=== PATIENT | female | born 1940 | race Caucasian/White ===

== ENCOUNTER 2020-06-16 13:10 | Outpatient (REF) | payer MEDICARE, OTHER, SELFPAY | END 2020-06-16 13:11 | disposition home or self-care (01) | LOC: HO.LNP 13:10 | PROVIDERS: Visit Provider Internal Medicine | DX: I48.91 Unspecified atrial fibrillation (principal); Z79.01 Long term (current) use of anticoagulants ==

== ENCOUNTER → 2020-06-16 13:20 | Outpatient (BNVA) | payer MEDICARE, OTHER, SELFPAY | PROVIDERS: PCP Internal Medicine; Referring Provider Internal Medicine; Visit Provider Internal Medicine | DX: I48.0 Paroxysmal atrial fibrillation (principal); Z51.81 Encounter for therapeutic drug level monitoring; Z79.01 Long term (current) use of anticoagulants | CPT/HCPCS: 85610; 99211 ==

== ENCOUNTER 2020-07-11 12:47 | Outpatient (REF) | payer MEDICARE, OTHER, SELFPAY | END 2020-07-11 12:48 | disposition home or self-care (01) | LOC: HO.HMGCLDS 12:47 | PROVIDERS: PCP Internal Medicine; Visit Provider Internal Medicine | DX: Z20.828 Contact with and (suspected) exposure to other viral communicable diseases (principal) | CPT/HCPCS: 87635 ==

== ENCOUNTER → 2020-07-14 13:18 | Outpatient (BNVA) | payer MEDICARE, OTHER, SELFPAY | PROVIDERS: PCP Internal Medicine; Visit Provider Internal Medicine | DX: I48.0 Paroxysmal atrial fibrillation (principal); Z51.81 Encounter for therapeutic drug level monitoring; Z79.01 Long term (current) use of anticoagulants | CPT/HCPCS: 85610; 99211 ==

== ENCOUNTER → 2020-07-22 11:15 | Outpatient (BNVA) | payer MEDICARE, OTHER, SELFPAY | PROVIDERS: PCP Internal Medicine; Referring Provider Internal Medicine; Visit Provider Nurse Practitioner Family | DX: I25.10 Atherosclerotic heart disease of native coronary artery without angina pectoris (principal); I48.19 Other persistent atrial fibrillation; I10 Essential (primary) hypertension; E78.00 Pure hypercholesterolemia, unspecified; R07.89 Other chest pain; Z95.2 Presence of prosthetic heart valve; Z95.1 Presence of aortocoronary bypass graft | CPT/HCPCS: 93005; 99212 ==

== ENCOUNTER → 2020-08-04 13:03 | Outpatient (BNVA) | payer MEDICARE, OTHER, SELFPAY | PROVIDERS: PCP Internal Medicine; Visit Provider Internal Medicine | DX: I48.0 Paroxysmal atrial fibrillation (principal); Z51.81 Encounter for therapeutic drug level monitoring; Z79.01 Long term (current) use of anticoagulants | CPT/HCPCS: 85610; 99211 ==

== ENCOUNTER → 2020-08-25 13:07 | Outpatient (BNVA) | payer MEDICARE, OTHER, SELFPAY | PROVIDERS: PCP Internal Medicine; Visit Provider Internal Medicine | DX: I48.0 Paroxysmal atrial fibrillation (principal); Z51.81 Encounter for therapeutic drug level monitoring; Z79.01 Long term (current) use of anticoagulants | CPT/HCPCS: 85610; 99211 ==

== ENCOUNTER → 2020-09-22 13:06 | Outpatient (BNVA) | payer MEDICARE, OTHER, SELFPAY | PROVIDERS: PCP Internal Medicine; Visit Provider Internal Medicine | DX: I48.0 Paroxysmal atrial fibrillation (principal); Z79.01 Long term (current) use of anticoagulants; Z51.81 Encounter for therapeutic drug level monitoring | CPT/HCPCS: 85610; 99211 ==

== ENCOUNTER → 2020-10-20 13:02 | Outpatient (BNVA) | payer MEDICARE, OTHER, SELFPAY | PROVIDERS: PCP Internal Medicine; Visit Provider Internal Medicine | DX: I48.0 Paroxysmal atrial fibrillation (principal); Z51.81 Encounter for therapeutic drug level monitoring; Z79.01 Long term (current) use of anticoagulants | CPT/HCPCS: 85610; 99211 ==

== ENCOUNTER 2020-10-27 09:10 | Outpatient (REF) | payer MEDICARE, OTHER, SELFPAY ==
[2020-10-27 11:19] LABS: MANUAL DIFF FLAG NO
[2020-10-27 11:33] LABS: Basophils Percent Auto 0.5 % (0-2); Eosinophils Absolute Auto 0.1 X10*3/uL (0.0-0.4); Eosinophils Percent Auto 1.9 % (0-4); Hematocrit 34.8 % (37-47); Hemoglobin 11.4 g/dl (12.0-16.0); Imm Gran Abs Auto 0.06 X10*3/uL (0.00-0.03); Imm Gran Pct Auto 0.8 % (0.0-0.4); Immature Retic Fraction 25.7 % (3.0-15.9); Lymphocytes Absolute Auto 4.2 X10*3/uL (1.2-4.9); Lymphocytes Percent Auto 56.6 % (20-40); Mean Corpuscular HGB Conc 32.8 g/dl (31.0-35.0); Mean Corpuscular Hemoglobin 33.2 pg (27.0-33.0); Mean Corpuscular Volume 101.5 fL (80-98); Mean Platelet Volume 12.7 fL (9.4-12.3); Monocytes Absolute Auto 0.5 X10*3/uL (0.1-1.2); Monocytes Percent Auto 6.8 % (2-11); Neutrophils Absolute Auto 2.5 X10*3/uL (2.0-8.3); Neutrophils Percent Auto 33.4 % (45-73); Platelet Count 146 X10*3/uL (160-400); Red Blood Count 3.43 X10*6/uL (4.20-5.50); Red Cell Distribution Width 17.2 % (11.0-16.0); Retic HGB Equivalent 34.2 pg (30.0-35.0); Reticulocyte Percent 2.6 % (0.5-1.8); Reticulocytes Absolute 0.088 X10*6/uL (0.026-0.095); White Blood Count 7.4 X10*3/uL (4.8-10.8)
[2020-10-27 11:35] LABS: Estimated Average Glucose 120 mg/dL; Hemoglobin A1c % 5.8 %
[2020-10-27 11:54] LABS: Alanine Aminotransferase 10 U/L (0-31); Albumin Level 3.8 g/dL (3.5-5.0); Alkaline Phosphatase 65 U/L (39-117); Anion Gap 14 (12-20); Aspartate Amino Transferase 21 U/L (5-31); Blood Urea Nitrogen 22 mg/dL (9-16); Calcium 8.6 mg/dL (8.4-10.2); Carbon Dioxide 23 mmol/L (22-29); Chloride 105 mmol/L (96-108); Cholesterol 158 mg/dL; Estimated Glomerular Filt Rate 52; Glucose Random 133 mg/dL (60-115); HDL Cholesterol 46 mg/dL; Iron 102 mcg/dL (30-160); LDL Cholesterol Calculated 96 mg/dl; Percent Iron Saturation 28 % (15-50); Potassium 4.5 mmol/L (3.3-5.1); Sodium 137 mmol/L (135-145); Total Iron Binding Capacity 362 mcg/dL (228-428); Total Protein 7.1 g/dL (6.5-8.0); Triglycerides 81 mg/dL; Unsaturated Iron Binding 260 ug/dL
[2020-10-27 12:17] LABS: Microalbum/Creatinine Ratio Ur 14.9 ug/mg cr
[2020-10-27 12:20] LABS: Ferritin 131 ng/mL (10-250); Free T4 (Free Thyroxine) 0.91 ng/dL (0.71-1.85); Thyroid Stimulating Hormone 5.42 uIU/mL (0.32-4.0); Vitamin D 25-OH Total 11.8 ng/mL (>30)
[2020-10-27 12:28] LABS: Folate 8.2 ng/mL (> or = 4.0); Vitamin B12 376 pg/mL (200-900)
[2020-10-27 12:29] LABS: Glucose Urine UA NEG (NEG); Leukocyte Esterase Urine 1+ (NEG); Nitrite Urine NEG (NEG); Urine Blood 1+ (NEG); Urine Ketones NEG (NEG); Urine Protein NEG (NEG-TRACE)
[2020-10-27 12:42] LABS: Appearance Urine HAZY; Color Urine YELLOW
[2020-10-27 13:19] LABS: RBC Urine 0 /HPF (0)
[2020-10-27 13:20] LABS: Bacteria Urine 3+ /LPF; Squamous Epithelial Cell Urine 3+ /LPF
== END 2020-10-27 09:11 | disposition home or self-care (01) ==
LOC: HO.HMGCLDS 09:10
PROVIDERS: PCP Internal Medicine; Visit Provider Internal Medicine
DX: I10 Essential (primary) hypertension (principal); D64.9 Anemia, unspecified; I48.19 Other persistent atrial fibrillation; E11.65 Type 2 diabetes mellitus with hyperglycemia; E78.00 Pure hypercholesterolemia, unspecified; E55.9 Vitamin D deficiency, unspecified
CPT/HCPCS: 36415; 80053; 80061; 81001; 82043; 82306; 82607; 82728; 82746; 83036; 83540; 84439; 84443; 85025; 85045

== ENCOUNTER → 2020-11-15 13:01 | Outpatient (REF) | payer MEDICARE, OTHER, SELFPAY ==
--- NOTE | 2020-11-15 13:00 | CA_ITS ---
Transthoracic Echocardiogram Patient (Last, First, Middle): Tamra Rivera A Gender: Female Date of : 1940 Age: 80 Procedure Date: 11/15/2020 Procedure Type: Transthoracic Echocardiogram Location: OP Height: 157.48 cm Weight: 90.72 kg BSA: 1.91 m2 Heart Rate: bpm BP: 116 / 56 mmHg Administrative Resources Associate: Referring MD: Yossi Terrell MD Symptoms: I48.2 PERMANENT AFIB . Z95.0 PACEMAKER IN SITU, I44.2 H BLOC Study Quality: Fair ECG Rhythm: Ventriculary paced rhythm Conclusions: - The left ventricular systolic function is normal. The visually estimated ejection fraction is between 55-60%. 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 - There is moderate mitral annular calcification. - There is moderate tricuspid valve regurgitation. - Moderate to severe pulmonary hypertension is present. Findings Left Ventricle Normal left ventricular cavity size. There is normal left ventricular wall thickness. The left ventricular systolic function is normal. The visually estimated ejection fraction is between 55-60%. There is no evidence of regional wall motion abnormalities. Diastolic function is indeterminate on the basis of available data. Right Ventricle Normal right ventricular cavity size and systolic function. Atria The left atrium is normal in size. The right atrium is normal in size. Aortic Valve The aortic valve was not well visualized. The peak aortic velocity is 3.48 m/s with a calculated peak gradient of 48 mmHg. The mean gradient is 30 mmHg. The aortic valve area is 1.13 cm2. There is no aortic valve regurgitation. By history, bioprosthetic aortic valve. Acceleration time- 100 milliseconds. 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 Mitral Valve There is moderate mitral annular calcification. There is mild mitral valve regurgitation. There is no mitral valve stenosis. Pulmonic Valve The pulmonic valve was not well visualized. There is trace pulmonic valve regurgitation. Tricuspid Valve Normal tricuspid valve structure. There is moderate tricuspid valve regurgitation. The right ventricular systolic pressure is 62 mmHg. Moderate to severe pulmonary hypertension is present. Great Vessels The aortic annulus, sinuses of valsalva, and asc aorta are normal in size. Venous The inferior vena cava is normal in size and collapses greater than 50% with inspiration. Pericardium/Pleural There is no evidence of pericardial effusion. Prior Study Comparison Changes noted compared to prior study dated: 04/20/2019. See comments on bioprosthetic aortic valve/pulmonary artery pressure. Measurements 2D Linear Measurements IVSd: 1.02 0.6-0.9/0.6-1.0 cm LVIDd: 4.85 3.9-5.3/4.2-5.9 cm LVIDd Index: 2.54 2.4-3.2/2.2-3.1 cm/m2 LVIDs: 3.40 2.0-3.6 cm LVPWd: 1.14 0.7-1.1 cm Ao Root: 3.10 2.1-3.5 cm LA Diam: 3.70 2.7-3.8/3.0-4.0 cm LAIDs Index: 1.94 1.5-2.3 cm/m2 LV Mass: 239.60 67-162/88-224 g LV Mass Index: 125.45 43-95/49-115 g/m2 LVOT Diam: 2.00 3.0+(-)1.3 cm 2D Systolic Function EF 4C: 45.50 >55% EF 2C: 53.80 >55% Mitral Valve MV VTI: 0.37 MV Pk Stephen: 1.68 MV Mn Stephen: 0.71 MV Pk Grad: 11.00 MV Mn Grad: 3.00 MV Pk E: 1.59 MV Decel Time: 224.00 E'Lateral: 10.10 E'Medial: 6.20 E/E' Med: 25.60 E/E' Lat: 15.70 PHT: 65.00 MVA PHT: 3.38 MVA Continuity: 2.53 Decel [place]: 7.12 Aortic Valve AoV Pk Stephen: 3.48 AoV Mn Stephen: 2.61 AoV VTI: 0.82 AoV Pk Grad: 48.00 Aov Mn Grad: 30.00 AMEE Cont.VTI: 1.13 LVOT LVOT Pk Stephen: 1.20 LVOT Mn Stephen: 0.93 LVOT VTI: 0.30 LVOT Pk Grad: 6.00 LVOT Mn Grad: 4.00 LVOT Diam: 2.00 LVOT Area: 3.14 Diastolic Function MV Pk E: 1.59 E'Medial: 6.20 E/E' Med: 25.60 E' Laterial: 10.10 E/E' Lat: 15.70 Tricuspid Valve TR Pk Stephen: 3.68 TR Pk Grad: 54.00 RA Press: 8.00 RVSP: 62.00 Great Vessels Aorta Ao Root-2D: 3.10 2.0-3.7 cm Ao Asc: 3.80 2.1-3.4 cm Pulmonary Valve PV Pk Stephen: 1.10 Peak PV Grad: 5.00 Updated in Other Vendor System with Status of Final Stanton Pyle MD electronically signed on 11/16/2020 4:28:48 PM with status of Final
== END ==
LOC: HO.CARD 13:01
PROVIDERS: Visit Provider Internal Medicine Cardiovascular Disease
DX: I44.2 Atrioventricular block, complete (principal); Z95.0 Presence of cardiac pacemaker; Z95.2 Presence of prosthetic heart valve
CPT/HCPCS: 85610; 93306; 99211

== ENCOUNTER → 2020-11-28 12:46 | Outpatient (BNVA) | payer MEDICARE, OTHER, SELFPAY | PROVIDERS: PCP Internal Medicine; Visit Provider Internal Medicine Cardiovascular Disease | DX: Z45.018 Encounter for adjustment and management of other part of cardiac pacemaker (principal); R07.89 Other chest pain; I48.19 Other persistent atrial fibrillation; I25.10 Atherosclerotic heart disease of native coronary artery without angina pectoris; T82.09XA Other mechanical complication of heart valve prosthesis, initial encounter; Z95.2 Presence of prosthetic heart valve | CPT/HCPCS: 99212 ==

== ENCOUNTER → 2020-12-08 09:38 | Outpatient (REF) | payer MEDICARE, OTHER, SELFPAY ==
--- NOTE | ~2020-12-08 | NM_ITS ---
Lexiscan Myocardial perfusion study Indication: Chest pain, assess for coronary disease and ischemia Technique: The patient was brought in for a Lexiscan perfusion study on 12/08/2020 and was injected 0.4 mg of Lexiscan intravenously. Within a minute of this injection 30 mCi of sestamibi was given intravenously. Images were obtained using the SPECT gamma camera interlaced with the gating device. Images were obtained in supine position. Resting perfusion study was performed on 12/14/2020. Patient was administered 30 mCi of sestamibi intravenously at rest. Images were then obtained in supine position. Total DLP 81mGy-cm. Images were processed with the software and compared side to side in short axis, horizontal long axis and vertical long axis views. Findings: Raw acquisition was reviewed. The stress perfusion study showed a small perfusion defect in the apical part of septum/inferior septum but otherwise unremarkable. No significant changes with CT attenuation correction. The gated study shows normal LV systolic function with calculated LVEF of 69%. LV cavity is normal in size. The gated study shows normal wall thickening and contraction of segments. Resting study shows small perfusion defect in the apical part of septum but otherwise unremarkable. Gating at rest reveals normal wall motion with ejection fraction at 71%. The findings are consistent with no reversible defects. Fixed defect in the apical part of septum/inferior septum. NM/NM josue perf SPECT rest & str Impression: 1. Myocardial perfusion imaging study shows no evidence of ischemia. Fixed defect in the apical septum/inferior septum that could be from a prior nontransmural infarct. 2. Gated LVEF is 69% during stress and 71% during rest. 3. Transient ischemic dilatation not present. EKG component of the test reported separately.
--- NOTE | 2020-12-08 09:43 | CA_ITS ---
Acquisition Time: 2020-12-08 09:53:47 Total Exercise Time: 00:02:00 Test Indications: cp sob Medications: see chart Protocol: LEXISCAN Max HR: 080 BPM 57% of Pred: 138 BPM Max BP: 146/068 mmHG Max Work Load: 1.0 METS Pharmacological stress test using Lexiscan while sitting. Pt tolerated well, except for some lightheadedness after the injection,reversed with Aminophyline 75 mg IV. EKG with isolated PVC's, non-diagnostic for ischemia. Nuclear images to follow. Normotensive response to test. Test reviewed with Dr. Pyle Referred By: Yossi Terrell Overread By: Joceline Riley NP
== END ==
LOC: HO.CARD 09:38
PROVIDERS: Visit Provider Internal Medicine Cardiovascular Disease
DX: R07.89 Other chest pain (principal)
CPT/HCPCS: 78452; 93017; A9500; J0280; J2785

== ENCOUNTER → 2020-12-14 13:35 | Outpatient (REF) | payer MEDICARE, OTHER, SELFPAY | LOC: HO.NUCMED 13:35 | PROVIDERS: Visit Provider Internal Medicine Cardiovascular Disease | DX: I48.0 Paroxysmal atrial fibrillation (principal); Z51.81 Encounter for therapeutic drug level monitoring; Z79.01 Long term (current) use of anticoagulants | CPT/HCPCS: 85610; 99211 ==

== ENCOUNTER → 2021-01-11 13:16 | Outpatient (BNVA) | payer MEDICARE, OTHER, SELFPAY | PROVIDERS: Visit Provider Internal Medicine | DX: I48.0 Paroxysmal atrial fibrillation (principal); Z51.81 Encounter for therapeutic drug level monitoring; Z79.01 Long term (current) use of anticoagulants | CPT/HCPCS: 85610; 99211 ==

== ENCOUNTER 2021-01-29 16:59 | Inpatient (IN) | payer MEDICARE, OTHER, SELFPAY ==
--- NOTE | ~2021-01-29 | US_ITS ---
EXAMINATION: US ABDOMEN LIMITED CLINICAL INFORMATION: Right upper quadrant pain. COMPARISON: CT scan this evening TECHNIQUE: Real-time imaging of the right upper quadrant abdominal viscera. FINDINGS: PANCREAS: Obscured by overlying bowel gas LIVER: Normal. The liver is normal in size. The liver contour is normal. Parenchymal echogenicity is normal. No focal hepatic lesion. There is no intrahepatic biliary duct dilatation seen. GALLBLADDER: Gallstones is seen in the dependent portion of the gallbladder. There is diffuse gallbladder wall thickening with increased vascularity. The gallbladder wall measures up to 0.6 cm with surrounding amount of pericholecystic fluid. Patient was medicated but no obvious sonographic Knowles sign identified. COMMON BILE DUCT: Normal in caliber measuring 0.3 cm in diameter. RIGHT KIDNEY: 2.3 cm mid pole cyst. No hydronephrosis. No renal calculi or focal parenchymal lesions. The kidney measures 10.4 cm in maximum dimension. FREE FLUID: None. US/US abdomen limited IMPRESSION: Abnormal gallbladder wall thickening with pericholecystic fluid and gallstones. Patient was medicated and a sonographic Knowles's sign was not readily elicited. Clinical correlation for cholecystitis would be needed with this appearance
--- NOTE | ~2021-01-29 | CT_ITS ---
EXAMINATION: CT ABDOMEN AND PELVIS WITHOUT CONTRAST CLINICAL INFORMATION: Right flank pain. Question stone. COMPARISON: CT abdomen 09/26/2017. TECHNIQUE: Multidetector volumetric imaging was performed from the superior aspect of the liver through the pubic symphysis. Sagittal and coronal reformatted images were obtained on the technologist's workstation. This CT examination was performed using dose optimization techniques as appropriate, variously including the following: *Automated exposure control. *Adjustment of mA and/or kV according to patient size (this includes techniques or standardized protocols for targeted exams where dose is matched to indication/reason for exam; i.e. extremities or head). *Use of iterative reconstruction technique. DLP: 897 mGy-cm FINDINGS: LUNG BASES: Bibasilar atelectasis. Mild cardiomegaly. Partially imaged presumed pacer wires. LIVER, GALLBLADDER, AND BILIARY TREE: No focal liver lesion. No biliary duct dilatation. A 1.5 cm gallstone. Hazy density otherwise within the lumen, could present gravel or echogenic bile/sludge. There is apparent prominent gallbladder wall thickening/edema, with mild haziness in the surrounding fat. These findings could represent acute cholecystitis. PANCREAS: There is mild haziness adjacent to the neck of the gallbladder, as well as the medial head of the pancreas. This could be related to the gallbladder process. Pancreatitis cannot be excluded. The pancreas is otherwise atrophic. SPLEEN: Unremarkable. ADRENAL GLANDS: Unremarkable. KIDNEYS AND URETERS: Right renal lower pole approximately 1.5 cm cyst, stable. Left renal lower pole exophytic 2.6 cm cyst. No renal calculi. No ureteral calculi. No hydronephrosis. BLADDER: Underdistended, grossly unremarkable. GASTROINTESTINAL TRACT: No bowel obstruction. Scattered colonic diverticuli without evidence of diverticulitis. Cecum is in the right mid abdomen. Appendix appears unremarkable. ABDOMINAL WALL: Small fat-containing umbilical hernia. LYMPH NODES: No lymphadenopathy seen. VASCULAR: Normal caliber aorta. Prominent atherosclerotic vascular calcification. PELVIC VISCERA: Unremarkable. OSSEOUS STRUCTURES: Grade 1 anterolisthesis of L4, stable. Multilevel spondylosis in the lumbar spine. CT/CT abdomen pelvis wo con IMPRESSION: 1. Cholelithiasis. There is apparent prominent gallbladder wall thickening/edema, and haziness adjacent to the gallbladder. Findings raise concern for acute cholecystitis. Recommend further evaluation with ultrasound. 2. Haziness/stranding adjacent to the gallbladder neck, as well as in the region of the head of pancreas. This could be related to the cholecystitis, component of pancreatitis cannot be excluded. Correlate with bloodwork. 3. Bilateral renal cysts. 4. Severe lumbar spondylosis.
--- NOTE | 2021-01-29 17:05 | ED_ITS ---
HPI - General Adult General Chief complaint: Abdominal Pain Stated complaint: not feeling well, fever Time Seen by Provider: 01/29/21 17:05 Source: patient Mode of arrival: EMS Limitations: no limitations History of Present Illness HPI narrative: Patient with history of kidney stone atrial fibrillation on Coumadin complaining of pain and right flank and r uq started all of a sudden yesterday evening after supper, off and on pain all day, now is getting better also complaining of constipation which is going on for a long time she is still moving her bowels but very small amount no significant abdominal dist ension no vomiting no dysuria no frequency no blood in the urine no fever or chills Related Data Home Medications Medication Instructions Recorded Confirmed acetaminophen 325 mg tablet 325 mg PO QID PRN 07/01/20 01/29/21 fluticasone propionate 50 2 spray INTRANASAL DAILY 07/01/20 01/29/21 mcg/actuation nasal spray,suspension coenzyme Q10 100 mg capsule 100 mg PO DAILY 12/14/20 01/29/21 blood sugar diagnostic [FreeStyle 01/29/21 01/29/21 Lite Strips] clonazepam 1 tab PO BEDTIME 01/29/21 01/29/21 losartan 1 tab PO DAILY 01/29/21 01/29/21 metoprolol succinate 1 tab PO DAILY 01/29/21 01/29/21 warfarin 1 tab PO DAILY 01/29/21 01/29/21 Previous Rx's Medication Instructions Recorded blood sugar diagnostic 1 strip MISCELLANEOUS DAILY 90 11/17/20 Days #100 ea Allergies Allergy/AdvReac Type Severity Reaction Status Date / Time meperidine [From Demerol] Allergy Mild UNKNOWN Verified 01/29/21 22:24 nitrofurantoin Allergy Mild UNKNOWN Verified 01/29/21 22:24 [From Macrodantin] Penicillins Allergy Mild UNKNOWN Verified 01/29/21 22:24 Sulfa (Sulfonamide Allergy Mild UNKNOWN Verified 01/29/21 22:24 Antibiotics) Tightwad Syrup Allergy Unknown Unknown Verified 01/29/21 22:24 ezetimibe [Zetia] Allergy Unknown Unknown Verified 01/29/21 22:24 Iodinated Contrast Media Allergy Unknown ?RASH Verified 01/29/21 22:24 [IV CONTRAST] lisinopril Allergy Unknown Unknown Verified 01/29/21 22:24 statin Allergy Unknown unknown Verified 01/29/21 22:24 acetaminophen [From PERCOCET] AdvReac Intermediate SEEING Verified 01/29/21 22:24 THINGS AFTER PERCOCET THAT WERE NOT THERE Review of Systems Review of Systems: Constitutional : No Weight loss, + Fever, No Chills ENT/Mouth : No sore throat, No Rhinorrhea Eyes: No Eye Pain, No Swelling Cardiovascular : No Chest Pain, no palpitations Respiratory : No Cough, No Sputum, no shortness of breath Gastrointestinal : no Nausea, No Vomiting, No Diarrhea, No abdominal Pain, no black stools , constipation++ Genitourinary : No Dysuria, No Urinary Frequency Musculoskeletal : No joint pain, No Myalgias, No Joint Swelling Skin : No Skin Lesions, No rash Neuro : No Weakness, No Numbness, No Dizziness, No Headache Psych : No Anxiety/Panic, No Depression Heme/Lymph: No Bruising, No Lymphadenopathy Endocrine : No Polyuria, No Polydipsia All other systems reviewed and are negative [facility] Past Medical History Medical History Anemia Anxiety Ascending aorta dilatation Atrial fibrillation CAD (coronary artery disease) Cardiac pacemaker in situ Chest discomfort Cholelithiases Complete heart block Gastric ulcer History of breast cancer Hypercholesterolemia Hypertension Osteoarthritis of knee Prosthetic valve dysfunction Type 2 diabetes mellitus with hyperglycemia Vitamin D deficiency Surgical History Aortic valve replaced History of bilateral mastectomy History of pacemaker History of surgery on left wrist History of tonsillectomy S/P CABG x 2 (~03/2010) Family History Family History Father CVD (cardiovascular disease) Mother Stroke Social History Social History Alcohol intake: current Alcohol intake frequency: holidays/special occasions only Smoking Status: Never smoker Advance Directives: No Advance Directives Information Provided: No Physical Exam Vital Signs: Vital Signs: Last Vital Signs Temp 98.4 F 01/29/21 22:49 Pulse 65 01/29/21 22:49 Resp 19 01/29/21 22:49 BP 125/53 L 01/29/21 22:49 Pulse Ox 98 01/29/21 22:49 Body Mass Index 35.4 Appearance: Alert. Oriented X3. No acute distress. Eyes: PERRLA, No Nystagmus ENT: Pharynx normal. Oral Mucosa moist Neck: Normal inspection. Neck supple. CVS: Normal heart rate and rhythm. Pulses normal. Respiratory: No respiratory distress. Equal air entry bilateral, no wheezing/rales/rhonchi Abdomen: Soft ,+ tenderness right upper quadrant no guarding or rebound tenderness, Bowel sounds are present, no mass palpable, right CVA tenderness + Skin: Skin warm and dry. Normal skin color. Normal skin turgor. Extremities: No lower extremity edema. No calf tenderness Neuro: Oriented X 3. No motor deficit. No sensory deficit.No cerebellar signs , cranial nerves II-XII intact Medical Decision Making MDM Narrative Medical decision making narrative: Patient's right upper quadrant right flank pain workup showed cholelithiasis with inflammation suggestive of cholecystitis. LFTs are slightly elevated 2.9 AST [address] scan showed cholelithiasis with gallbladder wall thickening his anus/stranding around the gallbladder neck and the region of the head of pancreas no CBD stone seen cholecystitis with gallbladder wall thickening to 0.6 cm and pericholecystic fluid with CBD 0.3 cm. Patient Coumadin INR of 2.[address] Lovell surgery will admit patient to their service Lab Data Lab results reviewed: Yes I reviewed the patient's lab results. Result diagrams: 01/29/21 17:59 01/29/21 17:59 Labs: Lab Results 01/29/21 01/29/21 01/29/21 Range/Units 17:59 17:59 17:59 WBC 8.7 (4.8-10.8) X10*3/uL RBC 3.15 L (4.20-5.50) X10*6/uL Hgb 11.2 L (12.0-16.0) g/dl Hct 33.0 L (37-47) % MCV 104.8 H (80-98) fL MCH 35.6 H (27.0-33.0) pg MCHC 33.9 (31.0-35.0) g/dl RDW 17.9 H (11.0-16.0) % Plt Count 144 L (160-400) X10*3/uL MPV 11.9 (9.4-12.3) fL Immature Gran % (Auto) 3.8 H (0.0-0.4) % Neut % (Auto) 70.0 (45-73) % Lymph % (Auto) 17.5 L (20-40) % Garza % (Auto) 8.5 (2-11) % Eos % (Auto) 0.1 (0-4) % Baso % (Auto) 0.1 (0-2) % Lymph # (Auto) 1.5 (1.2-4.9) X10*3/uL Garza # (Auto) 0.7 (0.1-1.2) X10*3/uL Eos # (Auto) 0.0 (0.0-0.4) X10*3/uL Baso # (Auto) 0.0 (0.0-0.2) X10*3/uL Abs Immat Gran (auto) 0.33 H (0.00-0.03) X10*3/uL Absolute Neuts (auto) 6.1 (2.0-8.3) X10*3/uL Absolute Nucleated RBC 0.040 H (0.0-0.012) X10*3/uL Nucleated RBC % (auto) 0.5 H (0.0-0.2) /100WBC PT 31.5 H (10.8-13.0) SEC INR 2.6 H (0.9-1.1) Sodium 133 L (135-145) mmol/L Potassium 4.5 (3.3-5.1) mmol/L Chloride 102 (96-108) mmol/L Carbon Dioxide 19 L (22-29) mmol/L Anion Gap 17 (12-20) BUN 24 H (9-16) mg/dL Creatinine 0.87 (0.5-1.4) mg/dL Estim Creat Clear Calc 53.3 Estimated GFR > 60 Random Glucose 167 H (60-115) mg/dL Lactic Acid (0.5-2.0) mmol/L Calcium 8.5 (8.4-10.2) mg/dL Total Bilirubin (0.0-1.0) mg/dL Direct Bilirubin (0.0-0.5) mg/dL AST (5-31) U/L ALT (0-31) U/L Alkaline Phosphatase (39-117) U/L Total Protein (6.5-8.0) g/dL Albumin (3.5-5.0) g/dL Lipase 23 (8-78) U/L Urine Color Urine Appearance Urine pH (5.0-8.0) Ur Specific [place] (1.005-1.025) Urine Protein (NEG-TRACE) MG/DL Urine Glucose (UA) (NEG) MG/DL Urine Ketones (NEG) MG/DL Urine Blood (NEG) Urine Nitrite (NEG) Ur Leukocyte Esterase (NEG) Urine RBC (0) /HPF Urine WBC (0-4) /HPF Ur Squamous Epith Cells /LPF Ur Renal Epithelial Cell /LPF Urine Bacteria /LPF COVID-19 (VIN) (Negative) COVID-19 Clin Com 01/29/21 01/29/21 01/29/21 Range/Units 17:59 20:03 22:15 WBC (4.8-10.8) X10*3/uL RBC (4.20-5.50) X10*6/uL Hgb (12.0-16.0) g/dl Hct (37-47) % MCV (80-98) fL MCH (27.0-33.0) pg MCHC (31.0-35.0) g/dl RDW (11.0-16.0) % Plt Count (160-400) X10*3/uL MPV (9.4-12.3) fL Immature Gran % (Auto) (0.0-0.4) % Neut % (Auto) (45-73) % Lymph % (Auto) (20-40) % Garza % (Auto) (2-11) % Eos % (Auto) (0-4) % Baso % (Auto) (0-2) % Lymph # (Auto) (1.2-4.9) X10*3/uL Garza # (Auto) (0.1-1.2) X10*3/uL Eos # (Auto) (0.0-0.4) X10*3/uL Baso # (Auto) (0.0-0.2) X10*3/uL Abs Immat Gran (auto) (0.00-0.03) X10*3/uL Absolute Neuts (auto) (2.0-8.3) X10*3/uL Absolute Nucleated RBC (0.0-0.012) X10*3/uL Nucleated RBC % (auto) (0.0-0.2) /100WBC PT (10.8-13.0) SEC INR (0.9-1.1) Sodium (135-145) mmol/L Potassium (3.3-5.1) mmol/L Chloride (96-108) mmol/L Carbon Dioxide (22-29) mmol/L Anion Gap (12-20) BUN (9-16) mg/dL Creatinine (0.5-1.4) mg/dL Estim Creat Clear Calc Estimated GFR Random Glucose (60-115) mg/dL Lactic Acid (0.5-2.0) mmol/L Calcium (8.4-10.2) mg/dL Total Bilirubin 2.9 H (0.0-1.0) mg/dL Direct Bilirubin 1.3 H (0.0-0.5) mg/dL AST 37 H D (5-31) U/L ALT 29 (0-31) U/L Alkaline Phosphatase 73 (39-117) U/L Total Protein 7.1 (6.5-8.0) g/dL Albumin 3.8 (3.5-5.0) g/dL Lipase (8-78) U/L Urine Color YELLOW Urine Appearance CLEAR Urine pH 5.5 (5.0-8.0) Ur Specific [place] 1.020 (1.005-1.025) Urine Protein NEG (NEG-TRACE) MG/DL Urine Glucose (UA) NEG (NEG) MG/DL Urine Ketones NEG (NEG) MG/DL Urine Blood 2+ H (NEG) Urine Nitrite NEG (NEG) Ur Leukocyte Esterase NEG (NEG) Urine RBC 5-9 H (0) /HPF Urine WBC 1-4 (0-4) /HPF Ur Squamous Epith Cells 2+ /LPF Ur Renal Epithelial Cell TRACE /LPF Urine Bacteria TRACE /LPF COVID-19 (VIN) Negative (Negative) COVID-19 Clin Com See Note 01/29/21 Range/Units 22:15 WBC (4.8-10.8) X10*3/uL RBC (4.20-5.50) X10*6/uL Hgb (12.0-16.0) g/dl Hct (37-47) % MCV (80-98) fL MCH (27.0-33.0) pg MCHC (31.0-35.0) g/dl RDW (11.0-16.0) % Plt Count (160-400) X10*3/uL MPV (9.4-12.3) fL Immature Gran % (Auto) (0.0-0.4) % Neut % (Auto) (45-73) % Lymph % (Auto) (20-40) % Garza % (Auto) (2-11) % Eos % (Auto) (0-4) % Baso % (Auto) (0-2) % Lymph # (Auto) (1.2-4.9) X10*3/uL Garza # (Auto) (0.1-1.2) X10*3/uL Eos # (Auto) (0.0-0.4) X10*3/uL Baso # (Auto) (0.0-0.2) X10*3/uL Abs Immat Gran (auto) (0.00-0.03) X10*3/uL Absolute Neuts (auto) (2.0-8.3) X10*3/uL Absolute Nucleated RBC (0.0-0.012) X10*3/uL Nucleated RBC % (auto) (0.0-0.2) /100WBC PT (10.8-13.0) SEC INR (0.9-1.1) Sodium (135-145) mmol/L Potassium (3.3-5.1) mmol/L Chloride (96-108) mmol/L Carbon Dioxide (22-29) mmol/L Anion Gap (12-20) BUN (9-16) mg/dL Creatinine (0.5-1.4) mg/dL Estim Creat Clear Calc Estimated GFR Random Glucose (60-115) mg/dL Lactic Acid 2.1 H* (0.5-2.0) mmol/L Calcium (8.4-10.2) mg/dL Total Bilirubin (0.0-1.0) mg/dL Direct Bilirubin (0.0-0.5) mg/dL AST (5-31) U/L ALT (0-31) U/L Alkaline Phosphatase (39-117) U/L Total Protein (6.5-8.0) g/dL Albumin (3.5-5.0) g/dL Lipase (8-78) U/L Urine Color Urine Appearance Urine pH (5.0-8.0) Ur Specific [place] (1.005-1.025) Urine Protein (NEG-TRACE) MG/DL Urine Glucose (UA) (NEG) MG/DL Urine Ketones (NEG) MG/DL Urine Blood (NEG) Urine Nitrite (NEG) Ur Leukocyte Esterase (NEG) Urine RBC (0) /HPF Urine WBC (0-4) /HPF Ur Squamous Epith Cells /LPF Ur Renal Epithelial Cell /LPF Urine Bacteria /LPF COVID-19 (VIN) (Negative) COVID-19 Clin Com Imaging Data US - abdomen: Radiologist's impression: Ordering Physician: Miguel Flores MD Date of Service: 01/29/21 Procedure(s): US abdomen limited Accession Number(s): [id number] cc: Miguel Flores MD~ EXAMINATION: US ABDOMEN LIMITED CLINICAL INFORMATION: Right upper quadrant pain. COMPARISON: CT scan this evening TECHNIQUE: Real-time imaging of the right upper quadrant abdominal viscera. FINDINGS: PANCREAS: Obscured by overlying bowel gas LIVER: Normal. The liver is normal in size. The liver contour is normal. Parenchymal echogenicity is normal. No focal hepatic lesion. There is no intrahepatic biliary duct dilatation seen. GALLBLADDER: Gallstones is seen in the dependent portion of the gallbladder. There is diffuse gallbladder wall thickening with increased vascularity. The gallbladder wall measures up to 0.6 cm with surrounding amount of pericholecystic fluid. Patient was medicated but no obvious sonographic Knowles sign identified. COMMON BILE DUCT: Normal in caliber measuring 0.3 cm in diameter. RIGHT KIDNEY: 2.3 cm mid pole cyst. No hydronephrosis. No renal calculi or focal parenchymal lesions. The kidney measures 10.4 cm in maximum dimension. FREE FLUID: None. US/US abdomen limited IMPRESSION: Abnormal gallbladder wall thickening with pericholecystic fluid and gallstones. Patient was medicated and a sonographic Knowles's sign was not readily elicited. Clinical correlation for cholecystitis would be needed with this appearance CT scan - abdomen: My impression: [address], [place] [id number] Scan ReportSigned Patient: Tamra Rivera [facility]#: [id number]: 8Acct:[id number]/Sex: 80 / FADM Date: 01/29/21Loc: HO.EDAttending Dr: Ordering Physician: Miguel Flores MD Date of Service: 01/29/21 Procedure(s): CT abdomen pelvis wo con Accession Number(s): [id number] cc: Miguel Flores MD~ EXAMINATION: CT ABDOMEN AND PELVIS WITHOUT CONTRAST CLINICAL INFORMATION: Right flank pain. Question stone. COMPARISON: CT abdomen 09/26/2017. TECHNIQUE: Multidetector volumetric imaging was performed from the superior aspect of the liver through the pubic symphysis. Sagittal and coronal reformatted images were obtained on the technologist's workstation. This CT examination was performed using dose optimization techniques as appropriate, variously including the following: *Automated exposure control. *Adjustment of mA and/or kV according to patient size (this includes techniques or standardized protocols for targeted exams where dose is matched to indication/reason for exam; i.e. extremities or head). *Use of iterative reconstruction technique. DLP: 897 mGy-cm FINDINGS: LUNG BASES: Bibasilar atelectasis. Mild cardiomegaly. Partially imaged presumed pacer wires. LIVER, GALLBLADDER, AND BILIARY TREE: No focal liver lesion. No biliary duct dilatation. A 1.5 cm gallstone. Hazy density otherwise within the lumen, could present gravel or echogenic bile/sludge. There is apparent prominent gallbladder wall thickening/edema, with mild haziness in the surrounding fat. These findings could represent acute cholecystitis. PANCREAS: There is mild haziness adjacent to the neck of the gallbladder, as well as the medial head of the pancreas. This could be related to the gallbladder process. Pancreatitis cannot be excluded. The pancreas is otherwise atrophic. SPLEEN: Unremarkable. ADRENAL GLANDS: Unremarkable. KIDNEYS AND URETERS: Right renal lower pole approximately 1.5 cm cyst, stable. Left renal lower pole exophytic 2.6 cm cyst. No renal calculi. No ureteral calculi. No hydronephrosis. BLADDER: Underdistended, grossly unremarkable. GASTROINTESTINAL TRACT: No bowel obstruction. Scattered colonic diverticuli without evidence of diverticulitis. Cecum is in the right mid abdomen. Appendix appears unremarkable. ABDOMINAL WALL: Small fat-containing umbilical hernia. LYMPH NODES: No lymphadenopathy seen. VASCULAR: Normal caliber aorta. Prominent atherosclerotic vascular calcification. PELVIC VISCERA: Unremarkable. OSSEOUS STRUCTURES: Grade 1 anterolisthesis of L4, stable. Multilevel spondylosis in the lumbar spine. CT/CT abdomen pelvis wo con IMPRESSION: 1. Cholelithiasis. There is apparent prominent gallbladder wall thickening/edema, and haziness adjacent to the gallbladder. Findings raise concern for acute cholecystitis. Recommend further evaluation with ultrasound. 2. Haziness/stranding adjacent to the gallbladder neck, as well as in the region of the head of pancreas. This could be related to the cholecystitis, component of pancreatitis cannot be excluded. Correlate with bloodwork. 3. Bilateral renal cysts. 4. Severe lumbar spondylosis. ECG Data Attestation: I personally reviewed and interpreted this ECG as follows: Interpretation: Pacemaker rhythm left axis deviation heart rate 50 65 beats per minute left bundle-branch block no acute ST T wave changes no acute ischemia Discharge Plan Discharge Clinical Impression: Acute cholecystitis Patient Disposition: Admitted As Inpatient
[2021-01-29 17:07] VITALS: BP 129/48; BP 146/87; PULSE 65; PULSE 78; RESP 18; TEMP 37; O2SAT 97; O2SAT 98; BMI 35.4
--- NOTE | 2021-01-29 17:47 | PC.NURSE ---
ambulated to bathroom w 1 assist, ordinarily ambulates at home using cane but does not have cane here. unable to obtain ua spec d/t pt missed urinal hat
[2021-01-29 18:04] LABS: MANUAL DIFF FLAG NO
[2021-01-29 18:11] LABS: INTERNATIONAL NORM RATIO 2.6 (0.9-1.1); Prothrombin Time 31.5 SEC (10.8-13.0)
[2021-01-29 18:20] LABS: Basophils Percent Auto 0.1 % (0-2); Eosinophils Percent Auto 0.1 % (0-4); Hemoglobin 11.2 g/dl (12.0-16.0); Imm Gran Abs Auto 0.33 X10*3/uL (0.00-0.03); Imm Gran Pct Auto 3.8 % (0.0-0.4); Lymphocytes Absolute Auto 1.5 X10*3/uL (1.2-4.9); Lymphocytes Percent Auto 17.5 % (20-40); Mean Corpuscular HGB Conc 33.9 g/dl (31.0-35.0); Mean Corpuscular Hemoglobin 35.6 pg (27.0-33.0); Mean Corpuscular Volume 104.8 fL (80-98); Mean Platelet Volume 11.9 fL (9.4-12.3); Monocytes Absolute Auto 0.7 X10*3/uL (0.1-1.2); Monocytes Percent Auto 8.5 % (2-11); NRBC Pct Auto 0.5 /100WBC (0.0-0.2); Neutrophils Absolute Auto 6.1 X10*3/uL (2.0-8.3); Platelet Count 144 X10*3/uL (160-400); Red Blood Count 3.15 X10*6/uL (4.20-5.50); Red Cell Distribution Width 17.9 % (11.0-16.0); White Blood Count 8.7 X10*3/uL (4.8-10.8)
[2021-01-29 18:27] LABS: Anion Gap 17 (12-20); Blood Urea Nitrogen 24 mg/dL (9-16); Calcium 8.5 mg/dL (8.4-10.2); Carbon Dioxide 19 mmol/L (22-29); Chloride 102 mmol/L (96-108); Creatinine Clr Calc Pharmacy 53.3; Estimated Glomerular Filt Rate > 60; Glucose Random 167 mg/dL (60-115); Lipase 23 U/L (8-78); Potassium 4.5 mmol/L (3.3-5.1); Sodium 133 mmol/L (135-145)
[2021-01-29 18:28] LABS: Alanine Aminotransferase 29 U/L (0-31); Albumin Level 3.8 g/dL (3.5-5.0); Alkaline Phosphatase 73 U/L (39-117); Aspartate Amino Transferase 37 U/L (5-31); Bilirubin Direct 1.3 mg/dL (0.0-0.5); Bilirubin Total 2.9 mg/dL (0.0-1.0); Total Protein 7.1 g/dL (6.5-8.0)
[2021-01-29 19:05] VITALS: BP 152/33; PULSE 71; RESP 22; O2SAT 97
[2021-01-29] MEDS: 0.9 % Sodium Chloride 1,000 ML 999 ML IVCONT (19:08)
--- NOTE | 2021-01-29 19:10 | PC.NURSE ---
Pt ambulatory to bathroom with this RN as standby assist. Pt attempted to urinate in hat, missed as she was positioned too far back on toilet. Pt returned to bed without incidence. This RN attached IVF as ordered per NOV. Pt's IV access infiltrated. This RN to make provider aware.
[2021-01-29 20:11] LABS: Glucose Urine UA NEG (NEG); Leukocyte Esterase Urine NEG (NEG); Nitrite Urine NEG (NEG); PH 5.5 (5.0-8.0); Urine Blood 2+ (NEG); Urine Ketones NEG (NEG); Urine Protein NEG (NEG-TRACE)
[2021-01-29 20:14] VITALS: BP 129/42; PULSE 65; RESP 18; O2SAT 96
--- NOTE | 2021-01-29 20:17 | PC.NURSE ---
Pt denies having pain or nausea at this time, medications not given as charted
[2021-01-29 20:18] LABS: Appearance Urine CLEAR; Color Urine YELLOW
[2021-01-29 20:23] LABS: Bacteria Urine TRACE /LPF; Renal Epithelial Cells Urine TRACE /LPF; Squamous Epithelial Cell Urine 2+ /LPF
--- NOTE | 2021-01-29 22:04 | ECG_ITS ---
Test Reason : ABDOMINAL PAIN Blood Pressure : / mmHG Vent. Rate : 065 BPM Atrial Rate : 065 BPM P-R Int : 456 ms QRS Dur : 150 ms QT Int : 454 ms P-R-T Axes : 000 -61 102 degrees QTc Int : 472 ms Ventricular-paced rhythm Underlying atrial rhythm appears to be AF Abnormal ECG When compared with ECG of 20-APR-2019 07:54, No significant changes seen Referred By: Miguel Flores Electronically Signed By:ANDRES SILVA MD
[2021-01-29 22:21] VITALS: BP 125/53; PULSE 65; RESP 13; TEMP 36.9; O2SAT 97
--- NOTE | 2021-01-29 22:28 | PC.NURSE ---
IV access lost, then obtained by Dr Flores. 22 in L wrist
[2021-01-29 22:36] LABS: COVID-19 Test Negative (Negative); IDNOW Serial# 9DD0AD1C
[2021-01-29] MEDS: cefTRIAXone sodium 1 GM in 0.9 % Sodium Chloride 50 ML IV (22:48)
[2021-01-29 22:49] VITALS: BP 125/53; PULSE 65; RESP 19; TEMP 36.9; O2SAT 98
[2021-01-29 22:59] LABS: Lactic Acid 2.1 mmol/L (0.5-2.0)
[2021-01-29] MEDS: Dextrose 5 % and Lactated Ring 1,000 ML 125 ML IVCONT (23:23)
[2021-01-30 00:08] VITALS: BP 119/53; PULSE 65; RESP 25; O2SAT 97
[2021-01-30 00:20] LABS: Reflex Lactate? Lactic Acid Added
[2021-01-30 00:53] LABS: ~Lactic Acid-LAB USE ONLY 6.2 mmol/L (0.5-2.0)
--- NOTE | 2021-01-30 01:00 | PC.NURSE ---
Dr Doe made aware of elevated lactic acid. This RN initially made Dr Ghosh aware but was advised by Davina that pt is admitted to [facility].
[2021-01-30 01:11] VITALS: BP 120/39; PULSE 65; RESP 18; TEMP 38.8; O2SAT 96
[2021-01-30] MEDS: Acetaminophen 325 MG TABLET 650 MG PO (01:25)
[2021-01-30] MEDS: metroNIDAZOLE/NS 500 MG/100 ML PIGGYBACK 100 MG IV (01:28)
[2021-01-30] MEDS: 0.9 % Sodium Chloride 1,000 ML 999 ML IVCONT (01:31)
--- NOTE | 2021-01-30 01:41 | PC.NURSE ---
When this RN contacted Dr Doe regarding patient's elevated lactic, Dr Doe requested that this RN inform ED provider for ED provider to manage pt prior to leaving ED for admission. This RN made Dr Flores aware. Dr Flores asked this RN why this RN contacted Dr Doe directly and this RN explained that when a patient is admitted, it is this RN's understanding that the admitting provider has assumed care and should manage patient. Dr Flores ordered 1 liter NS, 500mg flagyl and 650mg tylenol in response. Dr Flores made aware that plan is for pt to be transferred to floor, report previously called to Kateryna RIVERA who will be caring for patient. Dr Flores states this is ok, but to ensure that pt is medicated per orders prior to transfer. This RN medicated per NOV. This RN TT Dr Doe with update as follows: Patient Nicole has been medicated with 650mg of PO tylenol, currently receiving 500mg of IV flagyl, and 1 liter of NS. Her maintenance fluids have been paused at this time to allow for the other IV fluids. Report has been given to the RN named Kateryna who will be caring for her on the floor, and I will update her regarding the elevated lactic. The lactic will continue reflexing every 2 hours until it is WNL. Additionally, Dr Flores has left for the night and no other ED provider has received sign out on this patient. The patient will be going to the 3rd floor shortly. Patient is mentating at her baseline and VSS. Dr Doe replied with I thought she is allergic to tylenol and this RN explains She takes Tylenol daily for arthritis. Although it is listed under her allergies (from Percocet) it is verified as an adverse reaction as she was having visual hallucinations after taking percocet. This RN to call update to Kateryna RIVERA.
--- NOTE | 2021-01-30 01:59 | PC.NURSE ---
Update provided to MIGUEL Avendaño
[2021-01-30 02:32] LABS: Reflex Lactate? 2 Y
[2021-01-30 03:01] VITALS: BP 105/58; PULSE 65; RESP 20; TEMP 36.1; O2SAT 96
[2021-01-30 03:04] VITALS: BP 105/58; PULSE 65; RESP 20; TEMP 36.1
[2021-01-30 03:21] LABS: MANUAL DIFF FLAG SCAN; PLT CLUMP 1; SCAN SMEAR FLAG 1
[2021-01-30 03:29] LABS: Basophils Percent Auto 0.2 % (0-2); Eosinophils Percent Auto 0.2 % (0-4); Hematocrit 27.9 % (37-47); Hemoglobin 9.3 g/dl (12.0-16.0); Imm Gran Abs Auto 0.31 X10*3/uL (0.00-0.03); Imm Gran Pct Auto 3.7 % (0.0-0.4); Lymphocytes Absolute Auto 2.5 X10*3/uL (1.2-4.9); Mean Corpuscular HGB Conc 33.3 g/dl (31.0-35.0); Mean Corpuscular Hemoglobin 34.6 pg (27.0-33.0); Mean Corpuscular Volume 103.7 fL (80-98); Mean Platelet Volume 12.3 fL (9.4-12.3); Monocytes Absolute Auto 0.8 X10*3/uL (0.1-1.2); Monocytes Percent Auto 9.8 % (2-11); NRBC Pct Auto 0.5 /100WBC (0.0-0.2); Neutrophils Absolute Auto 4.6 X10*3/uL (2.0-8.3); Neutrophils Percent Auto 56.1 % (45-73); Platelet Count 105 X10*3/uL (160-400); Red Blood Count 2.69 X10*6/uL (4.20-5.50); Red Cell Distribution Width 17.8 % (11.0-16.0); White Blood Count 8.3 X10*3/uL (4.8-10.8)
[2021-01-30 03:40] LABS: ~Lactic Acid-LAB USE ONLY 1.1 mmol/L (0.5-2.0)
[2021-01-30 03:46] LABS: Alanine Aminotransferase 20 U/L (0-31); Albumin Level 3.1 g/dL (3.5-5.0); Alkaline Phosphatase 55 U/L (39-117); Anion Gap 11 (12-20); Aspartate Amino Transferase 24 U/L (5-31); Bilirubin Direct 1.2 mg/dL (0.0-0.5); Bilirubin Total 2.3 mg/dL (0.0-1.0); Blood Urea Nitrogen 21 mg/dL (9-16); Calcium 7.5 mg/dL (8.4-10.2); Carbon Dioxide 21 mmol/L (22-29); Chloride 107 mmol/L (96-108); Creatinine Clr Calc Pharmacy 58.7; Estimated Glomerular Filt Rate > 60; Glucose Random 140 mg/dL (60-115); Potassium 3.8 mmol/L (3.3-5.1); Sodium 135 mmol/L (135-145); Total Protein 5.6 g/dL (6.5-8.0)
[2021-01-30 03:59] LABS: SLIDE REVIEW VERIFIED
[2021-01-30 07:15] VITALS: BP 119/66; PULSE 65; RESP 20; TEMP 36; O2SAT 99
[2021-01-30] MEDS: 0.9 % Sodium Chloride Flush 3 ML SYRINGE IVFLUSH (09:10)
--- NOTE | 2021-01-30 09:10 | PM.HPGS ---
History of Present Illness History of Present Illness Date of Service: 01/30/21 Chief complaint: Acute Cholecystitis Narrative: Tamra Rivera is a 80 year old female presenting with complaints of abdominal pain in the epigastrium and right upper quadrant of several days duration. The pain began after eating cheese pizza. She has a previous history of abdominal pain and has been watching her diet mostly to avoid abdominal pain. She subsequently presented to the emergency department was noted to have an elevated bilirubin and lactate level. CT and ultrasound of the abdomen revealed a thickened gallbladder with gallstones suggestive of cholecystitis. She is admitted to the surgical service for further management. She has a history of valvular disease and AFib is currently on Coumadin. Review of Systems Review of Systems: Yes all other systems are reviewed and are negative Constitutional: Constitutional: Denies anorexia, Denies chills, Denies fever(s) and Denies night sweats Cardiovascular: Cardiovascular: Denies chest pain at rest, Reports epigastric discomfort, Reports irregular heart rhythm and Reports dyspnea Respiratory: Respiratory: Denies chest congestion, Denies cough, Denies hemoptysis and Reports dyspnea Gastrointestinal: Gastrointestinal: Reports abdominal pain, Denies coffee ground emesis, Reports nausea and Reports vomiting Genitourinary: Genitourinary: Reports no additional female genitourinary complaints Neurologic: Reports system reviewed and no additional complaints, except as documented PMFSH Past Medical History Medical History Anemia Anxiety Ascending aorta dilatation Atrial fibrillation CAD (coronary artery disease) Cardiac pacemaker in situ Chest discomfort Cholelithiases Complete heart block Gastric ulcer History of breast cancer Hypercholesterolemia Hypertension Osteoarthritis of knee Prosthetic valve dysfunction Type 2 diabetes mellitus with hyperglycemia Vitamin D deficiency Family History Family History Father CVD (cardiovascular disease) Mother Stroke Surgical History Surgical History Aortic valve replaced History of bilateral mastectomy History of pacemaker History of surgery on left wrist History of tonsillectomy S/P CABG x 2 (~03/2010) Social History Social History Household Members: Children Housing: House Do you presently have visiting nurse or other home services: No Alcohol intake: current Alcohol intake frequency: holidays/special occasions only Smoking Status: Never smoker Second Hand Smoke Exposure: No Use of substances other than those prescribed or required for medical reasons: No Currently Displaying Signs/Symptoms of Drug Intoxication Withdrawal: No Any prior treatment program specific to substance use: No Have you been hit, kicked, punched, or otherwise hurt by someone within the past year? If so, by whom?: No Do you feel safe in your current relationship?: No Current Relationship Is there a partner from a previous relationship who is making you feel unsafe now?: No Are you made to feel afraid or neglected: No Advance Directives: No Advance Directives Information Provided: No Do you have thoughts of harming others: None Do you have a plan to hurt others: No Plan Recently lost weight without trying: No Eating poorly because of decreased appetite: No Nutrition Risks: No Nutritional Risk Patient : No : No Poor oral hygiene: No Meds Allergies Allergy/AdvReac Type Severity Reaction Status Date / Time meperidine [From Demerol] Allergy Mild UNKNOWN Verified 01/29/21 22:24 nitrofurantoin Allergy Mild UNKNOWN Verified 01/29/21 22:24 [From Macrodantin] Penicillins Allergy Mild UNKNOWN Verified 01/29/21 22:24 Sulfa (Sulfonamide Allergy Mild UNKNOWN Verified 01/29/21 22:24 Antibiotics) [place] Syrup Allergy Unknown Unknown Verified 01/29/21 22:24 ezetimibe [Zetia] Allergy Unknown Unknown Verified 01/29/21 22:24 Iodinated Contrast Media Allergy Unknown ?RASH Verified 01/29/21 22:24 [IV CONTRAST] lisinopril Allergy Unknown Unknown Verified 01/29/21 22:24 statin Allergy Unknown unknown Verified 01/29/21 22:24 acetaminophen [From PERCOCET] AdvReac Intermediate SEEING Verified 01/29/21 22:24 THINGS AFTER PERCOCET THAT WERE NOT THERE Active Medications: Current Medications Generic Name Dose Route Start Last Admin Trade Name Freq PRN Reason Stop Dose Admin Hydromorphone HCl 0.5 mg 01/29/21 22:42 Hydromorphone Hcl 0.5 Mg/0.5 Ml Syringe IVPUSH Q4H PRN Pain, Severe (Pain Scale 7-10) Ceftriaxone Sodium 1 gm/ 50 mls @ 100 mls/hr 01/29/21 22:45 01/29/21 23:22 Sodium Chloride IV Infused Q12H HOLDEN Infusion Dextrose/Lactated Ringer's 1,000 mls @ 125 mls/hr 01/29/21 22:42 01/30/21 06:43 D5lr IVCONT Not Given .Q8H HOLDEN Ondansetron HCl 4 mg 01/29/21 22:42 Ondansetron Hcl 4 Mg/2 Ml Vial IVPUSH Q8H PRN Nausea and Vomiting Oxycodone HCl 5 mg 01/29/21 22:42 Oxycodone Hcl Immed Release 5 Mg Tablet PO Q6H PRN Pain, Moderate (Pain Scale 4-6 Sodium Chloride 3 ml 01/30/21 00:00 01/30/21 00:16 0.9 % Sodium Chloride Flush 3 Ml Syringe IVFLUSH Not Given QSHIFT HOLDEN Temazepam 15 mg 01/29/21 22:42 Temazepam 15 Mg Capsule PO BEDTIME PRN Insomnia Home Medications Medication Instructions Recorded Confirmed Last Taken Type acetaminophen 325 mg tablet 325 mg PO QID PRN 07/01/20 01/29/21 Unknown History fluticasone propionate 50 2 spray INTRANASAL DAILY 07/01/20 01/29/21 Unknown History mcg/actuation nasal spray,suspension coenzyme Q10 100 mg capsule 100 mg PO DAILY 12/14/20 01/29/21 Unknown History blood sugar diagnostic [FreeStyle 01/29/21 01/29/21 Unknown History Lite Strips] clonazepam 1 tab PO BEDTIME 01/29/21 01/29/21 Unknown History losartan 1 tab PO DAILY 01/29/21 01/29/21 Unknown History metoprolol succinate 1 tab PO DAILY 01/29/21 01/29/21 Unknown History warfarin 1 tab PO DAILY 01/29/21 01/29/21 Unknown History Physical Exam Vital Signs: Vital Signs: Last Vital Signs Temp 96.8 F 01/30/21 07:15 Pulse 65 01/30/21 07:15 Resp 20 01/30/21 07:15 BP 119/66 01/30/21 07:15 Pulse Ox 99 01/30/21 07:15 Body Mass Index 35.4 Const: General: cooperative, comfortable, no acute distress, well developed and alert Resp: Effort & Inspection: normal respiratory effort, no stridor and tachypneic Auscultation: no wheezes Cardio: Jugular venous distension: no JVD Rhythm: abnormal rhythm GI: Palpation (GI): Soft to palpation, Tenderness to palpation present (GI) in the RUQ; Knowles's sign negative and No Rebound tenderness present Percussion: Yes normal to percussion Auscultation: normal bowel sounds Skin: General skin exam: no rashes or lesions noted Results Results Labs: Short CBC 01/29/21 01/30/21 Range/Units 17:59 03:08 WBC 8.7 8.3 (4.8-10.8) X10*3/uL Hgb 11.2 L 9.3 L (12.0-16.0) g/dl Hct 33.0 L 27.9 L (37-47) % Plt Count 144 L 105 L D (160-400) X10*3/uL BMP 01/29/21 01/30/21 17:59 03:08 Sodium 133 L 135 Potassium 4.5 3.8 Chloride 102 107 Carbon Dioxide 19 L 21 L BUN 24 H 21 H Creatinine 0.87 0.79 Calcium 8.5 7.5 L D Liver Function 01/29/21 01/30/21 01/30/21 Range/Units 17:59 03:08 03:08 Total Bilirubin 2.9 H 2.3 H Cancelled (0.0-1.0) mg/dL Direct Bilirubin 1.3 H 1.2 H Cancelled (0.0-0.5) mg/dL AST 37 H D 24 Cancelled (5-31) U/L ALT 29 20 Cancelled (0-31) U/L Alkaline Phosphatase 73 55 D Cancelled (39-117) U/L Albumin 3.8 3.1 L Cancelled (3.5-5.0) g/dL Urine 01/29/21 Range/Units 20:03 Urine Color YELLOW Urine Appearance CLEAR Urine pH 5.5 (5.0-8.0) Ur Specific [place] 1.020 (1.005-1.025) Urine Protein NEG (NEG-TRACE) MG/DL Urine Glucose (UA) NEG (NEG) MG/DL Assessment and Plan (1) Acute cholecystitis: Status: Acute 80-year-old female patient presenting with multiple medical problems including valvular heart disease, coronary artery disease, atrial fibrillation, presenting with abdominal pain in the right upper quadrant found to have acute cholecystitis due to cholelithiasis. Patient also has elevated liver function tests suggestive of choledocholithiasis. The patient's initial lactate were elevated with improved after hydration. She is currently on Rocephin and Flagyl. Repeat liver functions remain elevated. This may be a result of the acute cholecystitis verses choledocholithiasis. Hospitalist consultation and gastroenterology consultation requested. Will hold Coumadin pending the decision on any further procedures. Patient is currently not interested in undergoing surgery due to family concerns including the care of her daughter. Will continue to monitor to the laboratories. Continue NPO.
--- NOTE | 2021-01-30 09:27 | PM.GICN ---
History of Present Illness Data of Consult Service Date: 01/30/21 Requesting physician: Tyler Lovell Primary Care Provider: Unknown Physician HPI Reason for consult: cholecystitis 80 yr old f with AVR (pig valve) on coumadin, CABG, OA, DM, obesity, HTN, a-fib, HLP who I am seeing for assessment for gallstones she had x 2 d hx of severe constant epigastric and ruq pain with nausea and poor appetite. She attributes this to diet indiscretion and eating pizza, she has had bouts of pain like this beofre but this was worse. she denies diarrhea, no vomiting, no fevers or chills. she was noted to have an elevated bilirubin and lactate level. CT and ultrasound of the abdomen revealed a thickened gallbladder with gallstones suggestive of cholecystitis. imaging with nml CBD, no CBD debris or stones. she was given zosyn and analgesia, and today feels back to her normal self. She expresses she does not want surgery. Review of Systems Review of Systems: Constitutional : No Weight loss, + Fever, No Chills ENT/Mouth : No sore throat, No Rhinorrhea Eyes: No Eye Pain, No Swelling Cardiovascular : No Chest Pain, no palpitations Respiratory : No Cough, No Sputum, no shortness of breath Gastrointestinal : constipation++ usu reponds to miralax Genitourinary : No Dysuria, No Urinary Frequency Musculoskeletal : No joint pain, No Myalgias, No Joint Swelling Skin : No Skin Lesions, No rash Neuro : No Weakness, No Numbness, No Dizziness, No Headache Psych : No Anxiety/Panic, No Depression Heme/Lymph: No Bruising, No Lymphadenopathy Endocrine : No Polyuria, No Polydipsia All other systems reviewed and are negative Yes all other systems are reviewed and are negative Constitutional: Constitutional: Denies anorexia, Denies chills, Denies fever(s) and Denies night sweats Cardiovascular: Cardiovascular: Denies chest pain at rest, Reports epigastric discomfort, Reports irregular heart rhythm and Reports dyspnea Respiratory: Respiratory: Denies chest congestion, Denies cough, Denies hemoptysis and Reports dyspnea Gastrointestinal: Gastrointestinal: Reports abdominal pain, Denies coffee ground emesis, Reports nausea and Reports vomiting Neurologic: Reports system reviewed and no additional complaints, except as documented PMFSH Past Medical History Medical History Anemia Anxiety Ascending aorta dilatation Atrial fibrillation CAD (coronary artery disease) Cardiac pacemaker in situ Chest discomfort Cholelithiases Complete heart block Gastric ulcer History of breast cancer Hypercholesterolemia Hypertension Osteoarthritis of knee Prosthetic valve dysfunction Type 2 diabetes mellitus with hyperglycemia Vitamin D deficiency Family History Family History Father CVD (cardiovascular disease) Mother Stroke Surgical History Surgical History Aortic valve replaced History of bilateral mastectomy History of pacemaker History of surgery on left wrist History of tonsillectomy S/P CABG x 2 (~03/2010) Social History Social History Household Members: Children Housing: House Do you presently have visiting nurse or other home services: No Alcohol intake: current Alcohol intake frequency: holidays/special occasions only Smoking Status: Never smoker Second Hand Smoke Exposure: No service: No Current occupational status: retired Meds Allergies Allergy/AdvReac Type Severity Reaction Status Date / Time meperidine [From Demerol] Allergy Mild UNKNOWN Verified 01/29/21 22:24 nitrofurantoin Allergy Mild UNKNOWN Verified 01/29/21 22:24 [From Macrodantin] Penicillins Allergy Mild UNKNOWN Verified 01/29/21 22:24 Sulfa (Sulfonamide Allergy Mild UNKNOWN Verified 01/29/21 22:24 Antibiotics) [place] Syrup Allergy Unknown Unknown Verified 01/29/21 22:24 ezetimibe [Zetia] Allergy Unknown Unknown Verified 01/29/21 22:24 Iodinated Contrast Media Allergy Unknown ?RASH Verified 01/29/21 22:24 [IV CONTRAST] lisinopril Allergy Unknown Unknown Verified 01/29/21 22:24 statin Allergy Unknown unknown Verified 01/29/21 22:24 acetaminophen [From PERCOCET] AdvReac Intermediate SEEING Verified 01/29/21 22:24 THINGS AFTER PERCOCET THAT WERE NOT THERE Active Medications: Current Medications Generic Name Dose Route Start Last Admin Trade Name Freq PRN Reason Stop Dose Admin Hydromorphone HCl 0.5 mg 01/29/21 22:42 Hydromorphone Hcl 0.5 Mg/0.5 Ml Syringe IVPUSH Q4H PRN Pain, Severe (Pain Scale 7-10) Ceftriaxone Sodium 1 gm/ 50 mls @ 100 mls/hr 01/29/21 22:45 01/29/21 23:22 Sodium Chloride IV Infused Q12H HOLDEN Infusion Dextrose/Lactated Ringer's 1,000 mls @ 125 mls/hr 01/29/21 22:42 01/30/21 09:13 D5lr IVCONT Infused .Q8H HOLDEN Infusion Ondansetron HCl 4 mg 01/29/21 22:42 Ondansetron Hcl 4 Mg/2 Ml Vial IVPUSH Q8H PRN Nausea and Vomiting Oxycodone HCl 5 mg 01/29/21 22:42 Oxycodone Hcl Immed Release 5 Mg Tablet PO Q6H PRN Pain, Moderate (Pain Scale 4-6 Sodium Chloride 3 ml 01/30/21 00:00 01/30/21 09:10 0.9 % Sodium Chloride Flush 3 Ml Syringe IVFLUSH 3 ml QSHIFT HOLDEN Administration Temazepam 15 mg 01/29/21 22:42 Temazepam 15 Mg Capsule PO BEDTIME PRN Insomnia Home Medications Medication Instructions Recorded Confirmed Last Taken Type fluticasone propionate 50 2 spray INTRANASAL DAILY 07/01/20 01/29/21 Unknown History mcg/actuation nasal spray,suspension coenzyme Q10 100 mg capsule 100 mg PO DAILY 12/14/20 01/29/21 Unknown History FreeStyle Lite Strips 01/29/21 01/29/21 Unknown History clonazepam 1 tab PO BEDTIME 01/29/21 01/29/21 Unknown History losartan 1 tab PO DAILY 01/29/21 01/29/21 Unknown History metoprolol succinate 1 tab PO DAILY 01/29/21 01/29/21 Unknown History warfarin 1 tab PO DAILY 01/29/21 01/29/21 Unknown History Physical Exam Vital Signs: Vital Signs: Last Vital Signs Temp 96.8 F 01/30/21 07:15 Pulse 65 01/30/21 07:15 Resp 20 01/30/21 07:15 BP 119/66 01/30/21 07:15 Pulse Ox 99 01/30/21 07:15 Body Mass Index 35.4 Const: General: cooperative, comfortable, no acute distress, well developed and alert Orientation/consciousness: patient oriented x3 HENMT: Head: Yes normal to inspection Eyes: General: appearance normal, both eyes and all related structures Resp: Effort & Inspection: normal respiratory effort, no stridor and tachypneic Auscultation: no wheezes Cardio: Jugular venous distension: no JVD Rhythm: abnormal rhythm Heart sounds: S1 normal heart sound present, S2 normal heart sound present and Murmur heart sound present systolic early and at the left sternal border GI: Palpation (GI): Soft to palpation, Tenderness to palpation present (GI) in the RUQ; Knowles's sign negative and No Rebound tenderness present Percussion: Yes normal to percussion Auscultation: normal bowel sounds Skin: General skin exam: no rashes or lesions noted Neuro: General: patient oriented x3 Extrem: General: Yes normal to inspection Psych: Appearance: grossly normal Results Labs CBC & Chem 7: 01/30/21 03:08 01/30/21 03:08 Labs: Short CBC 01/29/21 01/29/21 01/30/21 Range/Units 17:59 17:59 03:08 WBC 8.7 8.3 (4.8-10.8) X10*3/uL Hgb 11.2 L 9.3 L (12.0-16.0) g/dl Hct 33.0 L 27.9 L (37-47) % Plt Count 144 L 105 L D (160-400) X10*3/uL Total Bilirubin 2.9 H (0.0-1.0) mg/dL 01/30/21 01/30/21 Range/Units 03:08 03:08 WBC (4.8-10.8) X10*3/uL Hgb (12.0-16.0) g/dl Hct (37-47) % Plt Count (160-400) X10*3/uL Total Bilirubin 2.3 H Cancelled (0.0-1.0) mg/dL BMP 01/29/21 01/30/21 17:59 03:08 Sodium 133 L 135 Potassium 4.5 3.8 Chloride 102 107 Carbon Dioxide 19 L 21 L BUN 24 H 21 H Creatinine 0.87 0.79 Calcium 8.5 7.5 L D Liver Function 01/29/21 01/30/21 01/30/21 Range/Units 17:59 03:08 03:08 Total Bilirubin 2.9 H 2.3 H Cancelled (0.0-1.0) mg/dL Direct Bilirubin 1.3 H 1.2 H Cancelled (0.0-0.5) mg/dL AST 37 H D 24 Cancelled (5-31) U/L ALT 29 20 Cancelled (0-31) U/L Alkaline Phosphatase 73 55 D Cancelled (39-117) U/L Albumin 3.8 3.1 L Cancelled (3.5-5.0) g/dL Urine 01/29/21 Range/Units 20:03 Urine Color YELLOW Urine Appearance CLEAR Urine pH 5.5 (5.0-8.0) Ur Specific [place] 1.020 (1.005-1.025) Urine Protein NEG (NEG-TRACE) MG/DL Urine Glucose (UA) NEG (NEG) MG/DL Imaging US - abdomen: Radiologist's impression: US/US abdomen limited IMPRESSION: Abnormal gallbladder wall thickening with pericholecystic fluid and gallstones. Patient was medicated and a sonographic Knowles's sign was not readily elicited. Clinical correlation for cholecystitis would be needed with this appearance CT scan - abdomen: Radiologist's impression: CT/CT abdomen pelvis wo con IMPRESSION: 1. Cholelithiasis. There is apparent prominent gallbladder wall thickening/edema, and haziness adjacent to the gallbladder. Findings raise concern for acute cholecystitis. Recommend further evaluation with ultrasound. 2. Haziness/stranding adjacent to the gallbladder neck, as well as in the region of the head of pancreas. This could be related to the cholecystitis, component of pancreatitis cannot be excluded. Correlate with bloodwork. 3. Bilateral renal cysts. 4. Severe lumbar spondylosis. CT was personally reviewed, CBD nml Assessment and Plan (1) Acute cholecystitis: Status: Acute 1/ Acute cholecystitis, no evidence to support CBD obstruction at this time. SHe has nml CBD with no dilation, minimal elevated bili-mostly indirect probably [place]--feels better today PLAN: 1/ No action as regards ercp at ths time 2/ IF she refuses surgery then cholecystostomy may be an option vs Abx as needed for infectious flares Procedures Date of Service Date of Service: 01/30/21
--- NOTE | 2021-01-30 09:36 | MHC.CM.PN ---
PATIENT LIVES WITH HER DAUGHTER/HCP (ON FILE AND VERIFIED) SHE OCCASIONALLY USES A SINGLE [employer] FOR AMBULATION ASSIST. NO OTHER DME. THERE ARE NO [facility] OR [facility] IN THE HOME. 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 SHE IS HOPING TO RE EMPLOY THIS PERSON, SHE FEELS SHE NEEDS SOME ASSIST IN THE HOME. PATIENT DOES NOT WANT A REFERRAL TO [facility]. CASE MANAGEMENT FOLLOWING FOR DISCHARGE NEEDS. IMM 01/30 IN CHART
[2021-01-30 11:21] VITALS: BP 120/50; PULSE 65; RESP 18; TEMP 36.4; O2SAT 99
--- NOTE | 2021-01-30 14:01 | MHC.CM.PN ---
PATIENT IS DISCHARGED HOME - SELF CARE. HER SON IS ON HIS WAY IN TO TRANSPORT. PATIENT DOES NOT FEL THE NEED FOR A VISITING NURSE. SHE IS EXPRESSING A DESIRE TO GET HOME QUICKLY POSSIBLE FOR HER DAUGHTER'S PULMONOLOGY VISIT AT THE HOME
--- NOTE | 2021-02-03 14:44 | PM.DS ---
DS: Providers Provider Date of Service: 01/30/21 Date of admission: 01/29/21 22:31 Date of discharge: 01/30/21 Primary care physician: Unknown Physician Admitting clinician: Tyler Lovell Consults: 01/29/21 22:42 Consult to Hospitalist Routine Consulting Provider: Hospitalist Reason For Exam: acute cholecystitis, a fib, med management 01/30/21 09:08 Consult to Gastroenterology Routine Consulting Provider: [facility] Reason for consultation: cholecystitis, ? choleducholithiasis Discharging clinician: Tyler Lovell DS: Diagnosis Discharge Diagnosis (1) Acute cholecystitis: Status: Acute (2) Aortic valve replaced: Status: Acute Problem details: Dr. saleem 03/2010 Bovin, 21 mm pericardial bovine bioprosthesis along with ascending aorta repair with 2 vessel coronary artery bypass grafting including SVG to LAD and posterior left ventricular branch of the right coronary artery. (3) Preston syndrome: Status: Acute DS: Medications Discharge Medications Home Medications: Home Medications Medication Instructions Recorded Confirmed fluticasone propionate 50 2 spray INTRANASAL DAILY 07/01/20 01/29/21 mcg/actuation nasal spray,suspension coenzyme Q10 100 mg capsule 100 mg PO DAILY 12/14/20 01/29/21 FreeStyle Lite Strips 01/29/21 01/29/21 clonazepam 1 tab PO BEDTIME 01/29/21 01/29/21 losartan 1 tab PO DAILY 01/29/21 01/29/21 metoprolol succinate 1 tab PO DAILY 01/29/21 01/29/21 warfarin 1 tab PO DAILY 01/29/21 01/29/21 Previous Rx's Medication Instructions Recorded blood sugar diagnostic 1 strip MISCELLANEOUS DAILY 90 11/17/20 Days #100 ea DS: Summary Hospital Course Hospital Course: Tamra Rivera is a 80 year old female presenting with complaints of abdominal pain in the epigastrium and right upper quadrant of several days duration. The pain began after eating cheese pizza. She has a previous history of abdominal pain and has been watching her diet mostly to avoid abdominal pain. She subsequently presented to the emergency department was noted to have an elevated bilirubin and lactate level. CT and ultrasound of the abdomen revealed a thickened gallbladder with gallstones suggestive of cholecystitis. Examination revealed tenderness in the epigastrium and right upper quadrant. As a weakly positive Knowles sign. She is admitted to the surgical service for further management. She has a history of valvular disease and AFib is currently on Coumadin. It was anticipated that the patient would be taken off her Coumadin and her bilirubin levels trended, with possible laparoscopic or open cholecystectomy and 2-3 more days once her INR normalized. On the 2nd hospital day, her LFTs remained elevated. Gastroenterology consultation was obtained from Dr. Li. GI evaluation included review of the ultrasound and CT scan which revealed a normal appearing common bile duct. There is no evidence of common bile duct stones. No ERCP was felt to be recommended. Patient was re-evaluated and reported that her abdominal pain was much improved and she denied any nausea or vomiting. Patient was concerned about the care of her daughter who she was caring for at home. She was eager to return home to assist her daughter. She was subsequently started on a regular low-fat diet and tolerated this well. Patient was subsequently discharged home earlier than expected due to her family concerns. The patient should remain on a low-fat diet and follow up in the office in approximately 1-2 weeks for re-evaluation and possible arrangement for elective laparoscopic cholecystectomy. She should call for fever, chills, nausea, or vomiting. Patient expressed understanding and agrees with the plan. Time Spent with Patient Time attestation: Total time spent providing and/or coordinating discharge services: Discharge coordination time: Less than 30 minutes Quality: Stroke Does the patient have a stroke diagnosis?: No Physical Exam Vital Signs: Vital Signs: Last Vital Signs Temp 97.6 F 01/30/21 11:21 Pulse 65 01/30/21 11:21 Resp 18 01/30/21 11:21 BP 120/50 L 01/30/21 11:21 Pulse Ox 99 01/30/21 11:21 Body Mass Index 35.4 Const: General: cooperative, comfortable, no acute distress, alert and awake Nutritional Appearance: average body habitus Orientation/consciousness: patient oriented x3 Resp: Effort & Inspection: normal respiratory effort Cardio: Jugular venous distension: no JVD GI: Inspection: Yes normal to inspection Palpation (GI): Soft to palpation, nontender, no guarding, not rigid and hepatosplenomegaly present Percussion: Yes normal to percussion Auscultation: normal bowel sounds Skin: General skin exam: no rashes or lesions noted Neuro: General: patient oriented x3 DS: Data Data Completed and Pending Labs on day of discharge: Preliminary micro results at discharge 01/29/21 22:20 Blood Culture - Preliminary Blood - Venous No growth after 48 hours. 01/29/21 22:15 Blood Culture - Preliminary Blood - Venous No growth after 48 hours. Discharge Plan Discharge Patient Disposition: Home, Self-Care Discharge Diagnosis: Gilbert's Syndrome, Symptomatic cholelithiasis Referrals: Tylre Lovell MD [Physician] - 1 Week Physician,Unknown [Primary Care Provider] - 1 Week Discharge Medications: Continued blood sugar diagnostic [FreeStyle Lite Strips] Strip 1 strip miscellaneous DAILY 90 Days Qty: 100 RF: 3 losartan 50 mg tablet 1 tab PO DAILY RF: 0 clonazepam 0.5 mg tablet 1 tab PO BEDTIME RF: 0 (DME) FreeStyle Lite Strips Strip MISCELLANEOUS RF: 0 warfarin 5 mg tablet 1 tab PO DAILY RF: 0 metoprolol succinate 25 mg tablet extended release 24 hr 1 tab PO DAILY RF: 0 fluticasone propionate 50 mcg/actuation spray,suspension 2 spray intranasal DAILY RF: 0 coenzyme Q10 [CoQ-10] 100 mg capsule 100 mg PO DAILY RF: 0 Discontinued acetaminophen 325 mg tablet 325 mg PO QID PRN (Reason: Pain) RF: 0 Discharge Orders: Discharge Order (Routine); Ordered 01/30/21 Ordered By: Tyler Lovell Diet: low fat, low cholesterol Activity on Discharge: As tolerated Stand Alone Forms: Patient Portal Discharge page Care Plan Goals: return to normal activity Health Concerns: Elevated bilirubin, symptomatic cholelithiasis Plan of Treatment: Low fat diet, avoid Tylenol Assessment: Gilbert's syndrome, symptomatic cholelithiasis Patient Instructions: Low Fat Diet (GEN) Discharge Date/Time: 01/30/21 15:37
== END 2021-01-30 15:37 | disposition home or self-care (01) | DRG 446 ==
LOC: HO.ED 22:29 → HO.EDOVER 22:39 → HO.S3 01-30 00:07
PROVIDERS: Admitting Provider Surgery; Emergency Provider Internal Medicine; PCP Internal Medicine; Visit Provider Surgery
DX: K80.00 Calculus of gallbladder with acute cholecystitis without obstruction (principal); I25.10 Atherosclerotic heart disease of native coronary artery without angina pectoris; E80.4 Gilbert syndrome; Z20.822 Contact with and (suspected) exposure to COVID-19; Z95.1 Presence of aortocoronary bypass graft; Z95.0 Presence of cardiac pacemaker; Z88.0 Allergy status to penicillin; Z88.2 Allergy status to sulfonamides; Z79.01 Long term (current) use of anticoagulants; Z79.51 Long term (current) use of inhaled steroids; Z79.899 Other long term (current) drug therapy
CPT/HCPCS: 36415; 74176; 76705; 80048; 80076; 81001; 83605; 83690; 85025; 85610; 87040; 87635; 93005; 96365; 96375; 99285; J0696

== ENCOUNTER → 2021-02-09 13:20 | Outpatient (BNVA) | payer MEDICARE, OTHER, SELFPAY | PROVIDERS: PCP Internal Medicine; Visit Provider Internal Medicine | DX: I48.0 Paroxysmal atrial fibrillation (principal); Z51.81 Encounter for therapeutic drug level monitoring; Z79.01 Long term (current) use of anticoagulants | CPT/HCPCS: 85610; 99211 ==

== ENCOUNTER 2021-02-23 09:30 | Outpatient (REF) | payer MEDICARE, OTHER, SELFPAY ==
[2021-02-23 11:15] LABS: MANUAL DIFF FLAG NO
[2021-02-23 11:27] LABS: Basophils Percent Auto 0.6 % (0-2); Eosinophils Absolute Auto 0.1 X10*3/uL (0.0-0.4); Eosinophils Percent Auto 1.9 % (0-4); Hematocrit 32.5 % (37-47); Hemoglobin 10.5 g/dl (12.0-16.0); Imm Gran Abs Auto 0.04 X10*3/uL (0.00-0.03); Imm Gran Pct Auto 0.8 % (0.0-0.4); Lymphocytes Absolute Auto 3.1 X10*3/uL (1.2-4.9); Lymphocytes Percent Auto 57.7 % (20-40); Mean Corpuscular HGB Conc 32.3 g/dl (31.0-35.0); Mean Corpuscular Hemoglobin 34.4 pg (27.0-33.0); Mean Corpuscular Volume 106.6 fL (80-98); Mean Platelet Volume 12.7 fL (9.4-12.3); Monocytes Absolute Auto 0.3 X10*3/uL (0.1-1.2); Monocytes Percent Auto 5.6 % (2-11); Neutrophils Absolute Auto 1.8 X10*3/uL (2.0-8.3); Neutrophils Percent Auto 33.4 % (45-73); Red Blood Count 3.05 X10*6/uL (4.20-5.50); Red Cell Distribution Width 17.8 % (11.0-16.0); White Blood Count 5.3 X10*3/uL (4.8-10.8)
[2021-02-23 11:28] LABS: Platelet Count 83 X10*3/uL (160-400)
[2021-02-23 11:54] LABS: B Type Natriuretic Peptide 152 pg/mL (<100)
[2021-02-23 12:09] LABS: Glucose Urine UA NEG (NEG); Leukocyte Esterase Urine 1+ (NEG); Nitrite Urine NEG (NEG); Specific Gravity - Urine 1.015 (1.005-1.025); Urine Blood 1+ (NEG); Urine Ketones NEG (NEG); Urine Protein NEG (NEG-TRACE)
[2021-02-23 12:12] LABS: Appearance Urine HAZY; Color Urine YELLOW
[2021-02-23 12:13] LABS: Free T4 (Free Thyroxine) 0.87 ng/dL (0.71-1.85); Thyroid Stimulating Hormone 3.49 uIU/mL (0.32-4.0); Vitamin D 25-OH Total 9.3 ng/mL (>30)
[2021-02-23 12:24] LABS: Alanine Aminotransferase 17 U/L (0-31); Albumin Level 3.6 g/dL (3.5-5.0); Alkaline Phosphatase 80 U/L (39-117); Anion Gap 14 (12-20); Aspartate Amino Transferase 31 U/L (5-31); Bilirubin Total 1.1 mg/dL (0.0-1.0); Blood Urea Nitrogen 23 mg/dL (9-16); Calcium 8.9 mg/dL (8.4-10.2); Carbon Dioxide 22 mmol/L (22-29); Chloride 107 mmol/L (96-108); Cholesterol 151 mg/dL; Estimated Glomerular Filt Rate 60; Glucose Random 135 mg/dL (60-115); HDL Cholesterol 45 mg/dL; LDL Cholesterol Calculated 94 mg/dl; Potassium 4.5 mmol/L (3.3-5.1); Sodium 138 mmol/L (135-145); Total Protein 6.7 g/dL (6.5-8.0); Triglycerides 63 mg/dL
[2021-02-23 12:25] LABS: Estimated Average Glucose 123 mg/dL; Hemoglobin A1c % 5.9 %
[2021-02-23 12:34] LABS: Bacteria Urine 1+ /LPF; Squamous Epithelial Cell Urine 2+ /LPF
[2021-02-23 12:48] LABS: Creatinine Urine 64.46 mg/dL
[2021-02-23 13:05] LABS: Folate 8.2 ng/mL (> or = 4.0); Vitamin B12 329 pg/mL (200-900)
== END 2021-02-23 09:31 | disposition home or self-care (01) ==
LOC: HO.HMGCLDS 09:30
PROVIDERS: PCP Internal Medicine; Visit Provider Internal Medicine
DX: E78.00 Pure hypercholesterolemia, unspecified (principal); R94.6 Abnormal results of thyroid function studies; E11.65 Type 2 diabetes mellitus with hyperglycemia; Z95.2 Presence of prosthetic heart valve
CPT/HCPCS: 36415; 80053; 80061; 81001; 82043; 82306; 82607; 82746; 83036; 83880; 84439; 84443; 85025

== ENCOUNTER → 2021-03-02 13:02 | Outpatient (BNVA) | payer MEDICARE, OTHER, SELFPAY | PROVIDERS: PCP Internal Medicine; Visit Provider Internal Medicine | DX: I48.0 Paroxysmal atrial fibrillation (principal); Z51.81 Encounter for therapeutic drug level monitoring; Z79.01 Long term (current) use of anticoagulants | CPT/HCPCS: 85610; 99211 ==

== ENCOUNTER → 2021-03-09 11:31 | Outpatient (BNVA) | payer MEDICARE, OTHER, SELFPAY | PROVIDERS: PCP Internal Medicine; Visit Provider Internal Medicine | DX: I48.0 Paroxysmal atrial fibrillation (principal); Z51.81 Encounter for therapeutic drug level monitoring; Z79.01 Long term (current) use of anticoagulants | CPT/HCPCS: 85610; 99211 ==

== ENCOUNTER → 2021-03-30 13:11 | Outpatient (BNVA) | payer MEDICARE, OTHER, SELFPAY | PROVIDERS: PCP Internal Medicine; Visit Provider Internal Medicine | DX: I48.0 Paroxysmal atrial fibrillation (principal); Z51.81 Encounter for therapeutic drug level monitoring; Z79.01 Long term (current) use of anticoagulants | CPT/HCPCS: 85610; 99211 ==

== ENCOUNTER → 2021-04-13 13:00 | Outpatient (BNVA) | payer MEDICARE, OTHER, SELFPAY | PROVIDERS: PCP Internal Medicine; Visit Provider Internal Medicine | DX: I48.0 Paroxysmal atrial fibrillation (principal); Z79.01 Long term (current) use of anticoagulants; Z51.81 Encounter for therapeutic drug level monitoring | CPT/HCPCS: 85610; 99211 ==

== ENCOUNTER → 2021-05-04 12:57 | Outpatient (BNVA) | payer MEDICARE, OTHER, SELFPAY | PROVIDERS: PCP Internal Medicine; Visit Provider Internal Medicine | DX: I48.0 Paroxysmal atrial fibrillation (principal); Z51.81 Encounter for therapeutic drug level monitoring; Z79.01 Long term (current) use of anticoagulants | CPT/HCPCS: 85610; 99211 ==

== ENCOUNTER → 2021-05-23 12:55 | Outpatient (REF) | payer MEDICARE, OTHER, SELFPAY ==
--- NOTE | 2021-05-23 13:00 | CA_ITS ---
Transthoracic Echocardiogram Patient (Last, First, Middle): Tamra Rivera A Gender: Female Date of : 1940 Age: 80 Procedure Date: 05/23/2021 Procedure Type: Transthoracic Echocardiogram Location: OP Height: 152.4 cm Weight: 86.18 kg BSA: 1.83 m2 Heart Rate: bpm BP: 122 / 80 mmHg Animal Physiology Teacher: Referring MD: Yossi Terrell MD Resource Conservation Specialist: Yossi Terrell MD Symptoms: T82.09XA - Other mechanical complication of heart valve prosthesis, initial encounter Study Quality: Fair ECG Rhythm: Ventriculary paced rhythm Conclusions: - 1. Normal LV systolic function with mild LVH 2. Mildly dilated right ventricle with normal systolic function 3. Severely dilated left atrium 4. 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 [id number] mitral regurgitation with possible mild mitral stenosis next 6. Moderately elevated right ventricular systolic pressure 7. No gross pericardial effusion 8. Mildly dilated ascending aorta Findings Left Ventricle Normal left ventricular cavity size. There is mildly increased left ventricular wall thickness. The left ventricular systolic function is normal. The visually estimated ejection fraction is between 55-60%. Elevated filling pressures. Right Ventricle Mildly increased right ventricular cavity size. There is normal right ventricular systolic function. There is a pacemaker wire seen in the right ventricle. Atria The left atrium is severely dilated. There is no evidence of interatrial shunt. The right atrium is moderately dilated. Aortic Valve A bioprosthetic aortic valve is present. The prosthetic aortic valve appears to be functioning abnormally. Echo findings are consistent with stenosis of the aortic valve prosthesis. The aortic valve was not well visualized. The mean gradient is 26 mmHg. There is trace (trivial) aortic valve regurgitation. The aortic ejection velocity is slightly delayed consistent with stenosis. Mitral Valve There is mild anterior and moderate posterior mitral leaflet thickening. There is moderate mitral annular calcification. There is mild to moderate mitral valve regurgitation. There is mild mitral valve stenosis. Pulmonic Valve The pulmonic valve is likely normal. There is trace to mild pulmonic valve regurgitation. Tricuspid Valve Normal tricuspid valve structure. There is mild to moderate tricuspid valve regurgitation. Moderate pulmonary hypertension is present. Great Vessels The pulmonary artery was not well visualized. There is mild dilatation of the ascending aorta measuring 3.80 cm. Venous The inferior vena cava is normal in size and collapses greater than 50% with inspiration. Pericardium/Pleural There is no evidence of pericardial effusion. Measurements 2D Linear Measurements IVSd: 1.20 0.6-0.9/0.6-1.0 cm LVIDd: 5.32 3.9-5.3/4.2-5.9 cm LVIDd Index: 2.91 2.4-3.2/2.2-3.1 cm/m2 LVIDs: 3.59 2.0-3.6 cm LVPWd: 1.21 0.7-1.1 cm Ao Root: 2.90 2.1-3.5 cm LA Diam: 3.80 2.7-3.8/3.0-4.0 cm LAIDs Index: 2.08 1.5-2.3 cm/m2 LV Mass: 323.77 67-162/88-224 g LV Mass Index: 176.93 43-95/49-115 g/m2 LVOT Diam: 2.00 3.0+(-)1.3 cm RVOT Diam: 3.00 1.7-2.3 cm 2D Systolic Function EF 4C: 50.90 >55% EF 2C: 54.70 >55% Mitral Valve MV VTI: 0.45 MV Pk Stephen: 1.81 MV Mn Stephen: 0.89 MV Pk Grad: 13.00 MV Mn Grad: 4.00 MV Pk E: 1.45 MV Decel Time: 297.00 E'Lateral: 9.25 E'Medial: 5.55 E/E' Med: 26.10 E/E' Lat: 15.70 PHT: 87.00 MVA PHT: 2.53 MVA Continuity: 1.49 Decel [place]: 4.89 MR Vol - PW Dopp: 46.25 MR VTI: 1.85 MR ERO: 25.00 MR Alias Stephen: 0.62 MR RAD: 0.60 Aortic Valve AoV Pk Stephen: 3.28 AoV Mn Stephen: 2.39 AoV VTI: 0.80 AoV Pk Grad: 43.00 Aov Mn Grad: 26.00 AMEE Cont.VTI: 0.84 LVOT LVOT Pk Stephen: 0.93 LVOT Mn Stephen: 0.65 LVOT VTI: 0.21 LVOT Pk Grad: 3.00 LVOT Mn Grad: 2.00 LVOT Diam: 2.00 LVOT Area: 3.14 Diastolic Function MV Pk E: 1.45 E'Medial: 5.55 E/E' Med: 26.10 E' Laterial: 9.25 E/E' Lat: 15.70 Right Ventricle TAPSE (mm): 23.00 TVS' Stephen: 9.00 Tricuspid Valve TR Pk Stephen: 3.54 TR Pk Grad: 50.00 RVOT: 3.00 RVSP: 53.00 Great Vessels Aorta Ao Root-2D: 2.90 2.0-3.7 cm Ao Asc: 3.80 2.1-3.4 cm Updated in Other Vendor System with Status of Final Yossi Terrell MD electronically signed on 05/24/2021 10:30:43 AM with status of Final
== END ==
LOC: HO.CARD 12:55
PROVIDERS: PCP Internal Medicine; Visit Provider Internal Medicine Cardiovascular Disease
DX: T82.09XA Other mechanical complication of heart valve prosthesis, initial encounter (principal)
CPT/HCPCS: 93306

== ENCOUNTER → 2021-05-30 13:02 | Outpatient (BNVA) | payer MEDICARE, OTHER, SELFPAY | PROVIDERS: PCP Internal Medicine; Visit Provider Internal Medicine | DX: I48.0 Paroxysmal atrial fibrillation (principal); Z51.81 Encounter for therapeutic drug level monitoring; Z79.01 Long term (current) use of anticoagulants | CPT/HCPCS: 85610; 99211 ==

== ENCOUNTER → 2021-06-05 13:01 | Outpatient (BNVA) | payer MEDICARE, OTHER, SELFPAY | PROVIDERS: PCP Internal Medicine; Referring Provider Internal Medicine; Visit Provider Internal Medicine Cardiovascular Disease | DX: T82.09XA Other mechanical complication of heart valve prosthesis, initial encounter (principal); I25.10 Atherosclerotic heart disease of native coronary artery without angina pectoris; I48.91 Unspecified atrial fibrillation; I10 Essential (primary) hypertension; I44.2 Atrioventricular block, complete; E78.00 Pure hypercholesterolemia, unspecified; E11.65 Type 2 diabetes mellitus with hyperglycemia; Z88.6 Allergy status to analgesic agent; Z88.0 Allergy status to penicillin; Z88.2 Allergy status to sulfonamides; Z88.8 Allergy status to other drugs, medicaments and biological substances; Z45.02 Encounter for adjustment and management of automatic implantable cardiac defibrillator; Z79.01 Long term (current) use of anticoagulants; Z79.899 Other long term (current) drug therapy | CPT/HCPCS: 99212 ==

== ENCOUNTER → 2021-06-29 13:04 | Outpatient (BNVA) | payer MEDICARE, OTHER, SELFPAY | PROVIDERS: PCP Internal Medicine; Visit Provider Internal Medicine | DX: I48.0 Paroxysmal atrial fibrillation (principal); Z51.81 Encounter for therapeutic drug level monitoring; Z79.01 Long term (current) use of anticoagulants | CPT/HCPCS: 85610; 99211 ==

== ENCOUNTER → 2021-07-20 13:06 | Outpatient (BNVA) | payer MEDICARE, OTHER, SELFPAY | PROVIDERS: PCP Internal Medicine; Visit Provider Internal Medicine | DX: I48.0 Paroxysmal atrial fibrillation (principal); Z51.81 Encounter for therapeutic drug level monitoring; Z79.01 Long term (current) use of anticoagulants | CPT/HCPCS: 85610; 99211 ==

== ENCOUNTER → 2021-08-09 13:07 | Outpatient (BNVA) | payer MEDICARE, OTHER, SELFPAY | PROVIDERS: PCP Internal Medicine; Visit Provider Internal Medicine | DX: I48.0 Paroxysmal atrial fibrillation (principal); Z51.81 Encounter for therapeutic drug level monitoring; Z79.01 Long term (current) use of anticoagulants | CPT/HCPCS: 85610; 99211 ==

== ENCOUNTER → 2021-08-30 13:03 | Outpatient (BNVA) | payer MEDICARE, OTHER, SELFPAY | PROVIDERS: PCP Internal Medicine; Visit Provider Internal Medicine | DX: I48.0 Paroxysmal atrial fibrillation (principal); Z51.81 Encounter for therapeutic drug level monitoring; Z79.01 Long term (current) use of anticoagulants | CPT/HCPCS: 85610; 99211 ==

== ENCOUNTER → 2021-09-20 13:27 | Outpatient (BNVA) | payer MEDICARE, OTHER, SELFPAY | PROVIDERS: PCP Internal Medicine; Visit Provider Internal Medicine | DX: I48.0 Paroxysmal atrial fibrillation (principal); Z51.81 Encounter for therapeutic drug level monitoring; Z79.01 Long term (current) use of anticoagulants | CPT/HCPCS: 85610; 99211 ==

== ENCOUNTER → 2021-10-12 13:02 | Outpatient (BNVA) | payer MEDICARE, OTHER, SELFPAY | PROVIDERS: PCP Internal Medicine; Visit Provider Internal Medicine | DX: I48.0 Paroxysmal atrial fibrillation (principal); Z51.81 Encounter for therapeutic drug level monitoring; Z79.01 Long term (current) use of anticoagulants | CPT/HCPCS: 85610; 99211 ==

== ENCOUNTER → 2021-11-09 13:03 | Outpatient (BNVA) | payer MEDICARE, OTHER, SELFPAY | PROVIDERS: PCP Internal Medicine; Visit Provider Internal Medicine | DX: I48.0 Paroxysmal atrial fibrillation (principal); Z51.81 Encounter for therapeutic drug level monitoring; Z79.01 Long term (current) use of anticoagulants | CPT/HCPCS: 85610 ==

== ENCOUNTER → 2021-11-23 13:08 | Outpatient (BNVA) | payer MEDICARE, OTHER, SELFPAY | PROVIDERS: PCP Internal Medicine; Visit Provider Internal Medicine | DX: I48.0 Paroxysmal atrial fibrillation (principal); Z51.81 Encounter for therapeutic drug level monitoring; Z79.01 Long term (current) use of anticoagulants | CPT/HCPCS: 85610; 99211 ==

== ENCOUNTER → 2021-12-04 12:49 | Outpatient (BNVA) | payer MEDICARE, OTHER, SELFPAY | PROVIDERS: PCP Internal Medicine; Referring Provider Internal Medicine; Visit Provider Internal Medicine Cardiovascular Disease | DX: Z45.018 Encounter for adjustment and management of other part of cardiac pacemaker (principal); I25.10 Atherosclerotic heart disease of native coronary artery without angina pectoris; I48.19 Other persistent atrial fibrillation; T82.09XD Other mechanical complication of heart valve prosthesis, subsequent encounter | CPT/HCPCS: 99212 ==

== ENCOUNTER 2021-12-06 10:01 | Outpatient (REF) | payer MEDICARE, OTHER, SELFPAY ==
[2021-12-06 11:28] LABS: MANUAL DIFF FLAG NO
[2021-12-06 11:44] LABS: Basophils Percent Auto 0.4 % (0-2); Eosinophils Absolute Auto 0.1 X10*3/uL (0.0-0.4); Eosinophils Percent Auto 1.6 % (0-4); Hematocrit 28.7 % (37.0-47.0); Hemoglobin 9.4 g/dl (12.0-16.0); Imm Gran Abs Auto 0.03 X10*3/uL (0.00-0.03); Imm Gran Pct Auto 0.7 % (0.0-0.4); Immature Retic Fraction 28.7 % (3.0-15.9); Lymphocytes Absolute Auto 2.7 X10*3/uL (1.2-4.9); Lymphocytes Percent Auto 59.5 % (20-40); Mean Corpuscular HGB Conc 32.8 g/dl (31.0-35.0); Mean Corpuscular Hemoglobin 37.3 pg (27.0-33.0); Mean Corpuscular Volume 113.9 fL (80.0-98.0); Mean Platelet Volume 12.7 fL (9.4-12.3); Monocytes Absolute Auto 0.3 X10*3/uL (0.1-1.2); Monocytes Percent Auto 7.2 % (2-11); NRBC Pct Auto 1.6 /100WBC (0.0-0.2); Neutrophils Absolute Auto 1.4 x10*3/uL (2.0-8.3); Neutrophils Percent Auto 30.6 % (45-73); Platelet Count 110 X10*3/uL (160-400); Red Blood Count 2.52 X10*6/uL (4.20-5.50); Red Cell Distribution Width 19.3 % (11.0-16.0); Retic HGB Equivalent 33.3 pg (30.0-35.0); Reticulocyte Percent 2.8 % (0.5-1.8); Reticulocytes Absolute 0.071 X10*6/uL (0.026-0.095); White Blood Count 4.5 X10*3/uL (4.8-10.8)
[2021-12-06 11:59] LABS: Estimated Average Glucose 111 mg/dL; Hemoglobin A1c % 5.5 %
[2021-12-06 12:10] LABS: Creatinine Urine 100.55 mg/dL; Microalbum/Creatinine Ratio Ur 28.8 ug/mg cr
[2021-12-06 12:30] LABS: Alanine Aminotransferase 13 U/L (0-31); Albumin Level 3.9 g/dL (3.5-5.0); Alkaline Phosphatase 60 U/L (39-117); Anion Gap 13 (12-20); Aspartate Amino Transferase 22 U/L (5-31); Bilirubin Total 1.6 mg/dL (0.0-1.0); Blood Urea Nitrogen 30 mg/dL (9-16); Calcium 8.8 mg/dL (8.4-10.2); Carbon Dioxide 21 mmol/L (22-29); Chloride 107 mmol/L (96-108); Cholesterol 152 mg/dL; Estimated Glomerular Filt Rate 52; Glucose Random 142 mg/dL (60-115); HDL Cholesterol 46 mg/dL; Iron 147 mcg/dL (30-160); LDL Cholesterol Calculated 90 mg/dl; Percent Iron Saturation 42 % (15-50); Potassium 4.4 mmol/L (3.3-5.1); Sodium 137 mmol/L (135-145); Total Iron Binding Capacity 350 mcg/dL (228-428); Total Protein 7.3 g/dL (6.5-8.0); Triglycerides 82 mg/dL; Unsaturated Iron Binding 203 ug/dL
[2021-12-06 12:48] LABS: Folate 7.2 ng/mL (> or = 4.0); Vitamin B12 227 pg/mL (200-900)
[2021-12-06 12:52] LABS: Free T4 (Free Thyroxine) 0.92 ng/dL (0.71-1.85); Thyroid Stimulating Hormone 4.45 uIU/mL (0.32-4.0)
[2021-12-06 13:25] LABS: Ferritin 218 ng/mL (10-250)
[2021-12-07 14:25] LABS: Vitamin D 25-OH Total 10.4 ng/mL (>30)
== END 2021-12-06 10:02 | disposition home or self-care (01) ==
LOC: HO.HMGCLDS 10:01
PROVIDERS: Visit Provider Internal Medicine
DX: E11.65 Type 2 diabetes mellitus with hyperglycemia (principal); E78.00 Pure hypercholesterolemia, unspecified; I10 Essential (primary) hypertension; I73.9 Peripheral vascular disease, unspecified
CPT/HCPCS: 36415; 80053; 80061; 82043; 82306; 82607; 82728; 82746; 83036; 83540; 84439; 84443; 85025; 85045

== ENCOUNTER → 2021-12-08 13:10 | Outpatient (BNVA) | payer MEDICARE, OTHER, SELFPAY | PROVIDERS: PCP Internal Medicine; Visit Provider Internal Medicine | DX: I48.0 Paroxysmal atrial fibrillation (principal); Z51.81 Encounter for therapeutic drug level monitoring; Z79.01 Long term (current) use of anticoagulants | CPT/HCPCS: 85610; 99211 ==

== ENCOUNTER 2022-01-03 16:09 | Outpatient (REF) | payer MEDICARE, OTHER, SELFPAY ==
--- NOTE | ~2022-01-03 | XR_ITS ---
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 FINDINGS: The cardiac silhouette is enlarged but stable. There is a left subclavian single chamber pacemaker. The lead appears unchanged. The battery component in the chest wall appears in different orientation and may be a different battery. There is an aortic valve replacement and median sternotomy wires. Hilar and mediastinal contours are unremarkable. There is scarring or subsegmental atelectasis at the left lung base. The lungs are otherwise clear. There is no pleural effusion or pneumothorax. There are degenerative changes of the spine. XR/XR chest 2V IMPRESSION: The battery of the left subclavian pacemaker appears in different orientation in the left chest wall and may be a different battery. Stable enlargement of the cardiac silhouette. Postoperative changes from aortic valve replacement. Chronic scarring or subsegmental atelectasis at the left lung base. Findings will be communicated by the [facility] work flow advertising director.
== END 2022-01-03 16:10 | disposition home or self-care (01) ==
LOC: HO.HMGCX 16:09
PROVIDERS: PCP Internal Medicine; Visit Provider Internal Medicine
DX: I25.10 Atherosclerotic heart disease of native coronary artery without angina pectoris (principal); R06.02 Shortness of breath
CPT/HCPCS: 71046

== ENCOUNTER → 2022-01-05 13:20 | Outpatient (BNVA) | payer MEDICARE, OTHER, SELFPAY | PROVIDERS: PCP Internal Medicine; Visit Provider Internal Medicine | DX: Z13.89 Encounter for screening for other disorder (principal) | CPT/HCPCS: 85610; 99211 ==

== ENCOUNTER 2022-01-05 13:47 | Outpatient (REF) | payer MEDICARE, OTHER, SELFPAY ==
[2022-01-05 14:16] LABS: MANUAL DIFF FLAG NO
[2022-01-05 14:27] LABS: Basophils Percent Auto 0.3 % (0-2); Eosinophils Percent Auto 0.8 % (0-4); Hematocrit 26.4 % (37.0-47.0); Hemoglobin 8.7 g/dl (12.0-16.0); Imm Gran Abs Auto 0.07 X10*3/uL (0.00-0.03); Imm Gran Pct Auto 1.9 % (0.0-0.4); Immature Retic Fraction 28.7 % (3.0-15.9); Lymphocytes Absolute Auto 1.7 X10*3/uL (1.2-4.9); Mean Corpuscular Volume 112.3 fL (80.0-98.0); Mean Platelet Volume 11.6 fL (9.4-12.3); Monocytes Absolute Auto 0.4 X10*3/uL (0.1-1.2); Monocytes Percent Auto 9.9 % (2-11); NRBC Pct Auto 2.9 /100WBC (0.0-0.2); Neutrophils Absolute Auto 1.5 x10*3/uL (2.0-8.3); Neutrophils Percent Auto 41.1 % (45-73); Platelet Count 90 X10*3/uL (160-400); Red Blood Count 2.35 X10*6/uL (4.20-5.50); Retic HGB Equivalent 32.1 pg (30.0-35.0); Reticulocyte Percent 3.6 % (0.5-1.8); Reticulocytes Absolute 0.085 X10*6/uL (0.026-0.095); White Blood Count 3.7 X10*3/uL (4.8-10.8)
[2022-01-05 14:51] LABS: Alanine Aminotransferase 11 U/L (0-31); Albumin Level 3.6 g/dL (3.5-5.0); Alkaline Phosphatase 60 U/L (39-117); Anion Gap 10 (12-20); Aspartate Amino Transferase 25 U/L (5-31); Blood Urea Nitrogen 23 mg/dL (9-16); Calcium 8.7 mg/dL (8.4-10.2); Carbon Dioxide 23 mmol/L (22-29); Chloride 108 mmol/L (96-108); Estimated Glomerular Filt Rate > 60; Glucose Random 127 mg/dL (60-115); Iron 122 mcg/dL (30-160); Potassium 4.2 mmol/L (3.3-5.1); Sodium 137 mmol/L (135-145); Total Protein 6.7 g/dL (6.5-8.0)
[2022-01-05 15:02] LABS: Percent Iron Saturation 36 % (15-50); Total Iron Binding Capacity 343 mcg/dL (228-428); Unsaturated Iron Binding 221 ug/dL
[2022-01-05 15:05] LABS: Ferritin 184 ng/mL (10-250); Thyroid Stimulating Hormone 2.96 uIU/mL (0.32-4.0)
[2022-01-05 15:36] LABS: Vitamin B12 373 pg/mL (200-900)
== END 2022-01-05 13:48 | disposition home or self-care (01) ==
LOC: HO.LAB 13:47
PROVIDERS: PCP Internal Medicine; Visit Provider Internal Medicine
DX: Z13.89 Encounter for screening for other disorder (principal)
CPT/HCPCS: 36415; 80053; 82607; 82728; 82746; 83540; 84443; 85025; 85045

== ENCOUNTER 2022-01-05 19:56 | Emergency (ER) | payer MEDICARE, OTHER, SELFPAY ==
[2022-01-05 20:03] VITALS: BP 139/76; PULSE 65; RESP 18; TEMP 36.6; O2SAT 98; BMI 35.2
[2022-01-05 21:00] VITALS: BP 152/66; PULSE 65; RESP 14; TEMP 36.6; O2SAT 98
[2022-01-05 21:03] LABS: MANUAL DIFF FLAG NO
[2022-01-05 21:04] LABS: Basophils Percent Auto 0.2 % (0-2); Eosinophils Percent Auto 0.6 % (0-4); Hematocrit 28.6 % (37.0-47.0); Hemoglobin 9.4 g/dl (12.0-16.0); Imm Gran Abs Auto 0.18 X10*3/uL (0.00-0.03); Imm Gran Pct Auto 3.7 % (0.0-0.4); Lymphocytes Absolute Auto 1.8 X10*3/uL (1.2-4.9); Lymphocytes Percent Auto 35.9 % (20-40); Mean Corpuscular HGB Conc 32.9 g/dl (31.0-35.0); Mean Corpuscular Hemoglobin 37.6 pg (27.0-33.0); Mean Platelet Volume 12.1 fL (9.4-12.3); Monocytes Absolute Auto 0.6 X10*3/uL (0.1-1.2); Monocytes Percent Auto 11.5 % (2-11); Neutrophils Absolute Auto 2.3 x10*3/uL (2.0-8.3); Neutrophils Percent Auto 48.1 % (45-73); Platelet Count 102 X10*3/uL (160-400); Red Cell Distribution Width 20.3 % (11.0-16.0); White Blood Count 4.9 X10*3/uL (4.8-10.8)
[2022-01-05 21:06] LABS: Mean Corpuscular Volume 114.4 fL (80.0-98.0); NRBC Pct Auto 2.7 /100WBC (0.0-0.2)
[2022-01-05 21:20] LABS: Alanine Aminotransferase 16 U/L (0-31); Albumin Level 3.8 g/dL (3.5-5.0); Alkaline Phosphatase 62 U/L (39-117); Anion Gap 12 (12-20); Aspartate Amino Transferase 42 U/L (5-31); Blood Urea Nitrogen 25 mg/dL (9-16); Calcium 8.7 mg/dL (8.4-10.2); Carbon Dioxide 22 mmol/L (22-29); Chloride 107 mmol/L (96-108); Creatinine Clr Calc Pharmacy 36.6; Estimated Glomerular Filt Rate 47; Glucose Random 125 mg/dL (60-115); Potassium 4.9 mmol/L (3.3-5.1); Sodium 136 mmol/L (135-145); Total Protein 7.4 g/dL (6.5-8.0)
[2022-01-05 21:23] LABS: IDNOW Serial# 16C4AD1C
[2022-01-05 21:24] LABS: COVID-19 Test Negative (Negative)
--- NOTE | 2022-01-05 21:55 | ED_ITS ---
HPI - Recheck/Abnormal Lab/Rx General Chief Complaint: Recheck/Abnormal Lab/Rx Stated Complaint: sent by pcp, blood problems? Time Seen by Provider: 01/05/22 20:59 Source: patient Mode of arrival: ambulatory Limitations: no limitations History of Present Illness HPI narrative: Patient comes to the emergency room , stating that she was instructed to come to the emergency room for further evaluation. Patient states that she has been complaining of stinging sensation in her back, patient went to see her primary c are physician, x-rays were taken and blood work. Patient is known to be anemic, baseline approximately 9.4. On her blood work from this morning, patient's hemoglobin was 8.7. Patient is asymptomatic, she is on Coumadin for atrial fibrillation, denies any chest pain, shortness of breath, or black/blood in the stool . Patient was instructed to come to emergency room. Related Data Home Medications Medication Instructions Recorded Confirmed coenzyme Q10 100 mg capsule 100 mg PO DAILY 12/14/20 01/05/22 (CoQ-10) blood sugar diagnostic (FreeStyle 01/29/21 01/05/22 Lite Strips) nystatin 100,000 unit/mL oral 5 ml PO TID ml 12/04/21 01/05/22 suspension Previous Rx's Medication Instructions Recorded blood sugar diagnostic (FreeStyle 1 strip MISCELLANEOUS DAILY 90 11/17/20 Lite Strips) Days #100 ea clonazepam 0.5 mg tablet 0.5 mg PO BEDTIME 90 Days #90 tab 05/30/21 compress.stocking,knee,reg,lrg #2 ea 05/30/21 mastectomy bra (bra, mastectomy) #2 ea 06/21/21 warfarin 5 mg tablet 5 mg PO DAILY 90 Days #90 tab 10/16/21 fluticasone propionate 50 2 spray INTRANASAL DAILY 14 Days 10/17/21 mcg/actuation nasal #16 g spray,suspension blood-glucose meter (FreeStyle #1 ea 12/08/21 Lite Meter) cyanocobalamin (vitamin B-12) 1,000 mcg PO DAILY #30 cap 12/08/21 1,000 mcg capsule losartan 50 mg tablet 50 mg PO DAILY #90 tab 12/08/21 metoprolol succinate 25 mg 25 mg PO DAILY #90 tab 12/28/21 tablet,extended release 24 hr Allergies Allergy/AdvReac Type Severity Reaction Status Date / Time ezetimibe [Zetia] Allergy Intermediate Unknown Verified 01/05/22 13:20 lisinopril Allergy Mild Unknown Verified 01/05/22 13:20 meperidine [From Demerol] Allergy Mild UNKNOWN Verified 01/05/22 13:20 nitrofurantoin Allergy Mild UNKNOWN Verified 01/05/22 13:20 [From Macrodantin] Penicillins Allergy Mild UNKNOWN Verified 01/05/22 13:20 Sulfa (Sulfonamide Allergy Mild UNKNOWN Verified 01/05/22 13:20 Antibiotics) [place] Syrup Allergy Unknown Unknown Verified 01/05/22 13:20 Iodinated Contrast Media Allergy Unknown ?RASH Verified 01/05/22 13:20 [IV CONTRAST] statin Allergy Unknown unknown Verified 01/05/22 13:20 acetaminophen [From PERCOCET] AdvReac Intermediate SEEING Verified 01/05/22 13:20 THINGS AFTER PERCOCET THAT WERE NOT THERE Review of Systems Review of Systems: Constitutional : No Weight loss, No Fever, No Chills, No Night Sweats, No Fatigue, No Malaise ENT/Mouth : No Hearing loss, No Ear Pain, No Nasal Congestion, No Sinus Pain, No Hoarseness, No sore throat, No Rhinorrhea, No Swallowing Difficulty Eyes: No Eye Pain, No Swelling, No Redness, No Foreign Body, No Discharge, No Vision Changes Cardiovascular : No Chest Pain, No SOB, No Dyspnea on Exertion, No Orthopnea, No Edema, No Palpitations Respiratory : No Cough, No Sputum, No Wheezing, No Smoke Exposure, No Dyspnea Gastrointestinal : No Nausea, No Vomiting, No Diarrhea, No Constipation, No ab dominal Pain, No Hematochezia, No Melena Genitourinary : no irregular bleeding, No Dysuria, No Urinary Frequency, No Hematuria, No Urinary Incontinence, No Urgency, No Flank Pain, No Urinary Flow Changes, No Hesitancy Musculoskeletal : No joint pain, No Myalgias, No Joint Swelling, occasional twitching on the left side of the back Skin : No Skin Lesions, No rash Neuro : No Weakness, No Numbness, No Paresthesias, No Loss of Consciousness, No Dizziness, No Headache Psych : No Anxiety/Panic, No Depression, No SI/HI/AH/VH, No Social Issues, Heme/Lymph: No Bruising, No Bleeding,No Lymphadenopathy Endocrine : No Polyuria, No Polydipsia, No Temperature Intolerance [facility] Past Medical History Medical History Acute cholecystitis Anemia Anxiety Ascending aorta dilatation Atrial fibrillation CAD (coronary artery disease) Cardiac pacemaker in situ Chest discomfort Cholelithiases Complete heart block Gastric ulcer History of breast cancer Hypercholesterolemia Hypertension Osteoarthritis of knee Prosthetic valve dysfunction Type 2 diabetes mellitus with hyperglycemia Vitamin D deficiency Surgical History Aortic valve replaced History of bilateral mastectomy History of pacemaker History of surgery on left wrist History of tonsillectomy S/P CABG x 2 (~03/2010) Family History Family History Father CVD (cardiovascular disease) Mother Stroke Social History Social History Household Members: Children Housing: House Do you presently have visiting nurse or other home services: No Alcohol intake: current Alcohol intake frequency: holidays/special occasions only Patient Tobacco Use Status: Never used Tobacco e-Cigarette/Vaping Use: Never Used Second Hand Smoke Exposure: Yes Advance Directives: No Advance Directives Information Provided: Yes service: No Current occupational status: retired Cognitive needs: Yes Hearing needs: Yes Vision needs: Yes Physical Exam Vital Signs: Vital Signs: Last Vital Signs Temp 97.9 F 01/05/22 21:00 Pulse 65 01/05/22 21:00 Resp 14 01/05/22 21:00 BP 152/66 H 01/05/22 21:00 Pulse Ox 98 01/05/22 21:00 BMI result Body Mass Index 35.2 Const: Other: Appearance: Alert. Oriented X3. No acute distress. Eyes: Pupils equal, round and reactive to light. ENT: Pharynx normal. Neck: Normal inspection. Neck supple. No lymph nodes noted. No crepitus CVS: Normal heart rate and rhythm. Pulses normal. Normal S1 and S2 Respiratory: No respiratory distress. Breath sounds normal. No Wheezing. No rales Abdomen: Soft and nontender. No rigidity. No distention. Digital rectal exam brown stool Skin: Skin warm and dry. Normal skin color. Normal skin turgor. Wearing menthol patches in her back, skin or the patches within normal limits Extremities: No lower extremity edema. No Lacerations. No Rash Neuro: Oriented X 3. No motor deficit. No sensory deficit. Moving all extremities. No slurred speech. CN 2 through 12 grossly intact Psych: calm, cooperative, normal affect Course Course Course Narrative: I discussed with the patient that her hemoglobin level is 9.4, which is her baseline. At this time, patient does not need a blood transfusion. Occult blood pending. Patient states that she does not recall if she has ever had a colonoscopy. Patient's INR today is 2.4, therapeutic. Guaiac test negative. States that she feels at baseline. Patient will be discharged, patient will have her H&H repeated as well as her INR in 3 days at the clinic. Patient states that she drank a lot of water prior to her afternoon labs. Patient states that she has been told that drinking a lot of water before hopes to visualize the veins and also she was told to drink a lot of water to prevent dehydration. Patient might have been hemodiluted at the time that the labs were drawn at 14:00 MDM - Recheck/Abnormal Lab/Rx Lab Data Result diagrams: 01/05/22 20:48 01/05/22 20:48 Labs: Lab Results 01/05/22 01/05/22 01/05/22 Range/Units 20:48 20:48 20:48 WBC 4.9 (4.8-10.8) X10*3/uL RBC 2.50 L (4.20-5.50) X10*6/uL Hgb 9.4 L (12.0-16.0) g/dl Hct 28.6 L (37.0-47.0) % MCV 114.4 H (80.0-98.0) fL MCH 37.6 H (27.0-33.0) pg MCHC 32.9 (31.0-35.0) g/dl RDW 20.3 H (11.0-16.0) % Plt Count 102 L (160-400) X10*3/uL MPV 12.1 (9.4-12.3) fL Immature Gran % (Auto) 3.7 H (0.0-0.4) % Neut % (Auto) 48.1 (45-73) % Lymph % (Auto) 35.9 (20-40) % [place] % (Auto) 11.5 H (2-11) % Eos % (Auto) 0.6 (0-4) % Baso % (Auto) 0.2 (0-2) % Lymph # (Auto) 1.8 (1.2-4.9) X10*3/uL [place] # (Auto) 0.6 (0.1-1.2) X10*3/uL Eos # (Auto) 0.0 (0.0-0.4) X10*3/uL Baso # (Auto) 0.0 (0.0-0.2) X10*3/uL Abs Immat Gran (auto) 0.18 H (0.00-0.03) X10*3/uL Absolute Neuts (auto) 2.3 (2.0-8.3) x10*3/uL Absolute Nucleated RBC 0.130 H (0.0-0.012) X10*3/uL Nucleated RBC % (auto) 2.7 H (0.0-0.2) /100WBC Sodium 136 (135-145) mmol/L Potassium 4.9 (3.3-5.1) mmol/L Chloride 107 (96-108) mmol/L Carbon Dioxide 22 (22-29) mmol/L Anion Gap 12 (12-20) BUN 25 H (9-16) mg/dL Creatinine 1.10 (0.5-1.4) mg/dL Estim Creat Clear Calc 36.6 Estimated GFR 47 Random Glucose 125 H (60-115) mg/dL Calcium 8.7 (8.4-10.2) mg/dL Total Bilirubin 2.0 H (0.0-1.0) mg/dL AST 42 H D (5-31) U/L ALT 16 (0-31) U/L Alkaline Phosphatase 62 (39-117) U/L Total Protein 7.4 (6.5-8.0) g/dL Albumin 3.8 (3.5-5.0) g/dL Stool Occult Blood (NEGATIVE) COVID-19 (VIN) Negative (Negative) COVID-19 Clin Com See Note 01/05/22 Range/Units 21:53 WBC (4.8-10.8) X10*3/uL RBC (4.20-5.50) X10*6/uL Hgb (12.0-16.0) g/dl Hct (37.0-47.0) % MCV (80.0-98.0) fL MCH (27.0-33.0) pg MCHC (31.0-35.0) g/dl RDW (11.0-16.0) % Plt Count (160-400) X10*3/uL MPV (9.4-12.3) fL Immature Gran % (Auto) (0.0-0.4) % Neut % (Auto) (45-73) % Lymph % (Auto) (20-40) % [place] % (Auto) (2-11) % Eos % (Auto) (0-4) % Baso % (Auto) (0-2) % Lymph # (Auto) (1.2-4.9) X10*3/uL [place] # (Auto) (0.1-1.2) X10*3/uL Eos # (Auto) (0.0-0.4) X10*3/uL Baso # (Auto) (0.0-0.2) X10*3/uL Abs Immat Gran (auto) (0.00-0.03) X10*3/uL Absolute Neuts (auto) (2.0-8.3) x10*3/uL Absolute Nucleated RBC (0.0-0.012) X10*3/uL Nucleated RBC % (auto) (0.0-0.2) /100WBC Sodium (135-145) mmol/L Potassium (3.3-5.1) mmol/L Chloride (96-108) mmol/L Carbon Dioxide (22-29) mmol/L Anion Gap (12-20) BUN (9-16) mg/dL Creatinine (0.5-1.4) mg/dL Estim Creat Clear Calc Estimated GFR Random Glucose (60-115) mg/dL Calcium (8.4-10.2) mg/dL Total Bilirubin (0.0-1.0) mg/dL AST (5-31) U/L ALT (0-31) U/L Alkaline Phosphatase (39-117) U/L Total Protein (6.5-8.0) g/dL Albumin (3.5-5.0) g/dL Stool Occult Blood NEGATIVE (NEGATIVE) COVID-19 (VIN) (Negative) COVID-19 Clin Com Discharge Plan Discharge Clinical Impression: Abnormal laboratory test Patient Disposition: Home, Self-Care Instructions: Anemia (ED) Additional Instructions: Please follow-up with your primary care physician tomorrow. If you have any worsening or new symptoms, please return to the emergency room or call 911 Prescriptions: No Action blood sugar diagnostic [FreeStyle Lite Strips] Strip 1 strip miscellaneous DAILY 90 Days Qty: 100 3RF (DME) bra, mastectomy Crystals See Rx Instructions .Route Qty: 2 0RF Rx Instructions: As directed warfarin 5 mg tablet 5 mg PO DAILY 90 Days Qty: 90 3RF Protocol: Dose Management Condition: Saturday (Week One) Dose/Route: 2.5 mg Instruction: 0.5 x 5 mg tablets Condition: Saturday Dose/Route: 5 mg Instruction: 1 x 5 mg tablet Condition: Saturday Dose/Route: 2.5 mg Instruction: 0.5 x 5 mg tablets Condition: Saturday Dose/Route: 5 mg Instruction: 1 x 5 mg tablet Condition: Dose/Route: 2.5 mg Instruction: 0.5 x 5 mg tablets Condition: Saturday Dose/Route: 5 mg Instruction: 1 x 5 mg tablet Condition: Saturday Dose/Route: 2.5 mg Instruction: 0.5 x 5 mg tablets Condition: Saturday (Week Two) Dose/Route: 2.5 mg Instruction: 0.5 x 5 mg tablets Condition: Saturday Dose/Route: 5 mg Instruction: 1 x 5 mg tablet Condition: Saturday Dose/Route: 2.5 mg Instruction: 0.5 x 5 mg tablets Condition: Saturday Dose/Route: 5 mg Instruction: 1 x 5 mg tablet Condition: Dose/Route: 2.5 mg Instruction: 0.5 x 5 mg tablets Condition: Saturday Dose/Route: 5 mg Instruction: 1 x 5 mg tablet Condition: Saturday Dose/Route: 2.5 mg Instruction: 0.5 x 5 mg tablets Protocol Text: Adjustment Start Date: Saturday01/05/22 INR Value: 2.4 INR Date: 01/05/22 Recheck Date: 02/02/22 fluticasone propionate 50 mcg/actuation spray,suspension 2 spray intranasal DAILY 14 Days Qty: 16 11RF Rx Instructions: administer into each nostril metoprolol succinate 25 mg tablet extended release 24 hr 25 mg PO DAILY Qty: 90 2RF (DME) FreeStyle Lite Strips Strip MISCELLANEOUS 0RF clonazepam 0.5 mg tablet 0.5 mg PO BEDTIME 90 Days Qty: 90 0RF (DME) compress.stocking,knee,reg,lrg Misc See Rx Instructions .Route Qty: 2 0RF Rx Instructions: As directed 20-30 mm HG losartan 50 mg tablet 50 mg PO DAILY Qty: 90 3RF cyanocobalamin (vitamin B-12) 1,000 mcg capsule 1,000 mcg PO DAILY Qty: 30 3RF (DME) blood-glucose meter [FreeStyle Lite Meter] Kit See Rx Instructions .ROUTE .MEDSUPPLY Qty: 1 0RF Rx Instructions: As directed nystatin 100,000 unit/mL suspension 5 ml PO TID 0RF Rx Instructions: 5 cc swish and swallow TID coenzyme Q10 [CoQ-10] 100 mg capsule 100 mg PO DAILY 0RF
[2022-01-05 22:00] LABS: OBS Int Ctl Valid YES; OBS1 NEGATIVE (NEGATIVE)
[2022-01-05 23:01] VITALS: BP 151/70; PULSE 65; RESP 14; O2SAT 100
== END 2022-01-05 23:00 | disposition home or self-care (01) ==
PROVIDERS: Emergency Provider Emergency Medicine; PCP Internal Medicine
DX: R79.89 Other specified abnormal findings of blood chemistry (principal); Z20.822 Contact with and (suspected) exposure to COVID-19; Z79.899 Other long term (current) drug therapy
CPT/HCPCS: 36415; 80053; 82272; 82607; 82728; 82746; 83540; 84443; 85025; 85045; 85610; 87635; 99211; 99283

== ENCOUNTER 2022-01-10 12:44 | Emergency (ER) | payer MEDICARE, OTHER, SELFPAY ==
--- NOTE | ~2022-01-10 | XR_ITS ---
EXAMINATION: XR CHEST CLINICAL INFORMATION: Shortness of breath COMPARISON: 01/03/2022 TECHNIQUE: 2 views of the chest were obtained. FINDINGS: Enlarged cardiomediastinal silhouette. Status post median sternotomy and CABG. Left-sided cardiac pacemaker in similar position. Chronic interstitial lung markings with areas of linear scarring/atelectasis in the left lung base. Lungs are hyperexpanded. No superimposed acute consolidation. No pneumothorax. XR/XR chest 2V IMPRESSION: COPD with chronic changes in the lungs. No evidence of acute process.
[2022-01-10 13:11] VITALS: BP 152/75; PULSE 93; RESP 24; TEMP 36.2; O2SAT 98; BMI 35.2
[2022-01-10 14:49] LABS: Basophils Percent Auto 0.2 % (0-2); Eosinophils Percent Auto 0.2 % (0-4); Hemoglobin 8.9 g/dl (12.0-16.0); Imm Gran Abs Auto 0.09 X10*3/uL (0.00-0.03); Imm Gran Pct Auto 2.2 % (0.0-0.4); Lymphocytes Absolute Auto 2.1 X10*3/uL (1.2-4.9); Lymphocytes Percent Auto 51.1 % (20-40); MANUAL DIFF FLAG SCAN; Mean Corpuscular Hemoglobin 37.7 pg (27.0-33.0); Mean Platelet Volume 12.5 fL (9.4-12.3); Monocytes Absolute Auto 0.4 X10*3/uL (0.1-1.2); Monocytes Percent Auto 10.6 % (2-11); Neutrophils Absolute Auto 1.5 x10*3/uL (2.0-8.3); Neutrophils Percent Auto 35.7 % (45-73); PLT CLUMP 1; Red Blood Count 2.36 X10*6/uL (4.20-5.50); Red Cell Distribution Width 20.6 % (11.0-16.0); SCAN SMEAR FLAG 1
[2022-01-10 14:50] LABS: Anion Gap 13 (12-20); Blood Urea Nitrogen 23 mg/dL (9-16); Calcium 8.6 mg/dL (8.4-10.2); Carbon Dioxide 20 mmol/L (22-29); Chloride 108 mmol/L (96-108); Creatinine Clr Calc Pharmacy 43.8; Estimated Glomerular Filt Rate 58; Glucose Random 137 mg/dL (60-115); Mean Corpuscular Volume 114.4 fL (80.0-98.0); NRBC Pct Auto 3.4 /100WBC (0.0-0.2); Platelet Count 85 X10*3/uL (160-400); Potassium 5.6 mmol/L (3.3-5.1); Sodium 135 mmol/L (135-145); White Blood Count 4.1 X10*3/uL (4.8-10.8)
[2022-01-10 15:07] LABS: SLIDE REVIEW VERIFIED
[2022-01-10 17:05] VITALS: BP 149/82; PULSE 68; RESP 22; O2SAT 98
--- NOTE | 2022-01-10 19:07 | PC.NURSE ---
This RN is working in triage; pt's son c/o about wait time and that pt hasnt been seen, states they told us 2 hours this RN apologized for wait times. pt eating a sandwich in [place] sitting in chair with no visible WOB. SPO2 checked 100% on RA. pt states that she was out of breath after ambulating back from [place] with cane. This RN reassured pt that her spo2 was 100%. Son asking what is taking so long and this RN explained that ambulances are also coming so theres more pts than just [place], son states that its unacceptable that his 81yo mother who is SOB is waiting 6 hrs. this RN reassured son about 100% spo2 and apologized for wait.
[2022-01-10 19:12] VITALS: PULSE 65; O2SAT 100
--- NOTE | 2022-01-10 19:46 | ECG_ITS ---
Test Reason : shortness of breath Blood Pressure : / mmHG Vent. Rate : 065 BPM Atrial Rate : 061 BPM P-R Int : 000 ms QRS Dur : 152 ms QT Int : 470 ms P-R-T Axes : 000 -66 107 degrees QTc Int : 488 ms Ventricular-paced rhythm likely underlying atrial fibrillation Abnormal ECG When compared with ECG of 29-JAN-2021 22:10, No significant change was found Referred By: Hiren Freeman Electronically Signed By:RICKEY MIMS
[2022-01-10 19:50] VITALS: BP 130/43; PULSE 67; RESP 19; TEMP 36.7; O2SAT 97
--- NOTE | 2022-01-10 19:50 | ED_ITS ---
HPI - General Adult General Chief complaint: Dyspnea <Hiren Freeman MD - Last Filed: 01/10/22 21:36> Stated complaint: difficulty breathing/weakness <Hiren Freeman MD - Last Filed: 01/10/22 21:36> Time Seen by Provider: 01/10/22 19:20 <Hiren Freeman MD - Last Filed: 01/10/22 21:36> Source: patient and family <Hiren Freeman MD - Last Filed: 01/10/22 21:36> History of Present Illness HPI narrative: Patient states for the past 3 days she has had increasing shortness of breath. She states it started several weeks ago but got worse over the last few days. She has a history of prostatic aortic valve. She is on Coumadin for this. Echocardiogram in May showed normal left ventricular function without severe stenosis or regurgitation. She denies chest pain. She states she has been having more dyspnea with exertion. No cough. Some left lower posterior chest wall pain which is sharp and worse with movement and breathing. No fevers or chills No dysuria No recent sick contacts. Secondary complaint of diarrhea. She states she has had approximately 2 episodes of watery brown diarrhea for past 3 days. Yesterday, however, she had a bowel movement that was green in color. No black stools or melena noted per patient. No red stools. No recent change in diet. No diarrhea today. No nausea or vomiting. <Hiren Freeman MD - Last Filed: 01/10/22 21:36> Related Data Home medications: Home Medications Medication Instructions Recorded Confirmed blood sugar diagnostic (Vilma 01/29/21 01/05/22 Lite Strips) warfarin 2.5 mg tablet 2.5 mg PO SUTUTHSA@1800 01/10/22 01/10/22 warfarin 5 mg tablet 5 mg PO MOWEFR@1800 01/10/22 01/10/22 Previous Rx's Medication Instructions Recorded compress.stocking,knee,reg,lrg #2 ea 05/30/21 mastectomy bra (bra, mastectomy) #2 ea 06/21/21 warfarin 5 mg tablet 5 mg PO DAILY 90 Days #90 tab 10/16/21 fluticasone propionate 50 2 spray INTRANASAL DAILY 14 Days 10/17/21 mcg/actuation nasal #16 g spray,suspension blood-glucose meter (FreeStyle #1 ea 12/08/21 Lite Meter) cyanocobalamin (vitamin B-12) 1,000 mcg PO DAILY #30 cap 12/08/21 1,000 mcg capsule metoprolol succinate 25 mg 25 mg PO DAILY #90 tab 12/28/21 tablet,extended release 24 hr losartan 50 mg tablet 50 mg PO DAILY #90 tab 01/08/22 furosemide 20 mg tablet (Lasix) 10 mg PO QAM #14 tab 01/10/22 <Hiren Freeman MD - Last Filed: 01/10/22 21:36> Allergies/adverse reactions: Allergies Allergy/AdvReac Type Severity Reaction Status Date / Time ezetimibe [Zetia] Allergy Intermediate Unknown Verified 01/05/22 13:20 lisinopril Allergy Mild Unknown Verified 01/05/22 13:20 meperidine [From Demerol] Allergy Mild UNKNOWN Verified 01/05/22 13:20 nitrofurantoin Allergy Mild UNKNOWN Verified 01/05/22 13:20 [From Macrodantin] Penicillins Allergy Mild UNKNOWN Verified 01/05/22 13:20 Sulfa (Sulfonamide Allergy Mild UNKNOWN Verified 01/05/22 13:20 Antibiotics) Chicot Syrup Allergy Unknown Unknown Verified 01/05/22 13:20 Iodinated Contrast Media Allergy Unknown ?RASH Verified 01/05/22 13:20 [IV CONTRAST] statin Allergy Unknown unknown Verified 01/05/22 13:20 acetaminophen [From PERCOCET] AdvReac Intermediate SEEING Verified 01/05/22 13:20 THINGS AFTER PERCOCET THAT WERE NOT THERE <Hiren Freeman MD - Last Filed: 01/10/22 21:36> Review of Systems Constitutional: Comments: General malaise and general weakness <Hiren Freeman MD - Last Filed: 01/10/22 21:36> Cardiovascular: Comments: No chest pain <Hiren Freeman MD - Last Filed: 01/10/22 21:36> Respiratory: Comments: Dyspnea especially on exertion without cough or sputum <Hiren Freeman MD - Last Filed: 01/10/22 21:36> Gastrointestinal: Comments: Diarrhea without nausea or vomiting or abdominal pain <Hiren Freeman MD - Last Filed: 01/10/22 21:36> Genitourinary: Comments: No urinary symptoms <Hiren Freeman MD - Last Filed: 01/10/22 21:36> Musculoskeletal: Comments: Left leg chronically more swollen than right leg. No recent changes to edema <Hiren Freeman MD - Last Filed: 01/10/22 21:36> Integumentary/Breasts: Comments: No new significant rash, but she has had intermittent rash on her left and right forearms for which he has had a recent Lyme disease test which has so far not resulted <Hiren Freeman MD - Last Filed: 01/10/22 21:36> Neurologic: Comments: No focal weakness <Hiren Freeman MD - Last Filed: 01/10/22 21:36> [facility] Past Medical History Medical History: Medical History Acute cholecystitis Anemia Anxiety Ascending aorta dilatation Atrial fibrillation CAD (coronary artery disease) Cardiac pacemaker in situ Chest discomfort Cholelithiases Complete heart block Gastric ulcer History of breast cancer Hypercholesterolemia Hypertension Osteoarthritis of knee Prosthetic valve dysfunction Type 2 diabetes mellitus with hyperglycemia Vitamin D deficiency <Hiren Freeman MD - Last Filed: 01/10/22 21:36> Surgical History: Surgical History Aortic valve replaced History of bilateral mastectomy History of pacemaker History of surgery on left wrist History of tonsillectomy S/P CABG x 2 (~03/2010) <Hiren Freeman MD - Last Filed: 01/10/22 21:36> Family History Family History: Family History Father CVD (cardiovascular disease) Mother Stroke <Hiren Freeman MD - Last Filed: 01/10/22 21:36> Social History Social History: Social History Household Members: Children Housing: House Do you presently have visiting nurse or other home services: No Alcohol intake: never Patient Tobacco Use Status: Never used Tobacco e-Cigarette/Vaping Use: Never Used Second Hand Smoke Exposure: Yes Use of substances other than those prescribed or required for medical reasons: No Advance Directives: No Advance Directives Information Provided: Yes service: No Current occupational status: retired Cognitive needs: Yes Hearing needs: Yes Vision needs: Yes <Hiren Freeman MD - Last Filed: 01/10/22 21:36> Physical Exam ED Vital Signs: Vital Signs - 24 hr 01/10/22 13:11 01/10/22 17:05 01/10/22 19:12 Temperature 97.2 F Pulse Rate 93 68 65 Respiratory Rate 24 H 22 H Blood Pressure 152/75 H 149/82 H Pulse Oximetry 98 98 100 01/10/22 19:50 Temperature 98.1 F Pulse Rate 67 Respiratory Rate 19 Blood Pressure 130/43 L Pulse Oximetry 97 BMI result Body Mass Index 35.2 <Hiren Freeman MD - Last Filed: 01/10/22 21:36> Vital Signs - 24 hr 01/10/22 13:11 01/10/22 17:05 01/10/22 19:12 Temperature 97.2 F Pulse Rate 93 68 65 Respiratory Rate 24 H 22 H Blood Pressure 152/75 H 149/82 H Pulse Oximetry 98 98 100 01/10/22 19:50 Temperature 98.1 F Pulse Rate 67 Respiratory Rate 19 Blood Pressure 130/43 L Pulse Oximetry 97 BMI result Body Mass Index 35.2 <Miguel Muñoz MD - Last Filed: 01/10/22 23:04> Course Course Course Narrative: New onset dyspnea Congestive heart failure Cardiac ischemia Pneumonia Reactive airways Pulmonary embolism less likely given Coumadin use Will add on EKG, chest x-ray, troponin So far lab work without major change from baseline. Her hemoglobin is 8.9 which is similar to her baseline. Chemistry shows a potassium of 5.6. Creatinine is normal however. Troponin is mildly elevated 18.7. We have no prior troponin BNP is 383. Prior BNP is 152 I suspect she has some mild fluid overload at this point. Will repeat her troponin to check for delta and if there is no delta will discharge home with Lasix. Otherwise will hospitalize for further workup <Hiren Freeman MD - Last Filed: 01/10/22 21:36> Reevaluation(s) Reevaluation #1: Patient labs revealed potassium 5.6 was given Kayexalate also patient [place] [address] anemia with hemoglobin of 8.9 and low WBC count of 4.1 patient advised to stop taking any foot planted high potassium was given a prescription of furosemide and advised to follow-up with PCP to recheck potassium level and follow up with home comfort advisor to check thrombocytopenia anemia <Miguel Muñoz MD - Last Filed: 01/10/22 23:04> Time: 23:03 <Miguel Muñoz MD - Last Filed: 01/10/22 23:04> Medical Decision Making Lab Data Result diagrams: : 01/10/22 14:25 01/10/22 14:25 <Hiren Freeman MD - Last Filed: 01/10/22 21:36> Labs: Lab Results 01/10/22 01/10/22 01/10/22 Range/Units 14:25 14:25 20:37 WBC 4.1 L (4.8-10.8) X10*3/uL RBC 2.36 L (4.20-5.50) X10*6/uL Hgb 8.9 L (12.0-16.0) g/dl Hct 27.0 L (37.0-47.0) % MCV 114.4 H (80.0-98.0) fL MCH 37.7 H (27.0-33.0) pg MCHC 33.0 (31.0-35.0) g/dl RDW 20.6 H (11.0-16.0) % Plt Count 85 L (160-400) X10*3/uL MPV 12.5 H (9.4-12.3) fL Immature Gran % (Auto) 2.2 H (0.0-0.4) % Neut % (Auto) 35.7 L (45-73) % Lymph % (Auto) 51.1 H (20-40) % Lamar % (Auto) 10.6 (2-11) % Eos % (Auto) 0.2 (0-4) % Baso % (Auto) 0.2 (0-2) % Lymph # (Auto) 2.1 (1.2-4.9) X10*3/uL Lamar # (Auto) 0.4 (0.1-1.2) X10*3/uL Eos # (Auto) 0.0 (0.0-0.4) X10*3/uL Baso # (Auto) 0.0 (0.0-0.2) X10*3/uL Abs Immat Gran (auto) 0.09 H (0.00-0.03) X10*3/uL Absolute Neuts (auto) 1.5 L (2.0-8.3) x10*3/uL Absolute Nucleated RBC 0.140 H (0.0-0.012) X10*3/uL Nucleated RBC % (auto) 3.4 H (0.0-0.2) /100WBC Smear Tech's Comments VERIFIED D-Dimer High Sensitivty NG/ML Sodium 135 (135-145) mmol/L Potassium 5.6 H (3.3-5.1) mmol/L Chloride 108 (96-108) mmol/L Carbon Dioxide 20 L (22-29) mmol/L Anion Gap 13 (12-20) BUN 23 H (9-16) mg/dL Creatinine 0.92 (0.5-1.4) mg/dL Estim Creat Clear Calc 43.8 Estimated GFR 58 Random Glucose 137 H (60-115) mg/dL Calcium 8.6 (8.4-10.2) mg/dL Troponin I High Sens (<3.5-17.0) ng/L B-Natriuretic Peptide (<100) pg/mL Urine Color Urine Appearance Urine pH (5.0-8.0) Ur Specific [place] (1.005-1.025) Urine Protein (NEG-TRACE) MG/DL Urine Glucose (UA) (NEG) MG/DL Urine Ketones (NEG) MG/DL Urine Blood (NEG) Urine Nitrite (NEG) Ur Leukocyte Esterase (NEG) Urine RBC (0) /HPF Urine WBC (0-4) /HPF Ur Squamous Epith Cells /LPF Amorphous Sediment /LPF Urine Bacteria /LPF Urine Mucus /LPF COVID-19 (VIN) (Negative) COVID-19 Clin Com Influenza Type A (ROSI) Negative (Negative) Influenza Type B (ROSI) Negative (Negative) Influenza A & B Note See Note 01/10/22 01/10/22 01/10/22 Range/Units 20:37 20:37 20:38 WBC (4.8-10.8) X10*3/uL RBC (4.20-5.50) X10*6/uL Hgb (12.0-16.0) g/dl Hct (37.0-47.0) % MCV (80.0-98.0) fL MCH (27.0-33.0) pg MCHC (31.0-35.0) g/dl RDW (11.0-16.0) % Plt Count (160-400) X10*3/uL MPV (9.4-12.3) fL Immature Gran % (Auto) (0.0-0.4) % Neut % (Auto) (45-73) % Lymph % (Auto) (20-40) % Lamar % (Auto) (2-11) % Eos % (Auto) (0-4) % Baso % (Auto) (0-2) % Lymph # (Auto) (1.2-4.9) X10*3/uL [place] # (Auto) (0.1-1.2) X10*3/uL Eos # (Auto) (0.0-0.4) X10*3/uL Baso # (Auto) (0.0-0.2) X10*3/uL Abs Immat Gran (auto) (0.00-0.03) X10*3/uL Absolute Neuts (auto) (2.0-8.3) x10*3/uL Absolute Nucleated RBC (0.0-0.012) X10*3/uL Nucleated RBC % (auto) (0.0-0.2) /100WBC Smear Tech's Comments D-Dimer High Sensitivty 176 NG/ML Sodium (135-145) mmol/L Potassium (3.3-5.1) mmol/L Chloride (96-108) mmol/L Carbon Dioxide (22-29) mmol/L Anion Gap (12-20) BUN (9-16) mg/dL Creatinine (0.5-1.4) mg/dL Estim Creat Clear Calc Estimated GFR Random Glucose (60-115) mg/dL Calcium (8.4-10.2) mg/dL Troponin I High Sens 18.7 H (<3.5-17.0) ng/L B-Natriuretic Peptide 383 H (<100) pg/mL Urine Color Urine Appearance Urine pH (5.0-8.0) Ur Specific [place] (1.005-1.025) Urine Protein (NEG-TRACE) MG/DL Urine Glucose (UA) (NEG) MG/DL Urine Ketones (NEG) MG/DL Urine Blood (NEG) Urine Nitrite (NEG) Ur Leukocyte Esterase (NEG) Urine RBC (0) /HPF Urine WBC (0-4) /HPF Ur Squamous Epith Cells /LPF Amorphous Sediment /LPF Urine Bacteria /LPF Urine Mucus /LPF COVID-19 (VIN) Negative (Negative) COVID-19 Clin Com See Note Influenza Type A (ROSI) (Negative) Influenza Type B (ROSI) (Negative) Influenza A & B Note 01/10/22 01/10/22 Range/Units 20:40 21:48 WBC (4.8-10.8) X10*3/uL RBC (4.20-5.50) X10*6/uL Hgb (12.0-16.0) g/dl Hct (37.0-47.0) % MCV (80.0-98.0) fL MCH (27.0-33.0) pg MCHC (31.0-35.0) g/dl RDW (11.0-16.0) % Plt Count (160-400) X10*3/uL MPV (9.4-12.3) fL Immature Gran % (Auto) (0.0-0.4) % Neut % (Auto) (45-73) % Lymph % (Auto) (20-40) % Lamar % (Auto) (2-11) % Eos % (Auto) (0-4) % Baso % (Auto) (0-2) % Lymph # (Auto) (1.2-4.9) X10*3/uL [place] # (Auto) (0.1-1.2) X10*3/uL Eos # (Auto) (0.0-0.4) X10*3/uL Baso # (Auto) (0.0-0.2) X10*3/uL Abs Immat Gran (auto) (0.00-0.03) X10*3/uL Absolute Neuts (auto) (2.0-8.3) x10*3/uL Absolute Nucleated RBC (0.0-0.012) X10*3/uL Nucleated RBC % (auto) (0.0-0.2) /100WBC Smear Tech's Comments D-Dimer High Sensitivty NG/ML Sodium (135-145) mmol/L Potassium (3.3-5.1) mmol/L Chloride (96-108) mmol/L Carbon Dioxide (22-29) mmol/L Anion Gap (12-20) BUN (9-16) mg/dL Creatinine (0.5-1.4) mg/dL Estim Creat Clear Calc Estimated GFR Random Glucose (60-115) mg/dL Calcium (8.4-10.2) mg/dL Troponin I High Sens 21.5 H (<3.5-17.0) ng/L B-Natriuretic Peptide (<100) pg/mL Urine Color DK YELLOW Urine Appearance HAZY Urine pH 6.0 (5.0-8.0) Ur Specific [place] 1.025 (1.005-1.025) Urine Protein 1+ H (NEG-TRACE) MG/DL Urine Glucose (UA) NEG (NEG) MG/DL Urine Ketones NEG (NEG) MG/DL Urine Blood 2+ H (NEG) Urine Nitrite NEG (NEG) Ur Leukocyte Esterase NEG (NEG) Urine RBC 5-9 H (0) /HPF Urine WBC 0-2 (0-4) /HPF Ur Squamous Epith Cells 4+ /LPF Amorphous Sediment TRACE /LPF Urine Bacteria 3+ /LPF Urine Mucus 2+ /LPF COVID-19 (VIN) (Negative) COVID-19 Clin Com Influenza Type A (ROSI) (Negative) Influenza Type B (ROSI) (Negative) Influenza A & B Note <Hiren Freeman MD - Last Filed: 01/10/22 21:36> Lab Results 01/10/22 01/10/22 01/10/22 Range/Units 14:25 14:25 20:37 WBC 4.1 L (4.8-10.8) X10*3/uL RBC 2.36 L (4.20-5.50) X10*6/uL Hgb 8.9 L (12.0-16.0) g/dl Hct 27.0 L (37.0-47.0) % MCV 114.4 H (80.0-98.0) fL MCH 37.7 H (27.0-33.0) pg MCHC 33.0 (31.0-35.0) g/dl RDW 20.6 H (11.0-16.0) % Plt Count 85 L (160-400) X10*3/uL MPV 12.5 H (9.4-12.3) fL Immature Gran % (Auto) 2.2 H (0.0-0.4) % Neut % (Auto) 35.7 L (45-73) % Lymph % (Auto) 51.1 H (20-40) % Lamar % (Auto) 10.6 (2-11) % Eos % (Auto) 0.2 (0-4) % Baso % (Auto) 0.2 (0-2) % Lymph # (Auto) 2.1 (1.2-4.9) X10*3/uL [place] # (Auto) 0.4 (0.1-1.2) X10*3/uL Eos # (Auto) 0.0 (0.0-0.4) X10*3/uL Baso # (Auto) 0.0 (0.0-0.2) X10*3/uL Abs Immat Gran (auto) 0.09 H (0.00-0.03) X10*3/uL Absolute Neuts (auto) 1.5 L (2.0-8.3) x10*3/uL Absolute Nucleated RBC 0.140 H (0.0-0.012) X10*3/uL Nucleated RBC % (auto) 3.4 H (0.0-0.2) /100WBC Smear Tech's Comments VERIFIED D-Dimer High Sensitivty NG/ML Sodium 135 (135-145) mmol/L Potassium 5.6 H (3.3-5.1) mmol/L Chloride 108 (96-108) mmol/L Carbon Dioxide 20 L (22-29) mmol/L Anion Gap 13 (12-20) BUN 23 H (9-16) mg/dL Creatinine 0.92 (0.5-1.4) mg/dL Estim Creat Clear Calc 43.8 Estimated GFR 58 Random Glucose 137 H (60-115) mg/dL Calcium 8.6 (8.4-10.2) mg/dL Troponin I High Sens (<3.5-17.0) ng/L B-Natriuretic Peptide (<100) pg/mL Urine Color Urine Appearance Urine pH (5.0-8.0) Ur Specific [place] (1.005-1.025) Urine Protein (NEG-TRACE) MG/DL Urine Glucose (UA) (NEG) MG/DL Urine Ketones (NEG) MG/DL Urine Blood (NEG) Urine Nitrite (NEG) Ur Leukocyte Esterase (NEG) Urine RBC (0) /HPF Urine WBC (0-4) /HPF Ur Squamous Epith Cells /LPF Amorphous Sediment /LPF Urine Bacteria /LPF Urine Mucus /LPF COVID-19 (VIN) (Negative) COVID-19 Clin Com Influenza Type A (ROSI) Negative (Negative) Influenza Type B (ROSI) Negative (Negative) Influenza A & B Note See Note 01/10/22 01/10/22 01/10/22 Range/Units 20:37 20:37 20:38 WBC (4.8-10.8) X10*3/uL RBC (4.20-5.50) X10*6/uL Hgb (12.0-16.0) g/dl Hct (37.0-47.0) % MCV (80.0-98.0) fL MCH (27.0-33.0) pg MCHC (31.0-35.0) g/dl RDW (11.0-16.0) % Plt Count (160-400) X10*3/uL MPV (9.4-12.3) fL Immature Gran % (Auto) (0.0-0.4) % Neut % (Auto) (45-73) % Lymph % (Auto) (20-40) % [place] % (Auto) (2-11) % Eos % (Auto) (0-4) % Baso % (Auto) (0-2) % Lymph # (Auto) (1.2-4.9) X10*3/uL [place] # (Auto) (0.1-1.2) X10*3/uL Eos # (Auto) (0.0-0.4) X10*3/uL Baso # (Auto) (0.0-0.2) X10*3/uL Abs Immat Gran (auto) (0.00-0.03) X10*3/uL Absolute Neuts (auto) (2.0-8.3) x10*3/uL Absolute Nucleated RBC (0.0-0.012) X10*3/uL Nucleated RBC % (auto) (0.0-0.2) /100WBC Smear Tech's Comments D-Dimer High Sensitivty 176 NG/ML Sodium (135-145) mmol/L Potassium (3.3-5.1) mmol/L Chloride (96-108) mmol/L Carbon Dioxide (22-29) mmol/L Anion Gap (12-20) BUN (9-16) mg/dL Creatinine (0.5-1.4) mg/dL Estim Creat Clear Calc Estimated GFR Random Glucose (60-115) mg/dL Calcium (8.4-10.2) mg/dL Troponin I High Sens 18.7 H (<3.5-17.0) ng/L B-Natriuretic Peptide 383 H (<100) pg/mL Urine Color Urine Appearance Urine pH (5.0-8.0) Ur Specific [place] (1.005-1.025) Urine Protein (NEG-TRACE) MG/DL Urine Glucose (UA) (NEG) MG/DL Urine Ketones (NEG) MG/DL Urine Blood (NEG) Urine Nitrite (NEG) Ur Leukocyte Esterase (NEG) Urine RBC (0) /HPF Urine WBC (0-4) /HPF Ur Squamous Epith Cells /LPF Amorphous Sediment /LPF Urine Bacteria /LPF Urine Mucus /LPF COVID-19 (VIN) Negative (Negative) COVID-19 Clin Com See Note Influenza Type A (ROSI) (Negative) Influenza Type B (ROSI) (Negative) Influenza A & B Note 01/10/22 01/10/22 Range/Units 20:40 21:48 WBC (4.8-10.8) X10*3/uL RBC (4.20-5.50) X10*6/uL Hgb (12.0-16.0) g/dl Hct (37.0-47.0) % MCV (80.0-98.0) fL MCH (27.0-33.0) pg MCHC (31.0-35.0) g/dl RDW (11.0-16.0) % Plt Count (160-400) X10*3/uL MPV (9.4-12.3) fL Immature Gran % (Auto) (0.0-0.4) % Neut % (Auto) (45-73) % Lymph % (Auto) (20-40) % [place] % (Auto) (2-11) % Eos % (Auto) (0-4) % Baso % (Auto) (0-2) % Lymph # (Auto) (1.2-4.9) X10*3/uL [place] # (Auto) (0.1-1.2) X10*3/uL Eos # (Auto) (0.0-0.4) X10*3/uL Baso # (Auto) (0.0-0.2) X10*3/uL Abs Immat Gran (auto) (0.00-0.03) X10*3/uL Absolute Neuts (auto) (2.0-8.3) x10*3/uL Absolute Nucleated RBC (0.0-0.012) X10*3/uL Nucleated RBC % (auto) (0.0-0.2) /100WBC Smear Tech's Comments D-Dimer High Sensitivty NG/ML Sodium (135-145) mmol/L Potassium (3.3-5.1) mmol/L Chloride (96-108) mmol/L Carbon Dioxide (22-29) mmol/L Anion Gap (12-20) BUN (9-16) mg/dL Creatinine (0.5-1.4) mg/dL Estim Creat Clear Calc Estimated GFR Random Glucose (60-115) mg/dL Calcium (8.4-10.2) mg/dL Troponin I High Sens 21.5 H (<3.5-17.0) ng/L B-Natriuretic Peptide (<100) pg/mL Urine Color DK YELLOW Urine Appearance HAZY Urine pH 6.0 (5.0-8.0) Ur Specific [place] 1.025 (1.005-1.025) Urine Protein 1+ H (NEG-TRACE) MG/DL Urine Glucose (UA) NEG (NEG) MG/DL Urine Ketones NEG (NEG) MG/DL Urine Blood 2+ H (NEG) Urine Nitrite NEG (NEG) Ur Leukocyte Esterase NEG (NEG) Urine RBC 5-9 H (0) /HPF Urine WBC 0-2 (0-4) /HPF Ur Squamous Epith Cells 4+ /LPF Amorphous Sediment TRACE /LPF Urine Bacteria 3+ /LPF Urine Mucus 2+ /LPF COVID-19 (VIN) (Negative) COVID-19 Clin Com Influenza Type A (ROSI) (Negative) Influenza Type B (ROSI) (Negative) Influenza A & B Note <Miguel Muñoz MD - Last Filed: 01/10/22 23:04> Discharge Plan Discharge Clinical Impression: Congestive heart failure, Anemia, Acute hyperkalemia <Hiren Freeman MD - Last Filed: 01/10/22 21:36> Patient Disposition: Home, Self-Care <Hiren Freeman MD - Last Filed: 01/10/22 21:36> Instructions: Heart Failure (ED), Hyperkalemia (ED), Anemia (ED) <Hiren Freeman MD - Last Filed: 01/10/22 21:36> Additional Instructions: stop eating food containing high potassium like banana/oranges take meds as prescribed follow up with home comfort advisor for low blood counts see your pcp to recheck potassium level in 2 days <Hiren Freeamn MD - Last Filed: 01/10/22 21:36> Prescriptions: New furosemide [Lasix] 20 mg tablet 10 mg PO QAM Qty: 14 0RF No Action (DME) bra, mastectomy Crystals See Rx Instructions .Route Qty: 2 0RF Rx Instructions: As directed warfarin 5 mg tablet 5 mg PO DAILY 90 Days Qty: 90 3RF Protocol: Dose Management Condition: Saturday (Week One) Dose/Route: 2.5 mg Instruction: 0.5 x 5 mg tablets Condition: Saturday Dose/Route: 5 mg Instruction: 1 x 5 mg tablet Condition: Saturday Dose/Route: 2.5 mg Instruction: 0.5 x 5 mg tablets Condition: Saturday Dose/Route: 5 mg Instruction: 1 x 5 mg tablet Condition: Dose/Route: 2.5 mg Instruction: 0.5 x 5 mg tablets Condition: Saturday Dose/Route: 5 mg Instruction: 1 x 5 mg tablet Condition: Saturday Dose/Route: 2.5 mg Instruction: 0.5 x 5 mg tablets Condition: Saturday (Week Two) Dose/Route: 2.5 mg Instruction: 0.5 x 5 mg tablets Condition: Saturday Dose/Route: 5 mg Instruction: 1 x 5 mg tablet Condition: Saturday Dose/Route: 2.5 mg Instruction: 0.5 x 5 mg tablets Condition: Saturday Dose/Route: 5 mg Instruction: 1 x 5 mg tablet Condition: Dose/Route: 2.5 mg Instruction: 0.5 x 5 mg tablets Condition: Saturday Dose/Route: 5 mg Instruction: 1 x 5 mg tablet Condition: Saturday Dose/Route: 2.5 mg Instruction: 0.5 x 5 mg tablets Protocol Text: Adjustment Start Date: Saturday01/05/22 INR Value: 2.4 INR Date: 01/05/22 Recheck Date: 02/02/22 fluticasone propionate 50 mcg/actuation spray,suspension 2 spray intranasal DAILY 14 Days Qty: 16 11RF Rx Instructions: administer into each nostril metoprolol succinate 25 mg tablet extended release 24 hr 25 mg PO DAILY Qty: 90 2RF losartan 50 mg tablet 50 mg PO DAILY Qty: 90 3RF (DME) FreeStyle Lite Strips Strip MISCELLANEOUS 0RF warfarin 2.5 mg Tablet 2.5 mg PO SUTUTHSA@1800 0RF warfarin 5 mg Tablet 5 mg PO MOWEFR@1800 0RF (DME) compress.stocking,knee,reg,lrg Misc See Rx Instructions .Route Qty: 2 0RF Rx Instructions: As directed 20-30 mm HG cyanocobalamin (vitamin B-12) 1,000 mcg capsule 1,000 mcg PO DAILY Qty: 30 3RF (DME) blood-glucose meter [FreeStyle Lite Meter] Kit See Rx Instructions .ROUTE .MEDSUPPLY Qty: 1 0RF Rx Instructions: As directed <Hiren Freeman MD - Last Filed: 01/10/22 21:36> Referrals: Tosin Santana MD [Physician] - 1 week (anemia, thrombocytopenia) <Hiren Freeman MD - Last Filed: 01/10/22 21:36>
--- NOTE | 2022-01-10 20:52 | PHA.MEDREC ---
Pharmacy Consult ? Medication Reconciliation Pharmacy has completed the medication reconciliation.
[2022-01-10 21:03] LABS: Appearance Urine HAZY; Color Urine DK YELLOW; Glucose Urine UA NEG (NEG); Leukocyte Esterase Urine NEG (NEG); Nitrite Urine NEG (NEG); Specific Gravity - Urine 1.025 (1.005-1.025); UACC Culture Trigger NO; Urine Blood 2+ (NEG); Urine Ketones NEG (NEG); Urine Protein 1+ MG/DL (NEG-TRACE)
[2022-01-10 21:04] LABS: D Dimer High Sensitivity 176 NG/ML
[2022-01-10 21:12] LABS: B Type Natriuretic Peptide 383 pg/mL (<100); COVID-19 Test Negative (Negative); IDNOW Serial# 16C4AD1C; Influenza A Negative (Negative); Influenza B2 Negative (Negative); Troponin-I High Sensitivity 18.7 ng/L (<3.5-17.0)
[2022-01-10 21:17] LABS: Amorphous Sediment Urine TRACE /LPF; Bacteria Urine 3+ /LPF; Mucus Urine 2+ /LPF; Squamous Epithelial Cell Urine 4+ /LPF; WBC Urine 0-2 /HPF (0-4)
[2022-01-10 22:19] LABS: Troponin-I High Sensitivity 21.5 ng/L (<3.5-17.0)
[2022-01-10] MEDS: Sodium Polystyrene Sulfon/Sorb 15 GM/60 ML ORAL.SUSP 30 GM PO (22:57)
== END 2022-01-10 23:10 | disposition home or self-care (01) ==
PROVIDERS: Emergency Provider Emergency Medicine; PCP Internal Medicine
DX: E87.5 Hyperkalemia (principal); D64.9 Anemia, unspecified; I11.0 Hypertensive heart disease with heart failure; I50.9 Heart failure, unspecified; D69.6 Thrombocytopenia, unspecified; I25.10 Atherosclerotic heart disease of native coronary artery without angina pectoris; I48.91 Unspecified atrial fibrillation; E11.9 Type 2 diabetes mellitus without complications; Z79.01 Long term (current) use of anticoagulants; Z95.0 Presence of cardiac pacemaker; Z95.2 Presence of prosthetic heart valve; Z20.822 Contact with and (suspected) exposure to COVID-19
CPT/HCPCS: 36415; 71046; 80048; 81001; 81003; 83880; 84484; 85025; 85379; 87502; 87635; 93005; 99283; 99284

== ENCOUNTER 2022-01-22 11:41 | Outpatient (RCR) | payer MEDICARE, OTHER, SELFPAY ==
[2022-01-22 11:49] VITALS: BP 117/56; PULSE 68; RESP 14; TEMP 36.3; O2SAT 96; BMI 39.6
--- NOTE | 2022-01-22 12:09 | PM.HEMONCCN ---
Subjective - Subjective Chief complaint: Consult for: Macrocytic anemia. Patient: new to practice Consult date: 01/22/22 Requesting Physician: Dr. Soriano. Primary Care Provider: Cuate Soriano MD Medical Summary: DIAGNOSIS: MACROCYTIC ANEMIA. HPI - Consult Narrative Reason for consult: Consult for: Macrocytic anemia. Narrative: Tamra Rivera is a pleasant 81 year old lady, who has been noted to have macrocytic anemia. She is actually pancytopenic. CBC from 01/10: WBC 4.1, HGB 8.9, HCT 27, MCV 1 14.4, PLT 85. Serial hemoglobin: 03/06: 10.5. 12/05: 9.4. 01/05: 8.7. 01/10/22: 8.9. MCV: 114.4. B12 on 12/03 3:2 727. Folate: 9. PAST HISTORY: She has history of bilateral breast cancer. She has a bovine aortic valve. She has had a pacemaker placed. She is on warfarin. FAMILY HISTORY: A daughter has pulmonary fibrosis. A son of a pulmonary embolism. The son had a stroke at the age of 5. Another son had meningo-encephalitis as a baby. 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 She is . Had 4 children. Denies smoking. Denies alcohol no drugs. ROS: She tells me she has been quite fatigued for the past 3-4 months. She denies any fever chills no night sweats. Her appetite has declined. Her weight has remained stable. She denies headaches. She does complain of dizziness. Denies chest pain. She does get short of breath on exertion. She has a pacemaker placed. She denies any abdominal pain nausea vomiting heartburn or indigestion. Her bowels are working without any gross blood in it. She tends to get constipated. Denies any dysuria or hematuria. She has history of joint pains. She has horrible knees. If she has to go a distance she uses the wheelchair. She can walk around around the house. She complains of lower extremity weakness. Lately she has been depressed. Denies skin rashes nor pruritus. She does have easy bruising. Review of Systems - Constitutional Reports no additional constitutional complaints, Denies anorexia, Reports fatigue, Denies fever(s), Reports lack of energy, Reports malaise, Denies stops breathing during sleep, Reports weakness, Denies weight loss - Eyes Reports no additional eye complaints - ENT Reports no additional ear, nose, mouth, and throat complaints - Cardiovascular Reports no additional cardiovascular complaints - Respiratory Reports no additional respiratory complaints, Reports dyspnea on exertion - Gastrointestinal Reports no additional gastrointestinal complaints, Reports constipation, Denies diarrhea, Denies loose stools, Denies nausea - Genitourinary Reports no additional female genitourinary complaints - Musculoskeletal Reports no additional musculoskeletal complaints, Reports back pain, Reports joint pain - Integumentary/Breasts Skin/Breast: Reports no additional skin complaints, Reports unusual bruising - Neurologic Reports no additional neurologic complaints - Psychiatric Reports no additional psychiatric complaints - Endocrine Reports no additional endocrine complaints - Hematologic/Lymphatic Reports no additional hematologic/lymphatic complaints - Allergic/Immunologic Reports no additional allergic/immunologic complaints Oncology Screenings - ECOG Performance Status ECOG Performance Status: 2 [facility] Medical History: Medical History (Last Reviewed 01/22/22 @ 12:03 by Elizabeth Herndon CMA) Acute cholecystitis Anemia Anxiety Ascending aorta dilatation Atrial fibrillation CAD (coronary artery disease) Cardiac pacemaker in situ Chest discomfort Cholelithiases Complete heart block Gastric ulcer History of breast cancer Hypercholesterolemia Hypertension Osteoarthritis of knee Prosthetic valve dysfunction Type 2 diabetes mellitus with hyperglycemia Vitamin D deficiency Functional capacity: wheelchair bound Patient : No Family History: Family History (Last Reviewed 01/22/22 @ 12:04 by Elizabeth Herndon CMA) Father CVD (cardiovascular disease) Mother Stroke Surgical History: Surgical History (Last Reviewed 01/22/22 @ 12:04 by Elizabeth Herndon CMA) Aortic valve replaced History of bilateral mastectomy History of pacemaker History of surgery on left wrist History of tonsillectomy S/P CABG x 2 Onset Date: ~03/2010 Social History: Social History (Last Updated 01/22/22 @ 12:06 by Elizabeth Herndon CMA) Living Situation History: Household Members: Children Housing: House Are you a primary caregiver assisted living to a significant other at home: No Do you presently have visiting nurse or other home services: No Alcohol History Details: 1. How often do you have a drink containing alcohol?: b. Monthly or less 2. How many drinks containing alcohol do you have on a typical day when you are drinking?: a. 1 or 2 Tobacco History: Patient Tobacco Use Status: Never used Tobacco e-Cigarette/Vaping Use: Never Used Second Hand Smoke Exposure: Yes Substance Use History: Use of substances other than those prescribed or required for medical reasons: No Domestic Abuse History: Have you been hit, kicked, punched, or otherwise hurt by someone within the past year? If so, by whom?: No Homicidal Assessment: Do you have thoughts of harming others: None Do you have a plan to hurt others: No Plan Do you have the means to hurt others: No Nutrition Assessment: Recently lost weight without trying: No Patient : No Occupation Assessmet: service: No Current occupational status: retired Home Medications and Allergies Home Medications Medication Instructions Recorded Confirmed Type warfarin 2.5 mg tablet 2.5 mg PO SUTUTHSA@1800 01/10/22 01/22/22 History warfarin 5 mg tablet 5 mg PO MOWEFR@1800 01/10/22 01/22/22 History Allergies Allergy/AdvReac Type Severity Reaction Status Date / Time ezetimibe [Zetia] Allergy Intermediate Unknown Verified 01/22/22 12:07 lisinopril Allergy Mild Unknown Verified 01/22/22 12:07 meperidine [From Demerol] Allergy Mild UNKNOWN Verified 01/22/22 12:07 nitrofurantoin Allergy Mild UNKNOWN Verified 01/22/22 12:07 [From Macrodantin] Penicillins Allergy Mild UNKNOWN Verified 01/22/22 12:07 Sulfa (Sulfonamide Allergy Mild UNKNOWN Verified 01/22/22 12:07 Antibiotics) [place] Syrup Allergy Unknown Unknown Verified 01/22/22 12:07 Iodinated Contrast Media Allergy Unknown ?RASH Verified 01/22/22 12:07 [IV CONTRAST] statin Allergy Unknown unknown Verified 01/22/22 12:07 acetaminophen [From PERCOCET] AdvReac Intermediate SEEING Verified 01/22/22 12:07 THINGS AFTER PERCOCET THAT WERE NOT THERE Physical Exam Vital signs: Vital Signs Temp 97.4 F 01/22/22 11:49 Pulse 68 01/22/22 11:49 Resp 14 01/22/22 11:49 BP 117/56 L 01/22/22 11:49 Pulse Ox 96 01/22/22 11:49 Intake & Output 01/21/22 01/22/22 01/22/22 18:59 06:59 18:59 Other: Weight 92 kg [place] Weight in Grams [id number] Weight 92 kg - Constitutional Present: mild distress - Routine HEENT Exam Head: Present: normal inspection Eye: Present: EOMI, normal appearance ENT: Present: mucous membranes moist - Routine Neck Exam Present: supple. Absent: lymphadenopathy - Routine Respiratory Exam Present: CTAB - Routine Cardiovascular Exam Cardiovascular: Present: RRR, S1, S2 - Routine Abdominal Exam Present: soft, nontender - Routine Extremities Exam Present: nontender - Routine Skin Exam Present: intact, normal turgor - Routine Neurological Exam Present: alert, oriented X3 - Detailed Neurological Exam: Coma Scale Eye Opening: Spontaneous (4) Verbal Response: Oriented (5) Motor Response: Obeys commands (6) [place] Coma Scale Total: 15 - Routine Psychiatric Exam Present: normal affect Hem/Onc Consult Result - Labs CBC & Chem 7: 01/22/22 13:10 01/22/22 13:10 Assessment and Plan Patient Active problem list reviewed?: Yes (1) Macrocytic anemia Status: Acute Assessment and plan: This is a pleasant 81-year-old lady with a previous history of Chronic Macrocytic anemia. More recently she has been noted to be pancytopenic. DIFFERENTIAL DIAGNOSIS: 1. B12 DEFICIENCY: B12 level: 227. Folate: 9. 2. ACD: She does have stage 3 kidney disease with EGFR of 51. Creatinine clearance: 41.8. 3. 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 MCV is really elevated. 4. MULTIFACTORIAL ANEMIA WITH A COMPONENT OF IRON DEFICIENCY: Iron studies: 122/343/36/184. 5. HEMOLYTIC ANEMIA: Is in the differential. LDH: 456. She has 2 hematological disorders including anemia of chronic disease related to stage 3 kidney disease as well as MDS. I can proceed with a bone marrow exam for confirmation however, the patient is not too keen on that. She has underlying cardiac disease, is on warfarin, that will need to be switched to Lovenox, prior to the procedure. She just does not want to rock the boat. PLAN: I will proceed with further evaluation. Check CBCd. Check ferritin: 168. Check EPO level. Check hemolytic screen, LDH: 456. Will start her on Procrit therapy for ACD with stage 3 kidney disease along with MDS. She will get the Procrit every other week. Will repeat CBC and then decide further course. She will return in 3 months for a follow-up. All her and her son's questions were answered to their satisfaction. Thank you, Cc: Dr. Soriano. The patient is unsure at this point if she wants to get started on the Procrit. She was given information about it. She would call me if and when she is willing to start. - Time Spent With Patient Time Spent with Patient (in minutes): 30
[2022-01-22 13:16] LABS: Baso%MD 0.3 %; Eos%MD 0.5 %; Hematocrit 26.6 % (37.0-47.0); Hemoglobin 8.9 g/dl (12.0-16.0); IG%MD 1.6 %; Lymph%MD 46.4 %; Mean Corpuscular HGB Conc 33.5 g/dl (31.0-35.0); Mean Corpuscular Hemoglobin 38.7 pg (27.0-33.0); Mean Platelet Volume 12.9 fL (9.4-12.3); Mono%MD 11.6 %; Neut%MD 39.6 %; Platelet Count 101 X10*3/uL (160-400); Red Cell Distribution Width 21.7 % (11.0-16.0); White Blood Count 3.7 X10*3/uL (4.8-10.8)
[2022-01-22 13:18] LABS: Mean Corpuscular Volume 115.7 fL (80.0-98.0); NRBC Pct Auto 3.5 /100WBC (0.0-0.2)
[2022-01-22 13:35] LABS: Alanine Aminotransferase 15 U/L (0-31); Albumin Level 3.6 g/dL (3.5-5.0); Alkaline Phosphatase 60 U/L (39-117); Anion Gap 15 (12-20); Aspartate Amino Transferase 28 U/L (5-31); Bilirubin Total 2.6 mg/dL (0.0-1.0); Blood Urea Nitrogen 29 mg/dL (9-16); Calcium 8.6 mg/dL (8.4-10.2); Carbon Dioxide 19 mmol/L (22-29); Chloride 108 mmol/L (96-108); Creatinine Clr Calc Pharmacy 41.8; Estimated Glomerular Filt Rate 51; Glucose Random 139 mg/dL (60-115); Lactate Dehydrogenase 456 U/L (122-220); Potassium 3.9 mmol/L (3.3-5.1); Sodium 138 mmol/L (135-145); Total Protein 6.8 g/dL (6.5-8.0)
[2022-01-22 13:50] LABS: Atypical Lymph Absolute Manual 0.1 x10*3/uL; Atypical Lymphs Percent Manual 4 % (0-6); Band Neutrophils Percent 1 % (3-5); Lymphocytes Absolute Manual 1.6 X10*3/uL (1.2-4.9); Lymphocytes Percent Manual 42 % (20-40); Macrocytosis 3+ (>30) /OIF; Monocytes Absolute Manual 0.3 X10*3/uL (0.1-1.2); Monocytes Percent Manual 8 % (2-11); Neutrophils Absolute Manual 1.7 X10*3/uL (2.0-8.3); Neutrophils Percent Manual 45 % (45-73); Nucleated Red Blood Cells 5 /100WBC (0-0); Platelet Morphology Comment NORMAL; RBC Morphology NOTED
[2022-01-22 13:52] LABS: Acanthocytes 1+ (0-2) /OIF; Hypochromasia 2+ (15-30) /OIF; Microcytosis 1+ (5-14) /OIF; Ovalocytes 1+ (5-14) /OIF; Polychromasia 2+ (3-5) /OIF; Schistocytes 1+ (0-2) /OIF; Target Cells 1+ (5-14) /OIF; Tear Drop Cells 1+ (0-2) /OIF
[2022-01-22 14:00] LABS: Ferritin 168 ng/mL (10-250)
[2022-01-22 14:40] LABS: Platelet Estimate DECREASED (NORMAL)
--- NOTE | 2022-01-22 16:17 | MHC.HEMONCMA ---
Addendum entered by Elizabeth Herndon CMA 01/22/22 16:25: Pt was in for consult. Original Note: Pt was in for follow up. Clinical summary reviewed and updated, VSS. Labs were drawn. Pt to return in 2 weeks.
[2022-01-23 21:52] LABS: Erythropoietin (EPO) 218.7 mIU/mL (2.6-18.5)
== END 2022-04-15 | disposition home or self-care (01) ==
LOC: HO.ONC 11:41
PROVIDERS: PCP Internal Medicine; Referring Provider Internal Medicine; Visit Provider Internal Medicine Medical Oncology
DX: N18.30 Chronic kidney disease, stage 3 unspecified (principal); D63.1 Anemia in chronic kidney disease; D46.9 Myelodysplastic syndrome, unspecified; Z85.3 Personal history of malignant neoplasm of breast; Z95.3 Presence of xenogenic heart valve; Z79.01 Long term (current) use of anticoagulants
CPT/HCPCS: 36415; 80053; 82668; 82728; 83615; 85007; 85027; 99204

== ENCOUNTER 2022-01-25 22:17 | Emergency (ER) | payer MEDICARE, OTHER, SELFPAY ==
--- NOTE | ~2022-01-25 | CT_ITS ---
EXAMINATION: CT THORACIC SPINE WITHOUT CONTRAST CLINICAL INFORMATION: Pinpoint pain, persistent. No trauma. COMPARISON: 01/10/2022 TECHNIQUE: Multidetector volumetric imaging of the thoracic spine performed without IV contrast. Coronal and sagittal reformatted images are obtained and reviewed. This CT examination was performed using dose optimization techniques as appropriate, variously including the following: *Automated exposure control *Adjustment of mA and/or kV according to patient size (this includes techniques or standardized protocols for targeted exams where dose is matched to indication/reason for exam; i.e. extremities or head) *Use of iterative reconstruction technique DLP: 789 mGy-cm FINDINGS: No acute fracture or subluxation. Vertebral body height and alignment maintained on the sagittal view. There is mild scoliotic curvature of the spine. Bony fusion of the T5-T6 vertebral bodies. Prominent bridging osteophytes. No acute fracture is seen. Small bilateral pleural effusions. Likely associated edema. Aortic calcifications. CT/CT thoracic spine wo con IMPRESSION: No acute fracture or malalignment. Fleischner guidelines were followed.
[2022-01-25 22:27] VITALS: BP 137/54; PULSE 65; RESP 18; O2SAT 99; BMI 41.1
[2022-01-25 22:43] VITALS: BP 143/65; PULSE 65; RESP 20; TEMP 36.6; O2SAT 95
[2022-01-25 22:59] LABS: Hemoglobin 8.6 g/dl (12.0-16.0); SCAN SMEAR FLAG 1
[2022-01-25 23:00] LABS: Eosinophils Percent Auto 0.6 % (0-4); Hematocrit 25.8 % (37.0-47.0); Imm Gran Abs Auto 0.09 X10*3/uL (0.00-0.03); Imm Gran Pct Auto 2.5 % (0.0-0.4); Lymphocytes Absolute Auto 1.9 X10*3/uL (1.2-4.9); Lymphocytes Percent Auto 52.6 % (20-40); MANUAL DIFF FLAG SCAN; Mean Corpuscular HGB Conc 33.3 g/dl (31.0-35.0); Mean Corpuscular Hemoglobin 37.9 pg (27.0-33.0); Monocytes Absolute Auto 0.4 X10*3/uL (0.1-1.2); Monocytes Percent Auto 12.2 % (2-11); Neutrophils Absolute Auto 1.2 x10*3/uL (2.0-8.3); Neutrophils Percent Auto 32.1 % (45-73); PLT CLUMP 1; Red Blood Count 2.27 X10*6/uL (4.20-5.50); Red Cell Distribution Width 22.5 % (11.0-16.0)
[2022-01-25 23:04] LABS: Mean Corpuscular Volume 113.7 fL (80.0-98.0); NRBC Pct Auto 4.7 /100WBC (0.0-0.2); PLT ABN DIST 1; White Blood Count 3.6 X10*3/uL (4.8-10.8)
[2022-01-25 23:17] LABS: SLIDE REVIEW VERIFIED
[2022-01-25 23:23] LABS: B Type Natriuretic Peptide 400 pg/mL (<100)
--- NOTE | 2022-01-26 00:27 | ED.GENADULT ---
HPI - General Adult General Chief complaint: General Medical Stated complaint: EDEMA Time Seen by Provider: 01/26/22 00:24 Source: patient Mode of arrival: EMS History of Present Illness HPI narrative: 81-year-old female who presents via ambulance for complaints mid back pain that has been ongoing for over 1 week as well as increasing shortness of breath with orthopnea and noting that her bilateral lower extremities are more swollen than usual. Patient appears to be primarily concerned regarding her back pain, but states she does not want any additional medications who wants to know what is causing it. This has not been associated with any fever, chills, new cough, any traumatic injury and she denies any GI or symptoms. Patient denies any chest pain/palpitations but states she has had increased dyspnea on exertion. She states she was supposed to take Epo but refused it. Related Data Home Medications Medication Instructions Recorded Confirmed warfarin 2.5 mg tablet 2.5 mg PO SUTUTHSA@1800 01/10/22 01/22/22 warfarin 5 mg tablet 5 mg PO MOWEFR@1800 01/10/22 01/22/22 Previous Rx's Medication Instructions Recorded compress.stocking,knee,reg,lrg #2 ea 05/30/21 mastectomy bra (bra, mastectomy) #2 ea 06/21/21 warfarin 5 mg tablet 5 mg PO DAILY 90 Days #90 tab 10/16/21 fluticasone propionate 50 2 spray INTRANASAL DAILY 14 Days 10/17/21 mcg/actuation nasal #16 g spray,suspension blood-glucose meter (FreeStyle #1 ea 12/08/21 Lite Meter) cyanocobalamin (vitamin B-12) 1,000 mcg PO DAILY #30 cap 12/08/21 1,000 mcg capsule metoprolol succinate 25 mg 25 mg PO DAILY #90 tab 12/28/21 tablet,extended release 24 hr losartan 50 mg tablet 50 mg PO DAILY #90 tab 01/08/22 furosemide 20 mg tablet (Lasix) 10 mg PO QAM #14 tab 01/10/22 blood sugar diagnostic (FreeStyle #100 ea 01/22/22 Lite Strips) Allergies Allergy/AdvReac Type Severity Reaction Status Date / Time ezetimibe [Zetia] Allergy Intermediate Unknown Verified 01/22/22 12:07 lisinopril Allergy Mild Unknown Verified 01/22/22 12:07 meperidine [From Demerol] Allergy Mild UNKNOWN Verified 01/22/22 12:07 nitrofurantoin Allergy Mild UNKNOWN Verified 01/22/22 12:07 [From Macrodantin] Penicillins Allergy Mild UNKNOWN Verified 01/22/22 12:07 Sulfa (Sulfonamide Allergy Mild UNKNOWN Verified 01/22/22 12:07 Antibiotics) [place] Syrup Allergy Unknown Unknown Verified 01/22/22 12:07 Iodinated Contrast Media Allergy Unknown ?RASH Verified 01/22/22 12:07 [IV CONTRAST] statin Allergy Unknown unknown Verified 01/22/22 12:07 acetaminophen [From PERCOCET] AdvReac Intermediate SEEING Verified 01/22/22 12:07 THINGS AFTER PERCOCET THAT WERE NOT THERE Review of Systems Review of Systems: Pertinent positives and negatives as stated in HPI and 10 point review of systems is otherwise negative. [facility] Past Medical History Source: nursing notes reviewed Medical History Acute cholecystitis Anemia Anxiety Ascending aorta dilatation Atrial fibrillation CAD (coronary artery disease) Cardiac pacemaker in situ Chest discomfort Cholelithiases Complete heart block Gastric ulcer History of breast cancer Hypercholesterolemia Hypertension Osteoarthritis of knee Prosthetic valve dysfunction Type 2 diabetes mellitus with hyperglycemia Vitamin D deficiency Surgical History Aortic valve replaced History of bilateral mastectomy History of pacemaker History of surgery on left wrist History of tonsillectomy S/P CABG x 2 (~03/2010) Family History Family History Father CVD (cardiovascular disease) Mother Stroke Social History Social History Household Members: Children Housing: House Are you a primary direct support professional caregiver to a significant other at home: No Do you presently have visiting nurse or other home services: No Alcohol intake: never Patient Tobacco Use Status: Never used Tobacco e-Cigarette/Vaping Use: Never Used Second Hand Smoke Exposure: Yes Advance Directives: No service: No Current occupational status: retired Cognitive needs: Yes Hearing needs: Yes Vision needs: Yes Physical Exam ED Vital Signs: Vital Signs - 24 hr 01/25/22 22:27 01/25/22 22:43 01/26/22 00:29 Temperature 97.9 F 97.7 F Pulse Rate 65 65 64 Respiratory Rate 18 20 15 Blood Pressure 137/54 L 143/65 H 156/70 H Pulse Oximetry 99 95 98 01/26/22 01:54 01/26/22 02:24 Temperature Pulse Rate 65 65 Respiratory Rate 22 H 18 Blood Pressure 133/62 138/70 Pulse Oximetry 97 97 BMI result Body Mass Index 41.1 VITAL SIGNS: Reviewed. GENERAL: Well developed, well nourished, in no acute distress. HEAD: Normocephalic/atraumatic EYES: PERRLA, EOMI EARS: Ext canals without abnormality OROPHARYNX: no oral lesions noted, posterior pharynx clear LUNGS: Normal breath sounds. No adventitious sounds or accessory muscle use. SpO2<99> CARDIOVASCULAR: Regular rate and rhythm without noted murmurs, no JVD but bilateral 1+ lower pitting edema ABDOMEN: Soft, non-tender, non-distended with bowel sounds. BACK: No midline vertebral tenderness or step-offs, but just right paraspinal there is noted significant pain MUSCULOSKELETAL: No tenderness, deformities, or effusions noted on gross inspection. EXTREMITIES: No cyanosis, clubbing SKIN: Inspection of the skin reveals no rashes NEUROLOGIC: Alert and oriented x 4. Course Course Course Narrative: 81-year-old female with history and clinical presentation suggestive of possible muscle spasm versus compression fracture of the thoracic spine or combination of the 2. In addition, patient has clinical and historical symptoms consistent with CHF and is noted to have been started on 10 mg of Lasix, she states she does not want ?anything? for the swelling. Review of all investigations negative for evidence to suggest compression fracture, and patient got good pain relief from the Tylenol and patient declines admission at this time regarding her shortness of breath and lower extremity swelling stating that she has an appointment with Dr. Oro in the morning and instead is opting to increase the Lasix to 20 mg. She was strongly encouraged to return to the emergency room if her breathing or swelling significantly worsened, otherwise she is denying any chest pain or palpitations at this time. Medical Decision Making Lab Data Result diagrams: 01/25/22 22:47 01/26/22 00:23 Labs: Lab Results 01/25/22 01/25/22 01/26/22 Range/Units 22:47 22:47 00:23 WBC 3.6 L (4.8-10.8) X10*3/uL RBC 2.27 L (4.20-5.50) X10*6/uL Hgb 8.6 L (12.0-16.0) g/dl Hct 25.8 L (37.0-47.0) % MCV 113.7 H (80.0-98.0) fL MCH 37.9 H (27.0-33.0) pg MCHC 33.3 (31.0-35.0) g/dl RDW 22.5 H (11.0-16.0) % Plt Count Not Reportable MPV Not Reportable Immature Gran % (Auto) 2.5 H (0.0-0.4) % Neut % (Auto) 32.1 L (45-73) % Lymph % (Auto) 52.6 H (20-40) % [place] % (Auto) 12.2 H (2-11) % Eos % (Auto) 0.6 (0-4) % Baso % (Auto) 0.0 (0-2) % Lymph # (Auto) 1.9 (1.2-4.9) X10*3/uL [place] # (Auto) 0.4 (0.1-1.2) X10*3/uL Eos # (Auto) 0.0 (0.0-0.4) X10*3/uL Baso # (Auto) 0.0 (0.0-0.2) X10*3/uL Abs Immat Gran (auto) 0.09 H (0.00-0.03) X10*3/uL Absolute Neuts (auto) 1.2 L (2.0-8.3) x10*3/uL Absolute Nucleated RBC 0.170 H (0.0-0.012) X10*3/uL Nucleated RBC % (auto) 4.7 H (0.0-0.2) /100WBC Smear Tech's Comments VERIFIED Sodium 141 (135-145) mmol/L Potassium 4.8 D (3.3-5.1) mmol/L Chloride 111 H (96-108) mmol/L Carbon Dioxide 19 L (22-29) mmol/L Anion Gap 16 (12-20) BUN 38 H (9-16) mg/dL Creatinine 1.17 (0.5-1.4) mg/dL Estim Creat Clear Calc 37.7 Estimated GFR 44 Random Glucose 123 H (60-115) mg/dL Calcium 8.8 (8.4-10.2) mg/dL Total Bilirubin 2.7 H (0.0-1.0) mg/dL AST 44 H D (5-31) U/L ALT 24 (0-31) U/L Alkaline Phosphatase 69 (39-117) U/L B-Natriuretic Peptide 400 H (<100) pg/mL Total Protein 7.4 (6.5-8.0) g/dL Albumin 3.7 (3.5-5.0) g/dL Discharge Plan Discharge Clinical Impression: Back pain, Localized swelling of both lower legs Patient Disposition: Home, Self-Care Instructions: Back Pain (ED), Edema (ED) Additional Instructions: 1. Resume all home medications as prescribed. Recommend applying [id number] lidocaine patch to the area of maximal tenderness. 2. Increase the Lasix (furosemide) from 10 mg to 20 mg each day. Please discuss this with your primary care provider. 3. Follow-up with your primary care provider as scheduled today. Do not hesitate to return to the emergency room should you experience any worsening of your symptoms. Prescriptions: No Action (DME) bra, mastectomy Crystals See Rx Instructions .Route Qty: 2 0RF Rx Instructions: As directed warfarin 5 mg tablet 5 mg PO DAILY 90 Days Qty: 90 3RF Protocol: Dose Management Condition: Saturday (Week One) Dose/Route: 2.5 mg Instruction: 0.5 x 5 mg tablets Condition: Saturday Dose/Route: 5 mg Instruction: 1 x 5 mg tablet Condition: Saturday Dose/Route: 2.5 mg Instruction: 0.5 x 5 mg tablets Condition: Saturday Dose/Route: 5 mg Instruction: 1 x 5 mg tablet Condition: Dose/Route: 2.5 mg Instruction: 0.5 x 5 mg tablets Condition: Saturday Dose/Route: 5 mg Instruction: 1 x 5 mg tablet Condition: Saturday Dose/Route: 2.5 mg Instruction: 0.5 x 5 mg tablets Condition: Saturday (Week Two) Dose/Route: 2.5 mg Instruction: 0.5 x 5 mg tablets Condition: Saturday Dose/Route: 5 mg Instruction: 1 x 5 mg tablet Condition: Saturday Dose/Route: 2.5 mg Instruction: 0.5 x 5 mg tablets Condition: Saturday Dose/Route: 5 mg Instruction: 1 x 5 mg tablet Condition: Dose/Route: 2.5 mg Instruction: 0.5 x 5 mg tablets Condition: Saturday Dose/Route: 5 mg Instruction: 1 x 5 mg tablet Condition: Saturday Dose/Route: 2.5 mg Instruction: 0.5 x 5 mg tablets Protocol Text: Adjustment Start Date: Saturday01/05/22 INR Value: 2.4 INR Date: 01/05/22 Recheck Date: 02/02/22 fluticasone propionate 50 mcg/actuation spray,suspension 2 spray intranasal DAILY 14 Days Qty: 16 11RF Rx Instructions: administer into each nostril metoprolol succinate 25 mg tablet extended release 24 hr 25 mg PO DAILY Qty: 90 2RF losartan 50 mg tablet 50 mg PO DAILY Qty: 90 3RF (DME) FreeStyle Lite Strips Strip MISCELLANEOUS Qty: 100 3RF Rx Instructions: As directed check the blood sugar once a day warfarin 2.5 mg Tablet 2.5 mg PO SUTUTHSA@1800 0RF warfarin 5 mg Tablet 5 mg PO MOWEFR@1800 0RF furosemide [Lasix] 20 mg tablet 10 mg PO QAM Qty: 14 0RF (DME) compress.stocking,knee,reg,lrg Misc See Rx Instructions .Route Qty: 2 0RF Rx Instructions: As directed 20-30 mm HG cyanocobalamin (vitamin B-12) 1,000 mcg capsule 1,000 mcg PO DAILY Qty: 30 3RF (DME) blood-glucose meter [FreeStyle Lite Meter] Kit See Rx Instructions .ROUTE .MEDSUPPLY Qty: 1 0RF Rx Instructions: As directed Referrals: Po,Cuate No MD [Physician] -
[2022-01-26 00:29] VITALS: BP 156/70; PULSE 64; RESP 15; TEMP 36.5; O2SAT 98
[2022-01-26 00:54] LABS: Alanine Aminotransferase 24 U/L (0-31); Albumin Level 3.7 g/dL (3.5-5.0); Alkaline Phosphatase 69 U/L (39-117); Anion Gap 16 (12-20); Aspartate Amino Transferase 44 U/L (5-31); Bilirubin Total 2.7 mg/dL (0.0-1.0); Blood Urea Nitrogen 38 mg/dL (9-16); Calcium 8.8 mg/dL (8.4-10.2); Carbon Dioxide 19 mmol/L (22-29); Chloride 111 mmol/L (96-108); Creatinine Clr Calc Pharmacy 37.7; Estimated Glomerular Filt Rate 44; Glucose Random 123 mg/dL (60-115); Potassium 4.8 mmol/L (3.3-5.1); Sodium 141 mmol/L (135-145); Total Protein 7.4 g/dL (6.5-8.0)
[2022-01-26 01:54] VITALS: BP 133/62; PULSE 65; RESP 22; O2SAT 97
[2022-01-26] MEDS: Acetaminophen 325 MG TABLET 975 MG PO (01:57)
[2022-01-26 02:24] VITALS: BP 138/70; PULSE 65; RESP 18; O2SAT 97
[2022-01-26 03:01] VITALS: BP 136/64; PULSE 65; RESP 14; TEMP 36.6; O2SAT 100
== END 2022-01-26 04:02 | disposition home or self-care (01) ==
PROVIDERS: Emergency Provider Student in an Organized Health Care Education/Training Program; PCP Internal Medicine
DX: M54.6 Pain in thoracic spine (principal); M79.89 Other specified soft tissue disorders; R06.02 Shortness of breath; I25.10 Atherosclerotic heart disease of native coronary artery without angina pectoris; I10 Essential (primary) hypertension; E11.9 Type 2 diabetes mellitus without complications; I48.91 Unspecified atrial fibrillation; Z79.01 Long term (current) use of anticoagulants; Z95.0 Presence of cardiac pacemaker
CPT/HCPCS: 36415; 72128; 80053; 83880; 85025; 99283; 99284

== ENCOUNTER 2022-02-05 05:30 | Inpatient (IN) | payer MEDICARE, OTHER, SELFPAY ==
--- NOTE | 2022-02-05 | ECG_ITS ---
Test Reason : SWOLLEN LEGS Blood Pressure : / mmHG Vent. Rate : 067 BPM Atrial Rate : 061 BPM P-R Int : 000 ms QRS Dur : 134 ms QT Int : 462 ms P-R-T Axes : 000 -63 124 degrees QTc Int : 488 ms Ventricular-paced rhythm with occasional Premature ventricular complexes Abnormal ECG When compared with ECG of 10-JAN-2022 20:36, Premature ventricular complexes are now Present Vent. rate has increased BY 2 BPM Referred By: Generic ED Physician Electronically Signed By:Yoandy Bolton
--- NOTE | ~2022-02-05 | NM_ITS ---
Examination: PRISCA hepatobiliary wo pharm Indication: jaundice Comparison: 02/11/2022 CT scan Technique: Multiple sequential anterior gamma camera views were obtained after the intravenous injection of 5 mCi of technetium 99m mebrofenin. Initial dynamic images were obtained followed by images between 60 minutes to 1 hour as well as 4 hour delayed images. Findings: There is prompt uptake and concentration of activity within the hepatic parenchyma. There is biliary ductal excretion seen by approximately 10 minutes time. There was free spillage into the duodenum by 11 minutes time. There is activity seen within the gallbladder beginning at this approximately 60 minutes which was confirmed on the oblique to 4 hour delayed images. ME/ME hepatobiliary wo pharm Impression: Normal hepatobiliary scan. No biliary ductal obstruction with free spillage into the duodenum. There is filling within the gallbladder.
--- NOTE | ~2022-02-05 | US_ITS ---
EXAMINATION: US ABDOMEN COMPLETE CLINICAL INFORMATION: Jaundice. COMPARISON: Ultrasound abdomen limited and CT abdomen and pelvis 01/29/2021. Ultrasound abdomen complete 12/01/2014. TECHNIQUE: Real-time imaging of the abdominal viscera. FINDINGS: PANCREAS: The head and body the pancreas are normal. The tail is not well visualized due to bowel gas. ABDOMINAL AORTA: The proximal, mid, and distal segments are normal in caliber. INFERIOR VENA CAVA: Visualized portions are normal. LIVER: Normal. The liver is normal in size. The liver contour is normal. Parenchymal echogenicity is normal. No focal hepatic lesion. There is no intrahepatic biliary duct dilatation seen. GALLBLADDER: The gallbladder is physiologically distended. Multiple mobile gallstones are present. No evidence of gallbladder wall thickening or pericholecystic fluid. COMMON BILE DUCT: Normal in caliber measuring 0.3 cm in diameter. RIGHT KIDNEY: There is cortical thinning. There is a 1.3 x 1.7 cm this is lateral midpole. No hydronephrosis or renal calculi. The kidney measures 9.7 cm in maximum dimension. LEFT KIDNEY: There is cortical thinning. There is a 3 cm cyst exophytic lateral lower pole No hydronephrosis or renal calculi. The kidney measures 8.6 cm in maximum dimension. SPLEEN: Normal. The spleen measures 11.1 cm in maximum dimension. FREE FLUID: None. US/US abdomen complete IMPRESSION: Gallstones. Bilateral renal cysts. Limited visualization of the pancreas.
--- NOTE | ~2022-02-05 | US_ITS ---
EXAMINATION: ULTRASOUND DUPLEX-ABDOMEN CLINICAL INFORMATION: Rule out Budd-Chiari syndrome COMPARISON: CT 02/11/2022 TECHNIQUE: Focused sonographic evaluation of the liver, portal and hepatic vasculature as well as evaluation of the spleen was performed. Evaluation including grayscale, color, and spectral Doppler techniques. FINDINGS: Limited evaluation of the liver parenchyma is unremarkable. Portal veins are patent and demonstrates hepatopedal flow. Waveforms are unremarkable. Flow within the main hepatic artery is antegrade with peak systolic velocity 45.4 cm/s. Hepatic veins are without thrombus. There is normal directionality of flow and waveforms identified. IVC waveforms are normal. Splenic vein is patent. No evidence of ascites. Spleen is unremarkable and measures 8.8 cm. US/US duplex arterial venous comp IMPRESSION: Patent visualized abdominal vasculature. No evidence to suggest venous thrombosis, whether hepatic venous or portal venous.
--- NOTE | ~2022-02-05 | XR_ITS ---
EXAMINATION: XR LUMBOSACRAL SPINE CLINICAL INFORMATION: Pain COMPARISON: Previous x-ray of the lumbar spine from 2017 TECHNIQUE: Three views of the lumbosacral spine. FINDINGS: There is mild 5 mm anterior subluxation of L4 with respect L5. Bone alignment is otherwise normal. No fracture or dislocation is seen. There is multilevel degenerative spondylosis and degenerative disc disease greatest at L1-L2 3 and L3-L4. There is lower lumbar spine facet arthritis. There is evidence of atherosclerotic disease. XR/XR lumbar spine 2-3V IMPRESSION: Multilevel degenerative changes.
--- NOTE | ~2022-02-05 | CT_ITS ---
EXAMINATION: CT ABDOMEN AND PELVIS WITHOUT CONTRAST CLINICAL INFORMATION: Flank pain and jaundice. COMPARISON: Abdomen ultrasound from 02/08/2022. Abdomen CT and ultrasound from 01/29/2021. TECHNIQUE: Multidetector volumetric imaging was performed from the superior aspect of the liver through the pubic symphysis. Sagittal and coronal reformatted images were obtained on the technologist's workstation. This CT examination was performed using dose optimization techniques as appropriate, variously including the following: *Automated exposure control *Adjustment of mA and/or kV according to patient size (this includes techniques or standardized protocols for targeted exams where dose is matched to indication/reason for exam; i.e. extremities or head) *Use of iterative reconstruction technique DLP: 757 mGy-cm FINDINGS: LUNG BASES: Cardiomegaly, atherosclerotic calcification of coronary arteries, calcified mitral valve annulus, and streak artifact produced by the right ventricular lead. The visualized lung bases chronically have mosaic attenuation. Scattered linear opacities of atelectasis in the bases. LIVER: Liver has normal size and contour. No focal liver lesion. No acute abnormality compared to 01/29/2021. GALLBLADDER AND BILIARY TREE: Gallbladder has a rim calcified stone in its lumen. No gallbladder wall thickening or pericholecystic fluid. No dilated bile ducts. PANCREAS: No acute findings within the moderately atrophied pancreas. No edema, pancreatic ductal dilatation or mass. SPLEEN: Normal. ADRENAL GLANDS: Normal. KIDNEYS AND URETERS: No nephrolithiasis or hydronephrosis. There are a few simple cysts of the kidneys. No imaging follow-up recommended for simple cysts. BLADDER: Normal. No calculi or wall thickening. BOWEL AND PERITONEUM: Stomach is unremarkable. No dilated loops of bowel. The appendix is normal. Diverticulosis of the sigmoid colon. No overt bowel wall thickening or mesenteric fat stranding. No ascites or pneumoperitoneum. ABDOMINAL WALL: There is fat stranding/edema in subcutaneous tissues of the lower abdominal wall. VASCULATURE: Atherosclerotic calcification of the abdominal aorta and branch vessels. No aortic aneurysm. LYMPH NODES: No pathologic sized lymph nodes in the abdomen or pelvis. No inguinal lymphadenopathy. PELVIC VISCERA: There are myometrial vascular calcifications. No evidence of uterine or adnexal mass. No pelvic free fluid. SKELETAL: Multilevel degenerative disc disease of the lumbar spine. Severe facet arthropathy of L4-5 and L5-S1. There is 0.7 cm of grade 1 anterolisthesis at L4-L5. Minimal anterolisthesis also noted at L1-L2 and L5-S1. There is an area of subcutaneous tissues tissue edema in the left lower back. No focal fluid collection. CT/CT abdomen pelvis wo con IMPRESSION: * No acute imaging abnormalities in the abdomen or pelvis. * Cholelithiasis without evidence of cholecystitis or biliary tract obstruction. * Diverticulosis of the sigmoid colon without diverticulitis.
--- NOTE | ~2022-02-05 | XR_ITS ---
EXAMINATION: XR HIP, LEFT CLINICAL INFORMATION: Pain COMPARISON: Previous CT of the abdomen and pelvis September 2017 and sacroiliac joint x-rays July 2017 TECHNIQUE: Two views and one view of the pelvis of the left hip. FINDINGS: The bones are osteopenic. There is mild arthritis at both hip joints with joint space narrowing and osteophyte formation. No fracture or dislocation is seen. Bones of the pelvis are normal. There are degenerative changes of the lower lumbar spine. There is evidence of atherosclerotic disease. XR/XR hip LT min 2V IMPRESSION: Osteopenia and degenerative changes.
--- NOTE | ~2022-02-05 | XR_ITS ---
EXAMINATION: XR CHEST CLINICAL INFORMATION: CHF COMPARISON: 01/10/2022 TECHNIQUE: Frontal view of the chest was obtained. FINDINGS: Median sternotomy wires appear intact. Aortic valvular hardware. Left chest wall pacer is unchanged. Cardiac leads overlie the chest. The lungs are well expanded. No consolidation, edema, or effusion. No pneumothorax. The cardiomediastinal silhouette is prominent, unchanged. XR/XR chest 1V IMPRESSION: No acute pulmonary finding.
[2022-02-05 05:33] VITALS: BP 130/75; BP 140/80; PULSE 65; RESP 16; TEMP 36.5; O2SAT 98; BMI 39.0
[2022-02-05 06:33] LABS: Eosinophils Percent Auto 0.6 % (0-4); Hemoglobin 8.6 g/dl (12.0-16.0); PLT CLUMP 1; SCAN SMEAR FLAG 1
[2022-02-05 06:35] LABS: Basophils Percent Auto 0.4 % (0-2); Hematocrit 26.5 % (37.0-47.0); Imm Gran Pct Auto 2.2 % (0.0-0.4); Lymphocytes Absolute Auto 2.5 X10*3/uL (1.2-4.9); Lymphocytes Percent Auto 53.5 % (20-40); MANUAL DIFF FLAG SCAN; Mean Corpuscular HGB Conc 32.5 g/dl (31.0-35.0); Mean Corpuscular Hemoglobin 38.1 pg (27.0-33.0); Monocytes Absolute Auto 0.6 X10*3/uL (0.1-1.2); Monocytes Percent Auto 13.8 % (2-11); Neutrophils Absolute Auto 1.4 x10*3/uL (2.0-8.3); Neutrophils Percent Auto 29.5 % (45-73); Red Blood Count 2.26 X10*6/uL (4.20-5.50); Red Cell Distribution Width 23.6 % (11.0-16.0)
[2022-02-05 06:36] LABS: Mean Corpuscular Volume 117.3 fL (80.0-98.0); NRBC Pct Auto 7.7 /100WBC (0.0-0.2); PLT ABN DIST 1
[2022-02-05 06:49] LABS: B Type Natriuretic Peptide 364 pg/mL (<100); Troponin-I High Sensitivity 30.1 ng/L (<3.5-17.0)
[2022-02-05 06:54] LABS: Alanine Aminotransferase 28 U/L (0-31); Albumin Level 3.4 g/dL (3.5-5.0); Alkaline Phosphatase 64 U/L (39-117); Anion Gap 12 (12-20); Aspartate Amino Transferase 41 U/L (5-31); Bilirubin Direct 1.8 mg/dL (0.0-0.5); Bilirubin Total 2.8 mg/dL (0.0-1.0); Blood Urea Nitrogen 37 mg/dL (9-16); Calcium 8.4 mg/dL (8.4-10.2); Carbon Dioxide 22 mmol/L (22-29); Chloride 108 mmol/L (96-108); Creatinine Clr Calc Pharmacy 37.8; Estimated Glomerular Filt Rate 46; Glucose Random 120 mg/dL (60-115); Platelet Count 70 X10*3/uL (160-400); Potassium 4.3 mmol/L (3.3-5.1); Sodium 138 mmol/L (135-145); Total Protein 6.4 g/dL (6.5-8.0); White Blood Count 4.7 X10*3/uL (4.8-10.8)
--- NOTE | 2022-02-05 06:54 | ED_ITS ---
HPI - General Adult General Chief complaint: General Medical Stated complaint: weakness/sob Time Seen by Provider: 02/05/22 05:52 Source: patient and EMS Mode of arrival: EMS Limitations: no limitations History of Present Illness HPI narrative: 81-year-old female with history of aortic valve replacement and congestive heart failure with atrial fibrillation presented today with generalized weakness that is been worsening over the past few days, and shortness of breath, patient also is complaining of exertional shortness of breath, increased edema to lower extremities. Patient gets left upper back pain intermittently about every hour like sharp aching pain then resolve spontaneously, pain with no radiation, described as severe at its maximum 10/10. No fever, no chills. Patient takes her medication including Coumadin and water pills. Patient recently replaced her pacemaker battery. Related Data Home Medications Medication Instructions Recorded Confirmed warfarin 2.5 mg tablet 2.5 mg PO SUTUTHSA@1800 01/10/22 02/05/22 warfarin 5 mg tablet 5 mg PO MOWEFR@1800 01/10/22 02/05/22 cholecalciferol (vitamin D3) 25 25 mcg PO DAILY 02/05/22 02/05/22 mcg (1,000 unit) tablet clonazepam 0.5 mg tablet 0.5 mg PO BEDTIME PRN 02/05/22 02/05/22 fluticasone propionate 50 2 spray INTRANASAL DAILY PRN 02/05/22 02/05/22 mcg/actuation nasal spray,suspension furosemide 20 mg tablet (Lasix) 20 mg PO DAILY 02/05/22 02/05/22 losartan 50 mg tablet 25 mg PO BID 02/05/22 02/05/22 metoprolol succinate 25 mg 25 mg PO BEDTIME 02/05/22 02/05/22 tablet,extended release 24 hr Previous Rx's Medication Instructions Recorded compress.stocking,knee,reg,lrg #2 ea 05/30/21 mastectomy bra (bra, mastectomy) #2 ea 06/21/21 blood-glucose meter (FreeStyle #1 ea 12/08/21 Lite Meter) blood sugar diagnostic (FreeStyle #100 ea 01/22/22 Lite Strips) cyanocobalamin (vitamin B-12) 1,000 mcg PO DAILY 90 Days #90 cap 01/29/22 1,000 mcg capsule Allergies Allergy/AdvReac Type Severity Reaction Status Date / Time ezetimibe [Zetia] Allergy Intermediate Unknown Verified 01/22/22 12:07 lisinopril Allergy Mild Unknown Verified 01/22/22 12:07 meperidine [From Demerol] Allergy Mild UNKNOWN Verified 01/22/22 12:07 nitrofurantoin Allergy Mild UNKNOWN Verified 01/22/22 12:07 [From Macrodantin] Penicillins Allergy Mild UNKNOWN Verified 01/22/22 12:07 Sulfa (Sulfonamide Allergy Mild UNKNOWN Verified 01/22/22 12:07 Antibiotics) [place] Syrup Allergy Unknown Unknown Verified 01/22/22 12:07 Iodinated Contrast Media Allergy Unknown ?RASH Verified 01/22/22 12:07 [IV CONTRAST] statin Allergy Unknown unknown Verified 01/22/22 12:07 acetaminophen [From PERCOCET] AdvReac Intermediate SEEING Verified 01/22/22 12:07 THINGS AFTER PERCOCET THAT WERE NOT THERE Review of Systems Review of Systems: All other systems are reviewed and are negative Constitutional: Reports as per HPI and Reports no additional constitutional complaints Eyes: Reports as per HPI and Reports no additional eye complaints Reports system reviewed and no additional complaints, except as documented Cardiovascular: Reports as per HPI and Reports no additional cardiovascular complaints Respiratory: Reports as per HPI and Reports no additional respiratory complaints Gastrointestinal: Reports as per HPI and Reports no additional gastrointestinal complaints Genitourinary: Reports no additional female genitourinary complaints Musculoskeletal: Reports no additional musculoskeletal complaints Skin/Breast: Reports system reviewed and no additional complaints, except as docu Psychiatric: Reports no additional psychiatric complaints Endocrine: Reports no additional endocrine complaints Hematologic/Lymphatic: Reports no additional hematologic/lymphatic complaints Allergic/Immunologic: Reports no additional allergic/immunologic complaints Reports system reviewed and no additional complaints, except as documented and Reports Abnormal speech present [facility] Past Medical History Medical History Acute cholecystitis Anemia Anxiety Ascending aorta dilatation Atrial fibrillation CAD (coronary artery disease) Cardiac pacemaker in situ Chest discomfort Cholelithiases Complete heart block Gastric ulcer History of breast cancer Hypercholesterolemia Hypertension Osteoarthritis of knee Prosthetic valve dysfunction Type 2 diabetes mellitus with hyperglycemia Vitamin D deficiency Surgical History Aortic valve replaced History of bilateral mastectomy History of pacemaker History of surgery on left wrist History of tonsillectomy S/P CABG x 2 (~03/2010) Family History Family History Father CVD (cardiovascular disease) Mother Stroke Social History Social History Household Members: Children Housing: House Are you a primary urgent care technician to a significant other at home: No Do you presently have visiting nurse or other home services: No Alcohol intake: never Patient Tobacco Use Status: Never used Tobacco e-Cigarette/Vaping Use: Never Used Second Hand Smoke Exposure: Yes Advance Directives: No service: No Current occupational status: retired Cognitive needs: Yes Hearing needs: Yes Vision needs: Yes Physical Exam ED Vital Signs: Vital Signs - 24 hr 02/05/22 05:33 Temperature 97.7 F Pulse Rate 65 Respiratory Rate 16 Blood Pressure 130/75 BMI result Body Mass Index 39.0 Vital signs have been reviewed as appeared to be correct. Blood pressure nor mal. Heart rate normal. Respiration rate normal. Temperature normal. Oxygen saturation normal. Appearance: Alert. Oriented X3. No acute distress. Head: Normal external exam. Normocephalic. Atraumatic. No Lazo signs noted. No raccoon eyes noted Eyes: PERRLA. EOMI. Conjunctiva and sclera normal. Eyelids normal. ENT: TM's Normal. Pharynx normal. Uvula midline. Moist mucous membranes. No trismus noted. No drooling noted. No muffled voice noted. Neck: Normal inspection. Neck supple. FROM. No adenopathy. Thyroid Normal. No meningeal signs. No neck mass noted. JVD bilaterally. CVS: Normal heart rate and rhythm. Heart sound normal. No murmurs noted. Pulses normal throughout. Respiratory: No respiratory distress. Painless inspiration. Breath sounds normal. Bilateral basilar rales. Chest nontender. No accessory muscle usage noted or decreased air movement noted. Abdomen: Soft and nontender. Bowel sounds normal in all 4 quadrants. No distention noted. No organomegaly noted. No visible injury noted. Back: No CVA tenderness. Full range of motion noted. Skin: Skin warm and dry. Normal skin color. Normal skin turgor. No rashes/lesions/lacerations noted. Extremities: +2 pitting bilateral extremity edema. Extremities exhibit normal range of motion. Extremities nontender. Neuro: Oriented X 3. Cranial nerve exam: II-XII are grossly intact No motor deficit. No sensory deficit. Reflexes normal. Course Course Course Narrative: Assessment and plan. 81-year-old female came in with generalized weakness and shortness of breath, physical exam is consistent with congestive heart failure, Dr. Bolton evaluation in the ED is appreciated. Admit/consider echo/diuresis. Medical Decision Making Lab Data Lab results reviewed: Yes I reviewed the patient's lab results. Result diagrams: 02/05/22 06:00 02/05/22 06:00 Labs: Lab Results 02/05/22 02/05/22 02/05/22 Range/Units 06:00 06:00 06:00 WBC 4.7 L (4.8-10.8) X10*3/uL RBC 2.26 L (4.20-5.50) X10*6/uL Hgb 8.6 L (12.0-16.0) g/dl Hct 26.5 L (37.0-47.0) % MCV 117.3 H (80.0-98.0) fL MCH 38.1 H (27.0-33.0) pg MCHC 32.5 (31.0-35.0) g/dl RDW 23.6 H (11.0-16.0) % Plt Count 70 L D (160-400) X10*3/uL MPV Not Reportable Immature Gran % (Auto) 2.2 H (0.0-0.4) % Neut % (Auto) 29.5 L (45-73) % Lymph % (Auto) 53.5 H (20-40) % [place] % (Auto) 13.8 H (2-11) % Eos % (Auto) 0.6 (0-4) % Baso % (Auto) 0.4 (0-2) % Lymph # (Auto) 2.5 (1.2-4.9) X10*3/uL [place] # (Auto) 0.6 (0.1-1.2) X10*3/uL Eos # (Auto) 0.0 (0.0-0.4) X10*3/uL Baso # (Auto) 0.0 (0.0-0.2) X10*3/uL Abs Immat Gran (auto) 0.10 H (0.00-0.03) X10*3/uL Absolute Neuts (auto) 1.4 L (2.0-8.3) x10*3/uL Absolute Nucleated RBC 0.360 H (0.0-0.012) X10*3/uL Nucleated RBC % (auto) 7.7 H (0.0-0.2) /100WBC Smear Tech's Comments VERIFIED APTT (24.1-38.0) SEC Sodium 138 (135-145) mmol/L Potassium 4.3 (3.3-5.1) mmol/L Chloride 108 (96-108) mmol/L Carbon Dioxide 22 (22-29) mmol/L Anion Gap 12 (12-20) BUN 37 H (9-16) mg/dL Creatinine 1.13 (0.5-1.4) mg/dL Estim Creat Clear Calc 37.8 Estimated GFR 46 Random Glucose 120 H (60-115) mg/dL Calcium 8.4 (8.4-10.2) mg/dL Total Bilirubin 2.8 H (0.0-1.0) mg/dL Direct Bilirubin 1.8 H (0.0-0.5) mg/dL AST 41 H (5-31) U/L ALT 28 (0-31) U/L Alkaline Phosphatase 64 (39-117) U/L Troponin I High Sens 30.1 H (<3.5-17.0) ng/L B-Natriuretic Peptide 364 H (<100) pg/mL Total Protein 6.4 L (6.5-8.0) g/dL Albumin 3.4 L (3.5-5.0) g/dL Influenza Type A (PCR) (Negative) Influenza Type B (PCR) (Negative) RSV RNA Qual (PCR) (Negative) SARS-CoV-2 RNA (RT-PCR) (Negative) 02/05/22 02/05/22 02/05/22 Range/Units 08:35 08:35 08:54 WBC (4.8-10.8) X10*3/uL RBC (4.20-5.50) X10*6/uL Hgb (12.0-16.0) g/dl Hct (37.0-47.0) % MCV (80.0-98.0) fL MCH (27.0-33.0) pg MCHC (31.0-35.0) g/dl RDW (11.0-16.0) % Plt Count (160-400) X10*3/uL MPV Immature Gran % (Auto) (0.0-0.4) % Neut % (Auto) (45-73) % Lymph % (Auto) (20-40) % [place] % (Auto) (2-11) % Eos % (Auto) (0-4) % Baso % (Auto) (0-2) % Lymph # (Auto) (1.2-4.9) X10*3/uL [place] # (Auto) (0.1-1.2) X10*3/uL Eos # (Auto) (0.0-0.4) X10*3/uL Baso # (Auto) (0.0-0.2) X10*3/uL Abs Immat Gran (auto) (0.00-0.03) X10*3/uL Absolute Neuts (auto) (2.0-8.3) x10*3/uL Absolute Nucleated RBC (0.0-0.012) X10*3/uL Nucleated RBC % (auto) (0.0-0.2) /100WBC Smear Tech's Comments APTT 40.5 H (24.1-38.0) SEC Sodium (135-145) mmol/L Potassium (3.3-5.1) mmol/L Chloride (96-108) mmol/L Carbon Dioxide (22-29) mmol/L Anion Gap (12-20) BUN (9-16) mg/dL Creatinine (0.5-1.4) mg/dL Estim Creat Clear Calc Estimated GFR Random Glucose (60-115) mg/dL Calcium (8.4-10.2) mg/dL Total Bilirubin (0.0-1.0) mg/dL Direct Bilirubin (0.0-0.5) mg/dL AST (5-31) U/L ALT (0-31) U/L Alkaline Phosphatase (39-117) U/L Troponin I High Sens 38.7 H (<3.5-17.0) ng/L B-Natriuretic Peptide (<100) pg/mL Total Protein (6.5-8.0) g/dL Albumin (3.5-5.0) g/dL Influenza Type A (PCR) NEGATIVE (Negative) Influenza Type B (PCR) NEGATIVE (Negative) RSV RNA Qual (PCR) NEGATIVE (Negative) SARS-CoV-2 RNA (RT-PCR) NEGATIVE (Negative) Imaging Data Chest x-ray: Attestation: I personally reviewed and interpreted this imaging study as follows: Radiologist's impression: No acute pulmonary findings. ECG Data Attestation: I personally reviewed and interpreted this ECG as follows: Interpretation: Ventricular paced rhythm at 67 beats per minute with occasional PVC, no change from old EKG. Discharge Plan Discharge Clinical Impression: Congestive heart failure Patient Disposition: Admitted As Inpatient Prescriptions: No Action (DME) bra, mastectomy Crystals See Rx Instructions .Route Qty: 2 0RF Rx Instructions: As directed (DME) FreeStyle Lite Strips Strip MISCELLANEOUS Qty: 100 3RF Rx Instructions: As directed check the blood sugar once a day cyanocobalamin (vitamin B-12) 1,000 mcg capsule 1,000 mcg PO DAILY 90 Days Qty: 90 3RF warfarin 2.5 mg Tablet 2.5 mg PO SUTUTHSA@1800 0RF warfarin 5 mg Tablet 5 mg PO MOWEFR@1800 0RF furosemide [Lasix] 20 mg tablet 20 mg PO DAILY 0RF cholecalciferol (vitamin D3) 25 mcg (1,000 unit) Tablet 25 mcg PO DAILY 0RF losartan 50 mg tablet 25 mg PO BID 0RF clonazepam 0.5 mg tablet 0.5 mg PO BEDTIME PRN (Reason: Sleep) 0RF metoprolol succinate 25 mg tablet extended release 24 hr 25 mg PO BEDTIME 0RF fluticasone propionate 50 mcg/actuation spray,suspension 2 spray intranasal DAILY PRN (Reason: Allergy Symptoms) 0RF Rx Instructions: administer into each nostril (DME) compress.stocking,knee,reg,lrg Misc See Rx Instructions .Route Qty: 2 0RF Rx Instructions: As directed 20-30 mm HG (DME) blood-glucose meter [FreeStyle Lite Meter] Kit See Rx Instructions .ROUTE .MEDSUPPLY Qty: 1 0RF Rx Instructions: As directed
[2022-02-05 06:55] LABS: SLIDE REVIEW VERIFIED
--- NOTE | 2022-02-05 07:00 | CA_ITS ---
Transthoracic Echocardiogram Patient (Last, First, Middle): Tamra Rivera A Gender: Female Date of : 1940 Age: 81 Procedure Date: 02/05/2022 Procedure Type: Transthoracic Echocardiogram Location: ER Height: 152.4 cm Weight: 90.72 kg BSA: 1.87 m2 Heart Rate: bpm BP: 130 / 75 mmHg Counter Intelligence Technician: LY Referring MD: Adam Rey MD Symptoms: heart failure Study Quality: Adequate Conclusions: - The left ventricular systolic function is low normal. The visually estimated ejection fraction is between 50-55%. - Abnormal diastolic function is noted. Elevated filling pressures. - Mildly increased right ventricular cavity size. There is mild to moderately decreased right ventricular systolic function. - The prosthetic aortic valve appears to be functioning abnormally. There is moderate calcification of the aortic valve. There is severe aortic valve stenosis. - There is moderate mitral valve regurgitation. - There is moderate to severe tricuspid valve regurgitation. - The right ventricular systolic pressure is 80 mmHg. Significantly elevated right atrial pressure. Severe pulmonary hypertension is present - There is mild dilatation of the ascending aorta measuring 3.80 cm. Findings Left Ventricle Normal left ventricular cavity size. There is mildly increased left ventricular wall thickness. The left ventricular systolic function is low normal. The visually estimated ejection fraction is between 50-55%. There is no evidence of regional wall motion abnormalities. Abnormal diastolic function is noted. Elevated filling pressures. Right Ventricle Mildly increased right ventricular cavity size. There is mild to moderately decreased right ventricular systolic function. Atria The left atrium is severely dilated. The right atrium is severely dilated. Aortic Valve A bioprosthetic aortic valve is present. The prosthetic aortic valve appears to be functioning abnormally. There is moderate calcification of the aortic valve. There is severe aortic valve stenosis. The peak aortic velocity is 4.30 m/s. The mean gradient is 48 mmHg. The aortic valve area is 0.68 cm2. There is no aortic valve regurgitation. Mitral Valve There is moderate mitral annular calcification. There is moderate mitral valve regurgitation. There is no mitral valve stenosis. Pulmonic Valve The pulmonic valve is likely normal. Tricuspid Valve Normal tricuspid valve structure. There is moderate to severe tricuspid valve regurgitation. The right ventricular systolic pressure is 80 mmHg. Significantly elevated right atrial pressure. Severe pulmonary hypertension is present. Great Vessels The pulmonary artery was not well visualized. There is mild dilatation of the ascending aorta measuring 3.80 cm. Venous The inferior vena cava is dilated and does not collapse with inspiration. Pericardium/Pleural There is no evidence of pericardial effusion. Prior Study Comparison Significant changes compared to prior study dated: 05/23/2021. Severe prosthetic valve stenosis. Severe pulm hypertension. RV function mild to moderate reduced. Measurements 2D Linear Measurements IVSd: 1.16 0.6-0.9/0.6-1.0 cm LVIDd: 5.06 3.9-5.3/4.2-5.9 cm LVIDd Index: 2.71 2.4-3.2/2.2-3.1 cm/m2 LVIDs: 3.39 2.0-3.6 cm LVPWd: 1.34 0.7-1.1 cm LA Diam: 3.20 2.7-3.8/3.0-4.0 cm LAIDs Index: 1.71 1.5-2.3 cm/m2 LV Mass: 314.63 67-162/88-224 g LV Mass Index: 168.25 43-95/49-115 g/m2 LVOT Diam: 2.00 3.0+(-)1.3 cm 2D Systolic Function EF 4C: 53.50 >55% EF 2C: 57.10 >55% EF BiP: 54.20 >55% Mitral Valve MV VTI: 0.41 MV Pk Stephen: 1.77 MV Mn Stephen: 0.78 MV Pk Grad: 13.00 MV Mn Grad: 3.00 MV Pk E: 1.73 MV PK A: 0.51 MV Decel Time: 194.00 E/A: 3.40 E'Lateral: 8.93 E'Medial: 5.10 E/E' Med: 33.90 E/E' Lat: 19.40 PHT: 57.00 MVA PHT: 3.86 MVA Continuity: 1.86 Decel [place]: 8.94 MR Vol - PW Dopp: 25.85 MR VTI: 2.35 MR ERO: 11.00 MR Alias Stephen: 0.46 MR RAD: 0.50 Aortic Valve AoV Pk Stephen: 4.30 AoV Mn Stephen: 3.28 AoV VTI: 1.13 AoV Pk Grad: 74.00 Aov Mn Grad: 48.00 AMEE Cont.VTI: 0.68 LVOT LVOT Pk Stephen: 1.01 LVOT Mn Stephen: 0.74 LVOT VTI: 0.24 LVOT Pk Grad: 4.00 LVOT Mn Grad: 2.00 LVOT Diam: 2.00 LVOT Area: 3.14 Diastolic Function MV Pk E: 1.73 MV Pk A: 0.51 E/A: 3.40 E'Medial: 5.10 E/E' Med: 33.90 E' Laterial: 8.93 E/E' Lat: 19.40 Right Ventricle TAPSE (mm): 13.10 TVS' Stephen: 7.20 Tricuspid Valve TR Pk Stephen: 3.73 TR Pk Grad: 56.00 RA Press: 15.00 RVSP: 80.00 Great Vessels Aorta Ao Asc: 3.80 2.1-3.4 cm Updated in Other Vendor System with Status of Final Yoandy Bolton MD electronically signed on 02/06/2022 3:39:55 PM with status of Final
[2022-02-05] MEDS: Furosemide 20 MG/2 ML VIAL IVPUSH ×2 (07:23→10:56)
--- NOTE | 2022-02-05 07:24 | PC.NURSE ---
this rn to bedside. 22g r forearm placed and medicated per emar. pt changed into hospital attire and repositioned in bed. pt complaining of back spasms which she states is a chronic issue. pct to place comode at bedside and pt educated to birdie for assistance.
--- NOTE | 2022-02-05 08:30 | PHA.MEDREC ---
Pharmacy Consult ? Medication Reconciliation Pharmacy has completed the medication reconciliation.
[2022-02-05 09:05] LABS: Partial Thromboplastin Time 40.5 SEC (24.1-38.0)
[2022-02-05 09:14] LABS: Troponin-I High Sensitivity 38.7 ng/L (<3.5-17.0)
[2022-02-05 09:44] LABS: Influenza A PCR NEGATIVE (Negative); Influenza B PCR NEGATIVE (Negative); Resp Syncy Virus RNA Qual PCR NEGATIVE (Negative); SARS COV2 PCR INHOUSE NEGATIVE (Negative)
--- NOTE | 2022-02-05 11:02 | P.HPHOSP_ITS ---
History of Present Illness Date of Service: 02/05/22 Chief Complaint: Shortness of breath and leg edema 81-year-old obese female with a history of controlled diabetes mellitus, generalized anxiety disorder chronic anemia, chronic atrial fibrillation, s/p biopresthetic aortic valve in 2009, hypertension, hypercholesterolemia, coronary artery disease, s/p pacemaker, HFpEF last of 05/2021 EF 55 to 60%, she on Lasix 20 mg daily. She presents with progressive dyspnea especially with exertion, weakness and increased lower extremity edema as well as weight gain, At baseline she has poor exercise tolerance due to arthritis. She has no chest pain, no fever or cough. She has no chest pain with exertion, no exertional lightheadedness or syncope.? + orthopnea, PND and leg edema.? She admits to having been consuming lots of processed food lately. Work up show moderate increased in BNP to 364, trop of 38. She is already feeling better after 40 mg of IV Lasix. Negative covid. Not vaccinated by choice Review of Systems Review of Systems: Gen: no fever Resp: + sob, no cough CV: no chest, + GO, + leg edema GI: No n/v, no abd pain Neuro: No confusion Yes all other systems are reviewed and are negative [facility] Medical History Acute cholecystitis Anemia Anxiety Ascending aorta dilatation Atrial fibrillation CAD (coronary artery disease) Cardiac pacemaker in situ Chest discomfort Cholelithiases Complete heart block Gastric ulcer History of breast cancer Hypercholesterolemia Hypertension Osteoarthritis of knee Prosthetic valve dysfunction Type 2 diabetes mellitus with hyperglycemia Vitamin D deficiency Family History Father CVD (cardiovascular disease) Mother Stroke Surgical History Aortic valve replaced History of bilateral mastectomy History of pacemaker History of surgery on left wrist History of tonsillectomy S/P CABG x 2 (~03/2010) Social History Household Members: Children Housing: House Are you a primary child care lead teacher to a significant other at home: No Do you presently have visiting nurse or other home services: No Alcohol intake: never Patient Tobacco Use Status: Never used Tobacco e-Cigarette/Vaping Use: Never Used Second Hand Smoke Exposure: Yes Advance Directives: No service: No Current occupational status: retired Cognitive needs: Yes Hearing needs: Yes Vision needs: Yes Meds Allergies Allergy/AdvReac Type Severity Reaction Status Date / Time ezetimibe [Zetia] Allergy Intermediate Unknown Verified 01/22/22 12:07 lisinopril Allergy Mild Unknown Verified 01/22/22 12:07 meperidine [From Demerol] Allergy Mild UNKNOWN Verified 01/22/22 12:07 nitrofurantoin Allergy Mild UNKNOWN Verified 01/22/22 12:07 [From Macrodantin] Penicillins Allergy Mild UNKNOWN Verified 01/22/22 12:07 Sulfa (Sulfonamide Allergy Mild UNKNOWN Verified 01/22/22 12:07 Antibiotics) [place] Syrup Allergy Unknown Unknown Verified 01/22/22 12:07 Iodinated Contrast Media Allergy Unknown ?RASH Verified 01/22/22 12:07 [IV CONTRAST] statin Allergy Unknown unknown Verified 01/22/22 12:07 acetaminophen [From PERCOCET] AdvReac Intermediate SEEING Verified 01/22/22 12:07 THINGS AFTER PERCOCET THAT WERE NOT THERE Active Medications: Current Medications Pharmacy Consult (Consult Rx Perform Med Rec) 1 each MISCELLANE ONCE PRN PRN Reason: Consult order Home Medications Medication Instructions Recorded Confirmed Last Taken Type warfarin 2.5 mg tablet 2.5 mg PO SUTUTHSA@1800 01/10/22 02/05/22 02/04/22 History warfarin 5 mg tablet 5 mg PO MOWEFR@1800 01/10/22 02/05/22 02/02/22 History cholecalciferol (vitamin D3) 25 25 mcg PO DAILY 02/05/22 02/05/22 02/04/22 History mcg (1,000 unit) tablet clonazepam 0.5 mg tablet 0.5 mg PO BEDTIME PRN 02/05/22 02/05/22 Unknown History fluticasone propionate 50 2 spray INTRANASAL DAILY PRN 02/05/22 02/05/22 Unknown History mcg/actuation nasal spray,suspension furosemide 20 mg tablet (Lasix) 20 mg PO DAILY 02/05/22 02/05/22 02/04/22 History losartan 50 mg tablet 25 mg PO BID 02/05/22 02/05/22 02/04/22 History metoprolol succinate 25 mg 25 mg PO BEDTIME 02/05/22 02/05/22 02/04/22 History tablet,extended release 24 hr Physical Exam Vital Signs and Narrative: Vital Signs: Last Vital Signs Temp 97.7 F 02/05/22 05:33 Pulse 65 02/05/22 05:33 Resp 16 02/05/22 05:33 BP 130/75 02/05/22 05:33 BMI result Body Mass Index 39.0 Const: Other: Constitutional: Alert, in no distress, overweight. Mental Status: Oriented to person, place and time. Eyes: Pupils are equal, round and reactive to light. Ear, Nose and Throat: Oropharynx clear, mucous membranes moist. Ears and nose without eformities. Respiratory: Clear to auscultation. No wheezing, rales bilater, 2+ handy leg edema Cardiovascular: S1 S2 irregular, iregular. No murmurs, rubs or gallops. Gastrointestinal: Abdomen soft, non-tender, non-distended. Normal bowel sounds.? Neurologic: Cranial nerves II-XII grossly intact. No focal neurological deficits. Moves all extremities spontaneously.? Skin: No rashes or lesions.? Musculoskeletal: No cyanosis or clubbing. Psychiatric: Normal mood and affect? Results Labs CBC and Chem 7: 02/05/22 06:00 02/05/22 06:00 Labs: Laboratory Results - last 24 hr 02/05/22 02/05/22 02/05/22 06:00 06:00 06:00 MCV 117.3 H MCH 38.1 H MCHC 32.5 RDW 23.6 H Plt Count 70 L D MPV Not Reportable Immature Gran % (Auto) 2.2 H Neut % (Auto) 29.5 L Lymph % (Auto) 53.5 H [place] % (Auto) 13.8 H Eos % (Auto) 0.6 Baso % (Auto) 0.4 Lymph # (Auto) 2.5 [place] # (Auto) 0.6 Eos # (Auto) 0.0 Baso # (Auto) 0.0 Abs Immat Gran (auto) 0.10 H Absolute Neuts (auto) 1.4 L Absolute Nucleated RBC 0.360 H Nucleated RBC % (auto) 7.7 H Smear Tech's Comments VERIFIED APTT Anion Gap 12 Estim Creat Clear Calc 37.8 Estimated GFR 46 Random Glucose 120 H Calcium 8.4 Total Bilirubin 2.8 H Direct Bilirubin 1.8 H AST 41 H ALT 28 Alkaline Phosphatase 64 Troponin I High Sens 30.1 H B-Natriuretic Peptide 364 H Total Protein 6.4 L Albumin 3.4 L Influenza Type A (PCR) Influenza Type B (PCR) RSV RNA Qual (PCR) SARS-CoV-2 RNA (RT-PCR) 02/05/22 02/05/22 02/05/22 08:35 08:35 08:54 MCV MCH MCHC RDW Plt Count MPV Immature Gran % (Auto) Neut % (Auto) Lymph % (Auto) [place] % (Auto) Eos % (Auto) Baso % (Auto) Lymph # (Auto) [place] # (Auto) Eos # (Auto) Baso # (Auto) Abs Immat Gran (auto) Absolute Neuts (auto) Absolute Nucleated RBC Nucleated RBC % (auto) Smear Tech's Comments APTT 40.5 H Anion Gap Estim Creat Clear Calc Estimated GFR Random Glucose Calcium Total Bilirubin Direct Bilirubin AST ALT Alkaline Phosphatase Troponin I High Sens 38.7 H B-Natriuretic Peptide Total Protein Albumin Influenza Type A (PCR) NEGATIVE Influenza Type B (PCR) NEGATIVE RSV RNA Qual (PCR) NEGATIVE SARS-CoV-2 RNA (RT-PCR) NEGATIVE Imaging Radiologist's Impressions: Impressions Chest X-Ray 02/05/22 06:45 IMPRESSION: No acute pulmonary finding. Assessment and Plan (1) Acute on chronic heart failure with preserved ejection fraction (HFpEF): Status: Acute (2) Atrial fibrillation: Qualifiers: Atrial fibrillation type: persistent (not longstanding) Qualified Code(s): I48.19 - Other persistent atrial fibrillation Status: Acute Plan 81-year-old obese female with a history of controlled diabetes mellitus, generalized anxiety disorder chronic anemia, chronic atrial fibrillation, s/p biopresthetic aortic valve in 2009, hypertension, hypercholesterolemia, coronary artery disease, s/p pacemaker, HFpEF last of 05/2021 EF 55 to 60% here with decompensated heart failure. #Decompensated HFpEF--probably d/t dietary salt increase but rule ischemic -IV diuretics -Get another echo -Get cardiology input -Monitor I/O, electrolytes #Elevated troponin likely from heart failure--treand #Chronic AFIB--rate controlled with Metoprolol, continue OAC with coumadin with target INR 2 to 3 #Anemia of chronic disease--fairly stable , monitor #Diabetes--Diet controlled, SSI, diabetic diet #HTN--controlled, continue Metoprolol and Losartan #Morbid obessity--weight loss measures discussed as well negative effect on above health issues #DVT prophylaxis--coumadin #Full code Admission to span at least 2 midnight for treatment of decompensated heart failure and will need IV diuretics, cardiac monitoring and close monitoring and adjustment of electrolytes.. this cannot be done in less acute setting at this time. Quality Stroke Does the patient have a stroke diagnosis?: No VTE Prior VTE?: No VTE Risk Level:: Medical - low VTE Device Contraindication: Treatment Not Indicated VTE Drug Contraindication: Treatment Not Indicated
[2022-02-05 11:53] LABS: INTERNATIONAL NORM RATIO 2.7 (0.9-1.1); Prothrombin Time 31.9 SEC (9.9-13.0)
[2022-02-05 11:55] VITALS: PULSE 65; RESP 22; TEMP 37; O2SAT 99
--- NOTE | 2022-02-05 12:02 | PM.CNCAR ---
History of Present Illness History of Present Illness Date of Service: 02/05/22 Requesting physician: Maryuri Evans Chief complaint: Heart Failure Narrative: 81-year-old female who has background history of permanent pacemaker, atrial fibrillation, coronary artery disease, hypertension, hyperlipidemia, bioprosthetic aortic valve replacement with prosthetic valve dysfunction, gastric ulcer, and type 2 diabetes. She is presenting for fatigue and shortness of breath. These symptoms by her report have been happening for approximately 1-2 months. She said her breathing changed more quickly in the last few days and she decided come to the hospital. She is describing orthopnea. She is short of breath even talking in bed. Denying any significant chest discomfort. She has background of at least moderate bioprosthetic aortic valve stenosis. Also has chronic atrial fibrillation and has been on Coumadin. She had 2 vessel bypass surgery in the past. In 2019 she had an NSTEMI at that time she had basal inferior, inferolateral ischemia which was medically managed. She is saying she is feeling little better. She was given 20 mg of IV Lasix in the ER. [facility] Past Medical History Medical History Acute cholecystitis Anemia Anxiety Ascending aorta dilatation Atrial fibrillation CAD (coronary artery disease) Cardiac pacemaker in situ Chest discomfort Cholelithiases Complete heart block Gastric ulcer History of breast cancer Hypercholesterolemia Hypertension Osteoarthritis of knee Prosthetic valve dysfunction Type 2 diabetes mellitus with hyperglycemia Vitamin D deficiency Family History Family History Father CVD (cardiovascular disease) Mother Stroke Surgical History Surgical History Aortic valve replaced History of bilateral mastectomy History of pacemaker History of surgery on left wrist History of tonsillectomy S/P CABG x 2 (~03/2010) Social History Social History Household Members: Children Housing: House Are you a primary career services manager to a significant other at home: No Do you presently have visiting nurse or other home services: No Alcohol intake: never Patient Tobacco Use Status: Never used Tobacco e-Cigarette/Vaping Use: Never Used Second Hand Smoke Exposure: Yes Advance Directives: No service: No Current occupational status: retired Cognitive needs: Yes Hearing needs: Yes Vision needs: Yes Meds Allergies Allergy/AdvReac Type Severity Reaction Status Date / Time ezetimibe [Zetia] Allergy Intermediate Unknown Verified 01/22/22 12:07 lisinopril Allergy Mild Unknown Verified 01/22/22 12:07 meperidine [From Demerol] Allergy Mild UNKNOWN Verified 01/22/22 12:07 nitrofurantoin Allergy Mild UNKNOWN Verified 01/22/22 12:07 [From Macrodantin] Penicillins Allergy Mild UNKNOWN Verified 01/22/22 12:07 Sulfa (Sulfonamide Allergy Mild UNKNOWN Verified 01/22/22 12:07 Antibiotics) [place] Syrup Allergy Unknown Unknown Verified 01/22/22 12:07 Iodinated Contrast Media Allergy Unknown ?RASH Verified 01/22/22 12:07 [IV CONTRAST] statin Allergy Unknown unknown Verified 01/22/22 12:07 acetaminophen [From PERCOCET] AdvReac Intermediate SEEING Verified 01/22/22 12:07 THINGS AFTER PERCOCET THAT WERE NOT THERE Active Medications: Current Medications Acetaminophen (Acetaminophen 325 Mg Tablet) 650 mg PO Q6H PRN PRN Reason: Pain, Mild (Pain Scale 1-3) Clonazepam (Clonazepam 0.5 Mg Tablet) 0.5 mg PO BEDTIME PRN PRN Reason: Sleep Cyanocobalamin (Cyanocobalamin (Vitamin B-12) 1,000 Mcg Tablet) 1,000 mcg PO DAILY HOLDEN Fluticasone Propionate (Fluticasone Propionate Nasal 16 [address] [place]) 2 spray NOSTRIL-B DAILY PRN PRN Reason: Allergy Symptoms Furosemide (Furosemide 40 Mg/4 Ml Vial) 40 mg IVPUSH BIDWM HOLDEN; Protocol Losartan Potassium (Losartan Potassium 25 Mg Tablet) 25 mg PO BID HOLDEN; Protocol Magnesium Hydroxide (Milk Of Magnesia 30 Ml Oral.Susp) 30 ml PO DAILY PRN PRN Reason: Constipation Melatonin (Melatonin 3 Mg Tablet) 6 mg PO BEDTIME PRN PRN Reason: Insomnia Metoprolol Succinate (Metoprolol Succinate Er 25 Mg Tab.Er.24h) 25 mg PO BEDTIME HOLDEN; Protocol Pharmacy Consult (Consult Rx Perform Med Rec) 1 each MISCELLANE ONCE PRN PRN Reason: Consult order Sodium Chloride (0.9 % Sodium Chloride Flush 3 Ml Syringe) 3 ml IVFLUSH QSHIFT HOLDEN Vitamin D (Cholecalciferol (Vitamin D3) 25 Mcg Tablet) 25 mcg PO DAILY [facility] Warfarin Sodium (Warfarin Sodium 2.5 Mg Tablet) 2.5 mg PO SUTUTHSA@1800 [facility] Warfarin Sodium (Warfarin Sodium 5 Mg Tablet) 5 mg PO MOWEFR@1800 [facility] Home Medications Medication Instructions Recorded Confirmed Last Taken Type warfarin 2.5 mg tablet 2.5 mg PO SUTUTHSA@1800 01/10/22 02/05/22 02/04/22 History warfarin 5 mg tablet 5 mg PO MOWEFR@1800 01/10/22 02/05/22 02/02/22 History cholecalciferol (vitamin D3) 25 25 mcg PO DAILY 02/05/22 02/05/22 02/04/22 History mcg (1,000 unit) tablet clonazepam 0.5 mg tablet 0.5 mg PO BEDTIME PRN 02/05/22 02/05/22 Unknown History fluticasone propionate 50 2 spray INTRANASAL DAILY PRN 02/05/22 02/05/22 Unknown History mcg/actuation nasal spray,suspension furosemide 20 mg tablet (Lasix) 20 mg PO DAILY 02/05/22 02/05/22 02/04/22 History losartan 50 mg tablet 25 mg PO BID 02/05/22 02/05/22 02/04/22 History metoprolol succinate 25 mg 25 mg PO BEDTIME 02/05/22 02/05/22 02/04/22 History tablet,extended release 24 hr Physical Exam Vital Signs: Vital Signs: Last Vital Signs Temp 98.6 F 02/05/22 11:55 Pulse 65 02/05/22 11:55 Resp 22 H 02/05/22 11:55 BP 130/75 02/05/22 05:33 Pulse Ox 99 02/05/22 11:55 BMI result Body Mass Index 39.0 GENERAL APPEARANCE: Distressed, short of breath. NECK: no carotid bruit, positive jugular venous distention. SKIN: no suspicious lesions, warm and dry. HEART: Systolic murmur aortic area with 2nd heart sound, irregularly irregular rhythm. LUNGS: clear to auscultation bilaterally. ABDOMEN: soft, nontender. EXTREMITIES: Mild edema.. PERIPHERAL PULSES: equal. NEUROLOGIC: No gross deficits, AAO X 3 Objective Labs and Meds Result diagrams: 02/05/22 06:00 02/05/22 06:00 Lab results: Laboratory Results - last 24 hr 02/05/22 02/05/22 02/05/22 06:00 06:00 06:00 WBC 4.7 L RBC 2.26 L Hgb 8.6 L Hct 26.5 L MCV 117.3 H MCH 38.1 H MCHC 32.5 RDW 23.6 H Plt Count 70 L D MPV Not Reportable Immature Gran % (Auto) 2.2 H Neut % (Auto) 29.5 L Lymph % (Auto) 53.5 H [place] % (Auto) 13.8 H Eos % (Auto) 0.6 Baso % (Auto) 0.4 Lymph # (Auto) 2.5 [place] # (Auto) 0.6 Eos # (Auto) 0.0 Baso # (Auto) 0.0 Abs Immat Gran (auto) 0.10 H Absolute Neuts (auto) 1.4 L Absolute Nucleated RBC 0.360 H Nucleated RBC % (auto) 7.7 H Smear Tech's Comments VERIFIED PT INR APTT Sodium 138 Potassium 4.3 Chloride 108 Carbon Dioxide 22 Anion Gap 12 BUN 37 H Creatinine 1.13 Estim Creat Clear Calc 37.8 Estimated GFR 46 Random Glucose 120 H Calcium 8.4 Total Bilirubin 2.8 H Direct Bilirubin 1.8 H AST 41 H ALT 28 Alkaline Phosphatase 64 Troponin I High Sens 30.1 H B-Natriuretic Peptide 364 H Total Protein 6.4 L Albumin 3.4 L Influenza Type A (PCR) Influenza Type B (PCR) RSV RNA Qual (PCR) SARS-CoV-2 RNA (RT-PCR) 02/05/22 02/05/22 02/05/22 08:35 08:35 08:54 WBC RBC Hgb Hct MCV MCH MCHC RDW Plt Count MPV Immature Gran % (Auto) Neut % (Auto) Lymph % (Auto) [place] % (Auto) Eos % (Auto) Baso % (Auto) Lymph # (Auto) [place] # (Auto) Eos # (Auto) Baso # (Auto) Abs Immat Gran (auto) Absolute Neuts (auto) Absolute Nucleated RBC Nucleated RBC % (auto) Smear Tech's Comments PT 31.9 H INR 2.7 H APTT 40.5 H Sodium Potassium Chloride Carbon Dioxide Anion Gap BUN Creatinine Estim Creat Clear Calc Estimated GFR Random Glucose Calcium Total Bilirubin Direct Bilirubin AST ALT Alkaline Phosphatase Troponin I High Sens 38.7 H B-Natriuretic Peptide Total Protein Albumin Influenza Type A (PCR) NEGATIVE Influenza Type B (PCR) NEGATIVE RSV RNA Qual (PCR) NEGATIVE SARS-CoV-2 RNA (RT-PCR) NEGATIVE Imaging Radiologist's impression: Impressions Chest X-Ray 02/05/22 06:45 IMPRESSION: No acute pulmonary finding. Assessment and Plan (1) Acute on chronic heart failure with preserved ejection fraction (HFpEF): Status: Acute (2) Prosthetic aortic valve stenosis: Status: Acute Plan Pleasant 81-year-old female with complex cardiovascular issues. She has previous bioprosthetic aortic valve replacement. Echocardiography performed in May last year has shown normal left ventricular function, mildly dilated right ventricle with normal systolic function, severely dilated left atrium, moderate stenosis of bioprosthetic aortic valve, [id number] mitral regurgitation and mild mitral stenosis, mildly dilated ascending aorta and moderately elevated right ventricular systolic pressures. She was last seen in November in the office and was asymptomatic. She is now presenting with fatigue and shortness of breath. Clinically she is volume overloaded and in heart failure. She was given 20 mg of IV Lasix and she feels better with that. I think we monitor I's and O's closely and if she does not a good diuresis with 20 mg of Lasix that she should be changed to 40 mg IV Lasix. I think she needs repeat echocardiography to reassess the valve and to assess the biventricular function. We will follow along with you. Thank you for allowing me to participate in the care of your patient. Please feel free to contact me if you have any questions. Procedures Date of Service Date of Service: 02/05/22
[2022-02-05 12:25] LABS: B Type Natriuretic Peptide 328 pg/mL (<100); Troponin-I High Sensitivity 34.1 ng/L (<3.5-17.0)
--- NOTE | 2022-02-05 15:28 | PC.NURSE ---
pt reports mid back pain to this rn, brusing noted. pt denies inj but reports recent negative xray. tiger sent to [facility]
--- NOTE | 2022-02-05 15:42 | PC.NURSE ---
hospitalist at bedside. plan for imaging
--- NOTE | 2022-02-05 16:32 | PC.NURSE ---
pt refusing pain meds at this time.
[2022-02-05 18:26] VITALS: BP 139/74; PULSE 70; RESP 16; TEMP 36.1; O2SAT 96
[2022-02-05] MEDS: Furosemide 40 MG/4 ML VIAL IVPUSH (18:45)
[2022-02-05] MEDS: 0.9 % Sodium Chloride Flush 3 ML SYRINGE IVFLUSH (18:46)
[2022-02-05] MEDS: Warfarin Sodium 5 MG TABLET PO (19:53)
[2022-02-05] MEDS: Metoprolol Succinate ER 25 MG TAB.ER.24H PO (19:53)
[2022-02-05] MEDS: Losartan Potassium 25 MG TABLET PO (19:53)
[2022-02-05 22:05] VITALS: PULSE 73; RESP 19
[2022-02-06] VITALS: BP 116/55; PULSE 64; RESP 18; TEMP 36.3; O2SAT 98
[2022-02-06] MEDS: Acetaminophen 325 MG TABLET 650 MG PO ×3 (01:12→17:35)
[2022-02-06 04:00] VITALS: BP 122/56; PULSE 65; RESP 18; TEMP 36.2; O2SAT 99
[2022-02-06 05:23] LABS: INTERNATIONAL NORM RATIO 3.6 (0.9-1.1); Prothrombin Time 41.6 SEC (9.9-13.0)
[2022-02-06 05:35] LABS: Anion Gap 13 (12-20); Blood Urea Nitrogen 34 mg/dL (9-16); Calcium 8.2 mg/dL (8.4-10.2); Carbon Dioxide 25 mmol/L (22-29); Chloride 105 mmol/L (96-108); Creatinine Clr Calc Pharmacy 38.8; Estimated Glomerular Filt Rate 47; Glucose Random 114 mg/dL (60-115); Sodium 139 mmol/L (135-145)
[2022-02-06 07:59] VITALS: BP 113/34; PULSE 64; RESP 11; TEMP 35.6; O2SAT 97
[2022-02-06] MEDS: Furosemide 40 MG/4 ML VIAL IVPUSH ×2 (08:32→17:31)
[2022-02-06] MEDS: Losartan Potassium 25 MG TABLET PO ×2 (08:32→20:54)
[2022-02-06] MEDS: 0.9 % Sodium Chloride Flush 3 ML SYRINGE IVFLUSH (08:32)
[2022-02-06] MEDS: Cyanocobalamin (Vitamin B-12) 1,000 MCG TABLET 1000 MCG PO (08:33)
[2022-02-06] MEDS: Cholecalciferol (Vitamin D3) 25 MCG TABLET PO (08:33)
--- NOTE | 2022-02-06 11:28 | P.PNIM_ITS ---
Subjective Subjective Date of Service: 02/06/22 Interval History: Seen in f/u heart failure exacerbation, fluid overload Interval history: She feels better today, no fluid status documented Review of Systems Gen: no fever Resp: no sob, no cough CV: no chest, no GO, no leg edema GI: No n/v, no abd pain Neuro: No confusion Physical Exam Vital Signs: Vital Signs: Last Vital Signs Temp 96.1 F L 02/06/22 07:59 Pulse 64 02/06/22 07:59 Resp 11 L 02/06/22 07:59 BP 113/34 L 02/06/22 07:59 Pulse Ox 97 02/06/22 07:59 BMI result Body Mass Index 39.0 Objective Data Active Medications Acetaminophen (Acetaminophen 325 Mg Tablet) 650 mg PO Q6H PRN PRN Reason: Pain, Mild (Pain Scale 1-3) Last Admin: 02/06/22 08:32 Dose: 650 mg Documented by: TORI Clonazepam (Clonazepam 0.5 Mg Tablet) 0.5 mg PO BEDTIME PRN PRN Reason: Sleep Cyanocobalamin (Cyanocobalamin (Vitamin B-12) 1,000 Mcg Tablet) 1,000 mcg PO DAILY HOLDEN Last Admin: 02/06/22 08:33 Dose: 1,000 mcg Documented by: TORI Fluticasone Propionate (Fluticasone Propionate Nasal 16 Gm [place]) 2 spray NOSTRIL-B DAILY PRN PRN Reason: Allergy Symptoms Furosemide (Furosemide 40 Mg/4 Ml Vial) 40 mg IVPUSH BIDWM HOLDEN; Protocol Last Admin: 02/06/22 08:32 Dose: 40 mg Documented by: TORI Losartan Potassium (Losartan Potassium 25 Mg Tablet) 25 mg PO BID HOLDEN; Protocol Last Admin: 02/06/22 08:32 Dose: 25 mg Documented by: TORI Magnesium Hydroxide (Milk Of Magnesia 30 Ml Oral.Susp) 30 ml PO DAILY PRN PRN Reason: Constipation Melatonin (Melatonin 3 Mg Tablet) 6 mg PO BEDTIME PRN PRN Reason: Insomnia Metoprolol Succinate (Metoprolol Succinate Er 25 Mg Tab.Er.24h) 25 mg PO BEDTIME HOLDEN; Protocol Last Admin: 02/05/22 19:53 Dose: 25 mg Documented by: HO.CABANBE Morphine Sulfate (Morphine Sulfate 4 Mg/Ml Cartridge) 2 mg IVPUSH Q4H PRN; Protocol PRN Reason: Pain, Severe (Pain Scale 7-10) Pharmacy Consult (Consult Rx Perform Med Rec) 1 each MISCELLANE ONCE PRN PRN Reason: Consult order Sodium Chloride (0.9 % Sodium Chloride Flush 3 Ml Syringe) 3 ml IVFLUSH QSHIFT [facility] Last Admin: 02/06/22 08:32 Dose: 3 ml Documented by: TORI Vitamin D (Cholecalciferol (Vitamin D3) 25 Mcg Tablet) 25 mcg PO DAILY [facility] Last Admin: 02/06/22 08:33 Dose: 25 mcg Documented by: TORI Warfarin Sodium (Warfarin Sodium 2.5 Mg Tablet) 2.5 mg PO DAILY@1800 [facility] Labs CBC & Chem 7: 02/05/22 06:00 02/06/22 04:41 Labs: Laboratory Results - last 24 hr 02/05/22 02/05/22 02/06/22 08:35 11:57 04:41 PT 31.9 H INR 2.7 H Anion Gap 13 Estim Creat Clear Calc 38.8 Estimated GFR 47 Random Glucose 114 Calcium 8.2 L Troponin I High Sens 34.1 H B-Natriuretic Peptide 328 H 02/06/22 04:41 PT 41.6 H INR 3.6 H Anion Gap Estim Creat Clear Calc Estimated GFR Random Glucose Calcium Troponin I High Sens B-Natriuretic Peptide Assessment and Plan (1) Acute on chronic heart failure with preserved ejection fraction (HFpEF): Status: Acute Plan 81-year-old obese female with a history of controlled diabetes mellitus, generalized anxiety disorder chronic anemia, chronic atrial fibrillation, 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 hypertension, hypercholesterolemia, coronary artery disease, s/p pacemaker, HFpEF last of 05/2021 EF 55 to 60% here with decompensated heart failure. #Decompensated HFpEF--probably d/t dietary salt increase but rule ischemic -clinically is feeling better, unfortunately no I/O documented -continue IV diuretics for one more day -Get another echo pendng -Get input noted: IV Lasix and echo -Monitor I/O, electrolytes #Elevated troponin likely from heart failure--trended down #Chronic AFIB--rate controlled with Metoprolol, continue OAC with coumadin with target INR 2 to 3, INR 3.6 today, hold coumadin #Anemia of chronic disease--fairly stable , monitor #Diabetes--Diet controlled, SSI, diabetic diet #HTN--controlled, continue Metoprolol and Losartan #Morbid obessity--weight loss measures discussed as well negative effect on above health issues #Back Pain--xray of back and hip show degenerative arthritis, morphine for pain and if not improving consider MRI #DVT prophylaxis--coumadin #Full code inpatient need for management of heart failure and need IV diuretics, cardiac monitoring and close monitoring and adjustment of electrolytes and I/O .. this cannot be done in less acute setting at this time. Quality Stroke Does the patient have a stroke diagnosis?: No VTE Prior VTE?: No VTE Risk Level:: Medical - low VTE Device Contraindication: Treatment Not Indicated VTE Drug Contraindication: Treatment Not Indicated
[2022-02-06 12:29] VITALS: BP 132/43; PULSE 64; RESP 16; TEMP 36.2; O2SAT 97
--- NOTE | 2022-02-06 12:33 | PC.NURSE ---
Pt is A&Ox4, LCA, no complaints of pain at this time, minor edema noted to BLE at this time. Pt is paced on the monitor, abd soft, non tender, +BS. Pt ambulates with stand by assist. Medicated as per [facility] orders, call padilla within reach. Will continue to monitor.
--- NOTE | 2022-02-06 12:44 | PM.PNCARD ---
Subjective Subjective Date of Service: 02/06/22 Principal diagnosis: CHF Interval history: Seen at 1115. Today she reports that her breathing is better than admission but she has not been walking around so she is not able to fully assess. She is not wearing supplemental oxygen. She slept with the head of the bed partially elevated. No cough, chest discomfort, palpitations. Leg edema improved. She has been voiding on the commode however no I+Os recorded. Echocardiogram pending Review of Systems Review of Systems as above Yes all other systems are reviewed and are negative Physical Exam Vital Signs: Last Vital Signs Temp 97.1 F 02/06/22 12:29 Pulse 64 02/06/22 12:29 Resp 16 02/06/22 12:29 BP 132/43 L 02/06/22 12:29 Pulse Ox 97 02/06/22 12:29 BMI result Body Mass Index 39.0 Const General: cooperative, healthy appearing, no acute distress, alert and awake Orientation/consciousness: patient oriented x3 Neck Other: JVD to jaw Neck: Yes normal visual inspection Resp Effort & Inspection: normal respiratory effort and able to speak in complete sentences Auscultation: clear to auscultation bilaterally, no rales, no rhonchi and no wheezes Cardio Jugular venous distension: JVD present Rate: regular rate Rhythm: regular rhythm Heart sounds: S2 normal heart sound present and Murmur heart sound present (3/6 systolic) Peripheral pulses: Peripheral pulses 2+ throughout GI Inspection: Yes normal to inspection Neuro General: patient oriented x3 Extrem Other: soft puffy lower legs, no pitting edema General: Yes normal to inspection and No edema Objective Labs and Meds Result diagrams: 02/05/22 06:00 02/06/22 04:41 Lab results: Laboratory Results - last 24 hr 02/06/22 02/06/22 04:41 04:41 PT 41.6 H INR 3.6 H Sodium 139 Potassium 4.0 Chloride 105 Carbon Dioxide 25 Anion Gap 13 BUN 34 H Creatinine 1.10 Estim Creat Clear Calc 38.8 Estimated GFR 47 Random Glucose 114 Calcium 8.2 L Imaging Radiologist's impression: Impressions Hip X-Ray 02/05/22 16:07 IMPRESSION: Osteopenia and degenerative changes. Lumbar Spine X-Ray 02/05/22 16:07 IMPRESSION: Multilevel degenerative changes. Progress Note: A&P Assessment and plan (1) Acute on chronic heart failure with preserved ejection fraction (HFpEF): Status: Acute Assessment and Plan: Admit with increasing shortness of breath. Evidence of volume overload on exam. BNP 400. Being diuresed with IV Lasix. I+Os have not been monitored. She has not hypoxic, room air sat 97%. She does report some improvement in breathing but has not been up walking around so unable to fully assess. On exam she does have JVD to the jaw however lungs do sound clear. BNP 328 today. Echocardiogram is pending. Continue IV Lasix. Strict I&O monitoring. Close monitoring of electrolytes and kidney function. We will follow. (2) Prosthetic aortic valve stenosis: Status: Acute Assessment and Plan: History of bioprosthetic aortic valve. Last echocardiogram 05/23/2021 had shown moderate stenosis of the bioprosthetic AVR. She does have murmur noted on examination. Echocardiogram planned for today to further evaluate degree of stenosis, EF. (3) SOB (shortness of breath): Status: Acute (4) CAD (coronary artery disease): Status: Acute Assessment and Plan: Known history of CAD with prior 2 vessel Coronary artery bypass grafting. Condition stable at present time with no report of chest discomfort. Troponins mildly elevated, flat this admission. Has had mildly elevated troponins in the past. Continue medical management for stable CAD including metoprolol. She is not on aspirin as she is on Coumadin. Allergy list includes statin and Zetia intolerance (5) Cardiac pacemaker in situ: Status: Acute Assessment and Plan: nuclear monitoring technician shows V pacing. No indication for interrogation at this time. Device followed to our office. (6) Aortic valve replaced: Status: Acute (7) Atrial fibrillation: Status: Acute Assessment and Plan: History of atrial fibrillation. On metoprolol for heart rate control. She is on Coumadin for anticoagulation. INR goal 2-3. INR today 3.6. Coumadin adjustments being handled by hospitalist. Time Spent With Patient Time: Total time spent is greater than 50% in coordination of care (as documented) at patient's floor/unit and/or counseling patient: Twenty-two Progress Note: Quality Stroke Does the patient have a stroke diagnosis?: No Procedures Date of Service Date of Service: 02/06/22
--- NOTE | 2022-02-06 14:23 | MHC.CM.PN ---
met with pt who lives with her dgter at this time she has no serveis she is uncertain what she will needs when dcd pt has a ride home she is un vaccinated
[2022-02-06 16:28] VITALS: BP 109/33; PULSE 44; RESP 25; O2SAT 96
[2022-02-06 20:53] VITALS: BP 110/53; PULSE 65; RESP 16; TEMP 37; O2SAT 96
[2022-02-06] MEDS: Metoprolol Succinate ER 25 MG TAB.ER.24H PO (20:55)
[2022-02-07] VITALS (7 sets, daily range): BP systolic 98–139; BP diastolic 54–76; PULSE 64–96; RESP 16–20; TEMP 36.1–37; O2SAT 93–99; BMI 40.1
[2022-02-07] MEDS: 0.9 % Sodium Chloride Flush 3 ML SYRINGE IVFLUSH ×3 (00:27→15:28)
[2022-02-07] MEDS: Acetaminophen 325 MG TABLET 650 MG PO ×3 (00:34→18:21)
--- NOTE | 2022-02-07 05:49 | PC.NURSE ---
ADMIT FROM ER OVERFLOW APPROX 1AM...ALERT..ORIENTED X3...RESPIRATIONS EASY ON ROOM AIR...V-PACED RHYTHM...OOB TO BR 1 ASSIST..C/O CHRONIC MID BACK PAIN..RX'D WITH PRN TYLENOL AND WARM PACK WITH EFFECT...REFUSED PRN MORPHINE..RESTFUL OVERNIGHT
[2022-02-07 06:42] LABS: Anion Gap 13 (12-20); Blood Urea Nitrogen 36 mg/dL (9-16); Calcium 8.2 mg/dL (8.4-10.2); Carbon Dioxide 25 mmol/L (22-29); Chloride 103 mmol/L (96-108); Creatinine Clr Calc Pharmacy 36.6; Estimated Glomerular Filt Rate 43; Glucose Random 135 mg/dL (60-115); INTERNATIONAL NORM RATIO 3.5 (0.9-1.1); Potassium 3.8 mmol/L (3.3-5.1); Prothrombin Time 41.1 SEC (9.9-13.0); Sodium 137 mmol/L (135-145)
[2022-02-07 06:46] LABS: B Type Natriuretic Peptide 458 pg/mL (<100)
[2022-02-07] MEDS: Furosemide 40 MG/4 ML VIAL IVPUSH ×2 (08:52→17:11)
[2022-02-07] MEDS: Cholecalciferol (Vitamin D3) 25 MCG TABLET PO (08:52)
[2022-02-07] MEDS: Cyanocobalamin (Vitamin B-12) 1,000 MCG TABLET 1000 MCG PO (08:52)
--- NOTE | 2022-02-07 12:21 | PM.PNCARD ---
Subjective Subjective Date of Service: 02/07/22 <JOSLYN Johnston - Last Filed: 02/07/22 12:36> 02/07/22 <Yoandy Bolton MD - Last Filed: 02/07/22 14:22> Principal diagnosis: CHF <JOSLYN Johnston - Last Filed: 02/07/22 12:36> Interval history: seen at 1100. Today she reports feeling better than admit. Breathing comfortable at rest. Has not been up walking. No use of O2, Slept well with HOB partly elevated. No chest pains, palpitation, dizziness, edema. <JOSLYN Johnston - Last Filed: 02/07/22 12:36> Review of Systems Review of Systems as above <JOSLYN Johnston Last Filed: 02/07/22 12:36> Yes all other systems are reviewed and are negative <JOSLYN Johnston - Last Filed: 02/07/22 12:36> Physical Exam Vital Signs: Last Vital Signs Temp 98.2 F 02/07/22 07:31 Pulse 65 02/07/22 07:31 Resp 20 02/07/22 07:31 BP 98/59 L 02/07/22 07:31 Pulse Ox 99 02/07/22 07:31 BMI result Body Mass Index 40.1 <JOSLYN Johnston Last Filed: 02/07/22 12:36> Const General: cooperative, no acute distress, alert and awake <JOSLYN Johnston - Last Filed: 02/07/22 12:36> Orientation/consciousness: patient oriented x3 <JOSLYN Johnston - Last Filed: 02/07/22 12:36> Neck Neck: Yes JVD (to level of jaw, best seen on right) <JOSLYN Johnston Last Filed: 02/07/22 12:36> Resp Effort & Inspection: normal respiratory effort and able to speak in complete sentences <JOSLYN Johnston Last Filed: 02/07/22 12:36> Auscultation: clear to auscultation bilaterally, no rales, no rhonchi and no wheezes <JOSLYN Johnston - Last Filed: 02/07/22 12:36> Cardio Jugular venous distension: JVD present <JOSLYN Johnston - Last Filed: 02/07/22 12:36> Rate: regular rate <JOSLYN Johnston - Last Filed: 02/07/22 12:36> Rhythm: regular rhythm <JOSLYN Johnston - Last Filed: 02/07/22 12:36> Heart sounds: Murmur heart sound present (loud systolic murmur right sternal border) <JOSLYN Johnston - Last Filed: 02/07/22 12:36> Peripheral pulses: Peripheral pulses 2+ throughout <JOSLYN Johnston - Last Filed: 02/07/22 12:36> GI Inspection: Yes normal to inspection <JOSLYN Johnston - Last Filed: 02/07/22 12:36> Neuro General: patient oriented x3 <JOSLYN Johnston - Last Filed: 02/07/22 12:36> Extrem General: Yes normal to inspection and No edema <JOSLYN Johnston - Last Filed: 02/07/22 12:36> Objective Labs and Meds Result diagrams: : 02/05/22 06:00 02/07/22 05:54 <Brooklynn Joaquin JOSLYN - Last Filed: 02/07/22 12:36> Lab results: Laboratory Results - last 24 hr 02/07/22 02/07/22 02/07/22 05:54 05:54 05:55 PT 41.1 H INR 3.5 H Sodium 137 Potassium 3.8 Chloride 103 Carbon Dioxide 25 Anion Gap 13 BUN 36 H Creatinine 1.19 Estim Creat Clear Calc 36.6 Estimated GFR 43 Random Glucose 135 H Calcium 8.2 L B-Natriuretic Peptide 458 H <Brooklynn Joaquin JOSLYN Lux Last Filed: 02/07/22 12:36> Progress Note: A&P Assessment and plan (1) Acute on chronic heart failure with preserved ejection fraction (HFpEF): Status: Acute <Brooklynn Joaquin BRENJose JRené Lux Last Filed: 02/07/22 12:36> Assessment and Plan: Admit with increasing shortness of breath.? Evidence of volume overload on exam.? BNP 400.? Being diuresed with IV Lasix.? I+Os have not been accurately monitored.? She is not hypoxic, room air sat 99%.? She does report some improvement in breathing but has not been up walking around so unable to fully assess.? On exam she does have JVD to the jaw still however lungs do sound clear.? BNP 458 today.? Echocardiogram showed EF 50-55%, bio AVR with severe stenosis, mean gradiant 48mmhg, AMEE 0.68cm2, mod MR, mod to severe TR, RSVP 80mmhg, severe pulm HTN.? Continue IV Lasix.?Please obtain Strict I&O monitoring and daily weights.? Close monitoring of electrolytes and kidney function with electrolyte replacement as warranted.? We will follow. <JOSLYN Johnston - Last Filed: 02/07/22 12:36> (2) Prosthetic aortic valve stenosis: Status: Acute <JOSLYN Johnston - Last Filed: 02/07/22 12:36> (3) Prosthetic valve dysfunction: Status: Acute <JOSLYN Johnston - Last Filed: 02/07/22 12:36> Assessment and Plan: Bio AVR with severe stenosis which is likely contributing to her HF exacerbation. Reviewed with her. Plan to discuss findings with her health physicist, Dr Terrell. Then may need outpt right and left heart cath for further evaluation and redo TAVR eval. She is currently willing to proceed with any intervention that is needed. <JOSLYN Johnston - Last Filed: 02/07/22 12:36> (4) CAD (coronary artery disease): Status: Acute <JOSLYN Johnston - Last Filed: 02/07/22 12:36> Assessment and Plan: Known history of CAD with prior 2 vessel Coronary artery bypass grafting.? Condition stable at present time with no report of chest discomfort.? Troponins mildly elevated, flat this admission.? Has had mildly elevated troponins in the past.? Continue medical management for stable CAD including metoprolol.? She is not on aspirin as she is on Coumadin.? Allergy list includes statin and Zetia intolerance <JOSLYN Johnston - Last Filed: 02/07/22 12:36> (5) Cardiac pacemaker in situ: Status: Acute <Brooklynn Dumont JOSLYN Joaquin - Last Filed: 02/07/22 12:36> Assessment and Plan: [place] [employer] single lead PPM. Followed by our office. Last interrogation shows battery 7.5 years. monitor technician shows V pacing.? No indication for interrogation at this time.? <Brooklynn Julia JOSLYN Joaquin - Last Filed: 02/07/22 12:36> (6) Atrial fibrillation: Status: Acute <Brooklynn Dumont JOSLYN Joaquin - Last Filed: 02/07/22 12:36> Assessment and Plan: History of atrial fibrillation. EKG and tele show what looks like V pacing with underlying AF, rates controlled. ? On metoprolol for heart rate control.? She is on Coumadin for anticoagulation.? INR goal 2-3.? INR today 3.5.? Coumadin adjustments being handled by hospitalist. <Brooklynn Julia JOSLYN Joaquin - Last Filed: 02/07/22 12:36> Plan Patient seen and examined at bedside. Clinically she is improving. Still volume overloaded. Continue IV diuretics at this stage. I think we need close monitoring of I's and O's and her weight. She clearly has bioprosthetic aortic valve stenosis and I think this is the cause for her presentation at this stage. She is frail but overall is in reasonably good shape to be considered for a valve in valve TAVR. Obviously that requires a lot of workup which will be pursued as she improves further. I think we will work her up as outpatient with the left and right heart catheterization. We will refer her after that to heart team for further assessment. In the meantime I think we continue diuretics as she still seems fairly overloaded on examination. She also has severe pulmonary hypertension. I think this is partially because of elevated filling pressure on the left side due to valve issue. I do not think we can try any nitrates or other medications for her pulmonary hypertension right now. Thank you for allowing me to participate in the care of your patient. Please feel free to contact me if you have any questions. <Yoandy Bolton MD - Last Filed: 02/07/22 14:22> Time Spent With Patient Time: Total time spent is greater than 50% in coordination of care (as documented) at patient's floor/unit and/or counseling patient: 24 <JOSLYN Johnston - Last Filed: 02/07/22 12:36> Progress Note: Quality Stroke Does the patient have a stroke diagnosis?: No <JOSLYN Johnston - Last Filed: 02/07/22 12:36> Procedures Date of Service Date of Service: 02/07/22 <JOSLYN Johnston - Last Filed: 02/07/22 12:36>
--- NOTE | 2022-02-07 14:22 | P.PNIM_ITS ---
Subjective Subjective Date of Service: 02/07/22 Interval History: cc: sob interval history:about 50% better Cardiovascular Cardiovascular: Reports no additional cardiovascular complaints Gastrointestinal Gastrointestinal: Reports no additional gastrointestinal complaints Physical Exam Vital Signs: Vital Signs: Last Vital Signs Temp 97.4 F 02/07/22 12:00 Pulse 77 02/07/22 12:00 Resp 20 02/07/22 12:00 BP 103/54 L 02/07/22 12:00 Pulse Ox 94 02/07/22 12:00 BMI result Body Mass Index 40.1 General: AO X 3, no acute distress Resp: CTA bilateral, no accessory muscles used CVS: S1,S2,RRR, 2-3 + edema GI: soft, non tender, non distended Neuro: motor grossly intact, alert Psych: appropriate affect, appropriate insight Objective Data Active Medications Acetaminophen (Acetaminophen 325 Mg Tablet) 650 mg PO Q6H PRN PRN Reason: Pain, Mild (Pain Scale 1-3) Last Admin: 02/07/22 08:57 Dose: 650 mg Documented by: GEOVANI Clonazepam (Clonazepam 0.5 Mg Tablet) 0.5 mg PO BEDTIME PRN PRN Reason: Sleep Cyanocobalamin (Cyanocobalamin (Vitamin B-12) 1,000 Mcg Tablet) 1,000 mcg PO DAILY [facility] Last Admin: 02/07/22 08:52 Dose: 1,000 mcg Documented by: GEOVANI Fluticasone Propionate (Fluticasone Propionate Nasal 16 Gm [place]) 2 spray NOSTRIL-B DAILY PRN PRN Reason: Allergy Symptoms Furosemide (Furosemide 40 Mg/4 Ml Vial) 40 mg IVPUSH BIDWM [facility]; Protocol Last Admin: 02/07/22 08:52 Dose: 40 mg Documented by: GEOVANI Losartan Potassium (Losartan Potassium 25 Mg Tablet) 25 mg PO BID [facility]; Protocol Last Admin: 02/07/22 08:52 Dose: Not Given Documented by: GEOVANI Non-Admin Reason: Decreased Blood Pressure Magnesium Hydroxide (Milk Of Magnesia 30 Ml Oral.Susp) 30 ml PO DAILY PRN PRN Reason: Constipation Melatonin (Melatonin 3 Mg Tablet) 6 mg PO BEDTIME PRN PRN Reason: Insomnia Metoprolol Succinate (Metoprolol Succinate Er 25 Mg Tab.Er.24h) 25 mg PO BEDTIME [facility]; Protocol Last Admin: 02/06/22 20:55 Dose: 25 mg Documented by: JESSIKA Morphine Sulfate (Morphine Sulfate 4 Mg/Ml Cartridge) 2 mg IVPUSH Q4H PRN; Protocol PRN Reason: Pain, Severe (Pain Scale 7-10) Pharmacy Consult (Consult Rx Perform Med Rec) 1 each MISCELLANE ONCE PRN PRN Reason: Consult order Sodium Chloride (0.9 % Sodium Chloride Flush 3 Ml Syringe) 3 ml IVFLUSH QSHIFT [facility] Last Admin: 02/07/22 08:52 Dose: 3 ml Documented by: GEOVANI Vitamin D (Cholecalciferol (Vitamin D3) 25 Mcg Tablet) 25 mcg PO DAILY [facility] Last Admin: 02/07/22 08:52 Dose: 25 mcg Documented by: GEOVANI Warfarin Sodium (Warfarin Sodium 2.5 Mg Tablet) 2.5 mg PO DAILY@1800 [facility] Last Admin: 02/06/22 22:49 Dose: Not Given Documented by: JESSIKA Non-Admin Reason: See Note Labs CBC & Chem 7: 02/05/22 06:00 02/07/22 05:54 Labs: Laboratory Results - last 24 hr 02/07/22 02/07/22 02/07/22 05:54 05:54 05:55 PT 41.1 H INR 3.5 H Anion Gap 13 Estim Creat Clear Calc 36.6 Estimated GFR 43 Random Glucose 135 H Calcium 8.2 L B-Natriuretic Peptide 458 H Assessment and Plan (1) Acute on chronic heart failure with preserved ejection fraction (HFpEF): Status: Acute Plan 81-year-old obese female with a history of controlled diabetes mellitus, generalized anxiety disorder chronic anemia, chronic atrial fibrillation, 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 hypertension, hypercholesterolemia, co ronary artery disease, s/p pacemaker, HFpEF last of 05/2021 EF 55 to 60% here with decompensated heart failure. 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 this cannot be done in less acute setting at this time. Quality Stroke Does the patient have a stroke diagnosis?: No VTE Prior VTE?: No VTE Risk Level:: Medical - low VTE Device Contraindication: Treatment Not Indicated VTE Drug Contraindication: Treatment Not Indicated
--- NOTE | 2022-02-07 19:13 | PC.NURSE ---
redness on the sink around umbilicus , bacitracin topical ointment ordered by Dr Murguia
[2022-02-07] MEDS: Metoprolol Succinate ER 25 MG TAB.ER.24H PO (20:46)
[2022-02-07] MEDS: Losartan Potassium 25 MG TABLET PO (20:46)
[2022-02-07] MEDS: Bacitracin Oint 14 GM TUBE 1 APPL TOPICAL (21:17)
[2022-02-08] MEDS: 0.9 % Sodium Chloride Flush 3 ML SYRINGE IVFLUSH ×4 (00:46→23:51)
[2022-02-08] MEDS: Acetaminophen 325 MG TABLET 650 MG PO ×2 (00:50→19:48)
[2022-02-08 03:28] VITALS: BP 97/52; PULSE 65; RESP 18; TEMP 36.6; O2SAT 99
[2022-02-08 07:18] LABS: INTERNATIONAL NORM RATIO 2.7 (0.9-1.1); Prothrombin Time 31.6 SEC (9.9-13.0)
[2022-02-08 07:29] LABS: Hematocrit 26.9 % (37.0-47.0); Hemoglobin 8.9 g/dl (12.0-16.0); Mean Corpuscular HGB Conc 33.1 g/dl (31.0-35.0); Mean Corpuscular Hemoglobin 38.9 pg (27.0-33.0); Mean Platelet Volume 12.6 fL (9.4-12.3); PLT CLUMP 1; Red Blood Count 2.29 X10*6/uL (4.20-5.50); Red Cell Distribution Width 23.5 % (11.0-16.0)
[2022-02-08 07:32] LABS: Mean Corpuscular Volume 117.5 fL (80.0-98.0); NRBC Pct Auto 5.7 /100WBC (0.0-0.2); White Blood Count 4.6 X10*3/uL (4.8-10.8)
[2022-02-08 07:40] LABS: Anion Gap 15 (12-20); Blood Urea Nitrogen 35 mg/dL (9-16); Calcium 8.6 mg/dL (8.4-10.2); Carbon Dioxide 24 mmol/L (22-29); Chloride 102 mmol/L (96-108); Creatinine Clr Calc Pharmacy 35.4; Estimated Glomerular Filt Rate 42; Glucose Fasting 139 mg/dL (60-99); Potassium 3.8 mmol/L (3.3-5.1); Sodium 137 mmol/L (135-145)
[2022-02-08 08:00] VITALS: BP 107/58; PULSE 65; RESP 20; TEMP 36.6; O2SAT 95
[2022-02-08 08:12] LABS: Platelet Count 77 X10*3/uL (160-400)
[2022-02-08] MEDS: Cholecalciferol (Vitamin D3) 25 MCG TABLET PO (10:32)
[2022-02-08] MEDS: Furosemide 40 MG/4 ML VIAL IVPUSH ×2 (10:32→16:48)
[2022-02-08] MEDS: Losartan Potassium 25 MG TABLET PO (10:32)
[2022-02-08] MEDS: Cyanocobalamin (Vitamin B-12) 1,000 MCG TABLET 1000 MCG PO (10:33)
[2022-02-08 10:40] LABS: Alanine Aminotransferase 30 U/L (0-31); Albumin Level 3.5 g/dL (3.5-5.0); Alkaline Phosphatase 64 U/L (39-117); Aspartate Amino Transferase 44 U/L (5-31); Bilirubin Direct 2.2 mg/dL (0.0-0.5); Bilirubin Total 3.9 mg/dL (0.0-1.0); Total Protein 6.9 g/dL (6.5-8.0)
[2022-02-08 11:33] VITALS: BP 109/53; PULSE 63; RESP 20; TEMP 36.6; O2SAT 96
--- NOTE | 2022-02-08 12:38 | HO.PM.IMPN ---
Subjective Subjective Date of Service: 02/08/22 Interval History: cc: sob, back pain, leg edema interval history:sob much better, still with back pain, leg edema, pruritis Cardiovascular Cardiovascular: Reports no additional cardiovascular complaints Respiratory Respiratory: Reports no additional respiratory complaints Physical Exam Vital Signs: Vital Signs: Last Vital Signs Temp 97.8 F 02/08/22 11:33 Pulse 63 02/08/22 11:33 Resp 20 02/08/22 11:33 BP 109/53 L 02/08/22 11:33 Pulse Ox 96 02/08/22 11:33 BMI result Body Mass Index 40.1 General: AO X 3, no acute distress, scelra jaundice Resp: CTA bilateral, no accessory muscles used CVS: S1,S2,RRR, 3+ edema GI: soft, non tender, non distended Neuro: motor grossly intact, alert Psych: appropriate affect, appropriate insight Objective Data Active Medications Acetaminophen (Acetaminophen 325 Mg Tablet) 650 mg PO Q6H PRN PRN Reason: Pain, Mild (Pain Scale 1-3) Last Admin: 02/08/22 00:50 Dose: 650 mg Documented by: OWEN Bacitracin (Bacitracin Oint 14 Gm Tube) 1 appl TOPICAL BID [facility]; Protocol Last Admin: 02/08/22 10:40 Dose: Not Given Documented by: ANDRY Non-Admin Reason: Med Not Available Clonazepam (Clonazepam 0.5 Mg Tablet) 0.5 mg PO BEDTIME PRN PRN Reason: Sleep Cyanocobalamin (Cyanocobalamin (Vitamin B-12) 1,000 Mcg Tablet) 1,000 mcg PO DAILY [facility] Last Admin: 02/08/22 10:33 Dose: 1,000 mcg Documented by: ANDRY Fluticasone Propionate (Fluticasone Propionate Nasal 16 Gm [place]) 2 spray NOSTRIL-B DAILY PRN PRN Reason: Allergy Symptoms Furosemide (Furosemide 20 Mg Tablet) 20 mg PO DAILY [facility]; Protocol Losartan Potassium (Losartan Potassium 25 Mg Tablet) 25 mg PO BID [facility]; Protocol Last Admin: 02/08/22 10:32 Dose: 25 mg Documented by: ANDRY Magnesium Hydroxide (Milk Of Magnesia 30 Ml Oral.Susp) 30 ml PO DAILY PRN PRN Reason: Constipation Melatonin (Melatonin 3 Mg Tablet) 6 mg PO BEDTIME PRN PRN Reason: Insomnia Metoprolol Succinate (Metoprolol Succinate Er 25 Mg Tab.Er.24h) 25 mg PO BEDTIME [facility]; Protocol Last Admin: 02/07/22 20:46 Dose: 25 mg Documented by: JAYRO Morphine Sulfate (Morphine Sulfate 4 Mg/Ml Cartridge) 2 mg IVPUSH Q4H PRN; Protocol PRN Reason: Pain, Severe (Pain Scale 7-10) Pharmacy Consult (Consult Rx Perform Med Rec) 1 each MISCELLANE ONCE PRN PRN Reason: Consult order Sodium Chloride (0.9 % Sodium Chloride Flush 3 Ml Syringe) 3 ml IVFLUSH QSHIFT [facility] Last Admin: 02/08/22 10:32 Dose: 3 ml Documented by: ANDRY Vitamin D (Cholecalciferol (Vitamin D3) 25 Mcg Tablet) 25 mcg PO DAILY [facility] Last Admin: 02/08/22 10:32 Dose: 25 mcg Documented by: ANDRY Warfarin Sodium (Warfarin Sodium 2.5 Mg Tablet) 2.5 mg PO DAILY@1800 [facility] Last Admin: 02/06/22 22:49 Dose: Not Given Documented by: JESSIKA Non-Admin Reason: See Note Labs CBC & Chem 7: 02/08/22 06:53 02/08/22 06:53 Labs: Laboratory Results - last 24 hr 02/08/22 02/08/22 02/08/22 06:53 06:53 06:53 MCV 117.5 H MCH 38.9 H MCHC 33.1 RDW 23.5 H Plt Count 77 L MPV 12.6 H Absolute Nucleated RBC 0.260 H Nucleated RBC % (auto) 5.7 H PT 31.6 H INR 2.7 H Anion Gap 15 Estim Creat Clear Calc 35.4 Estimated GFR 42 Fasting Glucose 139 H Calcium 8.6 Total Bilirubin 3.9 H Direct Bilirubin 2.2 H AST 44 H ALT 30 Alkaline Phosphatase 64 Total Protein 6.9 Albumin 3.5 Assessment and Plan (1) Acute on chronic heart failure with preserved ejection fraction (HFpEF): Status: Acute Plan 81-year-old obese female with a history of controlled diabetes mellitus, generalized anxiety disorder chronic anemia, chronic atrial fibrillation, 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 hypertension, hypercholesterolemia, coronary artery disease, s/p pacemaker, HFpEF last of 05/2021 EF 55 to 60% here with decompensated heart failure. 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
[2022-02-08 14:54] VITALS: BP 107/54; PULSE 104; RESP 20; TEMP 36.4; O2SAT 98
--- NOTE | 2022-02-08 15:48 | P.PNCA_ITS ---
Subjective Subjective Date of Service: 02/08/22 Principal diagnosis: CHF Interval history: Seen at 11:15. Today she reports that she has been up walking around and is feeling more short of breath than yesterday. She was hoping to go home but tells me she does not feel ready. She is describing a pain in her right mid back that she feels is getting worse. She has no chest discomfort, palpitations, dizziness, presyncope. Her breathing is comfortable at rest. She slept with head of the bed mildly elevated. No cough present. She feels her leg edema is worse today. Review of Systems Review of Systems As above Yes all other systems are reviewed and are negative Physical Exam Vital Signs: Last Vital Signs Temp 97.6 F 02/08/22 14:54 Pulse 104 H 02/08/22 14:54 Resp 20 02/08/22 14:54 BP 107/54 L 02/08/22 14:54 Pulse Ox 98 02/08/22 14:54 BMI result Body Mass Index 40.1 Const Other: Mild scleral jaundice General: cooperative, no acute distress, alert and awake Orientation/consciousness: patient oriented x3 Neck Other: Pulsating JVD to jaw Resp Effort & Inspection: normal respiratory effort and able to speak in complete sentences Auscultation: clear to auscultation bilaterally, no crackles, no rales, no rhonchi and no wheezes Cardio Jugular venous distension: JVD present Rate: regular rate Rhythm: regular rhythm Heart sounds: S2 normal heart sound present Peripheral pulses: Peripheral pulses 2+ throughout GI Inspection: Yes normal to inspection Neuro General: patient oriented x3 Extrem Other: Nonpitting lower leg edema common more prominent than yesterday General: Yes normal to inspection Objective Labs and Meds Result diagrams: 02/08/22 06:53 02/08/22 06:53 Lab results: Laboratory Results - last 24 hr 02/08/22 02/08/22 02/08/22 06:53 06:53 06:53 WBC 4.6 L RBC 2.29 L Hgb 8.9 L Hct 26.9 L MCV 117.5 H MCH 38.9 H MCHC 33.1 RDW 23.5 H Plt Count 77 L MPV 12.6 H Absolute Nucleated RBC 0.260 H Nucleated RBC % (auto) 5.7 H PT 31.6 H INR 2.7 H Sodium 137 Potassium 3.8 Chloride 102 Carbon Dioxide 24 Anion Gap 15 BUN 35 H Creatinine 1.23 Estim Creat Clear Calc 35.4 Estimated GFR 42 Fasting Glucose 139 H Calcium 8.6 Total Bilirubin 3.9 H Direct Bilirubin 2.2 H AST 44 H ALT 30 Alkaline Phosphatase 64 Total Protein 6.9 Albumin 3.5 Progress Note: A&P Assessment and plan (1) Acute on chronic heart failure with preserved ejection fraction (HFpEF): Status: Acute Assessment and Plan: Admit with increasing shortness of breath.? Evidence of volume overload on exam.? BNP 400.? Has been diuresed with IV Lasix.? I+Os have not been accurately monitored. -800 cc recorded in last 2 days, prior to that no measurements recorded. She is not hypoxic, room air sat 95%. Yesterday she reported i mprovement in her breathing however today she was walking around the room more and states she has shortness of breath and does not feel ready to go home.? On exam she does have JVD to the jaw still, some of which could be V waves from tricuspid regurgitation. Herlungs do sound clear.? BNP 458 yesterday.? Echocardiogram showed EF 50-55%, bio AVR with severe stenosis, mean gradiant 48mmhg, AMEE 0.68cm2, mod MR, mod to severe TR, RSVP 80mmhg, severe pulm HTN.? The severe aortic stenosis is likely contributing to her heart failure syndrome. She will need further outpatient evaluation and treatment. Would recommend continuing IV Lasix at this time. BNP in a.m.?Please obtain Strict I&O monitori ng and daily weights.? Close monitoring of electrolytes and kidney function with electrolyte replacement as warranted.? We will follow. (2) Prosthetic aortic valve stenosis: Status: Acute Assessment and Plan: Bio AVR with severe stenosis which is likely contributing to her HF exacerbation. Reviewed with her. Reviewed with Dr. Terrell and will plan for outpatient outpt right and left heart cath when clinically appropriate, for further evaluation and redo TAVR eval.? She is currently willing to proceed with any intervention that is needed. (3) CAD (coronary artery disease): Status: Acute Assessment and Plan: Known history of CAD with prior 2 vessel Coronary artery bypass grafting.? Condition stable at present time with no report of chest discomfort.? Troponins mildly elevated, flat this admission.? Has had mildly elevated troponins like this in the past.? Continue medical management for stable CAD including metoprolol.? She is not on aspirin as she is on Coumadin.? Allergy list includes statin and Zetia intolerance (4) Cardiac pacemaker in situ: Status: Acute Assessment and Plan: [place] scieintific single lead PPM.? Followed by our office. Last interrogation shows battery 7.5 years. brake holder shows V pacing.? No indication for interrogation at this time.? (5) Atrial fibrillation: Status: Acute Assessment and Plan: History of atrial fibrillation. EKG and tele show what looks like V pacing with underlying AF, rates controlled. ? On metoprolol for heart rate control.? She is on Coumadin for anticoagulation.? INR goal 2-3.? INR today 3.5.? Coumadin adjustments being handled by hospitalist. Time Spent With Patient Time: Total time spent is greater than 50% in coordination of care (as documented) at patient's floor/unit and/or counseling patient: Progress Note: Quality Stroke Does the patient have a stroke diagnosis?: No Procedures Date of Service Date of Service: 02/08/22
[2022-02-08] MEDS: Warfarin Sodium 2.5 MG TABLET PO (16:48)
[2022-02-08 19:05] VITALS: BP 118/56; PULSE 66; RESP 20; TEMP 36.5; O2SAT 99
[2022-02-08] MEDS: clonazePAM 0.5 MG TABLET PO (19:56)
[2022-02-08] MEDS: Metoprolol Succinate ER 25 MG TAB.ER.24H PO (21:05)
[2022-02-08] MEDS: Bacitracin Oint 14 GM TUBE 1 APPL TOPICAL (21:05)
[2022-02-08 23:00] VITALS: BP 100/54; PULSE 69; RESP 20; TEMP 37; O2SAT 98
[2022-02-09 03:53] VITALS: BP 112/60; PULSE 72; RESP 18; TEMP 36.7; O2SAT 97
[2022-02-09 06:40] LABS: Hematocrit 24.9 % (37.0-47.0); Hemoglobin 8.3 g/dl (12.0-16.0); Mean Corpuscular HGB Conc 33.3 g/dl (31.0-35.0); Mean Corpuscular Hemoglobin 38.8 pg (27.0-33.0); Mean Platelet Volume 12.9 fL (9.4-12.3); Red Blood Count 2.14 X10*6/uL (4.20-5.50); Red Cell Distribution Width 23.4 % (11.0-16.0); White Blood Count 3.7 X10*3/uL (4.8-10.8)
[2022-02-09 06:41] LABS: Mean Corpuscular Volume 116.4 fL (80.0-98.0); NRBC Pct Auto 5.2 /100WBC (0.0-0.2); Platelet Count 74 X10*3/uL (160-400)
[2022-02-09 06:46] LABS: Alanine Aminotransferase 24 U/L (0-31); Albumin Level 3.2 g/dL (3.5-5.0); Alkaline Phosphatase 60 U/L (39-117); Anion Gap 14 (12-20); Aspartate Amino Transferase 39 U/L (5-31); Bilirubin Direct 2.2 mg/dL (0.0-0.5); Bilirubin Total 3.8 mg/dL (0.0-1.0); Blood Urea Nitrogen 38 mg/dL (9-16); Calcium 8.4 mg/dL (8.4-10.2); Carbon Dioxide 25 mmol/L (22-29); Chloride 101 mmol/L (96-108); Creatinine Clr Calc Pharmacy 36.6; Estimated Glomerular Filt Rate 43; Glucose Fasting 175 mg/dL (60-99); Potassium 3.3 mmol/L (3.3-5.1); Sodium 137 mmol/L (135-145); Total Protein 6.1 g/dL (6.5-8.0)
[2022-02-09 06:54] LABS: INTERNATIONAL NORM RATIO 2.3 (0.9-1.1); Prothrombin Time 26.7 SEC (9.9-13.0)
[2022-02-09 07:05] LABS: B Type Natriuretic Peptide 441 pg/mL (<100)
[2022-02-09 08:00] VITALS: BP 121/78; PULSE 65; RESP 20; TEMP 36.5; O2SAT 96
[2022-02-09] MEDS: Losartan Potassium 25 MG TABLET PO ×2 (09:10→21:02)
[2022-02-09] MEDS: Cholecalciferol (Vitamin D3) 25 MCG TABLET PO (09:10)
[2022-02-09] MEDS: Furosemide 40 MG/4 ML VIAL IVPUSH ×2 (09:10→18:21)
[2022-02-09] MEDS: Cyanocobalamin (Vitamin B-12) 1,000 MCG TABLET 1000 MCG PO (09:10)
[2022-02-09] MEDS: Bacitracin Oint 14 GM TUBE 1 APPL TOPICAL ×2 (09:11→21:09)
[2022-02-09] MEDS: 0.9 % Sodium Chloride Flush 3 ML SYRINGE IVFLUSH ×3 (09:12→21:02)
[2022-02-09 11:34] VITALS: BP 120/56; PULSE 65; RESP 20; TEMP 36.4; O2SAT 98
--- NOTE | 2022-02-09 11:43 | HO.PM.IMPN ---
Subjective Subjective Date of Service: 02/09/22 Interval History: cc: sob interval history:sob improved, right flank pain Respiratory Respiratory: Reports no additional respiratory complaints Gastrointestinal Gastrointestinal: Reports no additional gastrointestinal complaints Physical Exam Vital Signs: Vital Signs: Last Vital Signs Temp 97.5 F 02/09/22 11:34 Pulse 65 02/09/22 11:34 Resp 20 02/09/22 11:34 BP 120/56 L 02/09/22 11:34 Pulse Ox 98 02/09/22 11:34 BMI result Body Mass Index 40.1 General: AO X 3, no acute distress, sclera jaundice Resp:? CTA bilateral, no accessory muscles used CVS: S1,S2,RRR, 3+ edema GI: soft, non tender, non distended Neuro:? motor grossly intact, alert Psych: appropriate affect, appropriate insight? Objective Data Active Medications Acetaminophen (Acetaminophen 325 Mg Tablet) 650 mg PO Q6H PRN PRN Reason: Pain, Mild (Pain Scale 1-3) Last Admin: 02/08/22 19:48 Dose: 650 mg Documented by: JAYRO Bacitracin (Bacitracin Oint 14 Gm Tube) 1 appl TOPICAL BID [facility]; Protocol Last Admin: 02/09/22 09:11 Dose: 1 appl Documented by: YONATHAN Clonazepam (Clonazepam 0.5 Mg Tablet) 0.5 mg PO BEDTIME PRN PRN Reason: Sleep Last Admin: 02/08/22 19:56 Dose: 0.25 mg Documented by: JAYRO Cyanocobalamin (Cyanocobalamin (Vitamin B-12) 1,000 Mcg Tablet) 1,000 mcg PO DAILY [facility] Last Admin: 02/09/22 09:10 Dose: 1,000 mcg Documented by: YONATHAN Fluticasone Propionate (Fluticasone Propionate Nasal 16 Gm [place]) 2 spray NOSTRIL-B DAILY PRN PRN Reason: Allergy Symptoms Furosemide (Furosemide 40 Mg/4 Ml Vial) 40 mg IVPUSH BID@0900,1800 [facility]; Protocol Last Admin: 02/09/22 09:10 Dose: 40 mg Documented by: YONATHAN Losartan Potassium (Losartan Potassium 25 Mg Tablet) 25 mg PO BID [facility]; Protocol Last Admin: 02/09/22 09:10 Dose: 25 mg Documented by: YONATHAN Magnesium Hydroxide (Milk Of Magnesia 30 Ml Oral.Susp) 30 ml PO DAILY PRN PRN Reason: Constipation Melatonin (Melatonin 3 Mg Tablet) 6 mg PO BEDTIME PRN PRN Reason: Insomnia Metoprolol Succinate (Metoprolol Succinate Er 25 Mg Tab.Er.24h) 25 mg PO BEDTIME [facility]; Protocol Last Admin: 02/08/22 21:05 Dose: 25 mg Documented by: JAYRO Morphine Sulfate (Morphine Sulfate 4 Mg/Ml Cartridge) 2 mg IVPUSH Q4H PRN; Protocol PRN Reason: Pain, Severe (Pain Scale 7-10) Pharmacy Consult (Consult Rx Perform Med Rec) 1 each MISCELLANE ONCE PRN PRN Reason: Consult order Sodium Chloride (0.9 % Sodium Chloride Flush 3 Ml Syringe) 3 ml IVFLUSH QSHIFT [facility] Last Admin: 02/09/22 09:12 Dose: 3 ml Documented by: YONATHAN Vitamin D (Cholecalciferol (Vitamin D3) 25 Mcg Tablet) 25 mcg PO DAILY [facility] Last Admin: 02/09/22 09:10 Dose: 25 mcg Documented by: YONATHAN Warfarin Sodium (Warfarin Sodium 2.5 Mg Tablet) 2.5 mg PO DAILY@1800 [facility] Last Admin: 02/08/22 16:48 Dose: 2.5 mg Documented by: JAYRO Labs CBC & Chem 7: 02/09/22 06:07 02/09/22 06:07 Labs: Laboratory Results - last 24 hr 02/09/22 02/09/22 02/09/22 06:07 06:07 06:07 MCV 116.4 H MCH 38.8 H MCHC 33.3 RDW 23.4 H Plt Count 74 L MPV 12.9 H Absolute Nucleated RBC 0.190 H Nucleated RBC % (auto) 5.2 H PT INR Anion Gap 14 Estim Creat Clear Calc 36.6 Estimated GFR 43 Fasting Glucose 175 H Calcium 8.4 Magnesium 2.0 Total Bilirubin 3.8 H Direct Bilirubin 2.2 H AST 39 H ALT 24 Alkaline Phosphatase 60 B-Natriuretic Peptide 441 H Total Protein 6.1 L Albumin 3.2 L 02/09/22 06:07 MCV MCH MCHC RDW Plt Count MPV Absolute Nucleated RBC Nucleated RBC % (auto) PT 26.7 H INR 2.3 H Anion Gap Estim Creat Clear Calc Estimated GFR Fasting Glucose Calcium Magnesium Total Bilirubin Direct Bilirubin AST ALT Alkaline Phosphatase B-Natriuretic Peptide Total Protein Albumin Assessment and Plan (1) Acute on chronic heart failure with preserved ejection fraction (HFpEF): Status: Acute Plan 81-year-old obese female with a history of controlled diabetes mellitus, generalized anxiety disorder chronic anemia, chronic atrial fibrillation, 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 hypertension, hypercholesterolemia, coronary artery disease, s/p pacemaker, HFpEF last of 05/2021 EF 55 to 60% here with decompensated heart failure. 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
--- NOTE | 2022-02-09 12:46 | MHC.CM.PN ---
Female 81 DX HF No DC today. Patient work up r/t jaundice bili colic elevated LFTs. DP is Home with family assist and transport.
--- NOTE | 2022-02-09 13:04 | P.CONGS_ITS ---
History of Present Illness Consult details Consult date: 02/09/22 Narrative: 81-year-old female with multiple medical problems including CHF, history of prosthetic aortic valve stenosis, pancytopenia, admitted to the hospital last February 05 because of shortness of breath. She states that she had external dyspnea that seemed to be rest of the getting worse over the past week. She also described that her edema on both legs were worsening. She was therefore admitted for on chronic heart failure. Her Bilirubin level yesterday seen to be elevated so she underwent an ultrasound showing gallstones. I have therefore been consulted. She otherwise denies any abdominal pain. She denies any nausea or vomiting. She says she tolerates food well. Review of Systems Constitutional: Constitutional: Denies chills and Denies fever(s) Cardiovascular: Cardiovascular: Denies chest pain, Reports dyspnea and Reports dyspnea on exertion Respiratory: Respiratory: Denies cough, Reports dyspnea and Reports dyspnea on exertion Gastrointestinal: Gastrointestinal: Denies hematochezia and Denies change in bowel habits Genitourinary: Genitourinary: Denies hematuria Musculoskeletal: Musculoskeletal: Reports back pain and Reports limited range of motion Neurologic: Denies focal weakness and Denies convulsions Psychiatric: Psychiatric: Denies depression and Denies mood swings PMFSH Past Medical History Medical History (Updated 02/15/22 @ 12:17 by Sylvia Caicedo MD) Acute cholecystitis Anemia Anxiety Ascending aorta dilatation Atrial fibrillation CAD (coronary artery disease) Cardiac pacemaker in situ Chest discomfort Cholelithiases Chronic atrial fibrillation Complete heart block Elevated bilirubin Gallstones Gastric ulcer History of breast cancer Hypercholesterolemia Hypertension Morbid obesity Osteoarthritis of knee Pancytopenia Prosthetic valve dysfunction Stenosis of prosthetic aortic valve Type 2 diabetes mellitus with hyperglycemia Vitamin D deficiency Family History Family History Father CVD (cardiovascular disease) Mother Stroke Surgical History Surgical History Aortic valve replaced History of bilateral mastectomy History of pacemaker History of surgery on left wrist History of tonsillectomy S/P CABG x 2 (~03/2010) Social History Social History Household Members: Children Housing: House Are you a primary post acute care nurse practitioner to a significant other at home: No Do you presently have visiting nurse or other home services: No Alcohol intake: never Patient Tobacco Use Status: Never used Tobacco e-Cigarette/Vaping Use: Never Used Second Hand Smoke Exposure: Yes service: No Current occupational status: retired Cognitive needs: Yes Hearing needs: Yes Vision needs: Yes Meds Allergies Allergy/AdvReac Type Severity Reaction Status Date / Time ezetimibe [Zetia] Allergy Intermediate Unknown Verified 01/22/22 12:07 lisinopril Allergy Mild Unknown Verified 01/22/22 12:07 meperidine [From Demerol] Allergy Mild UNKNOWN Verified 01/22/22 12:07 nitrofurantoin Allergy Mild UNKNOWN Verified 01/22/22 12:07 [From Macrodantin] Penicillins Allergy Mild UNKNOWN Verified 01/22/22 12:07 Sulfa (Sulfonamide Allergy Mild UNKNOWN Verified 01/22/22 12:07 Antibiotics) Page Syrup Allergy Unknown Unknown Verified 01/22/22 12:07 Iodinated Contrast Media Allergy Unknown ?RASH Verified 01/22/22 12:07 [IV CONTRAST] statin Allergy Unknown unknown Verified 01/22/22 12:07 acetaminophen [From PERCOCET] AdvReac Intermediate SEEING Verified 01/22/22 12:07 THINGS AFTER PERCOCET THAT WERE NOT THERE Active Medications: Current Medications Acetaminophen (Acetaminophen 325 Mg Tablet) 650 mg PO Q6H PRN PRN Reason: Pain, Mild (Pain Scale 1-3) Last Admin: 02/08/22 19:48 Dose: 650 mg Documented by: Bacitracin (Bacitracin Oint 14 Gm Tube) 1 appl TOPICAL BID [facility]; Protocol Last Admin: 02/09/22 09:11 Dose: 1 appl Documented by: Clonazepam (Clonazepam 0.5 Mg Tablet) 0.5 mg PO BEDTIME PRN PRN Reason: Sleep Last Admin: 02/08/22 19:56 Dose: 0.25 mg Documented by: Cyanocobalamin (Cyanocobalamin (Vitamin B-12) 1,000 Mcg Tablet) 1,000 mcg PO DAILY [facility] Last Admin: 02/09/22 09:10 Dose: 1,000 mcg Documented by: Fluticasone Propionate (Fluticasone Propionate Nasal 16 Gm [place]) 2 spray NOSTRIL-B DAILY PRN PRN Reason: Allergy Symptoms Furosemide (Furosemide 40 Mg/4 Ml Vial) 40 mg IVPUSH BID@0900,1800 [facility]; Protocol Last Admin: 02/09/22 09:10 Dose: 40 mg Documented by: Losartan Potassium (Losartan Potassium 25 Mg Tablet) 25 mg PO BID [facility]; Protocol Last Admin: 02/09/22 09:10 Dose: 25 mg Documented by: Magnesium Hydroxide (Milk Of Magnesia 30 Ml Oral.Susp) 30 ml PO DAILY PRN PRN Reason: Constipation Melatonin (Melatonin 3 Mg Tablet) 6 mg PO BEDTIME PRN PRN Reason: Insomnia Metoprolol Succinate (Metoprolol Succinate Er 25 Mg Tab.Er.24h) 25 mg PO BEDTIME [facility]; Protocol Last Admin: 02/08/22 21:05 Dose: 25 mg Documented by: Morphine Sulfate (Morphine Sulfate 4 Mg/Ml Cartridge) 2 mg IVPUSH Q4H PRN; Protocol PRN Reason: Pain, Severe (Pain Scale 7-10) Pharmacy Consult (Consult Rx Perform Med Rec) 1 each MISCELLANE ONCE PRN PRN Reason: Consult order Sodium Chloride (0.9 % Sodium Chloride Flush 3 Ml Syringe) 3 ml IVFLUSH QSHIFT [facility] Last Admin: 02/09/22 09:12 Dose: 3 ml Documented by: Vitamin D (Cholecalciferol (Vitamin D3) 25 Mcg Tablet) 25 mcg PO DAILY [facility] Last Admin: 02/09/22 09:10 Dose: 25 mcg Documented by: Warfarin Sodium (Warfarin Sodium 2.5 Mg Tablet) 2.5 mg PO DAILY@1800 [facility] Last Admin: 02/08/22 16:48 Dose: 2.5 mg Documented by: Home Medications Medication Instructions Recorded Confirmed Last Taken Type cholecalciferol (vitamin D3) 25 25 mcg PO DAILY 02/05/22 02/05/22 02/04/22 History mcg (1,000 unit) tablet clonazepam 0.5 mg tablet 0.5 mg PO BEDTIME PRN 02/05/22 02/05/22 Unknown History fluticasone propionate 50 2 spray INTRANASAL DAILY PRN 02/05/22 02/05/22 Unknown History mcg/actuation nasal spray,suspension losartan 50 mg tablet 25 mg PO BID 02/05/22 02/05/22 02/04/22 History metoprolol succinate 25 mg 25 mg PO BEDTIME 02/05/22 02/05/22 02/04/22 History tablet,extended release 24 hr Physical Exam Vital Signs: Vital Signs: Last Vital Signs Temp 97.5 F 02/09/22 11:34 Pulse 65 02/09/22 11:34 Resp 20 02/09/22 11:34 BP 120/56 L 02/09/22 11:34 Pulse Ox 98 02/09/22 11:34 BMI result Body Mass Index 40.1 Const: Other: Sitting on recliner General: comfortable and no acute distress Galdino entation/consciousness: patient oriented x3 Neck: Neck: Yes no lymphadenopathy Resp: Auscultation: clear to auscultation bilaterally Cardio: Rhythm: regular rhythm GI: Other: nontender, no Knowles sign Palpation (GI): Soft to palpation, nontender and no guarding Neuro: General: patient oriented x3 Results Labs Result diagrams: 02/15/22 06:01 02/13/22 05:53 Labs: Abnormal lab results 02/09/22 02/09/22 02/09/22 Range/Units 06:07 06:07 06:07 WBC 3.7 L (4.8-10.8) X10*3/uL RBC 2.14 L (4.20-5.50) X10*6/uL Hgb 8.3 L (12.0-16.0) g/dl Hct 24.9 L (37.0-47.0) % MCV 116.4 H (80.0-98.0) fL MCH 38.8 H (27.0-33.0) pg RDW 23.4 H (11.0-16.0) % Plt Count 74 L (160-400) X10*3/uL MPV 12.9 H (9.4-12.3) fL Absolute Nucleated RBC 0.190 H (0.0-0.012) X10*3/uL Nucleated RBC % (auto) 5.2 H (0.0-0.2) /100WBC PT (9.9-13.0) SEC INR (0.9-1.1) BUN 38 H (9-16) mg/dL Fasting Glucose 175 H (60-99) mg/dL Total Bilirubin 3.8 H (0.0-1.0) mg/dL Direct Bilirubin 2.2 H (0.0-0.5) mg/dL AST 39 H (5-31) U/L B-Natriuretic Peptide 441 H (<100) pg/mL Total Protein 6.1 L (6.5-8.0) g/dL Albumin 3.2 L (3.5-5.0) g/dL 02/09/22 Range/Units 06:07 WBC (4.8-10.8) X10*3/uL RBC (4.20-5.50) X10*6/uL Hgb (12.0-16.0) g/dl Hct (37.0-47.0) % MCV (80.0-98.0) fL MCH (27.0-33.0) pg RDW (11.0-16.0) % Plt Count (160-400) X10*3/uL MPV (9.4-12.3) fL Absolute Nucleated RBC (0.0-0.012) X10*3/uL Nucleated RBC % (auto) (0.0-0.2) /100WBC PT 26.7 H (9.9-13.0) SEC INR 2.3 H (0.9-1.1) BUN (9-16) mg/dL Fasting Glucose (60-99) mg/dL Total Bilirubin (0.0-1.0) mg/dL Direct Bilirubin (0.0-0.5) mg/dL AST (5-31) U/L B-Natriuretic Peptide (<100) pg/mL Total Protein (6.5-8.0) g/dL Albumin (3.5-5.0) g/dL Short CBC 02/09/22 Range/Units 06:07 WBC 3.7 L (4.8-10.8) X10*3/uL Hgb 8.3 L (12.0-16.0) g/dl Hct 24.9 L (37.0-47.0) % Plt Count 74 L (160-400) X10*3/uL BMP 02/09/22 06:07 Sodium 137 Potassium 3.3 Chloride 101 Carbon Dioxide 25 BUN 38 H Creatinine 1.19 Calcium 8.4 Liver Function 02/09/22 Range/Units 06:07 Total Bilirubin 3.8 H (0.0-1.0) mg/dL Direct Bilirubin 2.2 H (0.0-0.5) mg/dL AST 39 H (5-31) U/L ALT 24 (0-31) U/L Alkaline Phosphatase 60 (39-117) U/L Albumin 3.2 L (3.5-5.0) g/dL All other labs normal. Imaging Additional studies: Laboratory Results WBC 3.7 X10*3/uL (4.8-10.8) L 02/09/22 06:07 RBC 2.14 X10*6/uL (4.20-5.50) L 02/09/22 06:07 Hgb 8.3 g/dl (12.0-16.0) L 02/09/22 06:07 Hct 24.9 % (37.0-47.0) L 02/09/22 06:07 MCV 116.4 fL (80.0-98.0) H 02/09/22 06:07 MCH 38.8 pg (27.0-33.0) H 02/09/22 06:07 MCHC 33.3 g/dl (31.0-35.0) 02/09/22 06:07 RDW 23.4 % (11.0-16.0) H 02/09/22 06:07 Plt Count 74 X10*3/uL (160-400) L 02/09/22 06:07 MPV 12.9 fL (9.4-12.3) H 02/09/22 06:07 Immature Gran % (Auto) 2.2 % (0.0-0.4) H 02/05/22 06:00 Neut % (Auto) 29.5 % (45-73) L 02/05/22 06:00 Lymph % (Auto) 53.5 % (20-40) H 02/05/22 06:00 Eddy % (Auto) 13.8 % (2-11) H 02/05/22 06:00 Eos % (Auto) 0.6 % (0-4) 02/05/22 06:00 Baso % (Auto) 0.4 % (0-2) 02/05/22 06:00 Lymph # (Auto) 2.5 X10*3/uL (1.2-4.9) 02/05/22 06:00 Eddy # (Auto) 0.6 X10*3/uL (0.1-1.2) 02/05/22 06:00 Eos # (Auto) 0.0 X10*3/uL (0.0-0.4) 02/05/22 06:00 Baso # (Auto) 0.0 X10*3/uL (0.0-0.2) 02/05/22 06:00 Abs Immat Gran (auto) 0.10 X10*3/uL (0.00-0.03) H 02/05/22 06:00 Absolute Neuts (auto) 1.4 x10*3/uL (2.0-8.3) L 02/05/22 06:00 Absolute Nucleated RBC 0.190 X10*3/uL (0.0-0.012) H 02/09/22 06:07 Nucleated RBC % (auto) 5.2 /100WBC (0.0-0.2) H 02/09/22 06:07 Smear Tech's Comments VERIFIED 02/05/22 06:00 PT 26.7 SEC (9.9-13.0) H 02/09/22 06:07 INR 2.3 (0.9-1.1) H 02/09/22 06:07 APTT 40.5 SEC (24.1-38.0) H 02/05/22 08:35 Sodium 137 mmol/L (135-145) 02/09/22 06:07 Potassium 3.3 mmol/L (3.3-5.1) 02/09/22 06:07 Chloride 101 mmol/L (96-108) 02/09/22 06:07 Carbon Dioxide 25 mmol/L (22-29) 02/09/22 06:07 Anion Gap 14 (12-20) 02/09/22 06:07 BUN 38 mg/dL (9-16) H 02/09/22 06:07 Creatinine 1.19 mg/dL (0.5-1.4) 02/09/22 06:07 Estim Creat Clear Calc 36.6 02/09/22 06:07 Estimated GFR 43 02/09/22 06:07 Random Glucose 135 mg/dL (60-115) H 02/07/22 05:54 Fasting Glucose 175 mg/dL (60-99) H 02/09/22 06:07 Calcium 8.4 mg/dL (8.4-10.2) 02/09/22 06:07 Magnesium 2.0 mg/dL (1.6-2.6) 02/09/22 06:07 Total Bilirubin 3.8 mg/dL (0.0-1.0) H 02/09/22 06:07 Direct Bilirubin 2.2 mg/dL (0.0-0.5) H 02/09/22 06:07 AST 39 U/L (5-31) H 02/09/22 06:07 ALT 24 U/L (0-31) 02/09/22 06:07 Alkaline Phosphatase 60 U/L (39-117) 02/09/22 06:07 Troponin I High Sens 34.1 ng/L (<3.5-17.0) H 02/05/22 11:57 B-Natriuretic Peptide 441 pg/mL (<100) H 02/09/22 06:07 Total Protein 6.1 g/dL (6.5-8.0) L 02/09/22 06:07 Albumin 3.2 g/dL (3.5-5.0) L 02/09/22 06:07 Influenza Type A (PCR) NEGATIVE (Negative) 02/05/22 08:54 Influenza Type B (PCR) NEGATIVE (Negative) 02/05/22 08:54 RSV RNA Qual (PCR) NEGATIVE (Negative) 02/05/22 08:54 SARS-CoV-2 RNA (RT-PCR) NEGATIVE (Negative) 02/05/22 08:54 Impressions Chest X-Ray 02/05/22 06:45 IMPRESSION: No acute pulmonary finding. Hip X-Ray 02/05/22 16:07 IMPRESSION: Osteopenia and degenerative changes. Lumbar Spine X-Ray 02/05/22 16:07 IMPRESSION: Multilevel degenerative changes. Abdomen Ultrasound 02/08/22 14:48 IMPRESSION: Gallstones. Bilateral renal cysts. Limited visualization of the pancreas. Assessment and Plan (1) Elevated bilirubin: Status: Acute She was admitted for acute on chronic CHF and was noted to have elevated bilirubin, mostly direct (3.8/2.2). She also has gallstones on ultrasound. Ultrasound however does not suggest a dilated common bile duct. She had been seen a year ago with a similar picture was evaluated by GI who had stated that she may have Gilbert's disease. I would recommend MRI to rule out CBD obstruction by the ultrasound findings of a normal caliber common bile duct. She otherwise has a very benign exam and does not have any pain or tenderness. (2) Cholelithiases: Status: Acute No suggestion of cholecystitis at this time. Plan She does not have cholecystitis at this time. She does not have any pain or tenderness. Procedures Date of Service Date of Service: 02/09/22
--- NOTE | 2022-02-09 13:08 | PM.PNCARD ---
Subjective Subjective Date of Service: 02/09/22 Principal diagnosis: CHF Interval history: Seen at 1230. Today she is observed sitting in a chair, in no acute distress. She reports breathing not bad today but has not been doing normal activities. Does walk in room without concerning symptoms. No cough, no chest pains, palpitation, dizziness. Concerned that her legs are swollen again. Has been drinking a lot due to dry mouth. Back discomfort bothering her less today. No abdominal discomfort. Review of Systems Review of Systems as above Yes all other systems are reviewed and are negative Physical Exam Vital Signs: Last Vital Signs Temp 97.5 F 02/09/22 11:34 Pulse 65 02/09/22 11:34 Resp 20 02/09/22 11:34 BP 120/56 L 02/09/22 11:34 Pulse Ox 98 02/09/22 11:34 BMI result Body Mass Index 40.1 Const General: cooperative, no acute distress, alert and awake Orientation/consciousness: patient oriented x3 Eyes Other: mild scleral jaundice Neck Neck: Yes JVD Resp Effort & Inspection: normal respiratory effort and able to speak in complete sentences Auscultation: clear to auscultation bilaterally, no crackles, no rales, no rhonchi and no wheezes Cardio Jugular venous distension: JVD present Rate: regular rate Rhythm: regular rhythm Heart sounds: Murmur heart sound present GI Inspection: Yes normal to inspection Neuro General: patient oriented x3 Extrem Other: mildly pitting bilateral lower leg / foot edema General: Yes normal to inspection Right upper extremity: edema Objective Labs and Meds Result diagrams: 02/09/22 06:07 02/09/22 06:07 Lab results: Laboratory Results - last 24 hr 02/09/22 02/09/22 02/09/22 06:07 06:07 06:07 WBC 3.7 L RBC 2.14 L Hgb 8.3 L Hct 24.9 L MCV 116.4 H MCH 38.8 H MCHC 33.3 RDW 23.4 H Plt Count 74 L MPV 12.9 H Absolute Nucleated RBC 0.190 H Nucleated RBC % (auto) 5.2 H PT INR Sodium 137 Potassium 3.3 Chloride 101 Carbon Dioxide 25 Anion Gap 14 BUN 38 H Creatinine 1.19 Estim Creat Clear Calc 36.6 Estimated GFR 43 Fasting Glucose 175 H Calcium 8.4 Magnesium 2.0 Total Bilirubin 3.8 H Direct Bilirubin 2.2 H AST 39 H ALT 24 Alkaline Phosphatase 60 B-Natriuretic Peptide 441 H Total Protein 6.1 L Albumin 3.2 L 02/09/22 06:07 WBC RBC Hgb Hct MCV MCH MCHC RDW Plt Count MPV Absolute Nucleated RBC Nucleated RBC % (auto) PT 26.7 H INR 2.3 H Sodium Potassium Chloride Carbon Dioxide Anion Gap BUN Creatinine Estim Creat Clear Calc Estimated GFR Fasting Glucose Calcium Magnesium Total Bilirubin Direct Bilirubin AST ALT Alkaline Phosphatase B-Natriuretic Peptide Total Protein Albumin Imaging Radiologist's impression: Impressions Abdomen Ultrasound 02/08/22 14:48 IMPRESSION: Gallstones. Bilateral renal cysts. Limited visualization of the pancreas. Progress Note: A&P Assessment and plan (1) Acute on chronic heart failure with preserved ejection fraction (HFpEF): Status: Acute Assessment and Plan: Continues to be diuresed with IV lasix. Fluid balance Neg 1655 cc in last 2-3 days, Not recorded for first few days of admit. She does report that today her breathing more normal for her however has not been doing her usual activities. Her Echocardiogram showed EF 50-55%, bio AVR with severe stenosis, mean gradiant 48mmhg, AMEE 0.68cm2, mod MR, mod to severe TR, RSVP 80mmhg, severe pulm HTN.? The severe aortic stenosis is likely contributing to her heart failure syndrome.? She will need further outpatient evaluation and treatment once clinically appropriate.? On exam today, she still has JVD, which could be V waves from TR, also with recurrent leg edema. Cr 1.19. BNP 441 today, which is up from 364 on admit. Continue IV Lasix.?Please continue Strict I&O monitoring and daily weights.? Close monitoring of electrolytes and kidney function with electrolyte with electrolyte replacement as warranted. We will follow. (2) Prosthetic aortic valve stenosis: Status: Acute Assessment and Plan: Bio AVR with severe stenosis which is likely contributing to her HF exacerbation. Reviewed with her.? Reviewed with Dr. Terrell and will plan for outpatient outpt right and left heart cath when clinically appropriate, for further evaluation and redo TAVR eval.? She is currently willing to proceed with any intervention that is needed. (3) Elevated bilirubin: Status: Acute Assessment and Plan: Mild scleral jaundice present. Has elevated Bilirubin. Abdominal ultrasound shows gallstones, gall bladder distention. She tells me that the back pain she was experiencing is less today. Being followed by hospitalist, surgeon. (4) CAD (coronary artery disease): Status: Acute Assessment and Plan: Known history of CAD with prior 2 vessel Coronary artery bypass grafting.? Condition stable at present time with no report of chest discomfort.? Troponins mildly elevated, flat this admission.? Has had mildly elevated troponins like this in the past.? Continue medical management for stable CAD including metoprolol.? She is not on aspirin as she is on Coumadin.? Allergy list includes statin and Zetia intolerance (5) Cardiac pacemaker in situ: Status: Acute Assessment and Plan: [employer] single lead PPM.? Followed by our office. Last interrogation shows battery 7.5 years. satellite project site monitor shows V pacing.? No indication for interrogation at this time.? (6) Atrial fibrillation: Status: Acute Assessment and Plan: History of atrial fibrillation. EKG and tele show what looks like V pacing with underlying AF, rates controlled. ? On metoprolol for heart rate control.? She is on Coumadin for anticoagulation.? INR goal 2-3.? INR today 3.5.? Coumadin adjustments being handled by hospitalist. Time Spent With Patient Time: Total time spent is greater than 50% in coordination of care (as documented) at patient's floor/unit and/or counseling patient: Progress Note: Quality Stroke Does the patient have a stroke diagnosis?: No Procedures Date of Service Date of Service: 02/09/22
[2022-02-09 15:40] VITALS: BP 109/55; PULSE 66; RESP 18; TEMP 36.6; O2SAT 95
[2022-02-09] MEDS: Warfarin Sodium 2.5 MG TABLET PO (18:21)
[2022-02-09 19:55] VITALS: BP 118/74; PULSE 66; RESP 18; TEMP 36.9; O2SAT 95
[2022-02-09] MEDS: Acetaminophen 325 MG TABLET 650 MG PO (21:06)
[2022-02-09 23:28] VITALS: BP 116/89; PULSE 87; RESP 19; TEMP 36.7; O2SAT 98
[2022-02-10] MEDS: clonazePAM 0.5 MG TABLET 0.25 MG PO (01:40)
[2022-02-10 03:27] VITALS: BP 99/59; PULSE 64; RESP 16; TEMP 36.4; O2SAT 97
[2022-02-10 06:56] LABS: Hematocrit 24.3 % (37.0-47.0); Hemoglobin 8.2 g/dl (12.0-16.0); Mean Corpuscular HGB Conc 33.7 g/dl (31.0-35.0); Mean Corpuscular Volume 115.7 fL (80.0-98.0); Mean Platelet Volume 13.4 fL (9.4-12.3); NRBC Pct Auto 3.6 /100WBC (0.0-0.2); Platelet Count 69 X10*3/uL (160-400); Red Cell Distribution Width 23.3 % (11.0-16.0); White Blood Count 4.4 X10*3/uL (4.8-10.8)
[2022-02-10 06:58] LABS: Prothrombin Time 22.8 SEC (9.9-13.0)
[2022-02-10 07:11] LABS: Alanine Aminotransferase 23 U/L (0-31); Albumin Level 3.2 g/dL (3.5-5.0); Alkaline Phosphatase 61 U/L (39-117); Anion Gap 13 (12-20); Aspartate Amino Transferase 39 U/L (5-31); Bilirubin Direct 2.3 mg/dL (0.0-0.5); Bilirubin Total 4.2 mg/dL (0.0-1.0); Blood Urea Nitrogen 37 mg/dL (9-16); Calcium 8.6 mg/dL (8.4-10.2); Carbon Dioxide 25 mmol/L (22-29); Chloride 101 mmol/L (96-108); Creatinine Clr Calc Pharmacy 38.8; Estimated Glomerular Filt Rate 46; Glucose Fasting 121 mg/dL (60-99); Potassium 3.4 mmol/L (3.3-5.1); Sodium 136 mmol/L (135-145); Total Protein 6.1 g/dL (6.5-8.0)
[2022-02-10 07:45] VITALS: BP 111/54; PULSE 65; RESP 18; TEMP 36.6; O2SAT 97
--- NOTE | 2022-02-10 09:40 | P.PNGS_ITS ---
Subjective Subjective Date of Service: 02/10/22 Interval history: feels well denies any abdominal pain tolerating diet wanting to home Physical Exam Vital Signs: Vital Signs: Last Vital Signs Temp 97.8 F 02/10/22 07:45 Pulse 65 02/10/22 07:45 Resp 18 02/10/22 07:45 BP 111/54 L 02/10/22 07:45 Pulse Ox 97 02/10/22 07:45 BMI result Body Mass Index 40.1 Const: General: comfortable and no acute distress Eyes: Other: icteric sclerae Resp: Effort & Inspection: normal respiratory effort Cardio: Rhythm: abnormal rhythm GI: Other: soft, nontender, nondistended, no Knowles's sign Objective Data Active Medications Acetaminophen (Acetaminophen 325 Mg Tablet) 650 mg PO Q6H PRN PRN Reason: Pain, Mild (Pain Scale 1-3) Last Admin: 02/09/22 21:06 Dose: 650 mg Documented by: JANIS Bacitracin (Bacitracin Oint 14 Gm Tube) 1 appl TOPICAL BID [facility]; Protocol Last Admin: 02/09/22 21:09 Dose: 1 appl Documented by: JANIS Clonazepam (Clonazepam 0.5 Mg Tablet) 0.25 mg PO BEDTIME PRN PRN Reason: Sleep Last Admin: 02/10/22 01:40 Dose: 0.25 mg Documented by: JANIS Cyanocobalamin (Cyanocobalamin (Vitamin B-12) 1,000 Mcg Tablet) 1,000 mcg PO DAILY [facility] Last Admin: 02/09/22 09:10 Dose: 1,000 mcg Documented by: YONATHAN Fluticasone Propionate (Fluticasone Propionate Nasal 16 Gm [place]) 2 spray NOSTRIL-B DAILY PRN PRN Reason: Allergy Symptoms Furosemide (Furosemide 40 Mg/4 Ml Vial) 40 mg IVPUSH BID@0900,1800 [facility]; Protocol Last Admin: 02/09/22 18:21 Dose: 40 mg Documented by: YONATHAN Losartan Potassium (Losartan Potassium 25 Mg Tablet) 25 mg PO BID [facility]; Protocol Last Admin: 02/09/22 21:02 Dose: 25 mg Documented by: JANIS Magnesium Hydroxide (Milk Of Magnesia 30 Ml Oral.Susp) 30 ml PO DAILY PRN PRN Reason: Constipation Melatonin (Melatonin 3 Mg Tablet) 6 mg PO BEDTIME PRN PRN Reason: Insomnia Metoprolol Succinate (Metoprolol Succinate Er 25 Mg Tab.Er.24h) 25 mg PO BEDTIME [facility]; Protocol Last Admin: 02/09/22 21:02 Dose: Not Given Documented by: JANIS Non-Admin Reason: Decreased Heart Rate Morphine Sulfate (Morphine Sulfate 4 Mg/Ml Cartridge) 2 mg IVPUSH Q4H PRN; Protocol PRN Reason: Pain, Severe (Pain Scale 7-10) Pharmacy Consult (Consult Rx Perform Med Rec) 1 each MISCELLANE ONCE PRN PRN Reason: Consult order Sodium Chloride (0.9 % Sodium Chloride Flush 3 Ml Syringe) 3 ml IVFLUSH QSHIFT [facility] Last Admin: 02/09/22 21:02 Dose: 3 ml Documented by: JANIS Vitamin D (Cholecalciferol (Vitamin D3) 25 Mcg Tablet) 25 mcg PO DAILY [facility] Last Admin: 02/09/22 09:10 Dose: 25 mcg Documented by: YONATHAN Warfarin Sodium (Warfarin Sodium 2.5 Mg Tablet) 2.5 mg PO DAILY@1800 [facility] Last Admin: 02/09/22 18:21 Dose: 2.5 mg Documented by: YONATHAN Labs CBC & Chem 7: 02/10/22 06:33 02/10/22 06:27 Labs: Laboratory Results - last 24 hr 02/10/22 02/10/22 02/10/22 06:27 06:27 06:33 MCV 115.7 H MCH 39.0 H MCHC 33.7 RDW 23.3 H Plt Count 69 L MPV 13.4 H Absolute Nucleated RBC 0.160 H Nucleated RBC % (auto) 3.6 H PT 22.8 H INR 2.0 H Anion Gap 13 Estim Creat Clear Calc 38.8 Estimated GFR 46 Fasting Glucose 121 H Calcium 8.6 Total Bilirubin 4.2 H Direct Bilirubin 2.3 H AST 39 H ALT 23 Alkaline Phosphatase 61 Total Protein 6.1 L Albumin 3.2 L Procedures Date of Service Date of Service: 02/10/22 Progress Note: A&P Assessment and plan (1) Elevated bilirubin: Status: Acute Assessment and Plan: etiology of elevated bilirubin uncertain MRI does not show any CBD stone, patient appears comfortable without any abdominal pain or tenderness question of Gilbert's disease? other cholestatic entity? she otherwise looks comfortable does admit to exertional dyspnea with her CHF Time Spent With Patient Time: Total time spent is greater than 50% in coordination of care (as documented) at patient's floor/unit and/or counseling patient: Quality Stroke Does the patient have a stroke diagnosis?: No VTE Prior VTE?: No VTE Risk Level:: Medical - low VTE Device Contraindication: Treatment Not Indicated VTE Drug Contraindication: Treatment Not Indicated
[2022-02-10] MEDS: 0.9 % Sodium Chloride Flush 3 ML SYRINGE IVFLUSH ×3 (09:51→20:28)
[2022-02-10] MEDS: Cyanocobalamin (Vitamin B-12) 1,000 MCG TABLET 1000 MCG PO (09:51)
[2022-02-10] MEDS: Cholecalciferol (Vitamin D3) 25 MCG TABLET PO (09:51)
[2022-02-10] MEDS: Furosemide 40 MG/4 ML VIAL IVPUSH ×2 (09:51→12:51)
[2022-02-10] MEDS: Bacitracin Oint 14 GM TUBE 1 APPL TOPICAL ×2 (09:54→20:28)
[2022-02-10] MEDS: Losartan Potassium 25 MG TABLET PO ×2 (10:02→20:28)
[2022-02-10 11:57] VITALS: BP 111/54; PULSE 68; RESP 18; TEMP 36.7; O2SAT 98
--- NOTE | 2022-02-10 12:18 | PM.PNCARD ---
Subjective Subjective Date of Service: 02/10/22 Principal diagnosis: CHF Interval history: Continues to be short of breath. Still volume overloaded. Abdominal pain better. Physical Exam Vital Signs: Last Vital Signs Temp 98.0 F 02/10/22 11:57 Pulse 68 02/10/22 11:57 Resp 18 02/10/22 11:57 BP 111/54 L 02/10/22 11:57 Pulse Ox 98 02/10/22 11:57 BMI result Body Mass Index 40.1 GENERAL APPEARANCE:? SOB. NECK: no carotid bruit, positive jugular venous distention. SKIN: no suspicious lesions, warm and dry. HEART:? Systolic murmur aortic area with 2nd heart sound, irregularly irregular rhythm. LUNGS: clear to auscultation bilaterally. ABDOMEN: soft, nontender. EXTREMITIES:? Mild edema.. PERIPHERAL PULSES: equal. NEUROLOGIC: No gross deficits, AAO X 3 Objective Labs and Meds Result diagrams: 02/10/22 06:33 02/10/22 06:27 Lab results: Laboratory Results - last 24 hr 02/10/22 02/10/22 02/10/22 06:27 06:27 06:33 WBC 4.4 L RBC 2.10 L Hgb 8.2 L Hct 24.3 L MCV 115.7 H MCH 39.0 H MCHC 33.7 RDW 23.3 H Plt Count 69 L MPV 13.4 H Absolute Nucleated RBC 0.160 H Nucleated RBC % (auto) 3.6 H PT 22.8 H INR 2.0 H Sodium 136 Potassium 3.4 Chloride 101 Carbon Dioxide 25 Anion Gap 13 BUN 37 H Creatinine 1.12 Estim Creat Clear Calc 38.8 Estimated GFR 46 Fasting Glucose 121 H Calcium 8.6 Total Bilirubin 4.2 H Direct Bilirubin 2.3 H AST 39 H ALT 23 Alkaline Phosphatase 61 Total Protein 6.1 L Albumin 3.2 L Progress Note: A&P Assessment and plan (1) Prosthetic aortic valve stenosis: Status: Acute (2) Congestive heart failure: Status: Acute Plan 81-year-old female with congestive heart failure and severe bioprosthetic aortic valve stenosis. Still clinically volume overloaded. Increase the furosemide. Abdominal pain is improving. Plan is similar to before that we will diurese and as she improves will discharge her home with a plan of further discussion about workup for valve replacement as outpatient. Thank you for allowing me to participate in the care of your patient. Please feel free to contact me if you have any questions. Time Spent With Patient Time: Total time spent is greater than 50% in coordination of care (as documented) at patient's floor/unit and/or counseling patient: Progress Note: Quality Stroke Does the patient have a stroke diagnosis?: No Procedures Date of Service Date of Service: 02/10/22
--- NOTE | 2022-02-10 12:58 | HO.PM.IMPN ---
Subjective Subjective Date of Service: 02/10/22 Interval History: cc: sob interval history:sob improved, right flank pain Cardiovascular Cardiovascular: Reports no additional cardiovascular complaints Gastrointestinal Gastrointestinal: Reports no additional gastrointestinal complaints Physical Exam Vital Signs: Vital Signs: Last Vital Signs Temp 98.0 F 02/10/22 11:57 Pulse 68 02/10/22 11:57 Resp 18 02/10/22 11:57 BP 111/54 L 02/10/22 11:57 Pulse Ox 98 02/10/22 11:57 BMI result Body Mass Index 40.1 General: AO X 3, no acute distress, sclera jaundice Resp:? CTA bilateral, no accessory muscles used CVS: S1,S2,RRR, 3+ edema GI: soft, non tender, non distended Neuro:? motor grossly intact, alert Psych: appropriate affect, appropriate insight? Objective Data Active Medications Acetaminophen (Acetaminophen 325 Mg Tablet) 650 mg PO Q6H PRN PRN Reason: Pain, Mild (Pain Scale 1-3) Last Admin: 02/09/22 21:06 Dose: 650 mg Documented by: JANIS Bacitracin (Bacitracin Oint 14 Gm Tube) 1 appl TOPICAL BID [facility]; Protocol Last Admin: 02/10/22 09:54 Dose: 1 appl Documented by: SUMMER Clonazepam (Clonazepam 0.5 Mg Tablet) 0.25 mg PO BEDTIME PRN PRN Reason: Sleep Last Admin: 02/10/22 01:40 Dose: 0.25 mg Documented by: JANIS Cyanocobalamin (Cyanocobalamin (Vitamin B-12) 1,000 Mcg Tablet) 1,000 mcg PO DAILY [facility] Last Admin: 02/10/22 09:51 Dose: 1,000 mcg Documented by: SUMMER Fluticasone Propionate (Fluticasone Propionate Nasal 16 Gm [place]) 2 spray NOSTRIL-B DAILY PRN PRN Reason: Allergy Symptoms Furosemide (Furosemide 40 Mg/4 Ml Vial) 80 mg IVPUSH BID@0900,1800 [facility]; Protocol Losartan Potassium (Losartan Potassium 25 Mg Tablet) 25 mg PO BID [facility]; Protocol Last Admin: 02/10/22 10:02 Dose: 25 mg Documented by: SUMMER Magnesium Hydroxide (Milk Of Magnesia 30 Ml Oral.Susp) 30 ml PO DAILY PRN PRN Reason: Constipation Melatonin (Melatonin 3 Mg Tablet) 6 mg PO BEDTIME PRN PRN Reason: Insomnia Metoprolol Succinate (Metoprolol Succinate Er 25 Mg Tab.Er.24h) 25 mg PO BEDTIME [facility]; Protocol Last Admin: 02/09/22 21:02 Dose: Not Given Documented by: JANIS Non-Admin Reason: Decreased Heart Rate Morphine Sulfate (Morphine Sulfate 4 Mg/Ml Cartridge) 2 mg IVPUSH Q4H PRN; Protocol PRN Reason: Pain, Severe (Pain Scale 7-10) Pharmacy Consult (Consult Rx Perform Med Rec) 1 each MISCELLANE ONCE PRN PRN Reason: Consult order Sodium Chloride (0.9 % Sodium Chloride Flush 3 Ml Syringe) 3 ml IVFLUSH QSHIFT [facility] Last Admin: 02/10/22 09:51 Dose: 3 ml Documented by: SUMMER Vitamin D (Cholecalciferol (Vitamin D3) 25 Mcg Tablet) 25 mcg PO DAILY [facility] Last Admin: 02/10/22 09:51 Dose: 25 mcg Documented by: SUMMER Warfarin Sodium (Warfarin Sodium 2.5 Mg Tablet) 2.5 mg PO DAILY@1800 [facility] Last Admin: 02/09/22 18:21 Dose: 2.5 mg Documented by: YONATHAN Labs CBC & Chem 7: 02/10/22 06:33 02/10/22 06:27 Labs: Laboratory Results - last 24 hr 02/10/22 02/10/22 02/10/22 06:27 06:27 06:33 MCV 115.7 H MCH 39.0 H MCHC 33.7 RDW 23.3 H Plt Count 69 L MPV 13.4 H Absolute Nucleated RBC 0.160 H Nucleated RBC % (auto) 3.6 H PT 22.8 H INR 2.0 H Anion Gap 13 Estim Creat Clear Calc 38.8 Estimated GFR 46 Fasting Glucose 121 H Calcium 8.6 Total Bilirubin 4.2 H Direct Bilirubin 2.3 H AST 39 H ALT 23 Alkaline Phosphatase 61 Total Protein 6.1 L Albumin 3.2 L Assessment and Plan (1) Acute on chronic heart failure with preserved ejection fraction (HFpEF): Status: Acute Plan 81-year-old obese female with a history of controlled diabetes mellitus, generalized anxiety disorder chronic anemia, chronic atrial fibrillation, 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 hypertension, hypercholesterolemia, coronary artery disease, s/p pacemaker, HFpEF last of 05/2021 EF 55 to 60% here with decompensated heart failure. 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
[2022-02-10 16:00] VITALS: BP 117/54; PULSE 65; RESP 17; TEMP 36.4; O2SAT 98
[2022-02-10] MEDS: Warfarin Sodium 2.5 MG TABLET PO (17:38)
[2022-02-10] MEDS: Furosemide 40 MG/4 ML VIAL 80 MG IVPUSH (17:39)
[2022-02-10 18:59] VITALS: BP 111/53; PULSE 75; RESP 17; TEMP 36.2; O2SAT 94
[2022-02-10] MEDS: Metoprolol Succinate ER 25 MG TAB.ER.24H PO (20:27)
[2022-02-10] MEDS: Acetaminophen 325 MG TABLET 650 MG PO (20:28)
[2022-02-10 23:03] VITALS: BP 99/51; PULSE 66; RESP 20; TEMP 36.8; O2SAT 99
[2022-02-11] VITALS (8 sets, daily range): BP systolic 95–118; BP diastolic 53–62; PULSE 65–87; RESP 16–20; TEMP 36.3–36.7; O2SAT 94–97
[2022-02-11] MEDS: clonazePAM 0.5 MG TABLET 0.25 MG PO (00:29)
[2022-02-11] MEDS: Acetaminophen 325 MG TABLET 650 MG PO ×2 (06:29→20:44)
[2022-02-11 07:17] LABS: Hematocrit 24.8 % (37.0-47.0); Hemoglobin 8.3 g/dl (12.0-16.0); Mean Corpuscular HGB Conc 33.5 g/dl (31.0-35.0); Mean Corpuscular Hemoglobin 38.8 pg (27.0-33.0); Mean Platelet Volume 12.4 fL (9.4-12.3); Red Blood Count 2.14 X10*6/uL (4.20-5.50); Red Cell Distribution Width 23.4 % (11.0-16.0); White Blood Count 4.8 X10*3/uL (4.8-10.8)
[2022-02-11 07:25] LABS: Mean Corpuscular Volume 115.9 fL (80.0-98.0); NRBC Pct Auto 3.1 /100WBC (0.0-0.2); Platelet Count 76 X10*3/uL (160-400)
[2022-02-11 07:36] LABS: Alanine Aminotransferase 24 U/L (0-31); Albumin Level 3.3 g/dL (3.5-5.0); Alkaline Phosphatase 63 U/L (39-117); Anion Gap 13 (12-20); Aspartate Amino Transferase 39 U/L (5-31); Bilirubin Direct 2.3 mg/dL (0.0-0.5); Bilirubin Total 4.2 mg/dL (0.0-1.0); Blood Urea Nitrogen 38 mg/dL (9-16); Calcium 8.5 mg/dL (8.4-10.2); Carbon Dioxide 24 mmol/L (22-29); Chloride 102 mmol/L (96-108); Creatinine Clr Calc Pharmacy 36.8; Estimated Glomerular Filt Rate 44; Glucose Fasting 145 mg/dL (60-99); Potassium 3.4 mmol/L (3.3-5.1); Sodium 136 mmol/L (135-145); Total Protein 6.3 g/dL (6.5-8.0)
[2022-02-11] MEDS: 0.9 % Sodium Chloride Flush 3 ML SYRINGE IVFLUSH ×3 (09:04→20:37)
[2022-02-11] MEDS: Cyanocobalamin (Vitamin B-12) 1,000 MCG TABLET 1000 MCG PO (09:04)
[2022-02-11] MEDS: Cholecalciferol (Vitamin D3) 25 MCG TABLET PO (09:04)
[2022-02-11] MEDS: Losartan Potassium 25 MG TABLET PO (09:04)
[2022-02-11] MEDS: Furosemide 40 MG/4 ML VIAL 80 MG IVPUSH (09:05)
--- NOTE | 2022-02-11 09:38 | PM.PNGS ---
Subjective Subjective Date of Service: 02/11/22 Interval history: denies abdominal pain complains of lower extremity edema Physical Exam Vital Signs: Vital Signs: Last Vital Signs Temp 98.0 F 02/11/22 07:42 Pulse 65 02/11/22 07:42 Resp 18 02/11/22 07:42 BP 109/62 02/11/22 07:42 Pulse Ox 94 02/11/22 07:42 BMI result Body Mass Index 40.1 Const: General: comfortable and no acute distress Eyes: Sclerae: scleral abnormal Resp: Effort & Inspection: normal respiratory effort Cardio: Rate: regular rate GI: Other: soft, nontender no guarding rebound, no Knowles's sign Objective Data Active Medications Acetaminophen (Acetaminophen 325 Mg Tablet) 650 mg PO Q6H PRN PRN Reason: Pain, Mild (Pain Scale 1-3) Last Admin: 02/11/22 06:29 Dose: 325 mg Documented by: ELIUD Comments: pt only wants 325mg, the other will be returned Bacitracin (Bacitracin Oint 14 Gm Tube) 1 appl TOPICAL BID [facility]; Protocol Last Admin: 02/11/22 09:16 Dose: Not Given Documented by: SUMMER Non-Admin Reason: Patient Refused Clonazepam (Clonazepam 0.5 Mg Tablet) 0.25 mg PO BEDTIME PRN PRN Reason: Sleep Last Admin: 02/11/22 00:29 Dose: 0.25 mg Documented by: MATEO Cyanocobalamin (Cyanocobalamin (Vitamin B-12) 1,000 Mcg Tablet) 1,000 mcg PO DAILY [facility] Last Admin: 02/11/22 09:04 Dose: 1,000 mcg Documented by: SUMMER Fluticasone Propionate (Fluticasone Propionate Nasal 16 Gm [place]) 2 spray NOSTRIL-B DAILY PRN PRN Reason: Allergy Symptoms Furosemide (Furosemide 40 Mg/4 Ml Vial) 80 mg IVPUSH BID@0900,1800 [facility]; Protocol Last Admin: 02/11/22 09:05 Dose: 80 mg Documented by: SUMMER Losartan Potassium (Losartan Potassium 25 Mg Tablet) 25 mg PO BID [facility]; Protocol Last Admin: 02/11/22 09:04 Dose: 25 mg Documented by: SUMMER Magnesium Hydroxide (Milk Of Magnesia 30 Ml Oral.Susp) 30 ml PO DAILY PRN PRN Reason: Constipation Melatonin (Melatonin 3 Mg Tablet) 6 mg PO BEDTIME PRN PRN Reason: Insomnia Metoprolol Succinate (Metoprolol Succinate Er 25 Mg Tab.Er.24h) 25 mg PO BEDTIME [facility]; Protocol Last Admin: 02/10/22 20:27 Dose: 25 mg Documented by: ELIUD Pharmacy Consult (Consult Rx Perform Med Rec) 1 each MISCELLANE ONCE PRN PRN Reason: Consult order Sodium Chloride (0.9 % Sodium Chloride Flush 3 Ml Syringe) 3 ml IVFLUSH QSHIFT [facility] Last Admin: 02/11/22 09:04 Dose: 3 ml Documented by: SUMMER Vitamin D (Cholecalciferol (Vitamin D3) 25 Mcg Tablet) 25 mcg PO DAILY [facility] Last Admin: 02/11/22 09:04 Dose: 25 mcg Documented by: SUMMER Warfarin Sodium (Warfarin Sodium 2.5 Mg Tablet) 2.5 mg PO DAILY@1800 [facility] Last Admin: 02/10/22 17:38 Dose: 2.5 mg Documented by: SUMMER Labs CBC & Chem 7: 02/11/22 06:53 02/11/22 06:53 Labs: Laboratory Results - last 24 hr 02/11/22 02/11/22 06:53 06:53 MCV 115.9 H MCH 38.8 H MCHC 33.5 RDW 23.4 H Plt Count 76 L MPV 12.4 H Absolute Nucleated RBC 0.150 H Nucleated RBC % (auto) 3.1 H Anion Gap 13 Estim Creat Clear Calc 36.8 Estimated GFR 44 Fasting Glucose 145 H Calcium 8.5 Total Bilirubin 4.2 H Direct Bilirubin 2.3 H AST 39 H ALT 24 Alkaline Phosphatase 63 Total Protein 6.3 L Albumin 3.3 L Procedures Date of Service Date of Service: 02/11/22 Progress Note: A&P Assessment and plan (1) Elevated bilirubin: Status: Acute Assessment and Plan: no obvious CBD obstruction on CT scan total bilirubin still elevated, higher indirect fraction abdomen soft, nontender, clinically no cholecystitis follow LFTs MRCP rule out CBD obstruction exam benign control CHF Time Spent With Patient Time: Total time spent is greater than 50% in coordination of care (as documented) at patient's floor/unit and/or counseling patient: Quality Stroke Does the patient have a stroke diagnosis?: No VTE Prior VTE?: No VTE Risk Level:: Medical - low VTE Device Contraindication: Treatment Not Indicated VTE Drug Contraindication: Treatment Not Indicated
--- NOTE | 2022-02-11 10:00 | PM.PNCARD ---
Subjective Subjective Date of Service: 02/11/22 Principal diagnosis: CHF Interval history: Still SOB and overloaded. Lasix dose was increased yesterday. Physical Exam Vital Signs: Last Vital Signs Temp 98.0 F 02/11/22 07:42 Pulse 65 02/11/22 07:42 Resp 18 02/11/22 07:42 BP 109/62 02/11/22 07:42 Pulse Ox 94 02/11/22 07:42 BMI result Body Mass Index 40.1 GENERAL APPEARANCE:? SOB. NECK: no carotid bruit, positive jugular venous distention. SKIN: no suspicious lesions, warm and dry. HEART:? Systolic murmur aortic area with 2nd heart sound, irregularly irregular rhythm. LUNGS: clear to auscultation bilaterally. ABDOMEN: soft, nontender. EXTREMITIES:? 1-2+ edema.. PERIPHERAL PULSES: equal. NEUROLOGIC: No gross deficits, AAO X 3 Objective Labs and Meds Result diagrams: 02/11/22 06:53 02/11/22 06:53 Lab results: Laboratory Results - last 24 hr 02/11/22 02/11/22 06:53 06:53 WBC 4.8 RBC 2.14 L Hgb 8.3 L Hct 24.8 L MCV 115.9 H MCH 38.8 H MCHC 33.5 RDW 23.4 H Plt Count 76 L MPV 12.4 H Absolute Nucleated RBC 0.150 H Nucleated RBC % (auto) 3.1 H Sodium 136 Potassium 3.4 Chloride 102 Carbon Dioxide 24 Anion Gap 13 BUN 38 H Creatinine 1.18 Estim Creat Clear Calc 36.8 Estimated GFR 44 Fasting Glucose 145 H Calcium 8.5 Total Bilirubin 4.2 H Direct Bilirubin 2.3 H AST 39 H ALT 24 Alkaline Phosphatase 63 Total Protein 6.3 L Albumin 3.3 L Progress Note: A&P Assessment and plan (1) Prosthetic aortic valve stenosis: Status: Acute (2) Acute on chronic heart failure with preserved ejection fraction (HFpEF): Status: Acute Plan 81 female with CHF and bioprosthetic AV stenosis. Still volume overloaded. She was given 80 mg IV b.i.d. Lasix. Giving 5 mg metolazone 30 minutes before the next dose of furosemide. She will need workup for transcatheter aortic valve replacement as outpatient. She is quite frail right now. She also had elevated bilirubin and some gallbladder concerns. Thank you for allowing me to participate in the care of your patient. Please feel free to contact me if you have any questions. Time Spent With Patient Time: Total time spent is greater than 50% in coordination of care (as documented) at patient's floor/unit and/or counseling patient: Progress Note: Quality Stroke Does the patient have a stroke diagnosis?: No Procedures Date of Service Date of Service: 02/11/22
--- NOTE | 2022-02-11 10:20 | HO.PM.IMPN ---
Subjective Subjective Date of Service: 02/11/22 Interval History: cc: sob interval history:flank pain, edema Cardiovascular Cardiovascular: Reports no additional cardiovascular complaints Respiratory Respiratory: Reports no additional respiratory complaints Physical Exam Vital Signs: Vital Signs: Last Vital Signs Temp 98.0 F 02/11/22 07:42 Pulse 65 02/11/22 07:42 Resp 18 02/11/22 07:42 BP 109/62 02/11/22 07:42 Pulse Ox 94 02/11/22 07:42 BMI result Body Mass Index 40.1 General: AO X 3, no acute distress, sclera jaundice Resp:? CTA bilateral, no accessory muscles used CVS: S1,S2,RRR, 3+ edema GI: soft, non tender, non distended Neuro:? motor grossly intact, alert Psych: appropriate affect, appropriate insight? Objective Data Active Medications Acetaminophen (Acetaminophen 325 Mg Tablet) 650 mg PO Q6H PRN PRN Reason: Pain, Mild (Pain Scale 1-3) Last Admin: 02/11/22 06:29 Dose: 325 mg Documented by: ELIUD Comments: pt only wants 325mg, the other will be returned Bacitracin (Bacitracin Oint 14 Gm Tube) 1 appl TOPICAL BID [facility]; Protocol Last Admin: 02/11/22 09:16 Dose: Not Given Documented by: SUMMER Non-Admin Reason: Patient Refused Clonazepam (Clonazepam 0.5 Mg Tablet) 0.25 mg PO BEDTIME PRN PRN Reason: Sleep Last Admin: 02/11/22 00:29 Dose: 0.25 mg Documented by: NAUMOC Cyanocobalamin (Cyanocobalamin (Vitamin B-12) 1,000 Mcg Tablet) 1,000 mcg PO DAILY [facility] Last Admin: 02/11/22 09:04 Dose: 1,000 mcg Documented by: BROSalvador Fluticasone Propionate (Fluticasone Propionate Nasal 16 Gm [place]) 2 spray NOSTRIL-B DAILY PRN PRN Reason: Allergy Symptoms Furosemide (Furosemide 40 Mg/4 Ml Vial) 80 mg IVPUSH BID@0900,1800 [facility]; Protocol Last Admin: 02/11/22 09:05 Dose: 80 mg Documented by: BROSalvador Losartan Potassium (Losartan Potassium 25 Mg Tablet) 25 mg PO BID [facility]; Protocol Last Admin: 02/11/22 09:04 Dose: 25 mg Documented by: SUMMER Magnesium Hydroxide (Milk Of Magnesia 30 Ml Oral.Susp) 30 ml PO DAILY PRN PRN Reason: Constipation Melatonin (Melatonin 3 Mg Tablet) 6 mg PO BEDTIME PRN PRN Reason: Insomnia Metoprolol Succinate (Metoprolol Succinate Er 25 Mg Tab.Er.24h) 25 mg PO BEDTIME [facility]; Protocol Last Admin: 02/10/22 20:27 Dose: 25 mg Documented by: ELIUD Pharmacy Consult (Consult Rx Perform Med Rec) 1 each MISCELLANE ONCE PRN PRN Reason: Consult order Sodium Chloride (0.9 % Sodium Chloride Flush 3 Ml Syringe) 3 ml IVFLUSH QSHIFT [facility] Last Admin: 02/11/22 09:04 Dose: 3 ml Documented by: SUMMER Vitamin D (Cholecalciferol (Vitamin D3) 25 Mcg Tablet) 25 mcg PO DAILY [facility] Last Admin: 02/11/22 09:04 Dose: 25 mcg Documented by: SUMMER Warfarin Sodium (Warfarin Sodium 2.5 Mg Tablet) 2.5 mg PO DAILY@1800 [facility] Last Admin: 02/10/22 17:38 Dose: 2.5 mg Documented by: SUMMER Labs CBC & Chem 7: 02/11/22 06:53 02/11/22 06:53 Labs: Laboratory Results - last 24 hr 02/11/22 02/11/22 06:53 06:53 MCV 115.9 H MCH 38.8 H MCHC 33.5 RDW 23.4 H Plt Count 76 L MPV 12.4 H Absolute Nucleated RBC 0.150 H Nucleated RBC % (auto) 3.1 H Anion Gap 13 Estim Creat Clear Calc 36.8 Estimated GFR 44 Fasting Glucose 145 H Calcium 8.5 Total Bilirubin 4.2 H Direct Bilirubin 2.3 H AST 39 H ALT 24 Alkaline Phosphatase 63 Total Protein 6.3 L Albumin 3.3 L Assessment and Plan (1) Acute on chronic heart failure with preserved ejection fraction (HFpEF): Status: Acute Plan 81-year-old obese female with a history of controlled diabetes mellitus, generalized anxiety disorder chronic anemia, chronic atrial fibrillation, 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 hypertension, hypercholesterolemia, coronary artery disease, s/p pacemaker, HFpEF last of 05/2021 EF 55 to 60% here with decompensated heart failure. 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
[2022-02-11 12:19] LABS: INTERNATIONAL NORM RATIO 1.9 (0.9-1.1); Prothrombin Time 21.9 SEC (9.9-13.0)
[2022-02-11] MEDS: Potassium Chloride ER 20 MEQ TAB.ER.PRT 40 MEQ PO (12:31)
--- NOTE | 2022-02-11 14:01 | PC.NURSE ---
Patient continues to get up without calling for assistance. Patient refused camera in the room and is removing chair and bed alarms. Patient was educated on the importance of asking for assistance. Staff will continue to use alarms and will keep reminding patient to call for assistance when ambulating.
[2022-02-11] MEDS: metOLazone 5 MG TABLET PO (17:48)
[2022-02-11] MEDS: Warfarin Sodium 3 MG TABLET PO (18:19)
[2022-02-11] MEDS: Bacitracin Oint 14 GM TUBE 1 APPL TOPICAL (20:37)
[2022-02-12] VITALS (7 sets, daily range): BP systolic 90–118; BP diastolic 49–68; PULSE 64–81; RESP 18–20; TEMP 36.3–37.1; O2SAT 96–98
[2022-02-12 06:47] LABS: Hemoglobin 8.1 g/dl (12.0-16.0); Mean Corpuscular HGB Conc 33.8 g/dl (31.0-35.0); Mean Corpuscular Hemoglobin 39.5 pg (27.0-33.0); Mean Corpuscular Volume 117.1 fL (80.0-98.0); Mean Platelet Volume 12.7 fL (9.4-12.3); Red Blood Count 2.05 X10*6/uL (4.20-5.50); Red Cell Distribution Width 23.4 % (11.0-16.0)
[2022-02-12 06:48] LABS: NRBC Pct Auto 2.8 /100WBC (0.0-0.2); Platelet Count 81 X10*3/uL (160-400)
[2022-02-12 06:53] LABS: INTERNATIONAL NORM RATIO 1.9 (0.9-1.1); Prothrombin Time 21.6 SEC (9.9-13.0)
[2022-02-12 07:03] LABS: Alanine Aminotransferase 22 U/L (0-31); Albumin Level 3.2 g/dL (3.5-5.0); Alkaline Phosphatase 61 U/L (39-117); Anion Gap 15 (12-20); Aspartate Amino Transferase 34 U/L (5-31); Bilirubin Direct 2.6 mg/dL (0.0-0.5); Bilirubin Total 4.8 mg/dL (0.0-1.0); Blood Urea Nitrogen 40 mg/dL (9-16); Calcium 8.6 mg/dL (8.4-10.2); Carbon Dioxide 23 mmol/L (22-29); Chloride 100 mmol/L (96-108); Creatinine Clr Calc Pharmacy 35.6; Estimated Glomerular Filt Rate 42; Glucose Fasting 145 mg/dL (60-99); Magnesium 2.2 mg/dL (1.6-2.6); Potassium 3.6 mmol/L (3.3-5.1); Sodium 134 mmol/L (135-145); Total Protein 6.2 g/dL (6.5-8.0)
--- NOTE | 2022-02-12 08:56 | PM.PNGS ---
Subjective Subjective Date of Service: 02/12/22 Interval history: denies abdominal pain good PO intake says leg edema improving asking about getting discharged Physical Exam Vital Signs: Vital Signs: Last Vital Signs Temp 97.5 F 02/12/22 08:00 Pulse 75 02/12/22 08:00 Resp 20 02/12/22 08:00 BP 97/51 L 02/12/22 08:00 Pulse Ox 96 02/12/22 08:00 BMI result Body Mass Index 40.1 Const: General: comfortable and no acute distress Resp: Effort & Inspection: normal respiratory effort Cardio: Rate: regular rate GI: Palpation (GI): Soft to palpation, not firm and nontender Objective Data Active Medications Acetaminophen (Acetaminophen 325 Mg Tablet) 650 mg PO Q6H PRN PRN Reason: Pain, Mild (Pain Scale 1-3) Last Admin: 02/11/22 20:44 Dose: 650 mg Documented by: ELIUD Bacitracin (Bacitracin Oint 14 Gm Tube) 1 appl TOPICAL BID [facility]; Protocol Last Admin: 02/11/22 20:37 Dose: 1 appl Documented by: ELIUD Clonazepam (Clonazepam 0.5 Mg Tablet) 0.25 mg PO BEDTIME PRN PRN Reason: Sleep Last Admin: 02/11/22 00:29 Dose: 0.25 mg Documented by: NAUMOC Cyanocobalamin (Cyanocobalamin (Vitamin B-12) 1,000 Mcg Tablet) 1,000 mcg PO DAILY [facility] Last Admin: 02/11/22 09:04 Dose: 1,000 mcg Documented by: DOBROB Fluticasone Propionate (Fluticasone Propionate Nasal 16 Gm [place]) 2 spray NOSTRIL-B DAILY PRN PRN Reason: Allergy Symptoms Furosemide (Furosemide 40 Mg/4 Ml Vial) 80 mg IVPUSH BID@0900,1800 [facility]; Protocol Last Admin: 02/11/22 18:11 Dose: Not Given Documented by: SUMMER Non-Admin Reason: Decreased Blood Pressure Losartan Potassium (Losartan Potassium 25 Mg Tablet) 25 mg PO BID [facility]; Protocol Last Admin: 02/11/22 20:44 Dose: Not Given Documented by: ELIUD Non-Admin Reason: Physician Held Med Magnesium Hydroxide (Milk Of Magnesia 30 Ml Oral.Susp) 30 ml PO DAILY PRN PRN Reason: Constipation Melatonin (Melatonin 3 Mg Tablet) 6 mg PO BEDTIME PRN PRN Reason: Insomnia Metoprolol Succinate (Metoprolol Succinate Er 25 Mg Tab.Er.24h) 25 mg PO BEDTIME [facility]; Protocol Last Admin: 02/11/22 20:44 Dose: Not Given Documented by: ELIUD Non-Admin Reason: Physician Held Med Pharmacy Consult (Consult Rx Perform Med Rec) 1 each MISCELLANE ONCE PRN PRN Reason: Consult order Sodium Chloride (0.9 % Sodium Chloride Flush 3 Ml Syringe) 3 ml IVFLUSH QSHIFT [facility] Last Admin: 02/11/22 20:37 Dose: 3 ml Documented by: ELIUD Vitamin D (Cholecalciferol (Vitamin D3) 25 Mcg Tablet) 25 mcg PO DAILY [facility] Last Admin: 02/11/22 09:04 Dose: 25 mcg Documented by: DOBROB Warfarin Sodium (Warfarin Sodium 3 Mg Tablet) 3 mg PO DAILY@1800 [facility] Last Admin: 02/11/22 18:19 Dose: 3 mg Documented by: BROSalvador Labs CBC & Chem 7: 02/12/22 06:38 02/12/22 06:38 Labs: Laboratory Results - last 24 hr 02/11/22 02/12/22 02/12/22 11:59 06:38 06:38 MCV 117.1 H MCH 39.5 H MCHC 33.8 RDW 23.4 H Plt Count 81 L MPV 12.7 H Absolute Nucleated RBC 0.140 H Nucleated RBC % (auto) 2.8 H PT 21.9 H INR 1.9 H Anion Gap 15 Estim Creat Clear Calc 35.6 Estimated GFR 42 Fasting Glucose 145 H Calcium 8.6 Magnesium 2.2 Total Bilirubin 4.8 H Direct Bilirubin 2.6 H AST 34 H ALT 22 Alkaline Phosphatase 61 Total Protein 6.2 L Albumin 3.2 L 02/12/22 06:38 MCV MCH MCHC RDW Plt Count MPV Absolute Nucleated RBC Nucleated RBC % (auto) PT 21.6 H INR 1.9 H Anion Gap Estim Creat Clear Calc Estimated GFR Fasting Glucose Calcium Magnesium Total Bilirubin Direct Bilirubin AST ALT Alkaline Phosphatase Total Protein Albumin Procedures Date of Service Date of Service: 02/12/22 Progress Note: A&P Assessment and plan (1) Elevated bilirubin: Status: Acute Assessment and Plan: unclear etiology seen last year as well no abdominal pain no tenderness CT does not suggest CBD obstruction MRCP may be considered sabiha complete workup - may be done as outpt if pt is to be discharged Time Spent With Patient Time: Total time spent is greater than 50% in coordination of care (as documented) at patient's floor/unit and/or counseling patient: Quality Stroke Does the patient have a stroke diagnosis?: No VTE Prior VTE?: No VTE Risk Level:: Medical - low VTE Device Contraindication: Treatment Not Indicated VTE Drug Contraindication: Treatment Not Indicated
[2022-02-12] MEDS: Cholecalciferol (Vitamin D3) 25 MCG TABLET PO (10:27)
[2022-02-12] MEDS: Acetaminophen 325 MG TABLET 650 MG PO (10:27)
[2022-02-12] MEDS: Cyanocobalamin (Vitamin B-12) 1,000 MCG TABLET 1000 MCG PO (10:27)
[2022-02-12] MEDS: 0.9 % Sodium Chloride Flush 3 ML SYRINGE IVFLUSH ×3 (10:27→21:18)
[2022-02-12] MEDS: Bacitracin Oint 14 GM TUBE 1 APPL TOPICAL ×2 (10:30→21:08)
--- NOTE | 2022-02-12 11:05 | PM.GICN ---
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 She was intially admitted with SOB and increased lower leg edema. She denied chest pain, no fever or cough. Covid neg She was noted to have rising bilirubin with imaging revealing calcified gallstone in GB but normal CBD she also had an echo with severe and TR noted with pulm HTN. Today she is eating lunch and as she was eating it she developed severe 10/10 pain in her right shoulder and left shoulder area whihc she say she has has on and off for a long time when she eats food. This is eased with tylenol. It does not radiate anywhere. she chavez shave nausea with the pain but no vomiting. She is also prone to constipation, no hx of rectal bleeding or melena. She feels her breathing is better now but she still has leg edema. She has seen hematology in past for macrocytic anemia and elevated LDH suspected to have MDS but she refused bone marrow bx. Review of Systems Review of Systems: Constitutional : No Weight loss, No Fever, No Chills ENT/Mouth : No sore throat, No Rhinorrhea Eyes: No Swelling, No Redness Cardiovascular : No Chest Pain, No SOB, + Edema Respiratory : No Cough, No Sputum, No Wheezing Gastrointestinal : see HPI Genitourinary : NO Dysuria, No Urinary Frequency, No Hematuria, No Urgency Musculoskeletal : No joint pain, No Myalgias, No Joint Swelling Skin : No Skin Lesions, No rash Neuro : No Weakness, No Numbness, No Dizziness, No Headache Psych : No Anxiety/Panic, No Depression Heme/Lymph: No Bruising, No Lymphadenopathy Endocrine : No Polyuria, No Polydipsia All other systems reviewed and are negative [facility] Past Medical History Medical History (Updated 02/09/22 @ 13:08 by Kenny Morrison MD) Acute cholecystitis Anemia Anxiety Ascending aorta dilatation Atrial fibrillation CAD (coronary artery disease) Cardiac pacemaker in situ Chest discomfort Cholelithiases Complete heart block Elevated bilirubin Gastric ulcer History of breast cancer Hypercholesterolemia Hypertension Osteoarthritis of knee Pancytopenia Prosthetic valve dysfunction Type 2 diabetes mellitus with hyperglycemia Vitamin D deficiency Family History Family History Father CVD (cardiovascular disease) Mother Stroke Surgical History Surgical History Aortic valve replaced History of bilateral mastectomy History of pacemaker History of surgery on left wrist History of tonsillectomy S/P CABG x 2 (~03/2010) Social History Social History Household Members: Children Housing: House Are you a primary career services representative to a significant other at home: No Do you presently have visiting nurse or other home services: No Alcohol intake: never Patient Tobacco Use Status: Never used Tobacco e-Cigarette/Vaping Use: Never Used Second Hand Smoke Exposure: Yes service: No Current occupational status: retired Cognitive needs: Yes Hearing needs: Yes Vision needs: Yes Meds Allergies Allergy/AdvReac Type Severity Reaction Status Date / Time ezetimibe [Zetia] Allergy Intermediate Unknown Verified 01/22/22 12:07 lisinopril Allergy Mild Unknown Verified 01/22/22 12:07 meperidine [From Demerol] Allergy Mild UNKNOWN Verified 01/22/22 12:07 nitrofurantoin Allergy Mild UNKNOWN Verified 01/22/22 12:07 [From Macrodantin] Penicillins Allergy Mild UNKNOWN Verified 01/22/22 12:07 Sulfa (Sulfonamide Allergy Mild UNKNOWN Verified 01/22/22 12:07 Antibiotics) [place] Syrup Allergy Unknown Unknown Verified 01/22/22 12:07 Iodinated Contrast Media Allergy Unknown ?RASH Verified 01/22/22 12:07 [IV CONTRAST] statin Allergy Unknown unknown Verified 01/22/22 12:07 acetaminophen [From PERCOCET] AdvReac Intermediate SEEING Verified 01/22/22 12:07 THINGS AFTER PERCOCET THAT WERE NOT THERE Active Medications: Current Medications Acetaminophen (Acetaminophen 325 Mg Tablet) 650 mg PO Q6H PRN PRN Reason: Pain, Mild (Pain Scale 1-3) Last Admin: 02/12/22 10:27 Dose: 650 mg Documented by: Bacitracin (Bacitracin Oint 14 Gm Tube) 1 appl TOPICAL BID [facility]; Protocol Last Admin: 02/12/22 10:30 Dose: 1 appl Documented by: Clonazepam (Clonazepam 0.5 Mg Tablet) 0.25 mg PO BEDTIME PRN PRN Reason: Sleep Last Admin: 02/11/22 00:29 Dose: 0.25 mg Documented by: Cyanocobalamin (Cyanocobalamin (Vitamin B-12) 1,000 Mcg Tablet) 1,000 mcg PO DAILY [facility] Last Admin: 02/12/22 10:27 Dose: 1,000 mcg Documented by: Fluticasone Propionate (Fluticasone Propionate Nasal 16 Gm [place]) 2 spray NOSTRIL-B DAILY PRN PRN Reason: Allergy Symptoms Furosemide (Furosemide 40 Mg/4 Ml Vial) 80 mg IVPUSH BID@0900,1800 [facility]; Protocol Last Admin: 02/12/22 09:39 Dose: Not Given Documented by: Losartan Potassium (Losartan Potassium 25 Mg Tablet) 25 mg PO BID [facility]; Protocol Last Admin: 02/12/22 09:39 Dose: Not Given Documented by: Magnesium Hydroxide (Milk Of Magnesia 30 Ml Oral.Susp) 30 ml PO DAILY PRN PRN Reason: Constipation Melatonin (Melatonin 3 Mg Tablet) 6 mg PO BEDTIME PRN PRN Reason: Insomnia Metoprolol Succinate (Metoprolol Succinate Er 25 Mg Tab.Er.24h) 25 mg PO BEDTIME [facility]; Protocol Last Admin: 02/11/22 20:44 Dose: Not Given Documented by: Pharmacy Consult (Consult Rx Perform Med Rec) 1 each MISCELLANE ONCE PRN PRN Reason: Consult order Sodium Chloride (0.9 % Sodium Chloride Flush 3 Ml Syringe) 3 ml IVFLUSH QSHIFT [facility] Last Admin: 02/12/22 10:27 Dose: 3 ml Documented by: Vitamin D (Cholecalciferol (Vitamin D3) 25 Mcg Tablet) 25 mcg PO DAILY [facility] Last Admin: 02/12/22 10:27 Dose: 25 mcg Documented by: Warfarin Sodium (Warfarin Sodium 3 Mg Tablet) 3 mg PO DAILY@1800 [facility] Last Admin: 02/11/22 18:19 Dose: 3 mg Documented by: Home Medications Medication Instructions Recorded Confirmed Last Taken Type warfarin 2.5 mg tablet 2.5 mg PO SUTUTHSA@1800 01/10/22 02/05/22 02/04/22 History warfarin 5 mg tablet 5 mg PO MOWEFR@1800 01/10/22 02/05/22 02/02/22 History cholecalciferol (vitamin D3) 25 25 mcg PO DAILY 02/05/22 02/05/22 02/04/22 History mcg (1,000 unit) tablet clonazepam 0.5 mg tablet 0.5 mg PO BEDTIME PRN 02/05/22 02/05/22 Unknown History fluticasone propionate 50 2 spray INTRANASAL DAILY PRN 02/05/22 02/05/22 Unknown History mcg/actuation nasal spray,suspension furosemide 20 mg tablet (Lasix) 20 mg PO DAILY 02/05/22 02/05/22 02/04/22 History losartan 50 mg tablet 25 mg PO BID 02/05/22 02/05/22 02/04/22 History metoprolol succinate 25 mg 25 mg PO BEDTIME 02/05/22 02/05/22 02/04/22 History tablet,extended release 24 hr Physical Exam Vital Signs: Vital Signs: Last Vital Signs Temp 97.5 F 02/12/22 08:00 Pulse 75 02/12/22 08:00 Resp 20 02/12/22 08:00 BP 97/51 L 02/12/22 08:00 Pulse Ox 96 02/12/22 08:00 BMI result Body Mass Index 40.1 EXAM: GENERAL: The patient is frail and mildly jaundiced VITAL SIGNS:see workflow HEENT: icteric sclerae, PERRLA, EOMI. Oropharynx clear. Moist mucous membranes. Conjunctivae appear well perfused. No thyroid mass. CHEST: Chest wall is nontender. HEART: Regular rate and rhythm without murmurs. PSM at right sternal edge and ESm at aortic area, raised JVD LUNGS: Clear to auscultation bilaterally. ABDOMEN: Soft, positive bowel sounds, tender, RUQ no organomegaly.no flank tenderness SKIN: No rash, no excessive bruising, petechiae, or purpura. NEUROLOGIC: Cranial nerves II-XII intact without motor/sensory deficit. Extremities; leg edema noted Psych- normal affect Results Labs CBC & Chem 7: 02/12/22 06:38 02/12/22 06:38 Labs: Short CBC 02/12/22 Range/Units 06:38 WBC 5.0 (4.8-10.8) X10*3/uL Hgb 8.1 L (12.0-16.0) g/dl Hct 24.0 L (37.0-47.0) % Plt Count 81 L (160-400) X10*3/uL BMP 02/12/22 06:38 Sodium 134 L Potassium 3.6 Chloride 100 Carbon Dioxide 23 BUN 40 H Creatinine 1.22 Calcium 8.6 Liver Function 02/12/22 Range/Units 06:38 Total Bilirubin 4.8 H (0.0-1.0) mg/dL Direct Bilirubin 2.6 H (0.0-0.5) mg/dL AST 34 H (5-31) U/L ALT 22 (0-31) U/L Alkaline Phosphatase 61 (39-117) U/L Albumin 3.2 L (3.5-5.0) g/dL Imaging CT scan - abdomen: Attestation: I personally reviewed and interpreted this imaging study as follows: My impression: LArge gallstone within a contracted gallbladder, atherosclerosis Assessment and Plan (1) Elevated bilirubin: Status: Acute (2) Pancytopenia: Status: Acute (3) Macrocytic anemia: Status: Acute Plan 1/ Jaundice with both elevated direct and indirect numbers, multifactorial from hemolysis from her , possible MDS or infiltrative hepatopathy e.g from amyloidosis, congestive hepatopathy from right heart failure and TR as well as gallstones or medication side effects PLAN; 1/ check morgan test, haptoglobin- r/o autoimmune cause of hemolysis 2/ consider HIDA to assess for chronic colecystitis, if pos may need percutaneous drainage 3/ in meantime can try dicyclomine and urosdiol, may help her symptoms, would def give the bentyl around meals, can add low dose PPI as well in case she also has gastritis contributing to her symptoms 4/ cont to diurese and off load fluid, optimize fluid status, may need assessment for RUFINA 5/ check hep A,b,C serologies Procedures Date of Service Date of Service: 02/12/22
--- NOTE | 2022-02-12 13:49 | P.PNCA_ITS ---
Subjective Subjective Date of Service: 02/12/22 Principal diagnosis: CHF Interval history: Feeling better. She is complaining of right lower pain. Saying it gets worse when she eats and is worried that this is due to gallbladder. Physical Exam Vital Signs: Last Vital Signs Temp 97.6 F 02/12/22 11:37 Pulse 81 02/12/22 11:37 Resp 20 02/12/22 11:37 BP 103/49 L 02/12/22 11:37 Pulse Ox 96 02/12/22 11:37 BMI result Body Mass Index 40.1 GENERAL APPEARANCE:? Bile jaundice. In no acute distress. NECK: no carotid bruit, mild jugular venous distention. SKIN: no suspicious lesions, warm and dry. HEART:? Systolic murmur aortic area with 2nd heart sound, irregularly irregular rhythm. LUNGS: clear to auscultation bilaterally. ABDOMEN: soft, nontender. EXTREMITIES:? 1+ edema at ankles. Small varicose veins. PERIPHERAL PULSES: equal. NEUROLOGIC: No gross deficits, AAO X 3 Objective Labs and Meds Result diagrams: 02/12/22 06:38 02/12/22 06:38 Lab results: Laboratory Results - last 24 hr 02/12/22 02/12/22 02/12/22 06:38 06:38 06:38 WBC 5.0 RBC 2.05 L Hgb 8.1 L Hct 24.0 L MCV 117.1 H MCH 39.5 H MCHC 33.8 RDW 23.4 H Plt Count 81 L MPV 12.7 H Absolute Nucleated RBC 0.140 H Nucleated RBC % (auto) 2.8 H PT 21.6 H INR 1.9 H Sodium 134 L Potassium 3.6 Chloride 100 Carbon Dioxide 23 Anion Gap 15 BUN 40 H Creatinine 1.22 Estim Creat Clear Calc 35.6 Estimated GFR 42 Fasting Glucose 145 H Calcium 8.6 Magnesium 2.2 Total Bilirubin 4.8 H Direct Bilirubin 2.6 H AST 34 H ALT 22 Alkaline Phosphatase 61 Total Protein 6.2 L Albumin 3.2 L Progress Note: A&P Assessment and plan (1) Acute on chronic heart failure with preserved ejection fraction (HFpEF): Status: Acute Plan 81-year-old female with acute on chronic congestive heart failure and severe bioprosthetic aortic valve stenosis. Clinically her volume status is improving. Continue IV diuretics today. Will change to torsemide 20 mg twice a day tomorrow. Monitor electrolytes closely. She will need further workup for the by prostatic aortic valve as outpatient. Complaining of right lower back pain. There is no tenderness at the side. She thinks this happens after she eats. She had elevated bilirubin and some concern s about gallbladder issues on this admission. The site seems unusual for gallbladder pain to me but would discussed with medicine team. Thank you for allowing me to participate in the care of your patient. Please feel free to contact me if you have any questions. Time Spent With Patient Time: Total time spent is greater than 50% in coordination of care (as documented) at patient's floor/unit and/or counseling patient: Progress Note: Quality Stroke Does the patient have a stroke diagnosis?: No Procedures Date of Service Date of Service: 02/12/22
--- NOTE | 2022-02-12 13:50 | P.PNIM_ITS ---
Subjective Subjective Date of Service: 02/12/22 Interval History: cc: sob interval history:flank pain, edema Cardiovascular Cardiovascular: Reports no additional cardiovascular complaints Respiratory Respiratory: Reports no additional respiratory complaints Physical Exam Vital Signs: Vital Signs: Last Vital Signs Temp 97.6 F 02/12/22 11:37 Pulse 81 02/12/22 11:37 Resp 20 02/12/22 11:37 BP 103/49 L 02/12/22 11:37 Pulse Ox 96 02/12/22 11:37 BMI result Body Mass Index 40.1 General: AO X 3, no acute distress, sclera jaundice Resp:? CTA bilateral, no accessory muscles used CVS: S1,S2,RRR, 3+ edema GI: soft, non tender, non distended Neuro:? motor grossly intact, alert Psych: appropriate affect, appropriate insight? Objective Data Active Medications Acetaminophen (Acetaminophen 325 Mg Tablet) 650 mg PO Q6H PRN PRN Reason: Pain, Mild (Pain Scale 1-3) Last Admin: 02/12/22 10:27 Dose: 650 mg Documented by: [facility] Bacitracin (Bacitracin Oint 14 Gm Tube) 1 appl TOPICAL BID [facility]; Protocol Last Admin: 02/12/22 10:30 Dose: 1 appl Documented by: SUMMER Clonazepam (Clonazepam 0.5 Mg Tablet) 0.25 mg PO BEDTIME PRN PRN Reason: Sleep Last Admin: 02/11/22 00:29 Dose: 0.25 mg Documented by: NAUMOC Cyanocobalamin (Cyanocobalamin (Vitamin B-12) 1,000 Mcg Tablet) 1,000 mcg PO DAILY [facility] Last Admin: 02/12/22 10:27 Dose: 1,000 mcg Documented by: [facility]MER Dicyclomine HCl (Dicyclomine Hcl 10 Mg Capsule) 10 mg PO TIDAC PRN PRN Reason: abd pain Fluticasone Propionate (Fluticasone Propionate Nasal 16 Gm [place]) 2 spray NOSTRIL-B DAILY PRN PRN Reason: Allergy Symptoms Furosemide (Furosemide 40 Mg/4 Ml Vial) 80 mg IVPUSH BID@0900,1800 [facility]; Protocol Stop: 02/13/22 01:00 Last Admin: 02/12/22 09:39 Dose: Not Given Documented by: SUMMER Non-Admin Reason: Decreased Blood Pressure Lidocaine (Lidocaine 4 % Patch Adh..Patch) 1 patch TRANSDERMA DAILY [facility]; Protocol Losartan Potassium (Losartan Potassium 25 Mg Tablet) 25 mg PO BID [facility]; Protocol Last Admin: 02/12/22 09:39 Dose: Not Given Documented by: SUMMER Non-Admin Reason: Decreased Blood Pressure Magnesium Hydroxide (Milk Of Magnesia 30 Ml Oral.Susp) 30 ml PO DAILY PRN PRN Reason: Constipation Metoprolol Succinate (Metoprolol Succinate Er 25 Mg Tab.Er.24h) 25 mg PO BEDTIME [facility]; Protocol Last Admin: 02/11/22 20:44 Dose: Not Given Documented by: ELIUD Non-Admin Reason: Physician Held Med Pharmacy Consult (Consult Rx Perform Med Rec) 1 each MISCELLANE ONCE PRN PRN Reason: Consult order Sodium Chloride (0.9 % Sodium Chloride Flush 3 Ml Syringe) 3 ml IVFLUSH QSHIFT [facility] Last Admin: 02/12/22 10:27 Dose: 3 ml Documented by: SUMMER Torsemide (Torsemide 20 Mg Tablet) 20 mg PO BID [facility]; Protocol Ursodiol (Ursodiol 300 Mg Capsule) 300 mg PO BID [facility] Vitamin D (Cholecalciferol (Vitamin D3) 25 Mcg Tablet) 25 mcg PO DAILY [facility] Last Admin: 02/12/22 10:27 Dose: 25 mcg Documented by: [facility] Warfarin Sodium (Warfarin Sodium 3 Mg Tablet) 3 mg PO DAILY@1800 [facility] Last Admin: 02/11/22 18:19 Dose: 3 mg Documented by: SUMMER Labs CBC & Chem 7: 02/12/22 06:38 02/12/22 06:38 Labs: Laboratory Results - last 24 hr 02/12/22 02/12/22 02/12/22 06:38 06:38 06:38 MCV 117.1 H MCH 39.5 H MCHC 33.8 RDW 23.4 H Plt Count 81 L MPV 12.7 H Absolute Nucleated RBC 0.140 H Nucleated RBC % (auto) 2.8 H PT 21.6 H INR 1.9 H Anion Gap 15 Estim Creat Clear Calc 35.6 Estimated GFR 42 Fasting Glucose 145 H Calcium 8.6 Magnesium 2.2 Total Bilirubin 4.8 H Direct Bilirubin 2.6 H AST 34 H ALT 22 Alkaline Phosphatase 61 Total Protein 6.2 L Albumin 3.2 L Assessment and Plan (1) Acute on chronic heart failure with preserved ejection fraction (HFpEF): Status: Acute Plan 81-year-old obese female with a history of controlled diabetes mellitus, generalized anxiety disorder chronic anemia, chronic atrial fibrillation, 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 hypertension, hypercholesterolemia, coronary artery disease, s/p pacemaker, HFpEF last of 05/2021 EF 55 to 60% here with decompensated heart failure. 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
[2022-02-12] MEDS: Lidocaine 4 % Patch ADH..PATCH 1 PATCH TRANSDERMA (15:46)
[2022-02-12] MEDS: Warfarin Sodium 3 MG TABLET PO (19:23)
[2022-02-12] MEDS: Furosemide 40 MG/4 ML VIAL 80 MG IVPUSH (19:23)
[2022-02-12] MEDS: UrsodioL 300 MG CAPSULE PO (21:08)
[2022-02-13] VITALS (7 sets, daily range): BP systolic 90–121; BP diastolic 49–58; PULSE 65–82; RESP 16–20; TEMP 36.3–37.1; O2SAT 95–99
[2022-02-13 06:37] LABS: Hematocrit 25.1 % (37.0-47.0); Hemoglobin 8.4 g/dl (12.0-16.0); Mean Corpuscular HGB Conc 33.5 g/dl (31.0-35.0); Mean Corpuscular Hemoglobin 38.9 pg (27.0-33.0); Red Blood Count 2.16 X10*6/uL (4.20-5.50); Red Cell Distribution Width 22.8 % (11.0-16.0); White Blood Count 5.9 X10*3/uL (4.8-10.8)
[2022-02-13 06:43] LABS: Mean Corpuscular Volume 116.2 fL (80.0-98.0); NRBC Pct Auto 2.4 /100WBC (0.0-0.2); Platelet Count 82 X10*3/uL (160-400)
[2022-02-13 07:39] LABS: Alanine Aminotransferase 26 U/L (0-31); Albumin Level 3.5 g/dL (3.5-5.0); Alkaline Phosphatase 68 U/L (39-117); Anion Gap 17 (12-20); Aspartate Amino Transferase 39 U/L (5-31); Bilirubin Direct 2.9 mg/dL (0.0-0.5); Bilirubin Total 5.4 mg/dL (0.0-1.0); Blood Urea Nitrogen 40 mg/dL (9-16); Calcium 8.9 mg/dL (8.4-10.2); Carbon Dioxide 23 mmol/L (22-29); Chloride 97 mmol/L (96-108); Creatinine Clr Calc Pharmacy 36.2; Estimated Glomerular Filt Rate 43; Glucose Fasting 133 mg/dL (60-99); Potassium 3.7 mmol/L (3.3-5.1); Sodium 133 mmol/L (135-145); Total Protein 6.8 g/dL (6.5-8.0)
[2022-02-13 08:33] LABS: Prothrombin Time 22.7 SEC (9.9-13.0)
[2022-02-13] MEDS: UrsodioL 300 MG CAPSULE PO (08:36)
[2022-02-13] MEDS: Torsemide 20 MG TABLET PO (08:36)
[2022-02-13] MEDS: Losartan Potassium 25 MG TABLET PO (08:36)
[2022-02-13] MEDS: Cholecalciferol (Vitamin D3) 25 MCG TABLET PO (08:36)
[2022-02-13] MEDS: Cyanocobalamin (Vitamin B-12) 1,000 MCG TABLET 1000 MCG PO (08:36)
[2022-02-13] MEDS: 0.9 % Sodium Chloride Flush 3 ML SYRINGE IVFLUSH ×2 (08:36→20:09)
[2022-02-13] MEDS: Bacitracin Oint 14 GM TUBE 1 APPL TOPICAL ×2 (08:37→20:06)
[2022-02-13] MEDS: Lidocaine 4 % Patch ADH..PATCH 1 PATCH TRANSDERMA (08:42)
--- NOTE | 2022-02-13 12:57 | PM.PNCARD ---
Subjective Subjective Date of Service: 02/13/22 <JOSLYN Johnston - Last Filed: 02/13/22 13:51> 02/13/22 <Yossi Terrell MD - Last Filed: 02/13/22 17:16> Principal diagnosis: CHF <JOSLYN Johnston - Last Filed: 02/13/22 13:51> Interval history: Seen at 1000. Today she reports that her breathing is feeling about normal. She hasn't been doing much activity so she can't fully assess if she is sob with exertion. No chest pains, palpitations, dizziness, Leg edema improving. No nausea, eating well. Has intermittent pain in her right flank region and up near left shoulder blade. Does not have it currently. Voiding frequently on commode. <JOSLYN Johnston - Last Filed: 02/13/22 13:51> Review of Systems Review of Systems as above <JOSLYN Johnston - Last Filed: 02/13/22 13:51> Yes all other systems are reviewed and are negative <JOSLYN Johnston - Last Filed: 02/13/22 13:51> Physical Exam Vital Signs: Last Vital Signs Temp 97.9 F 02/13/22 11:35 Pulse 65 02/13/22 11:35 Resp 20 02/13/22 11:35 BP 118/58 L 02/13/22 11:35 Pulse Ox 97 02/13/22 11:35 BMI result Body Mass Index 40.1 <JOSLYN Johnston - Last Filed: 02/13/22 13:51> Const General: cooperative, no acute distress, alert and awake <JOSLYN Johnston - Last Filed: 02/13/22 13:51> Orientation/consciousness: patient oriented x3 <JOSLYN Johnston Last Filed: 02/13/22 13:51> Eyes Other: mild scleral jaundice <JOSLYN Johnston - Last Filed: 02/13/22 13:51> Neck Other: jugular pulsation seen to level of neck - could be V waves from TR <JOSLYN Johnston - Last Filed: 02/13/22 13:51> Resp Effort & Inspection: normal respiratory effort, able to speak in complete sentences and not labored <Brooklynn JoaquinBREN-C - Last Filed: 02/13/22 13:51> Auscultation: clear to auscultation bilaterally, no crackles, no rales, no rhonchi and no wheezes <Brooklynn JoaquinBREN-C - Last Filed: 02/13/22 13:51> Cardio Jugular venous distension: JVD present <Brooklynn JoaquinBRENC - Last Filed: 02/13/22 13:51> Rate: regular rate <Brooklynn JoauqinBRENC - Last Filed: 02/13/22 13:51> Rhythm: regular rhythm <Brooklynn JoaquinBREN - Last Filed: 02/13/22 13:51> Heart sounds: Murmur heart sound present (loud systolic murmur) <Brooklynn JoaquinBREN-C - Last Filed: 02/13/22 13:51> Peripheral pulses: Peripheral pulses 2+ throughout <Brooklynn JoaquinBRENC - Last Filed: 02/13/22 13:51> GI Inspection: Yes normal to inspection <Brooklynn JoaquinBREN-C - Last Filed: 02/13/22 13:51> Neuro General: patient oriented x3 <Brooklynn JoaquinBRENC - Last Filed: 02/13/22 13:51> Extrem Other: legs soft - no pitting edema <Brooklynn JoaquinBREN-C - Last Filed: 02/13/22 13:51> General: Yes normal to inspection <Brooklynn JoaquinBRENC - Last Filed: 02/13/22 13:51> Objective Labs and Meds Result diagrams: : 02/13/22 05:53 02/13/22 05:53 <Brooklynn JoaquinBREN-C - Last Filed: 02/13/22 13:51> Lab results: Laboratory Results - last 24 hr 02/13/22 02/13/22 02/13/22 05:53 05:53 08:18 WBC 5.9 RBC 2.16 L Hgb 8.4 L Hct 25.1 L MCV 116.2 H MCH 38.9 H MCHC 33.5 RDW 22.8 H Plt Count 82 L MPV 12.0 Absolute Nucleated RBC 0.140 H Nucleated RBC % (auto) 2.4 H PT 22.7 H INR 2.0 H Sodium 133 L Potassium 3.7 Chloride 97 Carbon Dioxide 23 Anion Gap 17 BUN 40 H Creatinine 1.20 Estim Creat Clear Calc 36.2 Estimated GFR 43 Fasting Glucose 133 H Calcium 8.9 Total Bilirubin 5.4 H Direct Bilirubin 2.9 H AST 39 H ALT 26 Alkaline Phosphatase 68 Total Protein 6.8 Albumin 3.5 <JOSLYN Johnston - Last Filed: 02/13/22 13:51> Progress Note: A&P Assessment and plan (1) Acute on chronic heart failure with preserved ejection fraction (HFpEF): Status: Acute <JOSLYN Johnston - Last Filed: 02/13/22 13:51> Assessment and Plan: Continues to be diuresed with IV lasix. Fluid balance Neg 3455 cc in week. I+Os Not recorded for first few days of admit. She does report that today her breathing more normal for her however has not been doing her usual activities. Her Echocardiogram showed EF 50-55%, bio AVR with severe stenosis, mean gradiant 48mmhg, AMEE 0.68cm2, mod MR, mod to severe TR, RSVP 80mmhg, severe pulm HTN.? The severe aortic stenosis is likely contributing to her heart failure syndrome.?On exam today, she still has JVD, which most likely is related to V waves from TR as it has been persistent since last week. Leg edema improved. She has already been transitioned to Torsemide 20mg bid. Continue current tx. We will follow along as needed. Could be discharged from cardiology perspective. Being managed by other services for noncardiac issues. We will arrange for outpt cardiology follow up. <JOSLYN Johnston - Last Filed: 02/13/22 13:51> Continues to be diuresed with IV lasix. Fluid balance Neg 3455 cc in week. I+Os Not recorded for first few days of admit. She does report that today her breathing more normal for her however has not been doing her usual activities. Her Echocardiogram showed EF 50-55%, bio AVR with severe stenosis, mean gradiant 48mmhg, AMEE 0.68cm2, mod MR, mod to severe TR, RSVP 80mmhg, severe pulm HTN.? The severe aortic stenosis is likely contributing to her heart failure syndrome.?On exam today, she still has JVD, which most likely is related to V waves from TR as it has been persistent since last week. Leg edema improved. She has already been transitioned to Torsemide 20mg bid. Continue current tx. We will follow along as needed. Could be discharged from cardiology perspective. Being managed by other services for noncardiac issues. We will arrange for outpt cardiology follow up. Patient seen and examined. Case discussed with Brooklynn harmon here. From heart failure perspective patient is doing well. Has been diuresed well. Clinically appears to be euvolemic and well compensated. Continue current diuretic regimen. Heart failure management was discussed with her. Daily weight monitoring and avoidance of salt loading. Patient can be discharged from our perspective pending surgical/medical issues. Will sign of the case at this point in time. <Yossi Terrell MD - Last Filed: 02/13/22 17:16> (2) Prosthetic aortic valve stenosis: Status: Acute <JOSLYN Johnston - Last Filed: 02/13/22 13:51> Assessment and Plan: Bio AVR with severe stenosis which is likely contributing to her HF exacerbation. Reviewed with her.? Reviewed with Dr. Terrell and will plan for outpatient outpt right and left heart cath when clinically appropriate, for further evaluation and redo TAVR eval.? She is currently willing to proceed with any intervention that is needed. <JOSLYN Johnston - Last Filed: 02/13/22 13:51> Bio AVR with severe stenosis which is likely contributing to her HF exacerbation. Reviewed with her.? Reviewed with Dr. Terrell and will plan for outpatient outpt right and left heart cath when clinically appropriate, for further evaluation and redo TAVR eval.? She is currently willing to proceed with any intervention that is needed. Severe stenosis of the bioprosthetic aortic valve causing heart failure exacerbation. Will require further evaluation as outpatient. Will require cardiac catheterization and evaluation by valve team at [facility] for consideration of transcatheter valve in valve replacement. Patient is agreeable to this plan. However her GI/gallbladder issues need to be resolved prior to her being considered for this. Require as soon as possible evaluation by GI/surgical team for obstructive jaundice. <Yossi Terrell MD - Last Filed: 02/13/22 17:16> (3) Elevated bilirubin: Status: Acute <JOSLYN Johnston - Last Filed: 02/13/22 13:51> Assessment and Plan: Mild scleral jaundice present. Has elevated Bilirubin.? Abdominal ultrasound shows gallstones, gall bladder distention. She tells me that she is getting intermittent right flank and left scapular discomfort. Being follow by GI and surgery. This pt has severe that will need to be addressed timely as an outpt. Her medical issues will need to be treated so that we can pursue Redo TAVR on her. <JOSLYN Johnston - Last Filed: 02/13/22 13:51> (4) Atrial fibrillation: Status: Acute <JOSLYN Johnston - Last Filed: 02/13/22 13:51> Assessment and Plan: History of atrial fibrillation. EKG and tele show what looks like V pacing with underlying AF, rates controlled. ? On metoprolol for heart rate control.? She is on Coumadin for anticoagulation.? INR goal 2-3.? INR today 2.9.? Coumadin adjustments being managed by hospitalist <JOSLYN Johnston - Last Filed: 02/13/22 13:51> History of atrial fibrillation. EKG and tele show what looks like V pacing with underlying AF, rates controlled. ? On metoprolol for heart rate control.? She is on Coumadin for anticoagulation.? INR goal 2-3.? INR today 2.9.? Coumadin adjustments being managed by hospitalist Control atrial fibrillation. Continue metoprolol as well as Coumadin. INR goal between 2 and 3. <Yossi Terrell MD - Last Filed: 02/13/22 17:16> (5) CAD (coronary artery disease): Status: Acute <JOSLYN Johnston - Last Filed: 02/13/22 13:51> Assessment and Plan: Known history of CAD with prior 2 vessel Coronary artery bypass grafting.? Condition stable at present time with no report of chest discomfort.? Troponins mildly elevated, flat this admission.? Has had mildly elevated troponins like this in the past.? Continue medical management for stable CAD including metoprolol.? She is not on aspirin as she is on Coumadin.? Allergy list includes statin and Zetia intolerance <JOSLYN Johnston - Last Filed: 02/13/22 13:51> (6) Cardiac pacemaker in situ: Status: Acute <JOSLYN Johnston - Last Filed: 02/13/22 13:51> Assessment and Plan: [place] [employer] single lead PPM.? Followed by our office. Last interrogation shows battery 7.5 years. 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 No indication for interrogation at this time.? <JOSLYN Johnston - Last Filed: 02/13/22 13:51> (7) Aortic valve replaced: Status: Acute <JOSLYN Johnston Last Filed: 02/13/22 13:51> Assessment and Plan: 2011 <JOSLYN Johnston - Last Filed: 02/13/22 13:51> Time Spent With Patient Time: Total time spent is greater than 50% in coordination of care (as documented) at patient's floor/unit and/or counseling patient: 24 <JOSLYN Johnston - Last Filed: 02/13/22 13:51> Progress Note: Quality Stroke Does the patient have a stroke diagnosis?: No <JOSLYN Johnston - Last Filed: 02/13/22 13:51> Procedures Date of Service Date of Service: 02/13/22 <JOSLYN Johnston - Last Filed: 02/13/22 13:51>
--- NOTE | 2022-02-13 13:30 | P.PNIM_ITS ---
Subjective Subjective Date of Service: 02/13/22 Interval History: Pain is more in back than flank Dyspnea resolved No chest pain No N/V Review of Systems Review of Systems: Yes all other systems are reviewed and are negative Physical Exam Vital Signs: Vital Signs: Last Vital Signs Temp 97.9 F 02/13/22 11:35 Pulse 65 02/13/22 11:35 Resp 20 02/13/22 11:35 BP 118/58 L 02/13/22 11:35 Pulse Ox 97 02/13/22 11:35 BMI result Body Mass Index 40.1 Gen: in no acute distress HEENT: sclera icteric, moist mucus membranes Neck: supple Lungs: clear to auscultation bilaterally Heart: regular rate and rhythm, no murmurs Abd: soft, non-tender, non-distended, morbidly obese Ext: no edema Skin: warm/well-perfused Neuro: alert and oriented x3, no focal findings Psych: appropriate affect Objective Data Active Medications Acetaminophen (Acetaminophen 325 Mg Tablet) 650 mg PO Q6H PRN PRN Reason: Pain, Mild (Pain Scale 1-3) Last Admin: 02/12/22 10:27 Dose: 650 mg Documented by: SUMMER Bacitracin (Bacitracin Oint 14 Gm Tube) 1 appl TOPICAL BID [facility]; Protocol Last Admin: 02/13/22 08:37 Dose: 1 appl Documented by: YONATHAN Clonazepam (Clonazepam 0.5 Mg Tablet) 0.25 mg PO BEDTIME PRN PRN Reason: Sleep Last Admin: 02/11/22 00:29 Dose: 0.25 mg Documented by: NAUMOC Cyanocobalamin (Cyanocobalamin (Vitamin B-12) 1,000 Mcg Tablet) 1,000 mcg PO DAILY HOLDEN Last Admin: 02/13/22 08:36 Dose: 1,000 mcg Documented by: YONATHAN Dicyclomine HCl (Dicyclomine Hcl 10 Mg Capsule) 10 mg PO TIDAC PRN PRN Reason: abd pain Fluticasone Propionate (Fluticasone Propionate Nasal 16 Gm [place]) 2 spray NOSTRIL-B DAILY PRN PRN Reason: Allergy Symptoms Lidocaine (Lidocaine 4 % Patch Adh..Patch) 1 patch TRANSDERMA DAILY [facility]; Protocol Last Admin: 02/13/22 08:42 Dose: 1 patch Documented by: YONATHAN Losartan Potassium (Losartan Potassium 25 Mg Tablet) 25 mg PO BID [facility]; Protocol Last Admin: 02/13/22 08:36 Dose: 25 mg Documented by: YONATHAN Magnesium Hydroxide (Milk Of Magnesia 30 Ml Oral.Susp) 30 ml PO DAILY PRN PRN Reason: Constipation Metoprolol Succinate (Metoprolol Succinate Er 25 Mg Tab.Er.24h) 25 mg PO BEDTIME [facility]; Protocol Last Admin: 02/12/22 21:15 Dose: Not Given Documented by: ARACELI Non-Admin Reason: Physician Held Med Pharmacy Consult (Consult Rx Perform Med Rec) 1 each MISCELLANE ONCE PRN PRN Reason: Consult order Polyethylene Glycol (Polyethylene Glycol 3350 17 Gm Powd.Pack) 17 gm PO DAILY PRN PRN Reason: constipation Sodium Chloride (0.9 % Sodium Chloride Flush 3 Ml Syringe) 3 ml IVFLUSH QSHIFT [facility] Last Admin: 02/13/22 08:36 Dose: 3 ml Documented by: YONATHAN Torsemide (Torsemide 20 Mg Tablet) 20 mg PO BID [facility]; Protocol Last Admin: 02/13/22 08:36 Dose: 20 mg Documented by: YONATHAN Ursodiol (Ursodiol 300 Mg Capsule) 300 mg PO BID [facility] Last Admin: 02/13/22 08:36 Dose: 300 mg Documented by: YONATHAN Vitamin D (Cholecalciferol (Vitamin D3) 25 Mcg Tablet) 25 mcg PO DAILY [facility] Last Admin: 02/13/22 08:36 Dose: 25 mcg Documented by: YONATHAN Warfarin Sodium (Warfarin Sodium 3 Mg Tablet) 3 mg PO DAILY@1800 [facility] Last Admin: 02/12/22 19:23 Dose: 3 mg Documented by: SUMMER Labs CBC & Chem 7: 02/13/22 05:53 02/13/22 05:53 Labs: Laboratory Results - last 24 hr 02/13/22 02/13/22 02/13/22 05:53 05:53 08:18 MCV 116.2 H MCH 38.9 H MCHC 33.5 RDW 22.8 H Plt Count 82 L MPV 12.0 Absolute Nucleated RBC 0.140 H Nucleated RBC % (auto) 2.4 H PT 22.7 H INR 2.0 H Anion Gap 17 Estim Creat Clear Calc 36.2 Estimated GFR 43 Fasting Glucose 133 H Calcium 8.9 Total Bilirubin 5.4 H Direct Bilirubin 2.9 H AST 39 H ALT 26 Alkaline Phosphatase 68 Total Protein 6.8 Albumin 3.5 Assessment and Plan (1) Acute on chronic heart failure with preserved ejection fraction (HFpEF): Status: Acute Plan d#8 81yo F with chronic AF s/p PPM, s/p bioprosthetic AoV 2009, HTN, HLD, CAD s/p 2V CBG, HFpEF, morbid obesity, DM2, chronic anemia, [facility]ON admitted for ADHF # acute/chronic HFpEF - off IV furosemide, changed to PO torsemide today - continue losartan, metoprolol # jaundice - GI + Gen Surg following, HIDA to r/o chronic cholecystitis - on empiric ursodiol + dicyclomine - monitor LFTs # chronic AF - continue metoprolol - continue warfarin, INR therapeutic today # 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
--- NOTE | 2022-02-13 13:31 | P.PNGS_ITS ---
Subjective Subjective Date of Service: 02/13/22 Interval history: denies abdominal pain hungry says she has not eaten because she was placed NPO for a test says her leg edema has been bothering her Physical Exam Vital Signs: Vital Signs: Last Vital Signs Temp 97.9 F 02/13/22 11:35 Pulse 65 02/13/22 11:35 Resp 20 02/13/22 11:35 BP 118/58 L 02/13/22 11:35 Pulse Ox 97 02/13/22 11:35 BMI result Body Mass Index 40.1 Const: Other: walking with walker, appears unsteady, frail looking, a little short of breath Resp: Other: a little short of breath Cardio: Rate: regular rate GI: Other: soft, nontender, nondistended, no Knowles's sign, Objective Data Active Medications Acetaminophen (Acetaminophen 325 Mg Tablet) 650 mg PO Q6H PRN PRN Reason: Pain, Mild (Pain Scale 1-3) Last Admin: 02/12/22 10:27 Dose: 650 mg Documented by: SUMMER Bacitracin (Bacitracin Oint 14 Gm Tube) 1 appl TOPICAL BID [facility]; Protocol Last Admin: 02/13/22 08:37 Dose: 1 appl Documented by: YONATHAN Clonazepam (Clonazepam 0.5 Mg Tablet) 0.25 mg PO BEDTIME PRN PRN Reason: Sleep Last Admin: 02/11/22 00:29 Dose: 0.25 mg Documented by: NAUMOC Cyanocobalamin (Cyanocobalamin (Vitamin B-12) 1,000 Mcg Tablet) 1,000 mcg PO DAILY [facility] Last Admin: 02/13/22 08:36 Dose: 1,000 mcg Documented by: YONATHAN Dicyclomine HCl (Dicyclomine Hcl 10 Mg Capsule) 10 mg PO TIDAC PRN PRN Reason: abd pain Fluticasone Propionate (Fluticasone Propionate Nasal 16 Gm [place]) 2 spray NOSTRIL-B DAILY PRN PRN Reason: Allergy Symptoms Lidocaine (Lidocaine 4 % Patch Adh..Patch) 1 patch TRANSDERMA DAILY [facility]; Protocol Last Admin: 02/13/22 08:42 Dose: 1 patch Documented by: YONATHAN Losartan Potassium (Losartan Potassium 25 Mg Tablet) 25 mg PO BID [facility]; Protocol Last Admin: 02/13/22 08:36 Dose: 25 mg Documented by: YONATHAN Magnesium Hydroxide (Milk Of Magnesia 30 Ml Oral.Susp) 30 ml PO DAILY PRN PRN Reason: Constipation Metoprolol Succinate (Metoprolol Succinate Er 25 Mg Tab.Er.24h) 25 mg PO BEDTIME [facility]; Protocol Last Admin: 02/12/22 21:15 Dose: Not Given Documented by: ARACELI Non-Admin Reason: Physician Held Med Pharmacy Consult (Consult Rx Perform Med Rec) 1 each MISCELLANE ONCE PRN PRN Reason: Consult order Polyethylene Glycol (Polyethylene Glycol 3350 17 Gm Powd.Pack) 17 gm PO DAILY PRN PRN Reason: constipation Sodium Chloride (0.9 % Sodium Chloride Flush 3 Ml Syringe) 3 ml IVFLUSH QSHIFT [facility] Last Admin: 02/13/22 08:36 Dose: 3 ml Documented by: YONATHAN Torsemide (Torsemide 20 Mg Tablet) 20 mg PO BID [facility]; Protocol Last Admin: 02/13/22 08:36 Dose: 20 mg Documented by: YONATHAN Ursodiol (Ursodiol 300 Mg Capsule) 300 mg PO BID [facility] Last Admin: 02/13/22 08:36 Dose: 300 mg Documented by: YONATHAN Vitamin D (Cholecalciferol (Vitamin D3) 25 Mcg Tablet) 25 mcg PO DAILY [facility] Last Admin: 02/13/22 08:36 Dose: 25 mcg Documented by: YONATHAN Warfarin Sodium (Warfarin Sodium 3 Mg Tablet) 3 mg PO DAILY@1800 [facility] Last Admin: 02/12/22 19:23 Dose: 3 mg Documented by: SUMMER Labs CBC & Chem 7: 02/13/22 05:53 02/13/22 05:53 Labs: Laboratory Results - last 24 hr 02/13/22 02/13/22 02/13/22 05:53 05:53 08:18 MCV 116.2 H MCH 38.9 H MCHC 33.5 RDW 22.8 H Plt Count 82 L MPV 12.0 Absolute Nucleated RBC 0.140 H Nucleated RBC % (auto) 2.4 H PT 22.7 H INR 2.0 H Anion Gap 17 Estim Creat Clear Calc 36.2 Estimated GFR 43 Fasting Glucose 133 H Calcium 8.9 Total Bilirubin 5.4 H Direct Bilirubin 2.9 H AST 39 H ALT 26 Alkaline Phosphatase 68 Total Protein 6.8 Albumin 3.5 Procedures Date of Service Date of Service: 02/13/22 Progress Note: A&P Assessment and plan (1) Elevated bilirubin: Status: Acute Assessment and Plan: indirect fraction increasing HIDA scan unlikely to provide additional information in view of abnormal LFTs MRI would delineate hepatobiliary tree better if CBD obstruction is considered has a very benign abdominal exam clinically no cholecystitis overall clinical picture likely due to cholestasis will follow Time Spent With Patient Time: Total time spent is greater than 50% in coordination of care (as documented) at patient's floor/unit and/or counseling patient: Quality Stroke Does the patient have a stroke diagnosis?: No VTE Prior VTE?: No VTE Risk Level:: Medical - low VTE Device Contraindication: Treatment Not Indicated VTE Drug Contraindication: Treatment Not Indicated
[2022-02-13] MEDS: Warfarin Sodium 3 MG TABLET PO (18:35)
[2022-02-13] MEDS: Dicyclomine HCl 10 MG CAPSULE PO (18:36)
[2022-02-14 03:34] VITALS: BP 106/51; PULSE 71; RESP 15; TEMP 36.6; O2SAT 98
[2022-02-14] MEDS: Acetaminophen 325 MG TABLET 650 MG PO ×3 (04:55→21:31)
[2022-02-14 06:44] LABS: Hematocrit 25.4 % (37.0-47.0); Hemoglobin 8.5 g/dl (12.0-16.0); Mean Corpuscular HGB Conc 33.5 g/dl (31.0-35.0); Mean Corpuscular Hemoglobin 38.5 pg (27.0-33.0); Mean Platelet Volume 12.4 fL (9.4-12.3); Red Blood Count 2.21 X10*6/uL (4.20-5.50); Red Cell Distribution Width 22.6 % (11.0-16.0); White Blood Count 5.3 X10*3/uL (4.8-10.8)
[2022-02-14 06:49] LABS: Mean Corpuscular Volume 114.9 fL (80.0-98.0); NRBC Pct Auto 2.9 /100WBC (0.0-0.2); Platelet Count 91 X10*3/uL (160-400)
[2022-02-14 06:58] LABS: INTERNATIONAL NORM RATIO 1.8 (0.9-1.1); Prothrombin Time 20.7 SEC (9.9-13.0)
[2022-02-14 07:20] VITALS: BP 101/58; PULSE 65; RESP 18; TEMP 36.2; O2SAT 96
[2022-02-14 07:23] LABS: Alanine Aminotransferase 23 U/L (0-31); Albumin Level 3.3 g/dL (3.5-5.0); Alkaline Phosphatase 69 U/L (39-117); Aspartate Amino Transferase 36 U/L (5-31); Bilirubin Direct 3.1 mg/dL (0.0-0.5); Bilirubin Total 5.9 mg/dL (0.0-1.0); Total Protein 6.4 g/dL (6.5-8.0)
[2022-02-14 07:34] LABS: Lactate Dehydrogenase 543 U/L (122-220)
[2022-02-14] MEDS: Torsemide 20 MG TABLET PO (08:15)
[2022-02-14] MEDS: Cholecalciferol (Vitamin D3) 25 MCG TABLET PO (08:15)
[2022-02-14] MEDS: UrsodioL 300 MG CAPSULE PO ×2 (08:15→19:32)
[2022-02-14] MEDS: Cyanocobalamin (Vitamin B-12) 1,000 MCG TABLET 1000 MCG PO (08:16)
[2022-02-14] MEDS: Dicyclomine HCl 10 MG CAPSULE PO (08:16)
[2022-02-14] MEDS: Bacitracin Oint 14 GM TUBE 1 APPL TOPICAL ×2 (08:16→19:33)
[2022-02-14] MEDS: 0.9 % Sodium Chloride Flush 3 ML SYRINGE IVFLUSH ×2 (08:16→19:33)
--- NOTE | 2022-02-14 08:16 | P.PNGS_ITS ---
Subjective Subjective Date of Service: 02/14/22 Interval history: denies abdominal pain does states she had pain last night after eating tolerating diet well Physical Exam Vital Signs: Vital Signs: Last Vital Signs Temp 97.1 F 02/14/22 07:20 Pulse 65 02/14/22 07:20 Resp 18 02/14/22 07:20 BP 101/58 L 02/14/22 07:20 Pulse Ox 96 02/14/22 07:20 BMI result Body Mass Index 40.1 Const: General: comfortable and no acute distress Resp: Effort & Inspection: normal respiratory effort Cardio: Rate: regular rate GI: Palpation (GI): Soft to palpation, not firm and nontender Objective Data Active Medications Acetaminophen (Acetaminophen 325 Mg Tablet) 650 mg PO Q6H PRN PRN Reason: Pain, Mild (Pain Scale 1-3) Last Admin: 02/14/22 04:55 Dose: 650 mg Documented by: JANIS Bacitracin (Bacitracin Oint 14 Gm Tube) 1 appl TOPICAL BID [facility]; Protocol Last Admin: 02/13/22 20:06 Dose: 1 appl Documented by: JANIS Clonazepam (Clonazepam 0.5 Mg Tablet) 0.25 mg PO BEDTIME PRN PRN Reason: Sleep Last Admin: 02/11/22 00:29 Dose: 0.25 mg Documented by: SHADUMSAM Cyanocobalamin (Cyanocobalamin (Vitamin B-12) 1,000 Mcg Tablet) 1,000 mcg PO DAILY HOLDEN Last Admin: 02/13/22 08:36 Dose: 1,000 mcg Documented by: YONATHAN Dicyclomine HCl (Dicyclomine Hcl 10 Mg Capsule) 10 mg PO TIDAC PRN PRN Reason: abd pain Last Admin: 02/13/22 18:36 Dose: 10 mg Documented by: YONATHAN Fluticasone Propionate (Fluticasone Propionate Nasal 16 Gm [place]) 2 spray NOSTRIL-B DAILY PRN PRN Reason: Allergy Symptoms Lidocaine (Lidocaine 4 % Patch Adh..Patch) 1 patch TRANSDERMA DAILY [facility]; Protocol Last Admin: 02/13/22 08:42 Dose: 1 patch Documented by: YONATHAN Losartan Potassium (Losartan Potassium 25 Mg Tablet) 25 mg PO BID [facility]; Protocol Last Admin: 02/13/22 20:08 Dose: Not Given Documented by: JANIS Non-Admin Reason: Physician Held Med Magnesium Hydroxide (Milk Of Magnesia 30 Ml Oral.Susp) 30 ml PO DAILY PRN PRN Reason: Constipation Metoprolol Succinate (Metoprolol Succinate Er 25 Mg Tab.Er.24h) 25 mg PO BEDTIME [facility]; Protocol Last Admin: 02/13/22 20:08 Dose: Not Given Documented by: JANIS Non-Admin Reason: Physician Held Med Pharmacy Consult (Consult Rx Perform Med Rec) 1 each MISCELLANE ONCE PRN PRN Reason: Consult order Polyethylene Glycol (Polyethylene Glycol 3350 17 Gm Powd.Pack) 17 gm PO DAILY PRN PRN Reason: constipation Sodium Chloride (0.9 % Sodium Chloride Flush 3 Ml Syringe) 3 ml IVFLUSH QSHIFT [facility] Last Admin: 02/13/22 20:09 Dose: 3 ml Documented by: JANIS Torsemide (Torsemide 20 Mg Tablet) 20 mg PO BID [facility]; Protocol Last Admin: 02/13/22 20:08 Dose: Not Given Documented by: JANIS Non-Admin Reason: Physician Held Med Ursodiol (Ursodiol 300 Mg Capsule) 300 mg PO BID [facility] Last Admin: 02/13/22 20:09 Dose: Not Given Documented by: JANIS Non-Admin Reason: Physician Held Med Vitamin D (Cholecalciferol (Vitamin D3) 25 Mcg Tablet) 25 mcg PO DAILY [facility] Last Admin: 02/13/22 08:36 Dose: 25 mcg Documented by: YONATHAN Warfarin Sodium (Warfarin Sodium 3 Mg Tablet) 3 mg PO SuMoTuFrSa@1800 [facility] Warfarin Sodium (Warfarin Sodium 4 Mg Tablet) 4 mg PO WeTh@1800 [facility] Labs CBC & Chem 7: 02/14/22 06:17 02/13/22 05:53 Labs: Laboratory Results - last 24 hr 02/13/22 02/14/22 02/14/22 08:18 06:17 06:17 MCV 114.9 H MCH 38.5 H MCHC 33.5 RDW 22.6 H Plt Count 91 L MPV 12.4 H Absolute Nucleated RBC 0.150 H Nucleated RBC % (auto) 2.9 H PT 22.7 H 20.7 H INR 2.0 H 1.8 H Total Bilirubin Direct Bilirubin AST ALT Alkaline Phosphatase Lactate Dehydrogenase Total Protein Albumin 02/14/22 06:17 MCV MCH MCHC RDW Plt Count MPV Absolute Nucleated RBC Nucleated RBC % (auto) PT INR Total Bilirubin 5.9 H Direct Bilirubin 3.1 H AST 36 H ALT 23 Alkaline Phosphatase 69 Lactate Dehydrogenase 543 H Total Protein 6.4 L Albumin 3.3 L Procedures Date of Service Date of Service: 02/14/22 Progress Note: A&P Assessment and plan (1) Elevated bilirubin: Status: Acute Assessment and Plan: etiology uncertain - likely cholestatic, liver parenchymal disease? clinically with no obstruction exam soft and benign HIDA scan done - unremarkable Time Spent With Patient Time: Total time spent is greater than 50% in coordination of care (as documented) at patient's floor/unit and/or counseling patient: Quality Stroke Does the patient have a stroke diagnosis?: No VTE Prior VTE?: No VTE Risk Level:: Medical - low VTE Device Contraindication: Treatment Not Indicated VTE Drug Contraindication: Treatment Not Indicated
[2022-02-14 08:25] LABS: Estimated Average Glucose 114 mg/dL; Hemoglobin A1c % 5.6 %
[2022-02-14 08:51] LABS: HBS Num1 1.56 mIU/mL (0-7.99); HBc Num1 0.32 S/CO (0.00-0.79); HBsAGNum1 0.29 S/CO (0.00-0.99); Hepatitis B Core Antibody Nonreactive (Nonreactive); Hepatitis B Surface Antigen Negative (Negative); ~HepC Num1 0.28 S/CO (0.00-0.79); ~Hepatitis B Surface Antibody NONREACTIVE (Nonreactive); ~Hepatitis C Antibody Nonreactive (Nonreactive)
[2022-02-14 11:23] VITALS: BP 108/51; PULSE 64; RESP 18; TEMP 36.6; O2SAT 98
--- NOTE | 2022-02-14 11:23 | MHC.CM.PN ---
Per ROUNDS discussion, Patient needs GI Consult and is not yet medically cleared for dc. Home/new vna is the goal and CM will continue to follow.
--- NOTE | 2022-02-14 12:37 | P.PNIM_ITS ---
Subjective Subjective Date of Service: 02/14/22 Interval History: Itching resolved Flank pain improved No dyspnea Review of Systems Review of Systems: Yes all other systems are reviewed and are negative Physical Exam Vital Signs: Vital Signs: Last Vital Signs Temp 97.8 F 02/14/22 11:23 Pulse 64 02/14/22 11:23 Resp 18 02/14/22 11:23 BP 108/51 L 02/14/22 11:23 Pulse Ox 98 02/14/22 11:23 BMI result Body Mass Index 40.1 Gen: in no acute distress HEENT: sclera icteric, moist mucus membranes Neck: supple Lungs: clear to auscultation bilaterally Heart: regular rate and rhythm, no murmurs Abd: soft, non-tender, non-distended, morbidly obese Ext: no edema Skin: warm/well-perfused Neuro: alert and oriented x3, no focal findings Psych: appropriate affect Objective Data Active Medications Acetaminophen (Acetaminophen 325 Mg Tablet) 650 mg PO Q6H PRN PRN Reason: Pain, Mild (Pain Scale 1-3) Last Admin: 02/14/22 04:55 Dose: 650 mg Documented by: JANIS Bacitracin (Bacitracin Oint 14 Gm Tube) 1 appl TOPICAL BID [facility]; Protocol Last Admin: 02/14/22 08:16 Dose: 1 appl Documented by: YONATHAN Clonazepam (Clonazepam 0.5 Mg Tablet) 0.25 mg PO BEDTIME PRN PRN Reason: Sleep Last Admin: 02/11/22 00:29 Dose: 0.25 mg Documented by: SHADUMSAM Cyanocobalamin (Cyanocobalamin (Vitamin B-12) 1,000 Mcg Tablet) 1,000 mcg PO D AILY HOLDEN Last Admin: 02/14/22 08:16 Dose: 1,000 mcg Documented by: YONATHAN Dicyclomine HCl (Dicyclomine Hcl 10 Mg Capsule) 10 mg PO TIDAC PRN PRN Reason: abd pain Last Admin: 02/14/22 08:16 Dose: 10 mg Documented by: YONATHAN Fluticasone Propionate (Fluticasone Propionate Nasal 16 Gm [place]) 2 spray NOSTRIL-B DAILY PRN PRN Reason: Allergy Symptoms Lidocaine (Lidocaine 4 % Patch Adh..Patch) 1 patch TRANSDERMA DAILY [facility]; Protocol Last Admin: 02/14/22 08:28 Dose: Not Given Documented by: YONATHAN Non-Admin Reason: Patient Refused Losartan Potassium (Losartan Potassium 25 Mg Tablet) 25 mg PO BID [facility]; Protocol Last Admin: 02/14/22 11:13 Dose: Not Given Documented by: YONATHAN Non-Admin Reason: Decreased Blood Pressure Magnesium Hydroxide (Milk Of Magnesia 30 Ml Oral.Susp) 30 ml PO DAILY PRN PRN Reason: Constipation Metoprolol Succinate (Metoprolol Succinate Er 25 Mg Tab.Er.24h) 25 mg PO BEDTIME [facility]; Protocol Last Admin: 02/13/22 20:08 Dose: Not Given Documented by: JANIS Non-Admin Reason: Physician Held Med Pharmacy Consult (Consult Rx Perform Med Rec) 1 each MISCELLANE ONCE PRN PRN Reason: Consult order Polyethylene Glycol (Polyethylene Glycol 3350 17 Gm Powd.Pack) 17 gm PO DAILY PRN PRN Reason: constipation Sodium Chloride (0.9 % Sodium Chloride Flush 3 Ml Syringe) 3 ml IVFLUSH QSHIFT [facility] Last Admin: 02/14/22 08:16 Dose: 3 ml Documented by: YONATHAN Torsemide (Torsemide 20 Mg Tablet) 20 mg PO DAILY [facility]; Protocol Ursodiol (Ursodiol 300 Mg Capsule) 300 mg PO BID [facility] Last Admin: 02/14/22 08:15 Dose: 300 mg Documented by: YONATHAN Vitamin D (Cholecalciferol (Vitamin D3) 25 Mcg Tablet) 25 mcg PO DAILY [facility] Last Admin: 02/14/22 08:15 Dose: 25 mcg Documented by: YONATHAN Warfarin Sodium (Warfarin Sodium 3 Mg Tablet) 3 mg PO SuMoTuFrSa@1800 [facility] Warfarin Sodium (Warfarin Sodium 4 Mg Tablet) 4 mg PO WeTh@1800 [facility] Labs CBC & Chem 7: 02/14/22 06:17 02/13/22 05:53 Labs: Laboratory Results - last 24 hr 02/14/22 02/14/22 02/14/22 06:17 06:17 06:17 MCV 114.9 H MCH 38.5 H MCHC 33.5 RDW 22.6 H Plt Count 91 L MPV 12.4 H Absolute Nucleated RBC 0.150 H Nucleated RBC % (auto) 2.9 H PT 20.7 H INR 1.8 H Estimat Average Glucose Hemoglobin A1c % Total Bilirubin 5.9 H Direct Bilirubin 3.1 H AST 36 H ALT 23 Alkaline Phosphatase 69 Lactate Dehydrogenase 543 H Total Protein 6.4 L Albumin 3.3 L Hep Bs Antigen Hep Bs Antibody Hep B Core Total Ab Hepatitis C Ab (EIA) JOSEPH, Polyspecific Positive JOSEPH Work-up 02/14/22 02/14/22 02/14/22 06:17 06:17 06:17 MCV MCH MCHC RDW Plt Count MPV Absolute Nucleated RBC Nucleated RBC % (auto) PT INR Estimat Average Glucose 114 Hemoglobin A1c % 5.6 Total Bilirubin Direct Bilirubin AST ALT Alkaline Phosphatase Lactate Dehydrogenase Total Protein Albumin Hep Bs Antigen Negative Hep Bs Antibody NONREACTIVE Hep B Core Total Ab Nonreactive Hepatitis C Ab (EIA) Nonreactive JOSEPH, Polyspecific NEGATIVE Positive JOSEPH Work-up TNP Assessment and Plan (1) Acute on chronic heart failure with preserved ejection fraction (HFpEF): Status: Acute Plan d#9 81yo F with chronic AF s/p PPM, s/p bioprosthetic AoV 2009, HTN, HLD, CAD s/p 2V CBG, HFpEF, morbid obesity, DM2, chronic anemia, DAMON admitted for ADHF # acute/chronic HFpEF - resolved, off IV furosemide, changed to PO torsemide yesterday - continue losartan, metoprolol # cholestatic jaundice - Tbili continues to rise, GI following, HIDA negative for chronic cholecystitis - on empiric ursodiol + dicyclomine - monitor LFTs # chronic AF - continue metoprolol - continue warfarin, INR 1.8 today, will increase warfarin dose by 10% TWD # 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
[2022-02-14] MEDS: polyethylene glycoL 3350 17 GM POWD.PACK PO (14:27)
[2022-02-14 14:57] VITALS: BP 107/51; PULSE 67; RESP 17; TEMP 36.1; O2SAT 100
[2022-02-14] MEDS: Warfarin Sodium 4 MG TABLET PO (18:42)
[2022-02-14 18:58] VITALS: BP 98/46; PULSE 65; RESP 17; TEMP 36.1; O2SAT 97
[2022-02-14] MEDS: clonazePAM 0.5 MG TABLET 0.25 MG PO (19:33)
[2022-02-14 23:52] VITALS: BP 100/55; PULSE 66; RESP 16; TEMP 36.3; O2SAT 96
[2022-02-15 03:46] VITALS: BP 104/48; PULSE 64; RESP 15; TEMP 36.2; O2SAT 97
[2022-02-15 06:31] LABS: Hematocrit 28.1 % (37.0-47.0); Hemoglobin 9.4 g/dl (12.0-16.0); Mean Corpuscular HGB Conc 33.5 g/dl (31.0-35.0); Mean Corpuscular Hemoglobin 38.5 pg (27.0-33.0); Mean Platelet Volume 12.7 fL (9.4-12.3); Red Blood Count 2.44 X10*6/uL (4.20-5.50); Red Cell Distribution Width 22.5 % (11.0-16.0); White Blood Count 5.9 X10*3/uL (4.8-10.8)
[2022-02-15 06:32] LABS: Mean Corpuscular Volume 115.2 fL (80.0-98.0); NRBC Pct Auto 3.1 /100WBC (0.0-0.2); Platelet Count 98 X10*3/uL (160-400)
[2022-02-15 06:42] LABS: INTERNATIONAL NORM RATIO 1.9 (0.9-1.1)
[2022-02-15 06:53] LABS: Alanine Aminotransferase 28 U/L (0-31); Albumin Level 3.6 g/dL (3.5-5.0); Alkaline Phosphatase 78 U/L (39-117); Aspartate Amino Transferase 44 U/L (5-31); Bilirubin Direct 3.3 mg/dL (0.0-0.5); Bilirubin Total 5.4 mg/dL (0.0-1.0)
[2022-02-15 06:56] LABS: B Type Natriuretic Peptide 298 pg/mL (<100)
[2022-02-15 07:32] VITALS: BP 98/54; PULSE 65; RESP 16; TEMP 36.4; O2SAT 97
[2022-02-15] MEDS: Cyanocobalamin (Vitamin B-12) 1,000 MCG TABLET 1000 MCG PO (09:26)
[2022-02-15] MEDS: Torsemide 20 MG TABLET PO (09:26)
[2022-02-15] MEDS: UrsodioL 300 MG CAPSULE PO (09:26)
[2022-02-15] MEDS: Cholecalciferol (Vitamin D3) 25 MCG TABLET PO (09:26)
[2022-02-15] MEDS: 0.9 % Sodium Chloride Flush 3 ML SYRINGE IVFLUSH (09:27)
[2022-02-15] MEDS: Bacitracin Oint 14 GM TUBE 1 APPL TOPICAL (09:27)
--- NOTE | 2022-02-15 10:25 | P.CDIC_ITS ---
CDI Concurrent Query Documentation Clarification: PHYSICIAN'S DOCUMENTATION REQUEST Date of Query: 02/15/22 1025 Patient Name: Tamra Rivera Admit Date: 02/05/22 Dear Doctor, A review of the medical record indicates additional documentation may be needed. Please review below and update the documentation accordingly. Clinical Indicators: Risk Factors/Clinical Indicators/Treatments PN: Chronic atrial fibrillation continue Metoprolol, continue Warfarin If possible, please provide further specificity regarding atrial fibrillation, such as: specifics to the unspecific chronic atrial fibrillation: * Paroxysmal atrial fibrillation: terminates spontaneously or with intervention within 7 days of onset. * Persistent atrial fibrillation: episodes of continuous AF that last more than 7 days and do not self-terminate. * Long lasting persistent atrial fibrillation: episodes of continuous AF that last more than 12 months, * Permanent (chronic or other) atrial fibrillation: when a decision has been made to accept the presence of AF and there is no further attempt to restore or maintain sinus rhythm. * Other (please specify) * Unable to determine Use of terms such as suspected, likely, concern for, or probable (associated with a specific diagnosis that is being evaluated, monitored, or treated as if it exists) are acceptable and can be coded in the inpatient setting, when documented at the time of discharge. Thank you, Maci Novak [facility], CDIS Extension: [phone] Please use your independent medical judgment in providing your response. THIS QUERY IS PART OF THE PERMANENT MEDICAL RECORD Provider Response: Other Other Diagnosis: chronic
[2022-02-15 11:28] VITALS: BP 109/56; PULSE 64; RESP 16; TEMP 36.3; O2SAT 97
--- NOTE | 2022-02-15 11:34 | W.MHC.F2F ---
Service Date Service Date: 02/15/22 Encounter Date of encounter: 02/15/22 Reasons for Services Signs and symptoms assessed: CHF Reason for group home: medication management, medication treatment and teach disease management Reason for physical therapy: home safety and mobility, therapeutic exercises, gait/transfer training, assess need for DME, ADL training and energy conservation MD Overseeing Care: Cuate Soriano Homebound: Leaving the home is medically contraindicated at this time without the asist of a device and/or another person due th the listed conditions above and below. Reason homebound: unsteady gait / fall risk and weakness related to hospital stay Certification: Based on the above findings, I certify that this patient is confined to the home and needs intermittent group home care, physical therapy and/or speech therapy, or continues to need occupational therapy. The patient is under my care, and I have initiated the establishment of the plan of care. The patient will be followed by a physician who will periodically review the plan of care.
--- NOTE | 2022-02-15 11:46 | PM.DS ---
DS: Providers Provider Date of Service: 02/15/22 Date of admission: 02/05/22 11:24 Date of discharge: 02/15/22 Primary care physician: Cuate Soriano MD Consults: 02/05/22 10:28 Consult to Cardiology Stat Consulting Provider: Yoandy Bolton Reason for consultation: chf Has provider been notified: Yes 02/05/22 11:25 Consult to Cardiology Routine Consulting Provider: Yoandy Bolton Reason for consultation: heart failure 02/09/22 08:53 Consult to General Surgery Routine Consulting Provider: Tyler Lovell Reason for consultation: biliary colic with jaundice 02/12/22 10:00 Consult to Gastroenterology Routine Consulting Provider: Srinath Li Reason for consultation: jaundice 02/14/22 12:43 Consult to Hematology / Oncology Routine Consulting Provider: Tosin Santana Reason for consultation: pt with possible MDS; Tbili rising; ?hemolytic anemia DS: Diagnosis Discharge Diagnosis (1) Acute on chronic heart failure with preserved ejection fraction (HFpEF): Status: Acute (2) Elevated bilirubin: Status: Acute (3) Acute on chronic right-sided heart failure: Status: Acute (4) Morbid obesity: Status: Acute (5) Chronic atrial fibrillation: Status: Acute (6) Gallstones: Status: Acute (7) Stenosis of prosthetic aortic valve: Status: Acute DS: Summary Hospital Course Hospital Course: from admission H+P by Adam Rey MD, 02/05/22: 81-year-old obese female with a history of controlled diabetes mellitus, generalized anxiety disorder chronic anemia, chronic atrial fibrillation, 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 hypertension, hypercholesterolemia, coronary artery disease, s/p pacemaker, HFpEF last of 05/2021 EF 55 to 60%, she on Lasix 20 mg daily. She presents with progressive dyspnea especially with exertion, weakness and increased lower extremity edema as well as weight gain, At baseline she has poor exercise tolerance due to arthritis. She has no chest pain, no fever or cough.? She has no chest pain with exertion, no exertional lightheadedness or syncope.? + orthopnea, PND and? leg edema.? She admits to having been consuming lots of processed food lately. Work up show moderate increased in BNP to 364, trop of 38. She is already feeling better after 40 mg of IV Lasix.? Negative covid. Not vaccinated by choice This 81yo F with chronic AF s/p PPM, s/p bioprosthetic aortic valve replacement 2009, HTN, HLD, CAD s/p 2V CBG, HFpEF, morbid obesity, DM2, chronic anemia, and anxiety was admitted for ADHF due to HFpEF and R-sided heart failure. She was diuresed with IV furosemide and neurohormonal modulation with losartan and metoprolol was continued. Echocardiography demonstrated diastolic dysfunction, elevated R-sided pressure with severe pulmonary hypertension, and stenosis of the bioprosthetic aortic valve. Cardiology was consulted; she will need further outpatient evaluation with eventual cardiac catheterization and evaluation by the valvular heart disease team at [facility] for consideration of TAVR. In the meanwhile, PO diuretic was switched to torsemide. She developed moderately elevated bilirubin and GI was consulted. Sonography demonstrated gallstones and Surgery was consulted. HIDA was negative for filling defect and she did not have active symptoms of cholecystitis or biliary colic. Ultimately, the cholestatic jaundice was attributed to hepatic congestion from right-sided heart failure. Warfarin was continued for chronic atrial fibrillation and dosage was increased due to subtherapeutic INR. She will need to repeat PT/INR in 1 day and LFTs in 1 week. She was discharged home with VNA services and instructions to follow up with Primary Care in 1 week, Cardiology in 2 weeks, and Gastroenterology in 2 weeks. Surgical consultation may be considered for gallstone management. Low-fat, low-sodium diet was counseled. She is also followed by Dr Santana [place] [facility] for chronic, mild pancytopenia due to suspected MDS but has refused bone marrow examination in the past. Time Spent with Patient Time attestation: Total time spent providing and/or coordinating discharge services: 40 Discharge coordination time: Greater than 30 minutes Quality: Safe Use of Opioids Does Pt have an Active Cancer Diagnosis on the Problem List?: No Quality: Stroke Does the patient have a stroke diagnosis?: No Physical Exam Vital Signs: Vital Signs: Last Vital Signs Temp 97.4 F 02/15/22 11:28 Pulse 64 02/15/22 11:28 Resp 16 02/15/22 11:28 BP 109/56 L 02/15/22 11:28 Pulse Ox 97 02/15/22 11:28 BMI result Body Mass Index 40.1 Gen: in no acute distress HEENT: sclera icteric, moist mucus membranes Neck: supple Lungs: clear to auscultation bilaterally Heart: regular rate and rhythm, no murmurs Abd: soft, non-tender, non-distended, morbidly obese Ext: no edema Skin: warm/well-perfused Neuro: alert and oriented x3, no focal findings Psych: appropriate affect DS: Data Data Completed and Pending Completed studies during hospitalization [Text1]: Laboratory Results WBC 5.9 X10*3/uL (4.8-10.8) 02/15/22 06:01 RBC 2.44 X10*6/uL (4.20-5.50) L 02/15/22 06:01 Hgb 9.4 g/dl (12.0-16.0) L 02/15/22 06:01 Hct 28.1 % (37.0-47.0) L 02/15/22 06:01 MCV 115.2 fL (80.0-98.0) H 02/15/22 06:01 MCH 38.5 pg (27.0-33.0) H 02/15/22 06:01 MCHC 33.5 g/dl (31.0-35.0) 02/15/22 06:01 RDW 22.5 % (11.0-16.0) H 02/15/22 06:01 Plt Count 98 X10*3/uL (160-400) L 02/15/22 06:01 MPV 12.7 fL (9.4-12.3) H 02/15/22 06:01 Immature Gran % (Auto) 2.2 % (0.0-0.4) H 02/05/22 06:00 Neut % (Auto) 29.5 % (45-73) L 02/05/22 06:00 Lymph % (Auto) 53.5 % (20-40) H 02/05/22 06:00 [place] % (Auto) 13.8 % (2-11) H 02/05/22 06:00 Eos % (Auto) 0.6 % (0-4) 02/05/22 06:00 Baso % (Auto) 0.4 % (0-2) 02/05/22 06:00 Lymph # (Auto) 2.5 X10*3/uL (1.2-4.9) 02/05/22 06:00 [place] # (Auto) 0.6 X10*3/uL (0.1-1.2) 02/05/22 06:00 Eos # (Auto) 0.0 X10*3/uL (0.0-0.4) 02/05/22 06:00 Baso # (Auto) 0.0 X10*3/uL (0.0-0.2) 02/05/22 06:00 Abs Immat Gran (auto) 0.10 X10*3/uL (0.00-0.03) H 02/05/22 06:00 Absolute Neuts (auto) 1.4 x10*3/uL (2.0-8.3) L 02/05/22 06:00 Absolute Nucleated RBC 0.180 X10*3/uL (0.0-0.012) H 02/15/22 06:01 Nucleated RBC % (auto) 3.1 /100WBC (0.0-0.2) H 02/15/22 06:01 Smear Tech's Comments VERIFIED 02/05/22 06:00 PT 22.0 SEC (9.9-13.0) H 02/15/22 06:01 INR 1.9 (0.9-1.1) H 02/15/22 06:01 APTT 40.5 SEC (24.1-38.0) H 02/05/22 08:35 Sodium 133 mmol/L (135-145) L 02/13/22 05:53 Potassium 3.7 mmol/L (3.3-5.1) 02/13/22 05:53 Chloride 97 mmol/L (96-108) 02/13/22 05:53 Carbon Dioxide 23 mmol/L (22-29) 02/13/22 05:53 Anion Gap 17 (12-20) 02/13/22 05:53 BUN 40 mg/dL (9-16) H 02/13/22 05:53 Creatinine 1.20 mg/dL (0.5-1.4) 02/13/22 05:53 Estim Creat Clear Calc 36.2 02/13/22 05:53 Estimated GFR 43 02/13/22 05:53 Random Glucose 135 mg/dL (60-115) H 02/07/22 05:54 Fasting Glucose 133 mg/dL (60-99) H 02/13/22 05:53 Estimat Average Glucose 114 mg/dL 02/14/22 06:17 Hemoglobin A1c % 5.6 % 02/14/22 06:17 Calcium 8.9 mg/dL (8.4-10.2) 02/13/22 05:53 Magnesium 2.2 mg/dL (1.6-2.6) 02/12/22 06:38 Total Bilirubin 5.4 mg/dL (0.0-1.0) H 02/15/22 06:01 Direct Bilirubin 3.3 mg/dL (0.0-0.5) H 02/15/22 06:01 AST 44 U/L (5-31) H 02/15/22 06:01 ALT 28 U/L (0-31) 02/15/22 06:01 Alkaline Phosphatase 78 U/L (39-117) 02/15/22 06:01 Lactate Dehydrogenase 543 U/L (122-220) H 02/14/22 06:17 Troponin I High Sens 34.1 ng/L (<3.5-17.0) H 02/05/22 11:57 B-Natriuretic Peptide 298 pg/mL (<100) H 02/15/22 06:01 Total Protein 7.0 g/dL (6.5-8.0) 02/15/22 06:01 Albumin 3.6 g/dL (3.5-5.0) 02/15/22 06:01 Hep Bs Antigen Negative (Negative) 02/14/22 06:17 Hep Bs Antibody NONREACTIVE (Nonreactive) 02/14/22 06:17 Hep B Core Total Ab Nonreactive (Nonreactive) 02/14/22 06:17 Hepatitis C Ab (EIA) Nonreactive (Nonreactive) 02/14/22 06:17 Influenza Type A (PCR) NEGATIVE (Negative) 02/05/22 08:54 Influenza Type B (PCR) NEGATIVE (Negative) 02/05/22 08:54 RSV RNA Qual (PCR) NEGATIVE (Negative) 02/05/22 08:54 SARS-CoV-2 RNA (RT-PCR) NEGATIVE (Negative) 02/05/22 08:54 JOSEPH, Polyspecific NEGATIVE 02/14/22 06:17 Positive JOSEPH Work-up TNP 02/14/22 06:17 Impressions Chest X-Ray 02/05/22 06:45 IMPRESSION: No acute pulmonary finding. Hip X-Ray 02/05/22 16:07 IMPRESSION: Osteopenia and degenerative changes. Lumbar Spine X-Ray 02/05/22 16:07 IMPRESSION: Multilevel degenerative changes. Abdomen Ultrasound 02/08/22 14:48 IMPRESSION: Gallstones. Bilateral renal cysts. Limited visualization of the pancreas. Abdomen/Pelvis CT 02/11/22 10:46 IMPRESSION: * No acute imaging abnormalities in the abdomen or pelvis. * Cholelithiasis without evidence of cholecystitis or biliary tract obstruction. * Diverticulosis of the sigmoid colon without diverticulitis. Hepatobiliary Scan Nuclear Medicine 02/13/22 16:00 Impression: Normal hepatobiliary scan. No biliary ductal obstruction with free spillage into the duodenum. There is filling within the gallbladder. Abdominal US with Dopplers 02/14/22 Patent visualized abdominal vasculature. No evidence to suggest venous thrombosis, whether hepatic venous or portal venous.? TTE 02/05/22 - The left ventricular systolic function is low normal.? The ? ? visually estimated ejection fraction is between 50-55%.? - Abnormal diastolic function is noted.? Elevated filling? pressures. ? - Mildly increased right ventricular cavity size.? There is mild to moderately decreased right ventricular systolic function. ? ? - The prosthetic aortic valve appears to be functioning? abnormally.? There is moderate calcification of the aortic valve. There is severe aortic valve stenosis. ? - There is moderate mitral valve regurgitation.? - There is moderate to severe tricuspid valve regurgitation. ? ? - The right ventricular systolic pressure is 80 mmHg.? Significantly elevated right atrial pressure.? Severe pulmonary? hypertension is present? - There is mild dilatation of the ascending aorta measuring 3.80 cm. ? Discharge Plan Discharge Patient Disposition: Home Health Service Discharge Diagnosis: CHF exacerbation, severe stenosis of prosthetic aortic valve, atrial fibrillation, cholestatic jaundice, gallstones Referrals: Srinath Li MD [Physician] - 2 Weeks Po,Cuate No MD [Primary Care Provider] - 1 Week Yossi Terrell MD [Physician] - 2 Weeks Discharge Medications: New torsemide 20 mg Tablet 20 mg PO DAILY Qty: 30 0RF Protocol: Hold for SBP< HOLD for SBP < : 90 warfarin [Jantoven] 4 mg Tablet 4 mg PO WeTh@1800 Qty: 30 0RF warfarin [Jantoven] 3 mg Tablet 3 mg PO SuMoTuFrSa@1800 Qty: 30 0RF Continued (DME) bra, mastectomy Crystals See Rx Instructions .Route Qty: 2 0RF Rx Instructions: As directed (DME) FreeStyle Lite Strips Strip MISCELLANEOUS Qty: 100 3RF Rx Instructions: As directed check the blood sugar once a day cyanocobalamin (vitamin B-12) 1,000 mcg capsule 1,000 mcg PO DAILY 90 Days Qty: 90 3RF cholecalciferol (vitamin D3) 25 mcg (1,000 unit) Tablet 25 mcg PO DAILY 0RF losartan 50 mg tablet 25 mg PO BID 0RF clonazepam 0.5 mg tablet 0.5 mg PO BEDTIME PRN (Reason: Sleep) 0RF metoprolol succinate 25 mg tablet extended release 24 hr 25 mg PO BEDTIME 0RF fluticasone propionate 50 mcg/actuation spray,suspension 2 spray intranasal DAILY PRN (Reason: Allergy Symptoms) 0RF Rx Instructions: administer into each nostril (DME) compress.stocking,knee,reg,lrg Misc See Rx Instructions .Route Qty: 2 0RF Rx Instructions: As directed 20-30 mm HG (DME) blood-glucose meter [FreeStyle Lite Meter] Kit See Rx Instructions .ROUTE .MEDSUPPLY Qty: 1 0RF Rx Instructions: As directed Discontinued warfarin 2.5 mg Tablet 2.5 mg PO SUTUTHSA@1800 0RF warfarin 5 mg Tablet 5 mg PO MOWEFR@1800 0RF furosemide [Lasix] 20 mg tablet 20 mg PO DAILY 0RF Discharge Orders: Discharge Order (Routine); Ordered 02/15/22 Ordered By: Sylvia Caicedo Diet: diabetic diet and low salt diet Activity on Discharge: As tolerated Stand Alone Forms: Patient Portal Discharge page Other Ambulatory Orders: Liver Panel (Routine) Timeframe: 1 Week Facility: [facility] - Location: Laboratory Ordered By: Sylvia Caicedo Prothrombin Time INR (Routine) Timeframe: 1 Day Facility: [facility] - Location: Laboratory Ordered By: Sylvia Caicedo Care Plan Goals: cardiac health Health Concerns: CHF exacerbation, cholestatic jaundice Plan of Treatment: change diuretic from furosemide 20 mg daily to torsemide 20 mg daily restrict sodium to 2000 mg per day weigh yourself daily; call doctor if weight goes up by 5 lb or more; return to hospital if you develop shortness of breath change warfarin dosing to: 4 mg daily Saturday and , 3 mg daily Saturday and Saturday and Saturday and Saturday and Saturday check PT/INR on 02/16/22 check LFTs in 1 week follow up with your primary care doctor in 1 week follow up with your junior systems engineer in 2 weeks. you will need cardiac catheterization and evaluation by the valvular heart disease team at [facility] for consideration of transcatheter aortic valve replacement follow up with food quality technician in 2 weeks consider surgery consultation for gallstones; follow low-fat diet Assessment: See Discharge Summary Patient Instructions: Heart Failure (DC), Gallstones (DC)
--- NOTE | 2022-02-15 13:41 | MHC.INPTTRAN ---
OOB with walker, has gen weakness. BP has been running low layne held this AM. INR today was 1.9 cont coumadin. Encouraged to limit sodium intake. and weigh herself daily. thanks
--- NOTE | 2022-02-15 14:18 | MHC.CM.PN ---
Patient has been medically cleared for dc to home today with services. A referral was made to REGINALDO, who has been made aware of today's dc. IMM addressed with Patient and original has been given to her and a copy has been placed on the chart.
[2022-02-16 14:06] LABS: Haptoglobin <8 mg/dL (43-212)
== END 2022-02-15 16:00 | disposition home health service (06) | DRG 291 ==
LOC: HO.ED 10:34 → HO.EDOVER 11:37 → HO.IMC 02-06 22:17
PROVIDERS: Internal Medicine; Nurse Practitioner Family; Admitting Provider Internal Medicine; Emergency Provider Emergency Medicine; PCP Internal Medicine; Visit Provider Family Medicine
DX: I11.0 Hypertensive heart disease with heart failure (principal); I50.33 Acute on chronic diastolic (congestive) heart failure; I48.20 Chronic atrial fibrillation, unspecified; Z68.41 Body mass index [BMI] 40.0-44.9, adult; D61.818 Other pancytopenia; T82.857A Stenosis of other cardiac prosthetic devices, implants and grafts, initial encounter; E66.01 Morbid (severe) obesity due to excess calories; I25.10 Atherosclerotic heart disease of native coronary artery without angina pectoris; I25.2 Old myocardial infarction; E11.9 Type 2 diabetes mellitus without complications; M19.90 Unspecified osteoarthritis, unspecified site; K80.20 Calculus of gallbladder without cholecystitis without obstruction; I27.22 Pulmonary hypertension due to left heart disease; I08.2 Rheumatic disorders of both aortic and tricuspid valves; Z20.822 Contact with and (suspected) exposure to COVID-19; Z28.310 Unvaccinated for COVID-19; D46.9 Myelodysplastic syndrome, unspecified; D63.8 Anemia in other chronic diseases classified elsewhere; R79.1 Abnormal coagulation profile; Z91.041 Radiographic dye allergy status; Z95.1 Presence of aortocoronary bypass graft; Z95.0 Presence of cardiac pacemaker; Z88.0 Allergy status to penicillin; Z88.2 Allergy status to sulfonamides; Z88.8 Allergy status to other drugs, medicaments and biological substances; Z79.51 Long term (current) use of inhaled steroids; Z79.01 Long term (current) use of anticoagulants; Z79.899 Other long term (current) drug therapy
CPT/HCPCS: 0241U; 36415; 71045; 72100; 73502; 74176; 76700; 78226; 80048; 80053; 80076; 82248; 83010; 83036; 83615; 83735; 83880; 84484; 85025; 85027; 85610; 85730; 86704; 86706; 86803; 86880; 87340; 93005; 93306; 93975; 96374; 96376; 99285; A9537; J1940

== ENCOUNTER → 2022-02-16 16:15 | Outpatient (BNVA) | payer MEDICARE, OTHER, SELFPAY | PROVIDERS: PCP Internal Medicine; Visit Provider Internal Medicine | DX: Z79.01 Long term (current) use of anticoagulants (principal) ==

== ENCOUNTER → 2022-02-19 16:30 | Outpatient (BNVA) | payer MEDICARE, OTHER, SELFPAY | PROVIDERS: PCP Internal Medicine; Visit Provider Internal Medicine | DX: I48.0 Paroxysmal atrial fibrillation (principal); Z79.01 Long term (current) use of anticoagulants; Z51.81 Encounter for therapeutic drug level monitoring | CPT/HCPCS: Q3014 ==

== ENCOUNTER → 2022-02-26 13:05 | Outpatient (BNVA) | payer MEDICARE, OTHER, SELFPAY | PROVIDERS: PCP Internal Medicine; Visit Provider Internal Medicine | DX: I48.0 Paroxysmal atrial fibrillation (principal); Z79.01 Long term (current) use of anticoagulants; Z51.81 Encounter for therapeutic drug level monitoring | CPT/HCPCS: Q3014 ==

== ENCOUNTER → 2022-03-01 13:48 | Outpatient (BNVA) | payer MEDICARE, OTHER, SELFPAY | PROVIDERS: PCP Internal Medicine; Visit Provider Internal Medicine | DX: I48.0 Paroxysmal atrial fibrillation (principal); I48.20 Chronic atrial fibrillation, unspecified; I50.33 Acute on chronic diastolic (congestive) heart failure; I25.10 Atherosclerotic heart disease of native coronary artery without angina pectoris; T82.857A Stenosis of other cardiac prosthetic devices, implants and grafts, initial encounter; R17 Unspecified jaundice; Z95.2 Presence of prosthetic heart valve; Z95.0 Presence of cardiac pacemaker; Z79.01 Long term (current) use of anticoagulants; Z51.81 Encounter for therapeutic drug level monitoring | CPT/HCPCS: 99211; 99212 ==

== ENCOUNTER → 2022-03-05 14:57 | Outpatient (BNVA) | payer MEDICARE, OTHER, SELFPAY | PROVIDERS: PCP Internal Medicine; Visit Provider Internal Medicine | DX: I48.0 Paroxysmal atrial fibrillation (principal); Z79.01 Long term (current) use of anticoagulants; Z51.81 Encounter for therapeutic drug level monitoring | CPT/HCPCS: Q3014 ==

== ENCOUNTER → 2022-03-14 11:50 | Outpatient (BNVA) | payer MEDICARE, OTHER, SELFPAY | PROVIDERS: PCP Internal Medicine; Visit Provider Internal Medicine | DX: I48.0 Paroxysmal atrial fibrillation (principal); Z79.01 Long term (current) use of anticoagulants; Z51.81 Encounter for therapeutic drug level monitoring | CPT/HCPCS: Q3014 ==

== ENCOUNTER 2022-03-15 10:04 | Outpatient (REF) | payer MEDICARE, OTHER, SELFPAY ==
[2022-03-15 10:24] LABS: MANUAL DIFF FLAG NO
[2022-03-15 10:59] LABS: Basophils Percent Auto 0.2 % (0-2); Eosinophils Percent Auto 0.2 % (0-4); Hematocrit 22.5 % (37.0-47.0); Hemoglobin 7.3 g/dl (12.0-16.0); Imm Gran Abs Auto 0.06 X10*3/uL (0.00-0.03); Imm Gran Pct Auto 1.2 % (0.0-0.4); Lymphocytes Absolute Auto 1.9 X10*3/uL (1.2-4.9); Lymphocytes Percent Auto 39.9 % (20-40); Mean Corpuscular HGB Conc 32.4 g/dl (31.0-35.0); Mean Corpuscular Hemoglobin 39.7 pg (27.0-33.0); Mean Platelet Volume 12.9 fL (9.4-12.3); Monocytes Absolute Auto 0.6 X10*3/uL (0.1-1.2); Monocytes Percent Auto 12.3 % (2-11); Neutrophils Absolute Auto 2.2 x10*3/uL (2.0-8.3); Neutrophils Percent Auto 46.2 % (45-73); Platelet Count 106 X10*3/uL (160-400); Red Blood Count 1.84 X10*6/uL (4.20-5.50); Red Cell Distribution Width 21.3 % (11.0-16.0); White Blood Count 4.9 X10*3/uL (4.8-10.8)
[2022-03-15 11:00] LABS: INTERNATIONAL NORM RATIO 3.5 (0.9-1.1); Prothrombin Time 42.3 SEC (10.0-13.1)
[2022-03-15 11:03] LABS: Mean Corpuscular Volume 122.3 fL (80.0-98.0); NRBC Pct Auto 6.6 /100WBC (0.0-0.2)
[2022-03-15 11:22] LABS: B Type Natriuretic Peptide 582 pg/mL (<100)
[2022-03-15 11:31] LABS: Bilirubin Direct 1.7 mg/dL (0.0-0.5)
[2022-03-15 11:38] LABS: Alanine Aminotransferase 13 U/L (0-31); Albumin Level 3.5 g/dL (3.5-5.0); Alkaline Phosphatase 92 U/L (39-117); Anion Gap 13 (12-20); Aspartate Amino Transferase 29 U/L (5-31); Bilirubin Total 2.6 mg/dL (0.0-1.0); Blood Urea Nitrogen 39 mg/dL (9-16); Calcium 8.2 mg/dL (8.4-10.2); Carbon Dioxide 21 mmol/L (22-29); Chloride 102 mmol/L (96-108); Estimated Glomerular Filt Rate 32; Glucose Random 131 mg/dL (60-115); Iron 125 mcg/dL (30-160); Percent Iron Saturation 42 % (15-50); Potassium 4.4 mmol/L (3.3-5.1); Sodium 132 mmol/L (135-145); Total Iron Binding Capacity 295 mcg/dL (228-428); Total Protein 6.7 g/dL (6.5-8.0); Unsaturated Iron Binding 170 ug/dL
[2022-03-15 11:48] LABS: Free T4 (Free Thyroxine) 1.01 ng/dL (0.71-1.85)
[2022-03-15 11:52] LABS: Ferritin 378 ng/mL (10-250); Thyroid Stimulating Hormone 3.04 uIU/mL (0.32-4.0)
[2022-03-17 22:22] LABS: Prot Elec - Albumin 3.5 g/dL (3.8-4.8); Prot Elec - Alpha1 0.4 g/dL (0.2-0.3); Prot Elec - Alpha2 0.5 g/dL (0.5-0.9); Prot Elec - Beta 1 0.4 g/dL (0.4-0.6); Prot Elec - Beta 2 0.3 g/dL (0.2-0.5); Prot Elec - Gamma 1.6 g/dL (0.8-1.7); Prot Elec - Total Protein 6.6 g/dL (6.1-8.1)
[2022-03-20 21:52] LABS: Smooth Muscle Antibody <20 U (<20)
== END 2022-03-15 10:05 | disposition home or self-care (01) ==
LOC: HO.LAB 10:04
PROVIDERS: Absent Provider Nurse Practitioner Family; PCP Internal Medicine; Visit Provider Nurse Practitioner Family
DX: Z13.89 Encounter for screening for other disorder (principal)
CPT/HCPCS: 36415; 80053; 82248; 82728; 83540; 83880; 84165; 84439; 84443; 85025; 85610; 86015

== ENCOUNTER 2022-03-15 18:29 | Emergency (ER) | payer MEDICARE, OTHER, SELFPAY ==
[2022-03-15] VITALS (7 sets, daily range): BP systolic 96–112; BP diastolic 20–56; PULSE 65–66; RESP 18–25; TEMP 36.7–37.1; O2SAT 96–100; BMI 34.0
--- NOTE | ~2022-03-15 | XR_ITS ---
EXAMINATION: XR CHEST CLINICAL INFORMATION: Evaluate fluid status COMPARISON: Chest x-ray 02/05/2022 TECHNIQUE: 2 views of the chest were obtained. FINDINGS: Minimal subsegmental atelectasis at left lung base. No airspace consolidation. No appreciable pleural effusion. No pneumothorax. Cardiac silhouette is mildly enlarged. Left-sided pacer with lead tip projecting over the right ventricle noted. Status post median sternotomy. No findings of pulmonary edema. No acute osseous injury. Multilevel degenerative disc disease. Mild anterior wedging of a upper thoracic vertebral body noted. XR/XR chest 2V IMPRESSION: 1. Mild cardiomegaly. No evidence pulmonary edema or pleural effusions.
[2022-03-15 20:03] LABS: OBS Int Ctl Valid YES; OBS1 NEGATIVE (NEGATIVE)
--- NOTE | 2022-03-15 20:03 | ED.RECABL ---
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 hypertension, hypercholesterolemia, coronary artery disease, s/p pacemaker, HFpEF last of 01/2022 EF 50-55%, she on torsemide 20 mg daily here with reports of abnormal labs. Patient tells me that she was admitted 02/05-02/15 for congestive heart failure, elevated lfts. She tells me that her breathing has been at baseline. Her weight has been steady between 180 and 185. She denies any cough or increase in leg swelling. She reports she had follow-up today with her primary care doctor and had labs done. This was also a preop visit for a cardiac catheterization which is planned for next week. Patient is prepping to have her aortic valve replaced. Overall she is feeling status quo Patient denies any black or bloody stools. Related Data Home Medications Medication Instructions Recorded Confirmed cholecalciferol (vitamin D3) 25 25 mcg PO DAILY 02/05/22 03/15/22 mcg (1,000 unit) tablet clonazepam 0.5 mg tablet 0.5 mg PO BEDTIME PRN Sleep 02/05/22 03/15/22 fluticasone propionate 50 2 spray intranasal DAILY PRN 02/05/22 03/15/22 mcg/actuation nasal Allergy Symptoms spray,suspension warfarin 5 mg tablet (Jantoven) 5 mg PO DAILY 02/16/22 03/14/22 lidocaine 5 % topical patch 1 patch topical DAILY PRN 03/01/22 03/15/22 Previous Rx's Medication Instructions Recorded compress.stocking,knee,reg,lrg #2 ea 05/30/21 mastectomy bra (bra, mastectomy) #2 ea 06/21/21 blood-glucose meter (FreeStyle #1 ea 12/08/21 Lite Meter) blood sugar diagnostic (FreeStyle #100 ea 01/22/22 Lite Strips) cyanocobalamin (vitamin B-12) 1,000 mcg PO DAILY 90 days #90 caps 01/29/22 1,000 mcg capsule tramadol 50 mg tablet 50 mg PO BEDTIME #30 tabs 02/23/22 losartan 50 mg tablet 50 mg PO DAILY #30 tabs 03/06/22 metoprolol succinate 25 mg 25 mg PO DAILY #30 tabs 03/06/22 tablet,extended release 24 hr torsemide 20 mg tablet 20 mg PO DAILY #30 tabs 03/06/22 diphenhydramine HCl 25 mg capsule 25 mg PO BEDTIME sleep 2 days #3 03/12/22 (Benadryl) caps famotidine 20 mg tablet (Pepcid) 20 mg PO BID 2 days #3 tabs 03/12/22 prednisone 20 mg tablet 20 mg PO BID 2 days #3 tabs 03/12/22 enoxaparin 120 mg/0.8 mL 120 mg (0.8 mL) subcut DAILY 8 03/14/22 subcutaneous syringe (Lovenox) days #6.4 mL capsaicin 0.1 % topical cream 1 appl topical BID #42.5 grams 03/15/22 Allergies Allergy/AdvReac Type Severity Reaction Status Date / Time ezetimibe [Zetia] Allergy Intermediate Unknown Verified 03/15/22 08:42 lisinopril Allergy Mild Unknown Verified 03/15/22 08:42 meperidine [From Demerol] Allergy Mild UNKNOWN Verified 03/15/22 08:42 nitrofurantoin Allergy Mild UNKNOWN Verified 03/15/22 08:42 [From Macrodantin] Penicillins Allergy Mild UNKNOWN Verified 03/15/22 08:42 Sulfa (Sulfonamide Allergy Mild UNKNOWN Verified 03/15/22 08:42 Antibiotics) [place] Syrup Allergy Unknown Unknown Verified 03/15/22 08:42 Iodinated Contrast Media Allergy Unknown ?RASH Verified 03/15/22 08:42 [IV CONTRAST] statin Allergy Unknown unknown Verified 03/15/22 08:42 acetaminophen [From PERCOCET] AdvReac Intermediate SEEING Verified 03/15/22 08:42 THINGS AFTER PERCOCET THAT WERE NOT THERE Review of Systems Review of Systems: Yes all other systems are reviewed and are negative Constitutional: Constitutional: Reports no additional constitutional complaints, Denies body ache(s), Denies chills, Denies fever(s), Denies headache(s) and Reports weakness (Chronic) Eyes: Eyes: Reports no additional eye complaints and Denies change in vision ENT: Reports system reviewed and no additional complaints, except as documented, Denies dizziness, Denies headache(s), Denies nasal congestion, Denies nasal discharge and Denies neck pain Cardiovascular: Cardiovascular: Reports no additional cardiovascular complaints, Denies chest pain, Reports leg edema (Chronic) and Reports dyspnea (Chronic) Respiratory: Respiratory: Reports no additional respiratory complaints, Denies cough and Reports dyspnea (Chronic) Gastrointestinal: Gastrointestinal: Reports no additional gastrointestinal complaints, Denies abdominal pain, Denies diarrhea, Denies nausea and Denies vomiting Genitourinary: Genitourinary: Reports no additional female genitourinary complaints and Denies urinary incontinence Musculoskeletal: Musculoskeletal: Reports no additional musculoskeletal complaints, Denies back pain, Denies arthralgias, Denies joint swelling, Denies neck pain, Denies numbness and Denies tingling Integumentary/Breasts: Skin/Breast: Reports system reviewed and no additional complaints, except as docu and Denies rash Neurologic: Reports system reviewed and no additional complaints, except as documented, Denies Abnormal speech present, Denies dizziness, Denies headache(s), Denies numbness, Denies tingling and Reports weakness (Chronic) [facility], [facility] Past Medical History Attestation statement: The following information was validated with the patient. Source: old records reviewed and nursing notes reviewed Medical History Acute cholecystitis Anemia Anxiety Ascending aorta dilatation Atrial fibrillation Chest discomfort Cholelithiases Chronic atrial fibrillation Complete heart block Congestive heart failure Elevated bilirubin Gallstones Gastric ulcer History of breast cancer Hypercholesterolemia Hypertension Morbid obesity Osteoarthritis of knee Pancytopenia Prosthetic aortic valve stenosis Prosthetic valve dysfunction Stenosis of prosthetic aortic valve Type 2 diabetes mellitus with hyperglycemia Vitamin D deficiency Surgical History History of bilateral mastectomy History of pacemaker History of surgery on left wrist History of tonsillectomy Family History Family History Father CVD (cardiovascular disease) Mother Stroke Social History Social History Household Members: Children Housing: House Are you a primary laboratory animal care veterinarian to a significant other at home: No Do you presently have visiting nurse or other home services: No Alcohol intake: never Patient Tobacco Use Status: Never used Tobacco e-Cigarette/Vaping Use: Never Used Second Hand Smoke Exposure: Yes Advance Directives: No Advance Directives Information Provided: No service: No Current occupational status: retired Cognitive needs: Yes Hearing needs: Yes Vision needs: Yes Physical Exam Vital Signs: Vital Signs: Last Vital Signs Pulse 65 03/15/22 20:36 Resp 20 03/15/22 20:36 BP 99/56 L 03/15/22 20:36 Pulse Ox 96 03/15/22 20:36 O2 Del Method 03/15/22 20:36 BMI result Body Mass Index 34.0 Const: General: cooperative, healthy appearing, comfortable and no acute distress Orientation/consciousness: patient oriented x3 Limitations: no limitations HEENT: Head: Yes normal to inspection Ears: hearing grossly normal bilaterally General nose exam: Normal external nose present Face and sinus: Yes normal facial exam Mouth: Normal oral and palatal mucosa present Throat: Yes posterior oropharynx normal Eyes: General: appearance normal, both eyes and all related structures Pupils: Equal, round and reactive pupils present Neck: Neck: Yes normal visual inspection Chest: Chest palpation & inspection: normal inspection of the chest Resp: Effort & Inspection: normal respiratory effort Auscultation: clear to auscultation bilaterally Cardio: Rate: regular rate Rhythm: regular rhythm Peripheral pulses: Peripheral pulses 2+ throughout GI: Other: Brown stool on rectal exam. Heme negative Inspection: Yes normal to inspection Palpation (GI): Soft to palpation and nontender Auscultation: normal bowel sounds Back/Spine/Pelvis: Thoracic/Lumbar Spine: thoracic and lumbar spine normal to inspection Skin: General skin exam: no rashes or lesions noted Neuro: General: patient oriented x3, no focal motor deficits and normal sensation to monofilament Cranial nerves: Yes Equal, round and reactive pupils present Cognition (Neuro): normal cognition Speech: No Abnormal speech present Gait exam (Neuro): Normal gait present Motor exam (neuro): 5/5 motor strength present throughout Extrem: General: Yes normal to inspection, Yes no calf tenderness and Yes edema (2+ nonpitting) Course Reevaluation(s) Reevaluation #1: 2044-blood pressure 99/56. This is patient's baseline. Asymptomatic. Hemoglobin today 7.6, hematocrit 22.5. Baseline hemoglobin for patient is between 8-9. Her baseline hematocrit is between 25-28. Patient has underlying CAD/CHF, aortic valve stenosis. D/w with cardiology chief of field operations Dr. Pyle who recommended transfusion of 1 unit and admission overnight for observation. Type and screen ordered. Will check chest x-ray and EKG for baseline. COVID screen ordered for admission. Patient consented for 1 unit of PRBC. Requesting topical capsaicin which she uses for her chronic back pain/spasms Reevaluation #2: Spoke to Medicine team (dr Ghosh). At this point they do not believe that admission is warranted. They will discuss with Cardiology. Sign-out to Freya ARIZA pending disposition, CXR, additional labs, transfusion. Time: 21:00 Reevaluation #3: Spoke to medicine, cardiology and attending physician. Plan for patient to receive one unit of PRBC, followed by 40mg IV lasix then discharge home with clinically patient appears well. MDM - Recheck/Abnormal Lab/Rx MDM Narrative Medical decision making narrative: This is an 81-year-old female with an extensive medical history sent in from her primary care doctor with low hemoglobin and hematocrit. Patient was at her primary care doctor as a follow-up from a recent admission for congestive heart failure as well as preop for her cardiac catheterization next week in anticipation for a aortic valve replacement. Patient tells me she shortness of breath, weakness at baseline. She does not feel like the symptoms are worse. She denies any black or bloody stools or bleeding. She is on Coumadin. Will check occult stool, obtain labs Echo reviewed from 02/05/2022 which shows EF 50-55%. Severe aortic valve stenosis. Moderate mitral valve regurg. Moderate to severe tricuspid valve regurg. Medical Records Attestation: I reviewed the patient's medical records. Lab Data Attestation: I reviewed the patient's lab results. Result diagrams: 03/15/22 19:45 03/15/22 19:45 Labs: Lab Results 03/15/22 03/15/22 03/15/22 Range/Units 19:45 19:45 19:47 WBC 5.9 (4.8-10.8) X10*3/uL RBC 1.86 L (4.20-5.50) X10*6/uL Hgb 7.6 L (12.0-16.0) g/dl Hct 22.5 L (37.0-47.0) % MCV 121.0 H (80.0-98.0) fL MCH 40.9 H (27.0-33.0) pg MCHC 33.8 (31.0-35.0) g/dl RDW 22.0 H (11.0-16.0) % Plt Count 117 L (160-400) X10*3/uL MPV Not Reportable Immature Gran % (Auto) 4.3 H (0.0-0.4) % Neut % (Auto) 54.9 (45-73) % Lymph % (Auto) 28.4 (20-40) % [place] % (Auto) 12.0 H (2-11) % Eos % (Auto) 0.2 (0-4) % Baso % (Auto) 0.2 (0-2) % Lymph # (Auto) 1.7 (1.2-4.9) X10*3/uL [place] # (Auto) 0.7 (0.1-1.2) X10*3/uL Eos # (Auto) 0.0 (0.0-0.4) X10*3/uL Baso # (Auto) 0.0 (0.0-0.2) X10*3/uL Abs Immat Gran (auto) 0.25 H (0.00-0.03) X10*3/uL Absolute Neuts (auto) 3.2 (2.0-8.3) x10*3/uL Absolute Nucleated RBC 0.430 H (0.0-0.012) X10*3/uL Nucleated RBC % (auto) 7.4 H (0.0-0.2) /100WBC Smear Tech's Comments VERIFIED PT 45.3 H (10.0-13.1) SEC INR 3.7 H (0.9-1.1) Stool Occult Blood NEGATIVE (NEGATIVE) ECG Data Attestation: I personally reviewed and interpreted this ECG as follows: ECG interpretation date: 03/15/22 ECG interpretation time: 20:53 Interpretation: Ventricular paced rhythm unchanged from previous. Rate of 65. Normal QRS, normal QT Discharge Plan Discharge Clinical Impression: Anemia Patient Disposition: Still a Patient Instructions: Anemia (ED) Additional Instructions: Follow up with your steel barrel reamer and PCP outpatient. Repeat CBC within a week. Return for black or bloody stools, difficulty breathing, chest pain Prescriptions: No Action (DME) bra, mastectomy Crystals See Rx Instructions .Route Qty: 2 0RF Rx Instructions: As directed (DME) FreeStyle Lite Strips Strip MISCELLANEOUS Qty: 100 3RF Rx Instructions: As directed check the blood sugar once a day cyanocobalamin (vitamin B-12) 1,000 mcg capsule 1,000 mcg PO DAILY 90 Days Qty: 90 3RF tramadol 50 mg tablet 50 mg PO BEDTIME Qty: 30 0RF metoprolol succinate 25 mg tablet extended release 24 hr 25 mg PO DAILY Qty: 30 5RF torsemide 20 mg tablet 20 mg PO DAILY Qty: 30 5RF Rx Instructions: off lasix losartan 50 mg tablet 50 mg PO DAILY Qty: 30 5RF prednisone 20 mg tablet 20 mg PO BID 2 Days Qty: 3 0RF Rx Instructions: Take one tablet the morning of Day Before cardiac cath. Take one tablet the evening of Day Before cardiac cath. Take one tablet the morning of the cardiac cath. famotidine [Pepcid] 20 mg tablet 20 mg PO BID 2 Days Qty: 3 0RF Rx Instructions: Take one tablet the morning of Day Before cardiac cath. Take one tablet the evening of Day Before cardiac cath. Take one tablet the morning of the cardiac cath. diphenhydramine HCl [Benadryl] 25 mg capsule 25 mg PO BEDTIME 2 Days Qty: 3 0RF Rx Instructions: Take one tablet the morning of Day Before cardiac cath. Take one tablet the evening of Day Before cardiac cath. Take one tablet the morning of the cardiac cath. enoxaparin [Lovenox] 120 mg/0.8 mL syringe 120 mg subcut DAILY 8 Days Qty: 6.4 1RF Rx Instructions: One injection daily while coumadin on hold preprocedure and then one injection daily (along with coumadin) post procedure, until INR reaches 2 cholecalciferol (vitamin D3) 25 mcg (1,000 unit) Tablet 25 mcg PO DAILY clonazepam 0.5 mg tablet 0.5 mg PO BEDTIME PRN (Reason: Sleep) fluticasone propionate 50 mcg/actuation spray,suspension 2 spray intranasal DAILY PRN (Reason: Allergy Symptoms) Rx Instructions: administer into each nostril (DME) compress.stocking,knee,reg,lrg Misc See Rx Instructions .Route Qty: 2 0RF Rx Instructions: As directed 20-30 mm HG (DME) blood-glucose meter [FreeStyle Lite Meter] Kit See Rx Instructions .ROUTE .MEDSUPPLY Qty: 1 0RF Rx Instructions: As directed warfarin [Septoven] 5 mg tablet 5 mg PO DAILY Protocol: Dose Management Condition: Saturday (Week One) Dose/Route: 2.5 mg Instruction: 0.5 x 5 mg milliliters Condition: Saturday Dose/Route: 5 mg Instruction: 1 x 5 mg milliliter Condition: Saturday Dose/Route: 2.5 mg Instruction: 0.5 x 5 mg milliliters Condition: Saturday Dose/Route: 2.5 mg Instruction: 0.5 x 5 mg milliliters Condition: Dose/Route: 5 mg Instruction: 1 x 5 mg milliliter Condition: Saturday Dose/Route: 2.5 mg Instruction: 0.5 x 5 mg milliliters Condition: Saturday Dose/Route: 2.5 mg Instruction: 0.5 x 5 mg milliliters Condition: Saturday (Week Two) Dose/Route: 2.5 mg Instruction: 0.5 x 5 mg milliliters Condition: Saturday Dose/Route: 0 mg Instruction: 0 milliliters Condition: Saturday Dose/Route: 0 mg Instruction: 0 milliliters Condition: Saturday Dose/Route: 0 mg Instruction: 0 milliliters Condition: Dose/Route: 0 mg Instruction: 0 milliliters Condition: Saturday Dose/Route: 0 mg Instruction: 0 milliliters Condition: Saturday Dose/Route: 2.5 mg Instruction: 0.5 x 5 mg milliliters Protocol Text: Adjustment Start Date: Saturday03/09/22 INR Value: 2.4 INR Date: 03/09/22 Recheck Date: 03/20/22 Additional Instructions: CONTINUE ON WARFARIN NOW -SATURDAY STOP WARFARIN SAT START LOVENOX PER MD ORDERS SATURDAY LAST DOSE OF LOVENOX SATURDAY RESUME WARFARIN AND LOVENOX PER MD ORDERS AFTER PROCEDURE lidocaine 5 % adhesive patch,medicated 1 patch topical DAILY PRN Rx Instructions: leave on most painful area for up to 12 hrs capsaicin 0.1 % cream 1 appl topical BID Qty: 42.5 0RF Rx Instructions: do not wash area for at least 30 min after application Referrals: Yoandy Bolton MD [Physician] - 1 week
[2022-03-15 20:08] LABS: Basophils Percent Auto 0.2 % (0-2); Eosinophils Percent Auto 0.2 % (0-4); Hemoglobin 7.6 g/dl (12.0-16.0); INTERNATIONAL NORM RATIO 3.7 (0.9-1.1); Prothrombin Time 45.3 SEC (10.0-13.1); SCAN SMEAR FLAG 1
[2022-03-15 20:10] LABS: Hematocrit 22.5 % (37.0-47.0); Imm Gran Abs Auto 0.25 X10*3/uL (0.00-0.03); Imm Gran Pct Auto 4.3 % (0.0-0.4); Lymphocytes Absolute Auto 1.7 X10*3/uL (1.2-4.9); Lymphocytes Percent Auto 28.4 % (20-40); MANUAL DIFF FLAG SCAN; Mean Corpuscular HGB Conc 33.8 g/dl (31.0-35.0); Mean Corpuscular Hemoglobin 40.9 pg (27.0-33.0); Monocytes Absolute Auto 0.7 X10*3/uL (0.1-1.2); Neutrophils Absolute Auto 3.2 x10*3/uL (2.0-8.3); Neutrophils Percent Auto 54.9 % (45-73); PLT CLUMP 1; Red Blood Count 1.86 X10*6/uL (4.20-5.50)
[2022-03-15 20:25] LABS: NRBC Pct Auto 7.4 /100WBC (0.0-0.2); PLT ABN DIST 1
[2022-03-15 20:26] LABS: Platelet Count 117 X10*3/uL (160-400); White Blood Count 5.9 X10*3/uL (4.8-10.8)
[2022-03-15 20:28] LABS: SLIDE REVIEW VERIFIED
--- NOTE | 2022-03-15 20:44 | ECG_ITS ---
Test Reason : ABNORMAL LABS Blood Pressure : / mmHG Vent. Rate : 065 BPM Atrial Rate : 067 BPM P-R Int : 000 ms QRS Dur : 162 ms QT Int : 488 ms P-R-T Axes : 000 -65 128 degrees QTc Int : 507 ms Ventricular-paced rhythm Abnormal ECG When compared with ECG of 05-FEB-2022 06:05, Premature ventricular complexes are no longer Present Referred By: Laura Escalera Electronically Signed By:RICKEY MIMS
--- NOTE | 2022-03-15 21:40 | PHA.MEDREC ---
Pharmacy Consult ? Medication Reconciliation Pharmacy has completed the medication reconciliation. Spoke with patient in the ED. Furosemide switched to torsemide. not on tramadol. lovenox famotidine and prednisone were to be given before her cardiac procedure next week.
[2022-03-15 21:46] LABS: COVID-19 Test Negative (Negative); IDNOW Serial# 55D5AD1C
[2022-03-15 21:46] LABS: Alanine Aminotransferase 14 U/L (0-31); Albumin Level 3.7 g/dL (3.5-5.0); Alkaline Phosphatase 100 U/L (39-117); Anion Gap 15 (12-20); Aspartate Amino Transferase 29 U/L (5-31); Bilirubin Direct 1.8 mg/dL (0.0-0.5); Bilirubin Total 2.9 mg/dL (0.0-1.0); Blood Urea Nitrogen 40 mg/dL (9-16); Calcium 8.2 mg/dL (8.4-10.2); Carbon Dioxide 24 mmol/L (22-29); Chloride 99 mmol/L (96-108); Creatinine Clr Calc Pharmacy 27.1; Estimated Glomerular Filt Rate 33; Glucose Random 127 mg/dL (60-115); Potassium 4.5 mmol/L (3.3-5.1); Sodium 133 mmol/L (135-145); Total Protein 7.1 g/dL (6.5-8.0)
[2022-03-15] MEDS: Capsaicin 0.025% Cream 60 GM TUBE 1 APPL TOPICAL (21:46)
[2022-03-16 00:14] VITALS: BP 104/61; PULSE 65; RESP 26; TEMP 37.1
--- NOTE | 2022-03-16 00:14 | PC.NURSE ---
Blood transfusion completed, no reaction noted. VSS. Will monitor closely.
[2022-03-16 01:14] VITALS: BP 97/25; PULSE 65; RESP 16; TEMP 36.8; O2SAT 98
[2022-03-16 01:42] VITALS: BP 108/87; PULSE 65
[2022-03-16] MEDS: Furosemide 40 MG/4 ML VIAL IVPUSH (01:56)
[2022-03-16] MEDS: Acetaminophen 325 MG TABLET 650 MG PO (02:12)
[2022-03-16 02:50] VITALS: BP 105/48; PULSE 65; RESP 17; O2SAT 97
[2022-03-16 04:05] VITALS: BP 95/41; PULSE 66; RESP 18; O2SAT 96
[2022-03-16 04:11] VITALS: BP 109/60
== END 2022-03-16 04:39 | disposition home or self-care (01) ==
PROVIDERS: Nurse Practitioner Family; Emergency Provider Emergency Medicine; PCP Internal Medicine
DX: D64.9 Anemia, unspecified (principal); N17.9 Acute kidney failure, unspecified; R06.02 Shortness of breath; R60.0 Localized edema; R53.1 Weakness; I11.0 Hypertensive heart disease with heart failure; I50.33 Acute on chronic diastolic (congestive) heart failure; E11.9 Type 2 diabetes mellitus without complications; I48.20 Chronic atrial fibrillation, unspecified; E78.00 Pure hypercholesterolemia, unspecified; E80.4 Gilbert syndrome; F41.1 Generalized anxiety disorder; Z95.0 Presence of cardiac pacemaker; Z95.2 Presence of prosthetic heart valve; Z95.1 Presence of aortocoronary bypass graft; Z85.3 Personal history of malignant neoplasm of breast; Z90.13 Acquired absence of bilateral breasts and nipples; Z79.01 Long term (current) use of anticoagulants
CPT/HCPCS: 36415; 36430; 71046; 80048; 80053; 80076; 82248; 82272; 82728; 83540; 83880; 84165; 84439; 84443; 85025; 85610; 86015; 86850; 86900; 86901; 86923; 87635; 93005; 96374; 99202; 99285; J1940; P9016

== ENCOUNTER → 2022-03-20 09:50 | Outpatient (BNVA) | payer MEDICARE, OTHER, SELFPAY | PROVIDERS: PCP Internal Medicine; Visit Provider Internal Medicine | DX: Z79.01 Long term (current) use of anticoagulants (principal) | CPT/HCPCS: Q3014 ==

== ENCOUNTER 2022-03-20 17:08 | Observation (INO) | payer MEDICARE, OTHER, SELFPAY ==
--- NOTE | ~2022-03-20 | US_ITS ---
EXAMINATION: US ABDOMEN LIMITED CLINICAL INFORMATION: Back pain with history of cholelithiasis. COMPARISON: CT abdomen pelvis 02/11/2022, ultrasound abdomen 02/08/2022, hepatobiliary scan 02/13/2022 TECHNIQUE: Real-time imaging of the gallbladder and common bile duct. FINDINGS: A single mobile 2.1 cm stone is present in the gallbladder. The gallbladder wall is not thickened. No pericholecystic fluid is seen. Knowles's sign is negative. A gallbladder wall polyp measuring 4 x 4 by 3 x 3 mm is present. The common bile duct measures 0.2 cm. US/US abdomen limited IMPRESSION: Cholelithiasis without evidence of cholecystitis similar to all prior studies
--- NOTE | ~2022-03-20 | XR_ITS ---
EXAMINATION: XR CHEST CLINICAL INFORMATION: Shortness of breath COMPARISON: 03/15/2022 TECHNIQUE: Frontal view of the chest was obtained. FINDINGS: No focal consolidation, pleural effusion or pneumothorax. Similar-appearing bibasilar atelectasis. Cardiomegaly. Left chest pacer with lead projecting over the left ventricle. Median sternotomy wires. Multiple EKG leads project over the chest. No acute osseous abnormality. XR/XR chest 1V IMPRESSION: No significant interval change to the appearance of the chest demonstrating cardiomegaly and postsurgical changes.
[2022-03-20 17:17] VITALS: BP 107/86; BP 90/60; PULSE 60; PULSE 95; RESP 20; TEMP 36.7; O2SAT 97; BMI 36.6
--- NOTE | 2022-03-20 17:25 | ED.BACK ---
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 hypertension, hypercholesterolemia, coronary artery disease, s/p pacemaker, HFpEF last of 01/2022 EF 50-55%, she on torsemide 20 mg daily presents for right-sided back pain that radiates to the right shoulder. She does have known gallstone and needs to follow up with surgery as an outpatient. She did speak to her primary care physician who advised her to come into the emergency department for evaluation. She does report some abnormal bruising, but does not report any fevers or chills. Does not report trauma or falls. She does have a cardiac catheterization planned for Saturday MD elicited complaint: back pain Pertinent past history: prior back pain Onset (ago): day(s) Timing: constant Severity: moderate Pain scale (0-10): 6 Similar Symptoms Previously: Yes Quality: sharp, stabbing and aching Location: right upper back Radiation: none Exacerbating factors: movement Relieving factors: none Associated symptoms: denies other symptoms Work related injury: No Related Data Home Medications Medication Instructions Recorded Confirmed cholecalciferol (vitamin D3) 25 25 mcg PO DAILY 02/05/22 03/20/22 mcg (1,000 unit) tablet clonazepam 0.5 mg tablet 0.5 mg PO BEDTIME PRN Sleep 02/05/22 03/20/22 fluticasone propionate 50 2 spray intranasal DAILY PRN 02/05/22 03/20/22 mcg/actuation nasal Allergy Symptoms spray,suspension warfarin 5 mg tablet (Jantoven) 5 mg PO DAILY 02/16/22 03/20/22 metoprolol succinate 25 mg 25 mg PO BEDTIME 03/15/22 03/20/22 tablet,extended release 24 hr warfarin 5 mg tablet 2.5 mg PO SUTUTHSA@1800 03/15/22 03/20/22 warfarin 5 mg tablet 5 mg PO MOWEFR@1800 03/15/22 03/20/22 diphenhydramine HCl 25 mg capsule 0 mg PO 03/20/22 03/20/22 (Wal-Dryl Allergy) Previous Rx's Medication Instructions Recorded compress.stocking,knee,reg,lrg #2 ea 05/30/21 mastectomy bra (bra, mastectomy) #2 ea 06/21/21 blood-glucose meter (FreeStyle #1 ea 12/08/21 Lite Meter) blood sugar diagnostic (FreeStyle #100 ea 01/22/22 Lite Strips) cyanocobalamin (vitamin B-12) 1,000 mcg PO DAILY 90 days #90 caps 01/29/22 1,000 mcg capsule losartan 50 mg tablet 50 mg PO DAILY #30 tabs 03/06/22 torsemide 20 mg tablet 20 mg PO DAILY #30 tabs 03/06/22 famotidine 20 mg tablet (Pepcid) 20 mg PO BID 2 days #3 tabs 03/12/22 prednisone 20 mg tablet 20 mg PO BID 2 days #3 tabs 03/12/22 enoxaparin 120 mg/0.8 mL 120 mg subcut DAILY 8 days #6.4 mL 03/14/22 subcutaneous syringe (Lovenox) capsaicin 0.1 % topical cream 1 appl topical BID #42.5 grams 03/15/22 cyclobenzaprine 5 mg tablet 5 mg PO TID PRN muscle spasm #30 03/20/22 tabs Allergies Allergy/AdvReac Type Severity Reaction Status Date / Time ezetimibe [Zetia] Allergy Intermediate Unknown Verified 03/20/22 12:11 lisinopril Allergy Mild Unknown Verified 03/20/22 12:11 meperidine [From Demerol] Allergy Mild UNKNOWN Verified 03/20/22 12:11 nitrofurantoin Allergy Mild UNKNOWN Verified 03/20/22 12:11 [From Macrodantin] Penicillins Allergy Mild UNKNOWN Verified 03/20/22 12:11 Sulfa (Sulfonamide Allergy Mild UNKNOWN Verified 03/20/22 09:51 Antibiotics) [place] Syrup Allergy Unknown Unknown Verified 03/20/22 09:51 Iodinated Contrast Media Allergy Unknown ?RASH Verified 03/20/22 12:11 [IV CONTRAST] statin Allergy Unknown unknown Verified 03/20/22 12:11 acetaminophen [From PERCOCET] AdvReac Intermediate SEEING Verified 03/20/22 12:11 THINGS AFTER PERCOCET THAT WERE NOT THERE Review of Systems Review of Systems: Constitutional: No Fever, No Chills ENT/Mouth: No Ear Pain, No Hoarseness, No sore throat Eyes: No Eye Pain, No Swelling, No Redness, No Foreign Body Cardiovascular: No Chest Pain, No SOB Respiratory: No Cough, No Dyspnea Gastrointestinal: No Nausea, No Vomiting, No Diarrhea, No abdominal Pain Genitourinary: No Dysuria, No Hematuria Musculoskeletal: positive right shoulder and back pain, No Myalgias, No Joint Swelling Skin: No Skin lacerations, No rash Neuro: No Weakness, No Numbness, No Paresthesias, No Loss of Consciousness, No Dizziness, No Headache Psych: No Anxiety/Panic, No Depression Heme/Lymph: Positive easy bruising, no Lymphadenopathy Endocrine: No Polyuria, No Polydipsia Yes all other systems are reviewed and are negative [facility] Past Medical History Attestation statement: The following information was validated with the patient. Source: old records reviewed Medical History Acute cholecystitis Anemia Anxiety Ascending aorta dilatation Atrial fibrillation Chest discomfort Cholelithiases Chronic atrial fibrillation Complete heart block Congestive heart failure Elevated bilirubin Gallstones Gastric ulcer History of breast cancer Hypercholesterolemia Hypertension Morbid obesity Osteoarthritis of knee Pancytopenia Prosthetic aortic valve stenosis Prosthetic valve dysfunction Stenosis of prosthetic aortic valve Type 2 diabetes mellitus with hyperglycemia Vitamin D deficiency Surgical History History of bilateral mastectomy History of pacemaker History of surgery on left wrist History of tonsillectomy Family History Family History Father CVD (cardiovascular disease) Mother Stroke Social History Social History Household Members: Children Housing: House Are you a primary career technical education teacher to a significant other at home: No Do you presently have visiting nurse or other home services: No Alcohol intake: never Patient Tobacco Use Status: Never used Tobacco e-Cigarette/Vaping Use: Never Used Second Hand Smoke Exposure: Yes Use of substances other than those prescribed or required for medical reasons: No Advance Directives: No Advance Directives Information Provided: No service: No Current occupational status: retired Cognitive needs: Yes Hearing needs: Yes Vision needs: Yes Physical Exam Vital Signs: Vital Signs: Last Vital Signs Temp 97.6 F 03/20/22 18:40 Pulse 99 03/21/22 00:00 Resp 16 03/21/22 00:00 BP 94/37 L 03/21/22 00:00 Pulse Ox 98 03/21/22 00:00 O2 Del Method 03/21/22 00:00 BMI result Body Mass Index 36.6 Appearance: Alert. Oriented X3. Mild distress. Eyes: Pupils equal, round and reactive to light. EOMI. ENT: Pharynx normal. Dry mucous membranes. Neck: Normal inspection. Neck supple. No JVD. CVS: Tachycardic heart rate and rhythm. Apical pulse equal to pulses to extremities. Respiratory: No respiratory distress. Lung sounds clear to auscultation. Abdomen: Soft and nontender. No rigidity or distention Skin: Skin warm and dry. Slight jaundice skin color. Multiple bruises noted Extremities: No lower extremity edema. Moves all extremities against resistance. Neuro: No motor deficit. No sensory deficit. Cranial nerves 2-12 intact Course Course Course Narrative: 81-year-old female presents with right-sided back and shoulder pain. Patient does have chronic pain to that side, has a history of cholelithiasis without cholecystitis and needs to follow-up with the surgeon as an outpatient. She did receive a transfusion on 03/15/2022, H&H of 8.8/26.9, consistent with prior values. Platelets are 88 again consistent. Patient has a BNP of 717, however blood pressures are soft. I did discuss this case with Rosanne Meade not recommended at this time. Chest x-ray is negative for fluid overload, does show cardiomegaly. 20:00 ultrasound indicates cholelithiasis without cholecystitis similar to all prior studies no acute findings. At this time patient does not have any significant finding requiring admission. 22:30 I discussed this case with Case Management, Case Management will consult with this patient. 23:10 case management consult complete. Plan is for physical therapy in the morning. I will refer patient to Dr. Lovell for outpatient evaluation cholelithiasis. I will refer to Dr. Barton for heme Onc. 03:00 physician observation started at this time. Physical therapy consult at pending. Out to Dr. Mcqueen. MDM - Back Pain/Injury MDM Narrative Medical decision making narrative: Cholecystitis, cholelithiasis Differential Diagnosis Differential diagnosis: Likely lumbar radiculopathy, sciatica, renal colic, pyelonephritis and thoracic back pain Medical Records Attestation: I reviewed the patient's medical records. Lab Data Attestation: I reviewed the patient's lab results. Result diagrams: 03/20/22 19:37 03/20/22 19:37 Labs: Lab Results 03/20/22 03/20/22 03/20/22 Range/Units 18:21 18:21 19:09 WBC (4.8-10.8) X10*3/uL RBC (4.20-5.50) X10*6/uL Hgb (12.0-16.0) g/dl Hct (37.0-47.0) % MCV (80.0-98.0) fL MCH (27.0-33.0) pg MCHC (31.0-35.0) g/dl RDW (11.0-16.0) % Plt Count (160-400) X10*3/uL MPV (9.4-12.3) fL Immature Gran % (Auto) (0.0-0.4) % Neut % (Auto) (45-73) % Lymph % (Auto) (20-40) % [place] % (Auto) (2-11) % Eos % (Auto) (0-4) % Baso % (Auto) (0-2) % Lymph # (Auto) (1.2-4.9) X10*3/uL [place] # (Auto) (0.1-1.2) X10*3/uL Eos # (Auto) (0.0-0.4) X10*3/uL Baso # (Auto) (0.0-0.2) X10*3/uL Abs Immat Gran (auto) (0.00-0.03) X10*3/uL Absolute Neuts (auto) (2.0-8.3) x10*3/uL Absolute Nucleated RBC (0.0-0.012) X10*3/uL Nucleated RBC % (auto) (0.0-0.2) /100WBC Smear Tech's Comments PT 25.8 H (10.0-13.1) SEC INR 2.2 H (0.9-1.1) APTT 58.0 H D (24.1-38.0) SEC Sodium (135-145) mmol/L Potassium (3.3-5.1) mmol/L Chloride (96-108) mmol/L Carbon Dioxide (22-29) mmol/L Anion Gap (12-20) BUN (9-16) mg/dL Creatinine (0.5-1.4) mg/dL Estim Creat Clear Calc Estimated GFR Random Glucose (60-115) mg/dL Calcium (8.4-10.2) mg/dL Magnesium (1.6-2.6) mg/dL Total Bilirubin (0.0-1.0) mg/dL Direct Bilirubin (0.0-0.5) mg/dL AST (5-31) U/L ALT (0-31) U/L Alkaline Phosphatase (39-117) U/L Troponin I High Sens (<3.5-17.0) ng/L B-Natriuretic Peptide (<100) pg/mL Total Protein (6.5-8.0) g/dL Albumin (3.5-5.0) g/dL Lipase (8-78) U/L Urine Color YELLOW Urine Appearance CLEAR Urine pH 6.0 (5.0-8.0) Ur Specific [place] 1.010 (1.005-1.025) Urine Protein NEG (NEG-TRACE) MG/DL Urine Glucose (UA) NEG (NEG) MG/DL Urine Ketones NEG (NEG) MG/DL Urine Blood NEG (NEG) Urine Nitrite NEG (NEG) Ur Leukocyte Esterase NEG (NEG) Influenza Type A (PCR) NEGATIVE (Negative) Influenza Type B (PCR) NEGATIVE (Negative) RSV RNA Qual (PCR) NEGATIVE (Negative) SARS-CoV-2 RNA (RT-PCR) NEGATIVE (Negative) 03/20/22 03/20/22 03/20/22 Range/Units 19:37 19:37 19:37 WBC 6.1 (4.8-10.8) X10*3/uL RBC 2.28 L D (4.20-5.50) X10*6/uL Hgb 8.8 L (12.0-16.0) g/dl Hct 26.9 L (37.0-47.0) % MCV 118.0 H (80.0-98.0) fL MCH 38.6 H (27.0-33.0) pg MCHC 32.7 (31.0-35.0) g/dl RDW 23.3 H (11.0-16.0) % Plt Count 88 L (160-400) X10*3/uL MPV 11.9 (9.4-12.3) fL Immature Gran % (Auto) 2.3 H (0.0-0.4) % Neut % (Auto) 47.3 (45-73) % Lymph % (Auto) 38.1 (20-40) % [place] % (Auto) 11.8 H (2-11) % Eos % (Auto) 0.3 (0-4) % Baso % (Auto) 0.2 (0-2) % Lymph # (Auto) 2.3 (1.2-4.9) X10*3/uL [place] # (Auto) 0.7 (0.1-1.2) X10*3/uL Eos # (Auto) 0.0 (0.0-0.4) X10*3/uL Baso # (Auto) 0.0 (0.0-0.2) X10*3/uL Abs Immat Gran (auto) 0.14 H (0.00-0.03) X10*3/uL Absolute Neuts (auto) 2.9 (2.0-8.3) x10*3/uL Absolute Nucleated RBC 0.160 H (0.0-0.012) X10*3/uL Nucleated RBC % (auto) 2.6 H (0.0-0.2) /100WBC Smear Tech's Comments VERIFIED PT (10.0-13.1) SEC INR (0.9-1.1) APTT (24.1-38.0) SEC Sodium 136 (135-145) mmol/L Potassium 4.7 (3.3-5.1) mmol/L Chloride 101 (96-108) mmol/L Carbon Dioxide 24 (22-29) mmol/L Anion Gap 16 (12-20) BUN 33 H (9-16) mg/dL Creatinine 1.23 (0.5-1.4) mg/dL Estim Creat Clear Calc 34.9 Estimated GFR 42 Random Glucose 121 H (60-115) mg/dL Calcium 8.7 D (8.4-10.2) mg/dL Magnesium 2.4 (1.6-2.6) mg/dL Total Bilirubin 3.6 H (0.0-1.0) mg/dL Direct Bilirubin 2.0 H (0.0-0.5) mg/dL AST 26 (5-31) U/L ALT 14 (0-31) U/L Alkaline Phosphatase 96 (39-117) U/L Troponin I High Sens 25.1 H (<3.5-17.0) ng/L B-Natriuretic Peptide 717 H (<100) pg/mL Total Protein 7.3 (6.5-8.0) g/dL Albumin 3.6 (3.5-5.0) g/dL Lipase 42 (8-78) U/L Urine Color Urine Appearance Urine pH (5.0-8.0) Ur Specific [place] (1.005-1.025) Urine Protein (NEG-TRACE) MG/DL Urine Glucose (UA) (NEG) MG/DL Urine Ketones (NEG) MG/DL Urine Blood (NEG) Urine Nitrite (NEG) Ur Leukocyte Esterase (NEG) Influenza Type A (PCR) (Negative) Influenza Type B (PCR) (Negative) RSV RNA Qual (PCR) (Negative) SARS-CoV-2 RNA (RT-PCR) (Negative) 03/20/22 Range/Units 21:59 WBC (4.8-10.8) X10*3/uL RBC (4.20-5.50) X10*6/uL Hgb (12.0-16.0) g/dl Hct (37.0-47.0) % MCV (80.0-98.0) fL MCH (27.0-33.0) pg MCHC (31.0-35.0) g/dl RDW (11.0-16.0) % Plt Count (160-400) X10*3/uL MPV (9.4-12.3) fL Immature Gran % (Auto) (0.0-0.4) % Neut % (Auto) (45-73) % Lymph % (Auto) (20-40) % [place] % (Auto) (2-11) % Eos % (Auto) (0-4) % Baso % (Auto) (0-2) % Lymph # (Auto) (1.2-4.9) X10*3/uL [place] # (Auto) (0.1-1.2) X10*3/uL Eos # (Auto) (0.0-0.4) X10*3/uL Baso # (Auto) (0.0-0.2) X10*3/uL Abs Immat Gran (auto) (0.00-0.03) X10*3/uL Absolute Neuts (auto) (2.0-8.3) x10*3/uL Absolute Nucleated RBC (0.0-0.012) X10*3/uL Nucleated RBC % (auto) (0.0-0.2) /100WBC Smear Tech's Comments PT (10.0-13.1) SEC INR (0.9-1.1) APTT (24.1-38.0) SEC Sodium (135-145) mmol/L Potassium (3.3-5.1) mmol/L Chloride (96-108) mmol/L Carbon Dioxide (22-29) mmol/L Anion Gap (12-20) BUN (9-16) mg/dL Creatinine (0.5-1.4) mg/dL Estim Creat Clear Calc Estimated GFR Random Glucose (60-115) mg/dL Calcium (8.4-10.2) mg/dL Magnesium (1.6-2.6) mg/dL Total Bilirubin (0.0-1.0) mg/dL Direct Bilirubin (0.0-0.5) mg/dL AST (5-31) U/L ALT (0-31) U/L Alkaline Phosphatase (39-117) U/L Troponin I High Sens 24.6 H (<3.5-17.0) ng/L B-Natriuretic Peptide (<100) pg/mL Total Protein (6.5-8.0) g/dL Albumin (3.5-5.0) g/dL Lipase (8-78) U/L Urine Color Urine Appearance Urine pH (5.0-8.0) Ur Specific [place] (1.005-1.025) Urine Protein (NEG-TRACE) MG/DL Urine Glucose (UA) (NEG) MG/DL Urine Ketones (NEG) MG/DL Urine Blood (NEG) Urine Nitrite (NEG) Ur Leukocyte Esterase (NEG) Influenza Type A (PCR) (Negative) Influenza Type B (PCR) (Negative) RSV RNA Qual (PCR) (Negative) SARS-CoV-2 RNA (RT-PCR) (Negative) Imaging Data Abdominal ultrasound limited: Attestation: I personally reviewed and interpreted this imaging study as follows: Radiologist's impression: EXAMINATION: US ABDOMEN LIMITED CLINICAL INFORMATION: Back pain with history of cholelithiasis. COMPARISON: CT abdomen pelvis 02/11/2022, ultrasound abdomen 02/08/2022, hepatobiliary scan 02/13/2022 TECHNIQUE: Real-time imaging of the gallbladder and common bile duct. FINDINGS: A single mobile 2.1 cm stone is present in the gallbladder. The gallbladder wall is not thickened. No pericholecystic fluid is seen. Knowles's sign is negative. A gallbladder wall polyp measuring 4 x 4 by 3 x 3 mm is present. The common bile duct measures 0.2 cm. US/US abdomen limited IMPRESSION: Cholelithiasis without evidence of cholecystitis similar to all prior studies Chest x-ray: Attestation: I personally reviewed and interpreted this imaging study as follows: Radiologist's impression: EXAMINATION: XR CHEST CLINICAL INFORMATION: Shortness of breath COMPARISON: 03/15/2022 TECHNIQUE: Frontal view of the chest was obtained. FINDINGS: No focal consolidation, pleural effusion or pneumothorax. Similar-appearing bibasilar atelectasis. Cardiomegaly. Left chest pacer with lead projecting over the left ventricle. Median sternotomy wires. Multiple EKG leads project over the chest. No acute osseous abnormality. XR/XR chest 1V IMPRESSION: No significant interval change to the appearance of the chest demonstrating cardiomegaly and postsurgical changes. ? ECG Data Attestation: I personally reviewed and interpreted this ECG as follows: ECG interpretation date: 03/20/22 ECG interpretation time: 17:51 Prior ECG tracings: available for review Interpretation: Vent. rate 65 BPM IN interval * ms QRS duration 158 ms QT/QTc 462/480 ms P-R-T axes * -79 100 Ventricular-paced rhythm Abnormal ECG When compared with ECG of 15-MAR-2022 20:53, No significant change was found Discharge Plan Discharge Clinical Impression: Cholelithiasis, Anemia, Vitamin B 12 deficiency, Congestive heart failure, Back pain Patient Disposition: Still a Patient Prescriptions: No Action (DME) bra, mastectomy Crystals See Rx Instructions .Route Qty: 2 0RF Rx Instructions: As directed (DME) FreeStyle Lite Strips Strip MISCELLANEOUS Qty: 100 3RF Rx Instructions: As directed check the blood sugar once a day cyanocobalamin (vitamin B-12) 1,000 mcg capsule 1,000 mcg PO DAILY 90 Days Qty: 90 3RF torsemide 20 mg tablet 20 mg PO DAILY Qty: 30 5RF Rx Instructions: off lasix losartan 50 mg tablet 50 mg PO DAILY Qty: 30 5RF prednisone 20 mg tablet 20 mg PO BID 2 Days Qty: 3 0RF Rx Instructions: Take one tablet the morning of Day Before cardiac cath. Take one tablet the evening of Day Before cardiac cath. Take one tablet the morning of the cardiac cath. famotidine [Pepcid] 20 mg tablet 20 mg PO BID 2 Days Qty: 3 0RF Rx Instructions: Take one tablet the morning of Day Before cardiac cath. Take one tablet the evening of Day Before cardiac cath. Take one tablet the morning of the cardiac cath. enoxaparin [Lovenox] 120 mg/0.8 mL syringe 120 mg subcut DAILY 8 Days Qty: 6.4 1RF Protocol: Dose Management Condition: Saturday Dose/Route: 2.5 mg Instruction: 0.5 x 5 mg milliliters Condition: Saturday Dose/Route: 0 mg Instruction: 0 milliliters Condition: Saturday Dose/Route: 0 mg Instruction: 0 milliliters Condition: Saturday Dose/Route: 0 mg Instruction: 0 milliliters Condition: Dose/Route: 0 mg Instruction: 0 milliliters Condition: Saturday Dose/Route: 0 mg Instruction: 0 milliliters Condition: Saturday Dose/Route: 2.5 mg Instruction: 0.5 x 5 mg milliliters Protocol Text: Adjustment Start Date: Saturday03/20/22 INR Value: 2.0 INR Date: 03/20/22 Recheck Date: 03/26/22 Additional Instructions: HOLD WARFARIN AND START LOVENOX 24 HOUR DOSE Rx Instructions: One injection daily while coumadin on hold preprocedure and then one injection daily (along with coumadin) post procedure, until INR reaches 2 cyclobenzaprine 5 mg tablet 5 mg PO TID PRN (Reason: muscle spasm) Qty: 30 0RF warfarin 5 mg Tablet 5 mg PO @1800 Protocol: Dose Management Condition: Saturday Dose/Route: 2.5 mg Instruction: 0.5 x 5 mg milliliters Condition: Saturday Dose/Route: 0 mg Instruction: 0 milliliters Condition: Saturday Dose/Route: 0 mg Instruction: 0 milliliters Condition: Saturday Dose/Route: 0 mg Instruction: 0 milliliters Condition: Dose/Route: 0 mg Instruction: 0 milliliters Condition: Saturday Dose/Route: 0 mg Instruction: 0 milliliters Condition: Saturday Dose/Route: 2.5 mg Instruction: 0.5 x 5 mg milliliters Protocol Text: Adjustment Start Date: Saturday03/20/22 INR Value: 2.0 INR Date: 03/20/22 Recheck Date: 03/26/22 Additional Instructions: HOLD WARFARIN AND START LOVENOX 24 HOUR DOSE warfarin 5 mg Tablet 2.5 mg PO @1800 Protocol: Dose Management Condition: Saturday Dose/Route: 2.5 mg Instruction: 0.5 x 5 mg milliliters Condition: Saturday Dose/Route: 0 mg Instruction: 0 milliliters Condition: Saturday Dose/Route: 0 mg Instruction: 0 milliliters Condition: Saturday Dose/Route: 0 mg Instruction: 0 milliliters Condition: Dose/Route: 0 mg Instruction: 0 milliliters Condition: Saturday Dose/Route: 0 mg Instruction: 0 milliliters Condition: Saturday Dose/Route: 2.5 mg Instruction: 0.5 x 5 mg milliliters Protocol Text: Adjustment Start Date: Saturday03/20/22 INR Value: 2.0 INR Date: 03/20/22 Recheck Date: 03/26/22 Additional Instructions: HOLD WARFARIN AND START LOVENOX 24 HOUR DOSE metoprolol succinate 25 mg tablet extended release 24 hr 25 mg PO BEDTIME cholecalciferol (vitamin D3) 25 mcg (1,000 unit) Tablet 25 mcg PO DAILY clonazepam 0.5 mg tablet 0.5 mg PO BEDTIME PRN (Reason: Sleep) fluticasone propionate 50 mcg/actuation spray,suspension 2 spray intranasal DAILY PRN (Reason: Allergy Symptoms) Rx Instructions: administer into each nostril (DME) compress.stocking,knee,reg,lrg Misc See Rx Instructions .Route Qty: 2 0RF Rx Instructions: As directed 20-30 mm HG (DME) blood-glucose meter [FreeStyle Lite Meter] Kit See Rx Instructions .ROUTE .MEDSUPPLY Qty: 1 0RF Rx Instructions: As directed warfarin [Jantoven] 5 mg tablet 5 mg PO DAILY Protocol: Dose Management Condition: Saturday Dose/Route: 2.5 mg Instruction: 0.5 x 5 mg milliliters Condition: Saturday Dose/Route: 0 mg Instruction: 0 milliliters Condition: Saturday Dose/Route: 0 mg Instruction: 0 milliliters Condition: Saturday Dose/Route: 0 mg Instruction: 0 milliliters Condition: Dose/Route: 0 mg Instruction: 0 milliliters Condition: Saturday Dose/Route: 0 mg Instruction: 0 milliliters Condition: Saturday Dose/Route: 2.5 mg Instruction: 0.5 x 5 mg milliliters Protocol Text: Adjustment Start Date: Saturday03/20/22 INR Value: 2.0 INR Date: 03/20/22 Recheck Date: 03/26/22 Additional Instructions: HOLD WARFARIN AND START LOVENOX 24 HOUR DOSE capsaicin 0.1 % cream 1 appl topical BID Qty: 42.5 0RF Rx Instructions: do not wash area for at least 30 min after application diphenhydramine HCl [Wal-Dryl Allergy] 25 mg capsule 0 mg PO Referrals: Tyler Lovell MD [Physician] - 1 week (Cholelithiasis without cholecystitis) Laura Barton MD [Physician] - 1 week (Abnormal values)
--- NOTE | 2022-03-20 17:42 | ECG_ITS ---
Test Reason : back pain Blood Pressure : / mmHG Vent. Rate : 065 BPM Atrial Rate : 066 BPM P-R Int : 000 ms QRS Dur : 158 ms QT Int : 462 ms P-R-T Axes : 000 -79 100 degrees QTc Int : 480 ms Ventricular-paced rhythm Abnormal ECG When compared with ECG of 15-MAR-2022 20:53, No significant change was found Referred By: Jeny Warner Electronically Signed By:Yoandy Bolton
[2022-03-20 18:36] LABS: INTERNATIONAL NORM RATIO 2.2 (0.9-1.1); Prothrombin Time 25.8 SEC (10.0-13.1)
[2022-03-20 18:40] VITALS: BP 110/51; PULSE 65; RESP 17; TEMP 36.4; O2SAT 100
[2022-03-20 19:06] VITALS: BP 110/51; PULSE 70; RESP 16; O2SAT 98
[2022-03-20 19:08] LABS: Influenza A PCR NEGATIVE (Negative); Influenza B PCR NEGATIVE (Negative); Resp Syncy Virus RNA Qual PCR NEGATIVE (Negative); SARS COV2 PCR INHOUSE NEGATIVE (Negative)
[2022-03-20] MEDS: Acetaminophen 325 MG TABLET 650 MG PO (19:08)
[2022-03-20 19:15] LABS: Appearance Urine CLEAR; Color Urine YELLOW; Glucose Urine UA NEG (NEG); Leukocyte Esterase Urine NEG (NEG); Nitrite Urine NEG (NEG); Urine Blood NEG (NEG); Urine Ketones NEG (NEG); Urine Protein NEG (NEG-TRACE)
[2022-03-20 19:43] LABS: Hemoglobin 8.8 g/dl (12.0-16.0); Mean Platelet Volume 11.9 fL (9.4-12.3); PLT CLUMP 1; SCAN SMEAR FLAG 1
[2022-03-20 19:44] LABS: Basophils Percent Auto 0.2 % (0-2); Eosinophils Percent Auto 0.3 % (0-4); Hematocrit 26.9 % (37.0-47.0); Imm Gran Abs Auto 0.14 X10*3/uL (0.00-0.03); Imm Gran Pct Auto 2.3 % (0.0-0.4); Lymphocytes Absolute Auto 2.3 X10*3/uL (1.2-4.9); Lymphocytes Percent Auto 38.1 % (20-40); MANUAL DIFF FLAG SCAN; Mean Corpuscular HGB Conc 32.7 g/dl (31.0-35.0); Mean Corpuscular Hemoglobin 38.6 pg (27.0-33.0); Monocytes Absolute Auto 0.7 X10*3/uL (0.1-1.2); Monocytes Percent Auto 11.8 % (2-11); Neutrophils Absolute Auto 2.9 x10*3/uL (2.0-8.3); Neutrophils Percent Auto 47.3 % (45-73); Red Blood Count 2.28 X10*6/uL (4.20-5.50); Red Cell Distribution Width 23.3 % (11.0-16.0)
[2022-03-20 19:45] LABS: NRBC Pct Auto 2.6 /100WBC (0.0-0.2); Platelet Count 88 X10*3/uL (160-400); White Blood Count 6.1 X10*3/uL (4.8-10.8)
[2022-03-20 19:57] LABS: Alanine Aminotransferase 14 U/L (0-31); Albumin Level 3.6 g/dL (3.5-5.0); Alkaline Phosphatase 96 U/L (39-117); Anion Gap 16 (12-20); Aspartate Amino Transferase 26 U/L (5-31); Bilirubin Total 3.6 mg/dL (0.0-1.0); Blood Urea Nitrogen 33 mg/dL (9-16); Calcium 8.7 mg/dL (8.4-10.2); Carbon Dioxide 24 mmol/L (22-29); Chloride 101 mmol/L (96-108); Creatinine Clr Calc Pharmacy 34.9; Estimated Glomerular Filt Rate 42; Glucose Random 121 mg/dL (60-115); Lipase 42 U/L (8-78); Magnesium 2.4 mg/dL (1.6-2.6); Potassium 4.7 mmol/L (3.3-5.1); Sodium 136 mmol/L (135-145); Total Protein 7.3 g/dL (6.5-8.0)
[2022-03-20 20:04] LABS: B Type Natriuretic Peptide 717 pg/mL (<100); Troponin-I High Sensitivity 25.1 ng/L (<3.5-17.0)
[2022-03-20 20:11] LABS: SLIDE REVIEW VERIFIED
[2022-03-20] MEDS: Morphine Sulfate 2 MG/ML CARTRIDGE IVPUSH (22:12)
--- NOTE | 2022-03-20 22:13 | PC.NURSE ---
Pt refused Odansetron, which was prescribed per NOV. Pt stated she does not need it, minimal nausea
[2022-03-20 22:23] LABS: Troponin-I High Sensitivity 24.6 ng/L (<3.5-17.0)
--- NOTE | 2022-03-20 23:12 | MHC.CM.ED ---
CM met with pt at request of Jeny CORREIA. A&Ox4. Independent. Has condo. Daughter lives with her. Daughter, Claire/HCP #8 ([phone]) has pulmonary fibrosis and is on Hospice. Pt states her daughter has friends who care for her and that she does not provide care for her. HCP#2/son Kumar Rivera ([phone]). Pt states her PCP is Dr. Soriano. Pt currently has services with [facility] for daily lovenox and has had PT with them for 4 weeks, just completed. Pt is agreeable to home PT with [facility]. Pt will not go to a facility for STR. CM spoke with pt at length about having rehab daily might be more beneficial than at home, but pt is insistent that she will only have PT at home. Pt is agreeable to PT evaluation. Pt uses a cane/walker. Pt have MOW from [facility]. Pt private pays for housekeeping, which is new for her. Pt is scheduled for a cardiac Cath at [facility] on saturday and that is impacting her decision not to go to STR. Referral placed to [facility]. Awaiting PT evaluation. Son will transport mother home tomorrow. CM to follow for d/c needs.
[2022-03-20 23:25] VITALS: BP 101/40; PULSE 65; RESP 14; O2SAT 98
[2022-03-21] VITALS (9 sets, daily range): BP systolic 91–121; BP diastolic 37–60; PULSE 64–99; RESP 14–20; TEMP 36–37; O2SAT 95–100
--- NOTE | 2022-03-21 00:24 | PC.NURSE ---
Pt started Normal Saline at 100mL/hr, per Gill DIRECTOR BUSINESS MANAGEMENT via verbal orders. Last BP is 91/40. Will continue to mointor.
[2022-03-21 06:45] LABS: Vitamin B12 1700 pg/mL (200-900)
[2022-03-21] MEDS: Morphine Sulfate 2 MG/ML CARTRIDGE IVPUSH (08:55)
--- NOTE | 2022-03-21 09:43 | PC.NURSE ---
sherwin robert called this am- updated on plan of care for admission to hospital- states he will visit later this afternoon
--- NOTE | 2022-03-21 10:15 | MHC.CM.ED ---
Received notification from MIGUEL Nieves that patient will be admitted to the [facility].
--- NOTE | 2022-03-21 11:12 | PM.IMHP ---
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 The patient was hospitalized from 02/05 to 02/14 where she was treated for HPpEF exacerbation. She also had cholestatic jaundice during that visit and was ruled out for acute cholecystitis. Cardiology recommended outpatient evaluation with cardiac cath and was recommended to f/u with GI and general surgery for gall bladder management. The patient arrived to the ED 03/20 with the same complaints and blood work which was more or less at her baseline. The plan was for placement to SNF but she has required multiple doses of IV morphine for pain control and hence, admission has been requested. In regards to the patients back and shoulder pain -- she reports that she this is intermittent in nature. She does reprots some abdominal fullness + RUQ soreness + worsening of her shoulder/back pain with meals. She reports that its intensity has not changed since her admission. She reports intermittent nausea. She denies diarrhea, fevers or chills. Review of Systems Review of Systems: negative except HPI PMFSH Medical History Acute cholecystitis Anemia Anxiety Ascending aorta dilatation Atrial fibrillation Chest discomfort Cholelithiases Chronic atrial fibrillation Complete heart block Congestive heart failure Elevated bilirubin Gallstones Gastric ulcer History of breast cancer Hypercholesterolemia Hypertension Morbid obesity Osteoarthritis of knee Pancytopenia Prosthetic aortic valve stenosis Prosthetic valve dysfunction Stenosis of prosthetic aortic valve Type 2 diabetes mellitus with hyperglycemia Vitamin D deficiency Family History Father CVD (cardiovascular disease) Mother Stroke Surgical History History of bilateral mastectomy History of pacemaker History of surgery on left wrist History of tonsillectomy Social History Household Members: Children Housing: House Are you a primary healthcare economics consultant to a significant other at home: No Do you presently have visiting nurse or other home services: No Alcohol intake: never Patient Tobacco Use Status: Never used Tobacco e-Cigarette/Vaping Use: Never Used Second Hand Smoke Exposure: Yes Use of substances other than those prescribed or required for medical reasons: No Advance Directives: Yes Advance Directives on File: Yes Advance Directives Date on File: 03/21/22 service: No Current occupational status: retired Cognitive needs: Yes Hearing needs: Yes Vision needs: Yes Meds Allergies Allergy/AdvReac Type Severity Reaction Status Date / Time ezetimibe [Zetia] Allergy Intermediate Unknown Verified 03/20/22 12:11 lisinopril Allergy Mild Unknown Verified 03/20/22 12:11 meperidine [From Demerol] Allergy Mild UNKNOWN Verified 03/20/22 12:11 nitrofurantoin Allergy Mild UNKNOWN Verified 03/20/22 12:11 [From Macrodantin] Penicillins Allergy Mild UNKNOWN Verified 03/20/22 12:11 Sulfa (Sulfonamide Allergy Mild UNKNOWN Verified 03/20/22 09:51 Antibiotics) [place] Syrup Allergy Unknown Unknown Verified 03/20/22 09:51 Iodinated Contrast Media Allergy Unknown ?RASH Verified 03/20/22 12:11 [IV CONTRAST] statin Allergy Unknown unknown Verified 03/20/22 12:11 acetaminophen [From PERCOCET] AdvReac Intermediate SEEING Verified 03/20/22 12:11 THINGS AFTER PERCOCET THAT WERE NOT THERE Active Medications: Current Medications Acetaminophen (Acetaminophen 325 Mg Tablet) 650 mg PO Q6H PRN PRN Reason: Pain, Mild (Pain Scale 1-3) Morphine Sulfate (Morphine Sulfate 4 Mg/Ml Cartridge) 2 mg IVPUSH Q4H PRN; Protocol PRN Reason: Pain, Severe (Pain Scale 7-10) Ondansetron HCl (Ondansetron Hcl 4 Mg/2 Ml Vial) 4 mg IVPUSH Q8H PRN PRN Reason: Nausea and Vomiting Sodium Chloride (0.9 % Sodium Chloride Flush 3 Ml Syringe) [facility] Medic[facility] Medication Instructions Recorded Confirmed Last Taken Type cholecalciferol (vitamin D3) 25 25 mcg PO DAILY 02/05/22 03/20/22 03/15/22 History mcg (1,000 unit) tablet clonazepam 0.5 mg tablet 0.5 mg PO BEDTIME PRN Sleep 02/05/22 03/20/22 03/15/22 History fluticasone propionate 50 2 spray intranasal DAILY PRN 02/05/22 03/20/22 03/15/22 History mcg/actuation nasal Allergy Symptoms spray,suspension warfarin 5 mg tablet (Jantoven) 5 mg PO DAILY 02/16/22 03/20/22 Unknown History metoprolol succinate 25 mg 25 mg PO BEDTIME 03/15/22 03/20/22 03/15/22 History tablet,extended release 24 hr warfarin 5 mg tablet 2.5 mg PO SUTUTHSA@1800 03/15/22 03/20/22 03/15/22 History warfarin 5 mg tablet 5 mg PO MOWEFR@1800 03/15/22 03/20/22 03/15/22 History diphenhydramine HCl 25 mg capsule 0 mg PO 03/20/22 03/20/22 Unknown History (Wal-Dryl Allergy) capsaicin 0.1 % topical cream 1 appl topical BID PRN Pain (Scale 03/21/22 03/21/22 03/20/22 History Score 1-3) coenzyme Q10 100 mg capsule 100 mg PO DAILY 03/21/22 03/21/22 03/20/22 History (CoQ-10) lidocaine 5 % topical patch 1 patch topical DAILY PRN Pain 03/21/22 03/21/22 03/20/22 History (Scale Score 1-3) Physical Exam Vital Signs and Narrative: Vital Signs: Last Vital Signs Temp 98.1 F 03/21/22 07:32 Pulse 65 03/21/22 07:34 Resp 16 03/21/22 07:32 BP 107/38 L 03/21/22 07:34 Pulse Ox 97 03/21/22 07:34 O2 Del Method 03/21/22 07:32 BMI result Body Mass Index 36.6 Const: Other: Constitutional - Awake and Alert, No apparent distress Eyes - PERRLA, EOMI Cardiovascular - S1S2, no jvd Respiratory - Normal lung expansion, Normal respiratory effort, No respiratory distress, CTA bilaterally Gastrointestinal - no RUQ tenderness, negative carl's sign - No CVA tenderness Extremities - no calf tenderness bilaterally, no swelling Musculoskeletal - SLR negative b/l; R shoulder without swelling/TTP Skin - Warm/Dry Neurological - Alert & oriented x3, No focal deficit Psychological - Appropriate affect Results Labs CBC and Chem 7: 03/20/22 19:37 03/20/22 19:37 Labs: Laboratory Results - last 24 hr 03/20/22 03/20/22 03/20/22 18:21 18:21 19:09 MCV MCH MCHC RDW Plt Count MPV Immature Gran % (Auto) Neut % (Auto) Lymph % (Auto) [place] % (Auto) Eos % (Auto) Baso % (Auto) Lymph # (Auto) [place] # (Auto) Eos # (Auto) Baso # (Auto) Abs Immat Gran (auto) Absolute Neuts (auto) Absolute Nucleated RBC Nucleated RBC % (auto) Smear Tech's Comments PT 25.8 H INR 2.2 H APTT 58.0 H D Anion Gap Estim Creat Clear Calc Estimated GFR Random Glucose Calcium Magnesium Total Bilirubin Direct Bilirubin AST ALT Alkaline Phosphatase Troponin I High Sens B-Natriuretic Peptide Total Protein Albumin Lipase Vitamin B12 Urine Color YELLOW Urine Appearance CLEAR Urine pH 6.0 Ur Specific [place] 1.010 Urine Protein NEG Urine Glucose (UA) NEG Urine Ketones NEG Urine Blood NEG Urine Nitrite NEG Ur Leukocyte Esterase NEG Influenza Type A (PCR) NEGATIVE Influenza Type B (PCR) NEGATIVE RSV RNA Qual (PCR) NEGATIVE SARS-CoV-2 RNA (RT-PCR) NEGATIVE 03/20/22 03/20/22 03/20/22 19:37 19:37 19:37 MCV 118.0 H MCH 38.6 H MCHC 32.7 RDW 23.3 H Plt Count 88 L MPV 11.9 Immature Gran % (Auto) 2.3 H Neut % (Auto) 47.3 Lymph % (Auto) 38.1 [place] % (Auto) 11.8 H Eos % (Auto) 0.3 Baso % (Auto) 0.2 Lymph # (Auto) 2.3 [place] # (Auto) 0.7 Eos # (Auto) 0.0 Baso # (Auto) 0.0 Abs Immat Gran (auto) 0.14 H Absolute Neuts (auto) 2.9 Absolute Nucleated RBC 0.160 H Nucleated RBC % (auto) 2.6 H Smear Tech's Comments VERIFIED PT INR APTT Anion Gap 16 Estim Creat Clear Calc 34.9 Estimated GFR 42 Random Glucose 121 H Calcium 8.7 D Magnesium 2.4 Total Bilirubin 3.6 H Direct Bilirubin 2.0 H AST 26 ALT 14 Alkaline Phosphatase 96 Troponin I High Sens 25.1 H B-Natriuretic Peptide 717 H Total Protein 7.3 Albumin 3.6 Lipase 42 Vitamin B12 Urine Color Urine Appearance Urine pH Ur Specific [place] Urine Protein Urine Glucose (UA) Urine Ketones Urine Blood Urine Nitrite Ur Leukocyte Esterase Influenza Type A (PCR) Influenza Type B (PCR) RSV RNA Qual (PCR) SARS-CoV-2 RNA (RT-PCR) 03/20/22 03/21/22 21:59 19:37 MCV MCH MCHC RDW Plt Count MPV Immature Gran % (Auto) Neut % (Auto) Lymph % (Auto) [place] % (Auto) Eos % (Auto) Baso % (Auto) Lymph # (Auto) [place] # (Auto) Eos # (Auto) Baso # (Auto) Abs Immat Gran (auto) Absolute Neuts (auto) Absolute Nucleated RBC Nucleated RBC % (auto) Smear Tech's Comments PT INR APTT Anion Gap Estim Creat Clear Calc Estimated GFR Random Glucose Calcium Magnesium Total Bilirubin Direct Bilirubin AST ALT Alkaline Phosphatase Troponin I High Sens 24.6 H B-Natriuretic Peptide Total Protein Albumin Lipase Vitamin B12 1700 H Urine Color Urine Appearance Urine pH Ur Specific [place] Urine Protein Urine Glucose (UA) Urine Ketones Urine Blood Urine Nitrite Ur Leukocyte Esterase Influenza Type A (PCR) Influenza Type B (PCR) RSV RNA Qual (PCR) SARS-CoV-2 RNA (RT-PCR) Imaging Radiologist's Impressions: Impressions Chest X-Ray 03/20/22 18:06 IMPRESSION: No significant interval change to the appearance of the chest demonstrating cardiomegaly and postsurgical changes. Abdomen Ultrasound 03/20/22 18:25 IMPRESSION: Cholelithiasis without evidence of cholecystitis similar to all prior studies Assessment and Plan (1) Cholelithiasis: Status: Acute Plan This is an 81 year old female with a PMH of HFpEF, Bioprosthetic AVR with stenosis, Jaundice, AF, PPM who presents to the ED with back and shoulder pain. She was previously evaluated for her jaundice and HIDA scan was negative at that time. She now presents with the same complaints. 1. Hyperbilirubinemia Bili slightly lower than her last hospitalization. She does not have active RUQ but ultrasound does reveal GB stones without evidence of acute cck Will get General Surgery and GI on board. The patient has a planned cardiac catherization this Saturday. Will get input from GI/Surgery so she can proceed with it on Saturday if possible repeat labs now 2. HFpEF appears euvolemic continue baseline diuretics 3. Permanant A. Fib she reports that she has been advised to hold her coumadin prior to her cath on Saturday. Check INR now continue baseline rate control meds 4. DM not on meds diabetic diet 5. Anemia/thrombocytopenia previously was pancytopenic and thought this was related to MDS. Numbers are more or less at baseline. outapatient f/u Code status -- d/w her re: code status and she is undecided at this time, hence will remain full code for the time being DVT pptx -- on coumadin Quality Stroke Does the patient have a stroke diagnosis?: No VTE Prior VTE?: No VTE Risk Level:: Medical - moderate - high VTE Device Contraindication: Treatment Not Indicated VTE Drug Contraindication: N/A - Med Ordered
[2022-03-21 11:16] LABS: MANUAL DIFF FLAG NO
[2022-03-21 11:19] LABS: Basophils Percent Auto 0.2 % (0-2); Eosinophils Percent Auto 0.4 % (0-4); Hematocrit 26.1 % (37.0-47.0); Hemoglobin 8.5 g/dl (12.0-16.0); Imm Gran Abs Auto 0.11 X10*3/uL (0.00-0.03); Imm Gran Pct Auto 2.4 % (0.0-0.4); Lymphocytes Absolute Auto 2.1 X10*3/uL (1.2-4.9); Lymphocytes Percent Auto 44.8 % (20-40); Mean Corpuscular HGB Conc 32.6 g/dl (31.0-35.0); Mean Corpuscular Hemoglobin 38.8 pg (27.0-33.0); Mean Platelet Volume 12.6 fL (9.4-12.3); Monocytes Absolute Auto 0.5 X10*3/uL (0.1-1.2); Monocytes Percent Auto 10.3 % (2-11); Neutrophils Absolute Auto 1.9 x10*3/uL (2.0-8.3); Neutrophils Percent Auto 41.9 % (45-73); Red Blood Count 2.19 X10*6/uL (4.20-5.50); Red Cell Distribution Width 23.6 % (11.0-16.0); White Blood Count 4.6 X10*3/uL (4.8-10.8)
[2022-03-21 11:21] LABS: Mean Corpuscular Volume 119.2 fL (80.0-98.0)
[2022-03-21 11:22] LABS: NRBC Pct Auto 2.6 /100WBC (0.0-0.2); Platelet Count 83 X10*3/uL (160-400)
[2022-03-21 11:25] LABS: INTERNATIONAL NORM RATIO 1.8 (0.9-1.1); Prothrombin Time 20.7 SEC (10.0-13.1)
[2022-03-21 11:28] LABS: Partial Thromboplastin Time 39.1 SEC (24.1-38.0)
[2022-03-21 11:36] LABS: Alanine Aminotransferase 15 U/L (0-31); Albumin Level 3.6 g/dL (3.5-5.0); Alkaline Phosphatase 91 U/L (39-117); Anion Gap 14 (12-20); Aspartate Amino Transferase 28 U/L (5-31); Bilirubin Total 4.2 mg/dL (0.0-1.0); Blood Urea Nitrogen 30 mg/dL (9-16); Calcium 8.3 mg/dL (8.4-10.2); Carbon Dioxide 24 mmol/L (22-29); Chloride 104 mmol/L (96-108); Creatinine Clr Calc Pharmacy 37.1; Estimated Glomerular Filt Rate 45; Glucose Random 136 mg/dL (60-115); Lipase 19 U/L (8-78); Potassium 4.6 mmol/L (3.3-5.1); Sodium 137 mmol/L (135-145); Total Protein 6.8 g/dL (6.5-8.0)
--- NOTE | 2022-03-21 11:58 | PHA.MEDREC ---
Pharmacy Consult ? Medication Reconciliation Pharmacy has completed the medication reconciliation. Spoke with patient in the ED and also contacted the coumadin clinic. Pt is having a cardiac cath on sat. Pre meds ( famotidine, benadryl, prednisone) for cardiac cath are left unconfirmed. Pts coumadin is also on hold ( and unconfirmed) and her last dose of lovenox is today.Her previous dose of warfarin was 5 mg moth and 2.[address] Ospina notified of this.
--- NOTE | 2022-03-21 12:27 | PC.NURSE ---
Report given to overflow nurse ([place]). Pt relocating to overflow 4.
[2022-03-21] MEDS: Acetaminophen 325 MG TABLET 650 MG PO ×2 (13:24→21:13)
[2022-03-21] MEDS: Torsemide 20 MG TABLET PO (13:41)
[2022-03-21] MEDS: Enoxaparin Sodium 120 MG/0.8 ML SYRINGE SUBCUT (14:17)
--- NOTE | 2022-03-21 15:18 | P.CONGS_ITS ---
History of Present Illness Consult details Consult date: 03/21/22 Requesting physician: Leodan Ospina Narrative: 81-year-old female patient presenting with complaints of abdominal pain in the epigastrium as well as back and shoulder pain on the right side. The pain seems to be associated with food intake and is generally felt daily. She has a history of congestive heart failure, chronic atrial fibrillation, diabetes mellitus, aortic valve disease, s/p aortic valve replacement with a porcine valve, CAD with a 2 vessel CABG. She was previously suspected to have Gilbert's disease. She has a known history of gallstones and was found to have elevated LFTs. She was previously noted to have LFT elevation a previous other occasions. A recent change however is acolic stools. She denies biluria, fever, chills, constipation or diarrhea. She does have occasional intermittent nausea without vomiting. She is scheduled for a cardiac catheterization on Saturday at [facility] and was admitted for pain control prior to this procedure. Review of Systems Review of Systems: Yes all other systems are reviewed and are negative Constitutional: Constitutional: Denies anorexia, Denies chills, Denies fever(s) and Denies night sweats Cardiovascular: Cardiovascular: Denies chest pain at rest, Reports epigastric discomfort, Reports irregular heart rhythm and Reports dyspnea Respiratory: Respiratory: Denies chest congestion, Denies cough, Denies hemoptysis and Reports dyspnea Gastrointestinal: Gastrointestinal: Reports abdominal pain, Denies coffee ground emesis, Reports nausea and Denies vomiting Genitourinary: Genitourinary: Reports no additional female genitourinary complaints Neurologic: Reports system reviewed and no additional complaints, except as documented PMF Past Medical History Medical History Acute cholecystitis Anemia Anxiety Ascending aorta dilatation Atrial fibrillation Chest discomfort Cholelithiases Chronic atrial fibrillation Complete heart block Congestive heart failure Elevated bilirubin Gallstones Gastric ulcer History of breast cancer Hypercholesterolemia Hypertension Morbid obesity Osteoarthritis of knee Pancytopenia Prosthetic aortic valve stenosis Prosthetic valve dysfunction Stenosis of prosthetic aortic valve Type 2 diabetes mellitus with hyperglycemia Vitamin D deficiency Family History Family History Father CVD (cardiovascular disease) Mother Stroke Surgical History Surgical History History of bilateral mastectomy History of pacemaker History of surgery on left wrist History of tonsillectomy Social History Social History Household Members: Children Housing: House Are you a primary vision care associate to a significant other at home: No Do you presently have visiting nurse or other home services: No Alcohol intake: never Patient Tobacco Use Status: Never used Tobacco e-Cigarette/Vaping Use: Never Used Second Hand Smoke Exposure: Yes Use of substances other than those prescribed or required for medical reasons: No Advance Directives: Yes Advance Directives on File: Yes Advance Directives Date on File: 03/21/22 service: No Current occupational status: retired Cognitive needs: Yes Hearing needs: Yes Vision needs: Yes Meds Allergies Allergy/AdvReac Type Severity Reaction Status Date / Time ezetimibe [Zetia] Allergy Intermediate Unknown Verified 03/20/22 12:11 lisinopril Allergy Mild Unknown Verified 03/20/22 12:11 meperidine [From Demerol] Allergy Mild UNKNOWN Verified 03/20/22 12:11 nitrofurantoin Allergy Mild UNKNOWN Verified 03/20/22 12:11 [From Macrodantin] Penicillins Allergy Mild UNKNOWN Verified 03/20/22 12:11 Sulfa (Sulfonamide Allergy Mild UNKNOWN Verified 03/20/22 09:51 Antibiotics) Payette Syrup Allergy Unknown Unknown Verified 03/20/22 09:51 Iodinated Contrast Media Allergy Unknown ?RASH Verified 03/20/22 12:11 [IV CONTRAST] statin Allergy Unknown unknown Verified 03/20/22 12:11 acetaminophen [From PERCOCET] AdvReac Intermediate SEEING Verified 03/20/22 12:11 THINGS AFTER PERCOCET THAT WERE NOT THERE Active Medications: Current Medications Acetaminophen (Acetaminophen 325 Mg Tablet) 650 mg PO Q6H PRN PRN Reason: Pain, Mild (Pain Scale 1-3) Last Admin: 03/21/22 13:24 Dose: 650 mg Clonazepam (Clonazepam 0.5 Mg Tablet) 0.5 mg PO BEDTIME PRN PRN Reason: Sleep Cyanocobalamin (Cyanocobalamin (Vitamin B-12) 1,000 Mcg Tablet) 1,000 mcg PO DAILY HOLDEN Cyclobenzaprine HCl (Cyclobenzaprine Hcl 5 Mg Tablet) 5 mg PO TID PRN PRN Reason: muscle spasm Losartan Potassium (Losartan Potassium 25 Mg Tablet) 25 mg PO BID HOLDEN; Protocol Metoprolol Succinate (Metoprolol Succinate Er 25 Mg Tab.Er.24h) 25 mg PO BEDTIME HOLDEN; Protocol Morphine Sulfate (Morphine Sulfate 4 Mg/Ml Cartridge) 2 mg IVPUSH Q4H PRN; Protocol PRN Reason: Pain, Severe (Pain Scale 7-10) Ondansetron HCl (Ondansetron Hcl 4 Mg/2 Ml Vial) 4 mg IVPUSH Q8H PRN PRN Reason: Nausea and Vomiting Pharmacy Consult (Consult Rx Perform Med Rec) 1 each MISCELLANE ONCE PRN PRN Reason: Consult order Sodium Chloride (0.9 % Sodium Chloride Flush 3 Ml Syringe) 3 ml IVFLUSH QSHIFT [facility] Last Admin: 03/21/22 14:59 Dose: Not Given Torsemide (Torsemide 20 Mg Tablet) 20 mg PO DAILY [facility]; Protocol Last Admin: 03/21/22 13:41 Dose: 20 mg Vitamin D (Cholecalciferol (Vitamin D3) 25 Mcg Tablet) 25 mcg PO DAILY [facility] Home Medications Medication Instructions Recorded Confirmed Last Taken Type cholecalciferol (vitamin D3) 25 25 mcg PO DAILY 02/05/22 03/21/22 03/20/22 History mcg (1,000 unit) tablet clonazepam 0.5 mg tablet 0.5 mg PO BEDTIME PRN Sleep 02/05/22 03/21/22 03/20/22 History fluticasone propionate 50 2 spray intranasal DAILY PRN 02/05/22 03/21/22 03/20/22 History mcg/actuation nasal Allergy Symptoms spray,suspension metoprolol succinate 25 mg 25 mg PO BEDTIME 03/15/22 03/21/22 03/20/22 History tablet,extended release 24 hr diphenhydramine HCl 25 mg capsule 0 mg PO 03/20/22 03/20/22 Unknown History (Wal-Dryl Allergy) capsaicin 0.1 % topical cream 1 appl topical BID PRN Pain (Scale 03/21/22 03/21/22 03/20/22 History Score 1-3) coenzyme Q10 100 mg capsule 100 mg PO DAILY 03/21/22 03/21/22 03/20/22 History (CoQ-10) lidocaine 5 % topical patch 1 patch topical DAILY PRN Pain 03/21/22 03/21/22 03/20/22 History (Scale Score 1-3) losartan 50 mg tablet 25 mg PO BID 03/21/22 03/21/22 Unknown History warfarin 5 mg tablet 2.5 mg PO SUTUWEFRSA@1800 03/21/22 Unknown History warfarin 5 mg tablet 5 mg PO MOTH@1800 03/21/22 Unknown History Physical Exam Vital Signs: Vital Signs: Last Vital Signs Temp 97.2 F 03/21/22 13:18 Pulse 64 03/21/22 13:18 Resp 20 03/21/22 13:18 BP 107/54 L 03/21/22 13:18 Pulse Ox 95 03/21/22 13:18 O2 Del Method 03/21/22 13:18 BMI result Body Mass Index 36.6 Const: General: cooperative, comfortable, no acute distress, well developed and alert Resp: Effort & Inspection: normal respiratory effort, no stridor and tachypneic Auscultation: no wheezes Cardio: Jugular venous distension: no JVD Rhythm: abnormal rhythm GI: Palpation (GI): Soft to palpation, nontender, no guarding, not rigid and No Rebound tenderness present Percussion: Yes normal to percussion Auscultation: normal bowel sounds Skin: General skin exam: no rashes or lesions noted and jaundice Results Labs Result diagrams: 03/21/22 11:10 03/21/22 11:10 Labs: Abnormal lab results 03/20/22 03/20/22 03/20/22 Range/Units 18:21 19:37 19:37 WBC (4.8-10.8) X10*3/uL RBC 2.28 L D (4.20-5.50) X10*6/uL Hgb 8.8 L (12.0-16.0) g/dl Hct 26.9 L (37.0-47.0) % MCV 118.0 H (80.0-98.0) fL MCH 38.6 H (27.0-33.0) pg RDW 23.3 H (11.0-16.0) % Plt Count 88 L (160-400) X10*3/uL MPV (9.4-12.3) fL Immature Gran % (Auto) 2.3 H (0.0-0.4) % Neut % (Auto) (45-73) % Lymph % (Auto) (20-40) % Dare % (Auto) 11.8 H (2-11) % Abs Immat Gran (auto) 0.14 H (0.00-0.03) X10*3/uL Absolute Neuts (auto) (2.0-8.3) x10*3/uL Absolute Nucleated RBC 0.160 H (0.0-0.012) X10*3/uL Nucleated RBC % (auto) 2.6 H (0.0-0.2) /100WBC PT 25.8 H (10.0-13.1) SEC INR 2.2 H (0.9-1.1) APTT 58.0 H D (24.1-38.0) SEC BUN 33 H (9-16) mg/dL Random Glucose 121 H (60-115) mg/dL Calcium (8.4-10.2) mg/dL Total Bilirubin 3.6 H (0.0-1.0) mg/dL Direct Bilirubin 2.0 H (0.0-0.5) mg/dL Troponin I High Sens (<3.5-17.0) ng/L B-Natriuretic Peptide (<100) pg/mL Vitamin B12 (200-900) pg/mL 03/20/22 03/20/22 03/21/22 Range/Units 19:37 21:59 11:10 WBC 4.6 L (4.8-10.8) X10*3/uL RBC 2.19 L (4.20-5.50) X10*6/uL Hgb 8.5 L (12.0-16.0) g/dl Hct 26.1 L (37.0-47.0) % MCV 119.2 H (80.0-98.0) fL MCH 38.8 H (27.0-33.0) pg RDW 23.6 H (11.0-16.0) % Plt Count 83 L (160-400) X10*3/uL MPV 12.6 H (9.4-12.3) fL Immature Gran % (Auto) 2.4 H (0.0-0.4) % Neut % (Auto) 41.9 L (45-73) % Lymph % (Auto) 44.8 H (20-40) % Dare % (Auto) (2-11) % Abs Immat Gran (auto) 0.11 H (0.00-0.03) X10*3/uL Absolute Neuts (auto) 1.9 L (2.0-8.3) x10*3/uL Absolute Nucleated RBC 0.120 H (0.0-0.012) X10*3/uL Nucleated RBC % (auto) 2.6 H (0.0-0.2) /100WBC PT (10.0-13.1) SEC INR (0.9-1.1) APTT (24.1-38.0) SEC BUN (9-16) mg/dL Random Glucose (60-115) mg/dL Calcium (8.4-10.2) mg/dL Total Bilirubin (0.0-1.0) mg/dL Direct Bilirubin (0.0-0.5) mg/dL Troponin I High Sens 25.1 H 24.6 H (<3.5-17.0) ng/L B-Natriuretic Peptide 717 H (<100) pg/mL Vitamin B12 (200-900) pg/mL 03/21/22 03/21/22 03/21/22 Range/Units 11:10 11:10 19:37 WBC (4.8-10.8) X10*3/uL RBC (4.20-5.50) X10*6/uL Hgb (12.0-16.0) g/dl Hct (37.0-47.0) % MCV (80.0-98.0) fL MCH (27.0-33.0) pg RDW (11.0-16.0) % Plt Count (160-400) X10*3/uL MPV (9.4-12.3) fL Immature Gran % (Auto) (0.0-0.4) % Neut % (Auto) (45-73) % Lymph % (Auto) (20-40) % Dare % (Auto) (2-11) % Abs Immat Gran (auto) (0.00-0.03) X10*3/uL Absolute Neuts (auto) (2.0-8.3) x10*3/uL Absolute Nucleated RBC (0.0-0.012) X10*3/uL Nucleated RBC % (auto) (0.0-0.2) /100WBC PT 20.7 H (10.0-13.1) SEC INR 1.8 H (0.9-1.1) APTT 39.1 H D (24.1-38.0) SEC BUN 30 H (9-16) mg/dL Random Glucose 136 H (60-115) mg/dL Calcium 8.3 L (8.4-10.2) mg/dL Total Bilirubin 4.2 H (0.0-1.0) mg/dL Direct Bilirubin (0.0-0.5) mg/dL Troponin I High Sens (<3.5-17.0) ng/L B-Natriuretic Peptide (<100) pg/mL Vitamin B12 1700 H (200-900) pg/mL Short CBC 03/20/22 03/21/22 Range/Units 19:37 11:10 WBC 6.1 4.6 L (4.8-10.8) X10*3/uL Hgb 8.8 L 8.5 L (12.0-16.0) g/dl Hct 26.9 L 26.1 L (37.0-47.0) % Plt Count 88 L 83 L (160-400) X10*3/uL BMP 03/20/22 03/21/22 19:37 11:10 Sodium 136 137 Potassium 4.7 4.6 Chloride 101 104 Carbon Dioxide 24 24 BUN 33 H 30 H Creatinine 1.23 1.16 Calcium 8.7 D 8.3 L Liver Function 03/20/22 03/21/22 Range/Units 19:37 11:10 Total Bilirubin 3.6 H 4.2 H (0.0-1.0) mg/dL Direct Bilirubin 2.0 H (0.0-0.5) mg/dL AST 26 28 (5-31) U/L ALT 14 15 (0-31) U/L Alkaline Phosphatase 96 91 (39-117) U/L Albumin 3.6 3.6 (3.5-5.0) g/dL Urine 03/20/22 Range/Units 19:09 Urine Color YELLOW Urine Appearance CLEAR Urine pH 6.0 (5.0-8.0) Ur Specific [place] 1.010 (1.005-1.025) Urine Protein NEG (NEG-TRACE) MG/DL Urine Glucose (UA) NEG (NEG) MG/DL All other labs normal. Assessment and Plan (1) Cholelithiasis: Qualifiers: Biliary obstruction: without biliary obstruction Cholecystitis presence: without cholecystitis Cholelithiasis location: gallbladder Qualified Code(s): K80.20 - Calculus of gallbladder without cholecystitis without obstruction Status: Acute (2) Elevated bilirubin: Status: Acute Plan 81-year-old female patient with recurring episodes of abdominal discomfort and jaundice with a past medical history significant for multiple medical problems including congestive heart failure, atrial fibrillation, coronary artery disease, aortic valve disease, and diabetes. Patient's current examination is fairly benign with no abdominal tenderness elicited and a negative Knowles sign. Patient is requesting elective cholecystectomy although with her multiple medical problems she may be a very high risk for general anesthesia. Her exam is benign currently and the cholecystectomy certainly could be postponed until she is medically stable. Procedures Date of Service Date of Service: 03/21/22
--- NOTE | 2022-03-21 16:32 | PC.NURSE ---
Assisted pt to bathroom with walker. Pt walks with steady gait and is 1 assist. Rn aware.
--- NOTE | 2022-03-21 17:30 | PM.EVENT ---
Event Note Date of Service: 03/21/22 Event Note: GI consult dictated Elevated total bilirubin is probably multifactorial as outlined in earlier consult on her last admission. No evidence of CBD pathology. No further GI workup is needed.
--- NOTE | 2022-03-21 18:16 | PC.NURSE ---
Pt is a/o and ambulatory to the bathroom with ax1 and RW. Pt c/o of back pain intermittently. PRN tylenol provided with some relief. medicated per NOV. Son at bedside for most of the afternoon. Requesting a phone call from the attending. Attending made aware. Callbell and belongings within reach.
--- NOTE | 2022-03-21 19:23 | PC.NURSE ---
Addendum entered by Meliza Pearl 03/21/22 19:51: report given to MIGUEL Brown Original Note: report received from MIGUEL Nguyen. pt alert and oriented. resting in bed. on continuos cardiac monitoring. no signs of acute distress notice. breathing equally unlabored
[2022-03-21] MEDS: Metoprolol Succinate ER 25 MG TAB.ER.24H PO (21:13)
[2022-03-21] MEDS: Losartan Potassium 25 MG TABLET PO (21:13)
[2022-03-21] MEDS: 0.9 % Sodium Chloride Flush 3 ML SYRINGE IVFLUSH (21:15)
[2022-03-22 01:41] VITALS: BMI 36.5
[2022-03-22 03:24] VITALS: BP 112/58; PULSE 67; RESP 20; TEMP 37; O2SAT 97
[2022-03-22] MEDS: Acetaminophen 325 MG TABLET 650 MG PO ×2 (03:56→12:02)
[2022-03-22 06:51] LABS: Hemoglobin 7.8 g/dl (12.0-16.0); Mean Corpuscular HGB Conc 32.5 g/dl (31.0-35.0); Mean Corpuscular Hemoglobin 38.2 pg (27.0-33.0); PLT CLUMP 1; Red Blood Count 2.04 X10*6/uL (4.20-5.50); Red Cell Distribution Width 22.8 % (11.0-16.0)
[2022-03-22 07:00] LABS: Mean Corpuscular Volume 117.6 fL (80.0-98.0); NRBC Pct Auto 3.8 /100WBC (0.0-0.2)
[2022-03-22 07:01] LABS: Anion Gap 12 (12-20); Blood Urea Nitrogen 31 mg/dL (9-16); Calcium 8.3 mg/dL (8.4-10.2); Carbon Dioxide 25 mmol/L (22-29); Chloride 102 mmol/L (96-108); Creatinine Clr Calc Pharmacy 37.2; Estimated Glomerular Filt Rate 45; Glucose Random 152 mg/dL (60-115); Potassium 4.4 mmol/L (3.3-5.1); Sodium 135 mmol/L (135-145)
[2022-03-22 07:23] LABS: Platelet Count 67 X10*3/uL (160-400); White Blood Count 3.9 X10*3/uL (4.8-10.8)
[2022-03-22 07:27] VITALS: BP 113/58; PULSE 65; RESP 17; TEMP 36.6; O2SAT 97
[2022-03-22] MEDS: Cholecalciferol (Vitamin D3) 25 MCG TABLET PO (08:05)
[2022-03-22] MEDS: Cyanocobalamin (Vitamin B-12) 1,000 MCG TABLET 1000 MCG PO (08:05)
[2022-03-22] MEDS: Torsemide 20 MG TABLET PO (08:05)
[2022-03-22] MEDS: Losartan Potassium 25 MG TABLET PO (08:06)
[2022-03-22] MEDS: 0.9 % Sodium Chloride Flush 3 ML SYRINGE IVFLUSH (08:06)
--- NOTE | 2022-03-22 09:01 | MHC.CM.PN ---
CM met with pt at bedside and addressed STRAUSS 03/22/22, copy left with pt and copy filed in chart. Pt reports she lives in a condo and her daughter lives her. She reports she had [facility] and private [facility] in the past. Pt's PCP is Dr. Soriano, She uses cane at home, HCP on file, she is not COVID Vaccinated. P.T. is recommending home P.T. and pt is agreeable to new [facility] referral. D/C Plan: Home with [facility]
[2022-03-22 09:51] VITALS: BP 113/58; PULSE 65; O2SAT 97
--- NOTE | 2022-03-22 10:24 | PM.DS ---
DS: Providers Provider Date of Service: 03/22/22 Date of admission: 03/21/22 11:08 Primary care physician: Brian Apodaca MD Consults: 03/21/22 11:08 Consult to Gastroenterology Routine Consulting Provider: Castillo Abdul Reason for consultation: jaundice, gall stones 03/21/22 11:20 Consult to General Surgery Routine Consulting Provider: Tyler Lovell Reason for consultation: gallstones, elevated LFTs DS: Diagnosis Discharge Diagnosis (1) Cholelithiasis: Status: Acute (2) Elevated bilirubin: Status: Acute DS: Summary Hospital Course Hospital Course: Chief Complaint: back pain, right shoulder pain This is an 81 year old female with a PMH of HFpEF,? 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 The patient was hospitalized from 02/05 to 02/14 where she was treated for HPpEF exacerbation. She also had cholestatic jaundice during that visit and was ruled out for acute cholecystitis. Cardiology recommended outpatient evaluation with cardiac cath and was recommended to f/u with GI and general surgery for gall bladder management. The patient arrived to the ED 03/20 with the same complaints and blood work which was more or less at her baseline. The plan was for placement to SNF but she has required multiple doses of IV morphine for pain control and hence, admission has been requested. In regards to the patients back and shoulder pain -- she reports that she this is intermittent in nature. She does reprots some abdominal fullness + RUQ soreness + worsening of her shoulder/back pain with meals. She reports that its intensity has not changed since her admission. She reports intermittent nausea. She denies diarrhea, fevers or chills. Hospital course: 1. Hyperbilirubinemia--this is chronic and appear stable, surgery saw her and will follow up on outpatient basis after cardiac cath. No indication for imediate CCY 2. HFpEF appears euvolemic continue baseline diuretics 3. Permanant A. Fib she reports that she has been advised to hold her coumadin prior to her cath on Saturday. Check INR now continue baseline rate control meds 4. DM not on meds diabetic diet 5. Anemia/thrombocytopenia previously was pancytopenic and thought this was related to MDS. Numbers are more or less at baseline. outapatient f/u Code status -- d/w her re: code status and she is undecided at this time, hence will remain full code for the time being DVT pptx -- on coumadin Time Spent with Patient Time attestation: Total time spent providing and/or coordinating discharge services: Discharge coordination time: Greater than 30 minutes Quality: Safe Use of Opioids Does Pt have an Active Cancer Diagnosis on the Problem List?: No Quality: Stroke Does the patient have a stroke diagnosis?: No Physical Exam Vital Signs: Vital Signs: Last Vital Signs Temp 97.9 F 03/22/22 07:27 Pulse 65 03/22/22 09:51 Resp 17 03/22/22 07:27 BP 113/58 L 03/22/22 09:51 Pulse Ox 97 03/22/22 09:51 O2 Del Method 03/22/22 07:27 BMI result Body Mass Index 36.5 DS: Data Data Completed and Pending Labs on day of discharge: Laboratory Results - last 24 hr 03/21/22 03/21/22 03/21/22 11:10 11:10 11:10 WBC 4.6 L RBC 2.19 L Hgb 8.5 L Hct 26.1 L MCV 119.2 H MCH 38.8 H MCHC 32.6 RDW 23.6 H Plt Count 83 L MPV 12.6 H Immature Gran % (Auto) 2.4 H Neut % (Auto) 41.9 L Lymph % (Auto) 44.8 H Rains % (Auto) 10.3 Eos % (Auto) 0.4 Baso % (Auto) 0.2 Lymph # (Auto) 2.1 Rains # (Auto) 0.5 Eos # (Auto) 0.0 Baso # (Auto) 0.0 Abs Immat Gran (auto) 0.11 H Absolute Neuts (auto) 1.9 L Absolute Nucleated RBC 0.120 H Nucleated RBC % (auto) 2.6 H PT 20.7 H INR 1.8 H APTT 39.1 H D Sodium 137 Potassium 4.6 Chloride 104 Carbon Dioxide 24 Anion Gap 14 BUN 30 H Creatinine 1.16 Estim Creat Clear Calc 37.1 Estimated GFR 45 Random Glucose 136 H Calcium 8.3 L Total Bilirubin 4.2 H AST 28 ALT 15 Alkaline Phosphatase 91 Total Protein 6.8 Albumin 3.6 Lipase 19 03/22/22 03/22/22 06:08 06:08 WBC 3.9 L RBC 2.04 L Hgb 7.8 L Hct 24.0 L MCV 117.6 H MCH 38.2 H MCHC 32.5 RDW 22.8 H Plt Count 67 L MPV Not Reportable Immature Gran % (Auto) Neut % (Auto) Lymph % (Auto) Rains % (Auto) Eos % (Auto) Baso % (Auto) Lymph # (Auto) Rains # (Auto) Eos # (Auto) Baso # (Auto) Abs Immat Gran (auto) Absolute Neuts (auto) Absolute Nucleated RBC 0.150 H Nucleated RBC % (auto) 3.8 H PT INR APTT Sodium 135 Potassium 4.4 Chloride 102 Carbon Dioxide 25 Anion Gap 12 BUN 31 H Creatinine 1.15 Estim Creat Clear Calc 37.2 Estimated GFR 45 Random Glucose 152 H Calcium 8.3 L Total Bilirubin AST ALT Alkaline Phosphatase Total Protein Albumin Lipase Discharge Plan Discharge Anticipated Discharge Date/Time: 03/22/22 10:23 Patient Disposition: Home, Self-Care Referrals: Laura Barton MD [Physician] - 1 week (Abnormal values) Brian Apodaca MD [Primary Care Provider] - 1 Week Tyler Lovell MD [Physician] - 1 week (Cholelithiasis without cholecystitis) Discharge Medications: Continued (DME) bra, mastectomy Crystals See Rx Instructions .Route Qty: 2 0RF Rx Instructions: As directed (DME) FreeStyle Lite Strips Strip MISCELLANEOUS Qty: 100 3RF Rx Instructions: As directed check the blood sugar once a day cyanocobalamin (vitamin B-12) 1,000 mcg capsule 1,000 mcg PO DAILY 90 Days Qty: 90 3RF torsemide 20 mg tablet 20 mg PO DAILY Qty: 30 5RF Rx Instructions: off lasix prednisone 20 mg tablet 20 mg PO BID 2 Days Qty: 3 0RF Rx Instructions: Take one tablet the morning of Day Before cardiac cath. Take one tablet the evening of Day Before cardiac cath. Take one tablet the morning of the cardiac cath. famotidine [Pepcid] 20 mg tablet 20 mg PO BID 2 Days Qty: 3 0RF Rx Instructions: Take one tablet the morning of Day Before cardiac cath. Take one tablet the evening of Day Before cardiac cath. Take one tablet the morning of the cardiac cath. enoxaparin [Lovenox] 120 mg/0.8 mL syringe 120 mg subcut DAILY 8 Days Qty: 6.4 1RF Protocol: Dose Management Condition: Saturday Dose/Route: 2.5 mg Instruction: 0.5 x 5 mg milliliters Condition: Saturday Dose/Route: 0 mg Instruction: 0 milliliters Condition: Saturday Dose/Route: 0 mg Instruction: 0 milliliters Condition: Saturday Dose/Route: 0 mg Instruction: 0 milliliters Condition: Dose/Route: 0 mg Instruction: 0 milliliters Condition: Saturday Dose/Route: 0 mg Instruction: 0 milliliters Condition: Saturday Dose/Route: 2.5 mg Instruction: 0.5 x 5 mg milliliters Protocol Text: Adjustment Start Date: Saturday03/20/22 INR Value: 2.0 INR Date: 03/20/22 Recheck Date: 03/26/22 Additional Instructions: HOLD WARFARIN AND START LOVENOX 24 HOUR DOSE Rx Instructions: One injection daily while coumadin on hold preprocedure and then one injection daily (along with coumadin) post procedure, until INR reaches 2 cyclobenzaprine 5 mg tablet 5 mg PO TID PRN (Reason: muscle spasm) Qty: 30 0RF metoprolol succinate 25 mg tablet extended release 24 hr 25 mg PO BEDTIME cholecalciferol (vitamin D3) 25 mcg (1,000 unit) Tablet 25 mcg PO DAILY clonazepam 0.5 mg tablet 0.5 mg PO BEDTIME PRN (Reason: Sleep) fluticasone propionate 50 mcg/actuation spray,suspension 2 spray intranasal DAILY PRN (Reason: Allergy Symptoms) Rx Instructions: administer into each nostril lidocaine 5 % adhesive patch,medicated 1 patch topical DAILY PRN (Reason: Pain (Scale Score 1-3)) coenzyme Q10 [CoQ-10] 100 mg Capsule 100 mg PO DAILY capsaicin 0.1 % cream 1 appl topical BID PRN (Reason: Pain (Scale Score 1-3)) Rx Instructions: do not wash area for at least 30 min after application warfarin 5 mg tablet 5 mg PO MOTH@1800 warfarin 5 mg tablet 2.5 mg PO SUTUWEFRSA@1800 losartan 50 mg tablet 25 mg PO BID (DME) compress.stocking,knee,reg,lrg Misc See Rx Instructions .Route Qty: 2 0RF Rx Instructions: As directed 20-30 mm HG (DME) blood-glucose meter [FreeStyle Lite Meter] Kit See Rx Instructions .ROUTE .MEDSUPPLY Qty: 1 0RF Rx Instructions: As directed diphenhydramine HCl [Wal-Dryl Allergy] 25 mg capsule 0 mg PO Discharge Orders: Discharge Order (Routine); Ordered 03/22/22 Ordered By: Adam Rey Diet: Advance to usual diet Activity on Discharge: As tolerated Stand Alone Forms: Patient Portal Discharge page Care Plan Goals: full reciovery Health Concerns: heard disease cardiac cath tomorrow Plan of Treatment: Follow up with cardiology at [facility] tomorrow for cardiac catheterization Assessment: As above
[2022-03-22 11:04] VITALS: BP 125/60; PULSE 65; RESP 17; TEMP 36.4; O2SAT 99
--- NOTE | 2022-03-22 11:09 | CONS_ITS ---
DATE OF SERVICE: 03/21/2022 REFERRING PHYSICIAN: Dr. Ospina REASON FOR CONSULTATION: Elevated bilirubin and gallstones. HISTORY OF PRESENT ILLNESS: The patient is a pleasant 81-year-old woman who was admitted to the hospital on March 21, after presenting to the emergency room with complaints of back and shoulder pain. She has been hospitalized for this similar problem and had known gallstones, which have been evaluated with an abdominal ultrasound, HIDA scan, and abdomen and pelvis CT. She has been seen in consultation by General Surgery for possible elective cholecystectomy, but is having further evaluation of her cardiac status on Saturday with cardiac catheterization. She has been noted to have elevation of her total serum bilirubin over multiple admissions and it was elevated at 4.2 this morning. This appears to be a combination of direct and indirect bilirubin with her indirect fraction, last measured at 2.0 on March 20, with a total bilirubin of 3.6. She was seen in consultation by Dr. Li on two other occasions and his opinion was that this similar elevation of her total direct and indirect bilirubin is likely multifactorial. Both of his consult are reviewed. She has never had any dilation of her biliary tree on ultrasound imaging, so the likelihood of common duct stone seems very low. PAST MEDICAL HISTORY: 1. Heart failure with preserved ejection fraction. 2. Atrial fibrillation. 3. Diabetes mellitus. 4. 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 5. Coronary artery disease with two-vessel CABG. 6. Elevated body mass index. 7. Possible myelodysplastic syndrome. 8. Breast cancer. 9. Complete heart block with pacemaker placement. CURRENT MEDICATIONS: Her current medication list is reviewed in the chart. ALLERGIES: MULTIPLE MEDICATION ALLERGIES ARE REVIEWED. FAMILY HISTORY: This is reviewed with the patient and is noncontributory. SOCIAL HISTORY: There is no current tobacco, alcohol, or substance abuse. REVIEW OF SYSTEMS: SKIN: No pruritus. HEENT: Negative. CARDIOPULMONARY: No shortness of breath or chest pain. GASTROINTESTINAL: As above. GENITOURINARY: Negative. NEUROPSYCHIATRIC: Negative. PHYSICAL EXAMINATION: GENERAL: Shows a pleasant female, lying comfortably in bed. VITAL SIGNS: Reviewed in electronic medical record and are stable. SKIN: Shows no icterus. HEENT: Shows no scleral icterus. NECK: Without lymphadenopathy or thyromegaly. LUNGS: Clear. HEART: Shows a regular rate and rhythm. S1, S2. No murmur. ABDOMEN: Soft and nontender. Bowel sounds are present. No organomegaly is noted. EXTREMITIES: Show edema. LABORATORY DATA: Reviewed. IMPRESSION: Elevated total bilirubin in the setting of gallstones and back and shoulder pain. It appears unlikely that her elevated total bilirubin is related to biliary tract pathology given her previous imaging studies and as previously stated in prior consult may be a combination of multiple factors. At this point, I would not recommend further evaluation and this simply can be monitored. Thanks for asking me to see her. I will follow her in the hospital with you. MD PRIMITIVO Forrester/BURKE / [id number]
--- NOTE | 2022-03-22 11:34 | MHC.CM.PN ---
Pt has been medically cleared to discharge home and resume [facility] service, New Physical Therapy has been ordered through [facility]. NA has been updated.
[2022-03-22 13:13] VITALS: BP 125/60; PULSE 65; O2SAT 99
[2022-03-22] MEDS: Enoxaparin Sodium 120 MG/0.8 ML SYRINGE SUBCUT (14:49)
== END 2022-03-22 15:43 | disposition home health service (06) ==
LOC: HO.ED 03-21 10:00 → HO.EDOVER 03-21 11:17 → HO.IMC 03-21 19:40
PROVIDERS: Nurse Practitioner Family; Physician Assistant Medical; Admitting Provider Family Medicine; Emergency Provider Emergency Medicine; PCP Internal Medicine; Visit Provider Internal Medicine
DX: K80.20 Calculus of gallbladder without cholecystitis without obstruction (principal); R17 Unspecified jaundice; I48.20 Chronic atrial fibrillation, unspecified; D69.6 Thrombocytopenia, unspecified; E11.9 Type 2 diabetes mellitus without complications; R10.13 Epigastric pain; R06.02 Shortness of breath; M25.511 Pain in right shoulder; E80.6 Other disorders of bilirubin metabolism; M54.50 Low back pain, unspecified; I25.10 Atherosclerotic heart disease of native coronary artery without angina pectoris; Z20.822 Contact with and (suspected) exposure to COVID-19; Z95.4 Presence of other heart-valve replacement; Z79.899 Other long term (current) drug therapy; Z79.01 Long term (current) use of anticoagulants; Z85.3 Personal history of malignant neoplasm of breast; Z95.0 Presence of cardiac pacemaker
CPT/HCPCS: 0241U; 36415; 71045; 76705; 80048; 80053; 80076; 81003; 82607; 83690; 83735; 83880; 84484; 85025; 85027; 85610; 85730; 93005; 96372; 96374; 96375; 96376; 97116; 97162; 99219; 99285; J1650; J2270; Q3014

== ENCOUNTER → 2022-03-26 15:04 | Outpatient (BNVA) | payer MEDICARE, OTHER, SELFPAY | PROVIDERS: PCP Internal Medicine; Visit Provider Internal Medicine | DX: I48.0 Paroxysmal atrial fibrillation (principal); Z79.01 Long term (current) use of anticoagulants; Z51.81 Encounter for therapeutic drug level monitoring | CPT/HCPCS: Q3014 ==

== ENCOUNTER → 2022-03-27 11:26 | Outpatient (BNVA) | payer MEDICARE, OTHER, SELFPAY | PROVIDERS: PCP Internal Medicine; Visit Provider Internal Medicine | DX: I48.0 Paroxysmal atrial fibrillation (principal); Z51.81 Encounter for therapeutic drug level monitoring; Z79.01 Long term (current) use of anticoagulants | CPT/HCPCS: Q3014 ==

== ENCOUNTER 2022-04-03 07:37 | Emergency (ER) | payer MEDICARE, OTHER, SELFPAY ==
[2022-04-03] VITALS (8 sets, daily range): BP systolic 69–92; BP diastolic 30–39; PULSE 65; RESP 18–21; TEMP 36.4–36.6; O2SAT 98–99; BMI 34.9
--- NOTE | ~2022-04-03 | CT_ITS ---
EXAMINATION: CT ABDOMEN AND PELVIS WITHOUT CONTRAST CLINICAL INFORMATION: Mid to lower abdominal bruising. Evaluate for pelvic hematoma. COMPARISON: 02/11/2022. TECHNIQUE: Multidetector volumetric imaging was performed from the superior aspect of the liver through the pubic symphysis. Sagittal and coronal reformatted images were obtained on the technologist's workstation. This CT examination was performed using dose optimization techniques as appropriate, variously including the following: *Automated exposure control *Adjustment of mA and/or kV according to patient size (this includes techniques or standardized protocols for targeted exams where dose is matched to indication/reason for exam; i.e. extremities or head) *Use of iterative reconstruction technique DLP: 833 mGy-cm FINDINGS: LUNG BASES: Mild atelectasis in visualized lung bases. Streak artifact produced by the cardiac lead. No pericardial or pleural effusion. Coronary artery atherosclerotic calcification is noted. LIVER: The liver has normal size, shape, and attenuation. No evidence of liver mass. GALLBLADDER AND BILIARY TREE: Gallbladder has a 1.8 cm stone. No gallbladder wall thickening or pericholecystic fluid. No dilated bile ducts. PANCREAS: No acute findings within the atrophied pancreas. No edema, pancreatic ductal dilatation or mass. SPLEEN: Normal. ADRENAL GLANDS: Normal. KIDNEYS AND URETERS: Mild bilateral renal cortical atrophy. No nephrolithiasis or hydronephrosis. 3.2 cm simple cyst of the lower pole of the left kidney. No renal imaging follow-up recommended. BLADDER: Normal. No calculi or wall thickening. BOWEL AND PERITONEUM: No dilated bowel loops. No inflammatory change or obstruction along the gastrointestinal tract. Diverticula of sigmoid colon without diverticulitis. Appendix is normal. No hemoperitoneum or pneumoperitoneum. ABDOMINAL WALL: Mild skin thickening and edema of subcutaneous tissues of the lower abdominal wall. VASCULATURE: Atherosclerotic calcification of the abdominal aorta and branch vessels, including SMA, proximal renal arteries and splenic artery. Atherosclerosis of iliac arteries without aneurysm. LYMPH NODES: No pathologic sized lymph nodes in the abdomen or pelvis. There are a few opacities of the right lower abdominal wall/right inguinal region that measure up to 1 cm short axis dimension. These could represent lymph nodes or, given history of abdominal bruising, perhaps small hematomas. No significant fluid collection. PELVIC VISCERA: There are myometrial vascular calcifications. No uterine or adnexal mass. No pelvic free fluid. SKELETAL: Chronic multilevel degenerative disc disease of the lumbar spine. 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 There is approximately 25% anterolisthesis of L4 on L5. Mild degenerative anterolisthesis at L1-L2 and L5-S1. Subacute compression fracture of L1 vertebral body involving superior endplate is new compared to 02/11/2022. CT/CT abdomen pelvis wo con IMPRESSION: * No evidence of hemoperitoneum. * The mild skin thickening and edema of subcutaneous tissue of the lower abdominal wall is likely from recent trauma with bruising. There is no large fluid collection in the abdominal wall. The few small somewhat patchy opacities in the right lower abdominal wall could represent hematomas or perhaps lymph nodes. * Subacute compression fracture of the L1 vertebral body. Otherwise, no new findings in the severely degenerated lumbar spine compared to 02/11/2022. * Cholelithiasis without evidence of cholecystitis. * Diverticulosis of sigmoid colon without diverticulitis.
--- NOTE | ~2022-04-03 | XR_ITS ---
EXAMINATION: XR CHEST CLINICAL INFORMATION: Weakness COMPARISON: 03/20/2022 and 03/15/2022 TECHNIQUE: Frontal view of the chest was obtained. FINDINGS: Right internal jugular central venous catheter terminates at the superior cavoatrial junction. Stably positioned single lead pacemaker. Cardiomegaly. Aorta is tortuous and atherosclerotic. Pulmonary vascularity within normal limits. No focal consolidation. Subsegmental atelectasis versus pleural parenchymal scarring, left lower lobe unchanged. XR/XR chest 1V IMPRESSION: No acute findings Cardiomegaly without evidence of decompensated heart failure
--- NOTE | ~2022-04-03 | XR_ITS ---
EXAMINATION: XR FOOT, LEFT CLINICAL INFORMATION: Pain and bruising of the left foot. COMPARISON: None TECHNIQUE: 3 views of the left foot. FINDINGS: Soft tissues are swollen around the ankle and dorsal foot. No soft tissue gas or radiopaque foreign body. There are peripheral vascular calcifications. The bones have normal alignment. No acute fractures are identified. There are enthesophytes of the posterior and plantar surfaces of the calcaneus. There are osteoarthritic changes at several joints, including navicular-cuneiform and second and third tarsometatarsal joints. Mild osteoarthritis of the great toe MTP joint. Small osteophytes also observed at some of the interphalangeal joints. XR/XR foot LT min 3V IMPRESSION: * Nonspecific soft tissue swelling of the ankle and foot. 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 No evidence of an erosive/inflammatory arthropathy.
--- NOTE | 2022-04-03 08:22 | ECG_ITS ---
Test Reason : weakness Blood Pressure : / mmHG Vent. Rate : 065 BPM Atrial Rate : 073 BPM P-R Int : 000 ms QRS Dur : 164 ms QT Int : 474 ms P-R-T Axes : 000 -71 141 degrees QTc Int : 492 ms Ventricular-paced rhythm Abnormal ECG When compared with ECG of 20-MAR-2022 17:51, No significant change was found Referred By: Charissa Carballo Electronically Signed By:Yoandy Bolton
--- NOTE | 2022-04-03 08:47 | ED.GENADULT ---
HPI - General Adult General Chief complaint: Back Pain/Injury <Charissa CarballoJANET - Last Filed: 04/03/22 13:55> Stated complaint: LOW BACK PAIN <Charissa CarballoJANET - Last Filed: 04/03/22 13:55> Time Seen by Provider: 04/03/22 08:08 <Charissa CarballoJANET - Last Filed: 04/03/22 13:55> Source: patient <Charissa CarballoJANET - Last Filed: 04/03/22 13:55> Mode of arrival: EMS <Charissa CarballoJANET - Last Filed: 04/03/22 13:55> Limitations: no limitations <Charissa CarballoJANET - Last Filed: 04/03/22 13:55> History of Present Illness HPI narrative: Patient has emergency department via EMS with reports of fatigue, weakness, lower back pain that has been ongoing for many months and jon reports I have a bad valve . Patient is a very vague historian. Denies fevers, chills, dizziness, lightheadedness, headache, chest pain, palpitations, shortness of breath, difficulty breathing, nausea, vomiting, abdominal pain, dysuria, urinary frequency, numbness or tingling of the extremities. <Charissa WestJANET bermudez - Last Filed: 04/03/22 13:55> Related Data Home medications: Home Medications Medication Instructions Recorded Confirmed cholecalciferol (vitamin D3) 25 25 mcg PO DAILY 02/05/22 03/27/22 mcg (1,000 unit) tablet clonazepam 0.5 mg tablet 0.5 mg PO BEDTIME PRN Sleep 02/05/22 03/27/22 fluticasone propionate 50 2 spray intranasal DAILY PRN 02/05/22 03/27/22 mcg/actuation nasal Allergy Symptoms spray,suspension metoprolol succinate 25 mg 25 mg PO BEDTIME 03/15/22 03/27/22 tablet,extended release 24 hr diphenhydramine HCl 25 mg capsule 0 mg PO 03/20/22 03/27/22 (Wal-Dryl Allergy) capsaicin 0.1 % topical cream 1 appl topical BID PRN Pain (Scale 03/21/22 03/27/22 Score 1-3) coenzyme Q10 100 mg capsule 100 mg PO DAILY 03/21/22 03/27/22 (CoQ-10) lidocaine 5 % topical patch 1 patch topical DAILY PRN Pain 03/21/22 03/27/22 (Scale Score 1-3) losartan 50 mg tablet 25 mg PO BID 03/21/22 03/27/22 warfarin 5 mg tablet 2.5 mg PO SUTUWEFRSA@1800 03/21/22 03/29/22 warfarin 5 mg tablet 5 mg PO MOTH@1800 03/21/22 03/29/22 Previous Rx's Medication Instructions Recorded compress.stocking,knee,reg,lrg #2 ea 05/30/21 mastectomy bra (bra, mastectomy) #2 ea 06/21/21 blood-glucose meter (FreeStyle #1 ea 12/08/21 Lite Meter kit) blood sugar diagnostic (FreeStyle #100 ea 01/22/22 Lite Strips) cyanocobalamin (vitamin B-12) 1,000 mcg PO DAILY 90 days #90 caps 01/29/22 1,000 mcg capsule torsemide 20 mg tablet 20 mg PO DAILY #30 tabs 03/06/22 famotidine 20 mg tablet (Pepcid) 20 mg PO BID 2 days #3 tabs 03/12/22 cyclobenzaprine 5 mg tablet 5 mg PO TID PRN muscle spasm #30 03/20/22 tabs <Charissa Carballo, SURFACING MACHINE OPERATOR - Last Filed: 04/03/22 13:55> Allergies/adverse reactions: Allergies Allergy/AdvReac Type Severity Reaction Status Date / Time ezetimibe [Zetia] Allergy Intermediate Unknown Verified 03/29/22 13:18 lisinopril Allergy Mild Unknown Verified 03/29/22 13:18 meperidine [From Demerol] Allergy Mild UNKNOWN Verified 03/29/22 13:18 nitrofurantoin Allergy Mild UNKNOWN Verified 03/29/22 13:18 [From Macrodantin] Penicillins Allergy Mild UNKNOWN Verified 03/29/22 13:18 Sulfa (Sulfonamide Allergy Mild UNKNOWN Verified 03/29/22 13:18 Antibiotics) [place] Syrup Allergy Unknown Unknown Verified 03/29/22 13:18 Iodinated Contrast Media Allergy Unknown ?RASH Verified 03/29/22 13:18 [IV CONTRAST] statin Allergy Unknown unknown Verified 03/29/22 13:18 acetaminophen [From PERCOCET] AdvReac Intermediate SEEING Verified 03/29/22 13:18 THINGS AFTER PERCOCET THAT WERE NOT THERE <Charissa Carballo CNP - Last Filed: 04/03/22 13:55> Review of Systems Review of Systems: Constitutional: No weight loss. No fever. No chills. Positive weakness. Positive fatigue. Eye: No swelling. No redness. ENT: No sore throat. No rhinorrhea. No nasal congestion. No difficulty swallowing. Skin: No rash. No itching. Cardiovascular: No chest pain. No chest pressure. No palpitations. No pedal edema. Respiratory: No shortness of breath. No cough. No sputum production. Gastrointestinal:. No nausea. No vomiting. No diarrhea. No abdominal pain. No blood in stool. Genitourinary: No burning micturition. No urinary frequency. No incontinence. Neurologic: No headache. No dizziness. No pre-syncope/ syncope. No unilateral weakness. No ataxia. No numbness. No tingling. No change in bowel or bladder control. Musculoskeletal: No muscle pain. Positive back pain. No joint pain. No stiffness. Hematologic: No bleeding. Positive bruising. <Charissa Carballo CNP - Last Filed: 04/03/22 13:55> [facility] Past Medical History Attestation statement: The following information was validated with the patient. <Charissa Craballo CNP - Last Filed: 04/03/22 13:55> Source: old records reviewed <Charissa Carballo CNP - Last Filed: 04/03/22 13:55> Medical History: Medical History Acute cholecystitis Anemia Anxiety Ascending aorta dilatation Atrial fibrillation Back pain Chest discomfort Cholelithiases Cholelithiasis Chronic atrial fibrillation Complete heart block Congestive heart failure Congestive heart failure Elevated bilirubin Gallstones Gastric ulcer History of breast cancer Hypercholesterolemia Hypertension Morbid obesity Osteoarthritis of knee Pancytopenia Prosthetic aortic valve stenosis Prosthetic valve dysfunction Stenosis of prosthetic aortic valve Type 2 diabetes mellitus with hyperglycemia Vitamin B 12 deficiency Vitamin D deficiency <Charissa Carballo CNP - Last Filed: 04/03/22 13:55> Surgical History: Surgical History History of bilateral mastectomy History of pacemaker History of surgery on left wrist History of tonsillectomy <Charissa Carballo CNP - Last Filed: 04/03/22 13:55> Family History Family History: Family History Father CVD (cardiovascular disease) Mother Stroke <Charissa Carballo CNP - Last Filed: 04/03/22 13:55> Social History Social History: Social History Household Members: Children Housing: House Are you a primary intensive care unit registered nurse to a significant other at home: No Do you presently have visiting nurse or other home services: No Alcohol intake: never Patient Tobacco Use Status: Never used Tobacco e-Cigarette/Vaping Use: Never Used Second Hand Smoke Exposure: Yes Advance Directives: Yes Advance Directives on File: Yes Advance Directives Date on File: 03/21/22 service: No Current occupational status: retired Cognitive needs: Yes Hearing needs: Yes Vision needs: Yes <Charissa Carballo CNP - Last Filed: 04/03/22 13:55> Physical Exam ED Vital Signs: Vital Signs - 24 hr 04/03/22 07:47 04/03/22 09:02 04/03/22 09:18 Temperature 97.8 F 97.5 F 97.9 F Pulse Rate 65 65 65 Respiratory Rate 20 18 21 H Blood Pressure 69/39 L 72/39 L 79/33 L Pulse Oximetry 98 Oxygen Delivery Method Room Air 04/03/22 09:18 04/03/22 10:22 04/03/22 10:23 Temperature 97.8 F 97.9 F Pulse Rate 65 65 65 Respiratory Rate 21 H 21 H Blood Pressure 79/33 L 73/35 L 73/33 L Pulse Oximetry Oxygen Delivery Method 04/03/22 10:24 04/03/22 11:28 04/03/22 11:29 Temperature Pulse Rate 65 65 65 Respiratory Rate 20 Blood Pressure 73/33 L 82/30 L 92/36 L Pulse Oximetry 99 Oxygen Delivery Method Room Air BMI result Body Mass Index 34.9 <Charissa Carballo CNP - Last Filed: 04/03/22 13:55> Vital Signs - 24 hr 04/03/22 07:47 04/03/22 09:02 04/03/22 09:18 Temperature 97.8 F 97.5 F 97.9 F Pulse Rate 65 65 65 Respiratory Rate 20 18 21 H Blood Pressure 69/39 L 72/39 L 79/33 L Pulse Oximetry 98 Oxygen Delivery Method Room Air 04/03/22 09:18 04/03/22 10:22 04/03/22 10:23 Temperature 97.8 F 97.9 F Pulse Rate 65 65 65 Respiratory Rate 21 H 21 H Blood Pressure 79/33 L 73/35 L 73/33 L Pulse Oximetry Oxygen Delivery Method 04/03/22 10:24 04/03/22 11:28 04/03/22 11:29 Temperature Pulse Rate 65 65 65 Respiratory Rate 20 Blood Pressure 73/33 L 82/30 L 92/36 L Pulse Oximetry 99 Oxygen Delivery Method Room Air BMI result Body Mass Index 34.9 <Franca Damon DO - Last Filed: 04/03/22 09:52> Appearance: Alert.?Oriented to person, place and time. Appears fatigued. Eyes: Pupils equal, round and reactive to light. Sclera slightly icterus? ENT: Pharynx normal.?? Neck: Normal inspection.? Neck supple.?? CVS: Ventricular paced rhythm. Systolic murmur right sternal border Pulses normal? Respiratory: No respiratory distress.? Lung sounds clear to auscultation bilaterally?? Abdomen: Soft and non-tender. Normoactive bowel sounds. Very large midline lower abdominal/suprapubic bruising, soft to palpation Skin: Skin warm and dry.? Jaundiced. Pale skin color.? Extremities: Bilateral 3+ lower extremity pitting edema. Bruising to the left dorsal foot, full AROM to foot and digits, palpable 2+ DP/PT pulses bilaterally Neuro: Moves all extremities spontaneously. Sensation intact bilaterally. CN II-XII intact. No focal neuro deficits. <Charissa Carballo CNP - Last Filed: 04/03/22 13:55> Course Course Course Narrative: Patient is an 81-year-old female with a past medical history of anemia, atrial fibrillation on Coumadin, CAD s/p CABG x2, aortic stenosis, aortic valve replacement; bioprosthetic valve now with stenosis, cardiac pacemaker placed in 2009 for complete heart block, congestive heart failure, cholelithiasis, history of breast cancer status post double mastectomy, hypercholesterolemia, hypertension, obesity, type 2 diabetes. Echocardiogram in January 2020 reviewed EF 50-55%, abnormally function prosthetic aortic valve with severe aortic stenosis, moderate mitral regurgitation, moderate to severe tricuspid regurgitation. Patient's son reports that she was just discharged from [facility] less than 1 week ago, after cardiac catheterization, working on obtaining records at this time, patient reports that she did not receive any blood transfusion at that time. Bedside FAST negative, no pericardial effusion. Will obtain CBC, CMP, troponin, EKG, BMP, type and screen, urinalysis, lactic acid, blood cultures, CT of the abdomen and pelvis concern for pelvic hematoma, chest x-ray. <Charissa Carballo CNP - Last Filed: 04/03/22 13:55> Reevaluation(s) Reevaluation #1: Per records patient was anemic 03/22/2022 hemoglobin 7.8 and hematocrit 24, prior to going to [facility], both patient and her son report that patient did not receive any blood transfusions while at [facility], she was concerned that she may have ?a bad reaction?. Concern based on her presentation that she may be significantly anemic, obtained Consent for blood transfusion, uncrossmatch blood obtained, reviewed benefits, potential complications or unexpected risks. Patient and her son verbalized understanding, and consent to the transfusion. Patient requesting for her son to sign the consent form. 1 unit uncross-matched PRBC to be administered. <Charissa Carballo CNP - Last Filed: 04/03/22 13:55> Time: 08:45 <Charissa Carballo CNP - Last Filed: 04/03/22 13:55> Reevaluation #2: Lactic acid is elevated at 4.2, no tachycardia, no fever, no leukocytosis, likely secondary to hpoyperfusion with anemia, severe aortic stenosis, possible cardiogenic shock, at this time infection is not suspected, will defer sepsis fluid bolus 30 mL/kg. Patient is already received 1 L normal saline IV. At this time, no source of infection is suspected. Dr. Damon at bedside, obtained consent to insert a central line, performing procedure. Contacted Cardiology Dr. Bolton for consultation at this time, given severe aortic stenosis. Persistent hypotension, patient received phenylephrine. <Charissa Carballo CNP - Last Filed: 04/03/22 13:55> Time: 09:21 <Charissa Carballo CNP - Last Filed: 04/03/22 13:55> Reevaluation #3: Dr. Bolton at bedside for evaluation at this time. Orders changed for pressors, patient to receive Levophed, phenylephrine discontinued. Speaking with patient and her son regarding plan of care, patient likely to be transferred to [facility]. CBC reveals no leukocytosis, macrocytic anemia with hemoglobin 7.3 and hematocrit 21.9. INR 3.0. Hyperkalemia 5.6, with no acute EKG changes, calcium gluconate 2 g IV to be given. Acute kidney injury with BUN 65 and creatinine 2.43. Elevated troponin at 85 may be secondary to MATILDE, no acute ischemic findings on EKG, BNP 1127, would defer diuretics at this time given hypotension. <Charissa Carballo CNP - Last Filed: 04/03/22 13:55> Time: 10:08 <Charissa Carballo CNP - Last Filed: 04/03/22 13:55> Additional Reevaluation(s): 1029: Called to patients room, patient reporting right upper back pain, right upper abdominal pain, tenderness to RUQ on palpation, patient with history of cholelithiasis, elevated bilirubin, given hypotension and elevated lactate, this time will treat with Levaquin as patient has a reported severe allergy to penicillin, for possible cholecystitis, CT abd/pelvis is pending. 1130: Remains on Levophed, blood pressure 103/52. CT of her abdomen and pelvis reveals no evidence of hemo peritoneum, mild skin thickening and edema of the lower abdominal wall likely from recent trauma no fluid collection, cholelithiasis without evidence of cholecystitis, and diverticulosis without diverticulitis. At this time waiting for transfer to [facility]. 1200: Patient accepted to [facility] CCU, Dr. Thrasher. <Charissa Carballo CNP - Last Filed: 04/03/22 13:55> Procedures Central Line Placement Right IJ: Time Out Performed: Yes <Franca Damon DO - Last Filed: 04/03/22 09:52> Patient Placed on Monitor/Pulse Ox: Yes <Franca Damon DO - Last Filed: 04/03/22 09:52> MD Prep: mask, gown and gloves <Franca Damon DO - Last Filed: 04/03/22 09:52> Central Line Prep: Chlorhexidine scrub <Franca Damon DO - Last Filed: 04/03/22 09:52> Local Anesthetic: lidocaine 1% <Franca Damon DO - Last Filed: 04/03/22 09:52> Amount of anesthesia used (mL): 5 <Franca Damon DO - Last Filed: 04/03/22 09:52> Ultrasound Used for Placement: Yes <Franca Damon DO - Last Filed: 04/03/22 09:52> Central Line Lumen Inserted: triple <Franca Damon DO - Last Filed: 04/03/22 09:52> Post Procedure: sutured in place, good blood return, all ports aspirated, flushed, capped and sterile dressing applied <Franca Damon DO - Last Filed: 04/03/22 09:52> Post Procedure X-Ray: tip of catheter in good position <Frnaca Damon DO - Last Filed: 04/03/22 09:52> Patient Tolerated Procedure: well and no complications <Franca Damon, DO - Last Filed: 04/03/22 09:52> Complications: none <Franca Damon DO - Last Filed: 04/03/22 09:52> Additional Comments: performed by me Dr. Damon <Franca Damon DO - Last Filed: 04/03/22 09:52> FAST Exam FAST Exam 1: Fluid in Morison's pouch: No <Franca Damon DO - Last Filed: 04/03/22 09:52> Fluid in [place]: No <Franca Damon DO - Last Filed: 04/03/22 09:52> Fluid around bladder, Transverse view: No <Franca Damon DO - Last Filed: 04/03/22 09:52> Fluid around bladder, Sagittal view: No <Franca Damon DO - Last Filed: 04/03/22 09:52> Fluid in Pericardial Sac: No <Franca Damon DO - Last Filed: 04/03/22 09:52> Study normal for this patient: Yes <Franca Damon DO - Last Filed: 04/03/22 09:52> Images saved for further review: No <Franca Damon DO - Last Filed: 04/03/22 09:52> Additional Comments: performed by me Dr. Damon <Franca Damon DO - Last Filed: 04/03/22 09:52> Medical Decision Making Medical Records Medical records reviewed: Yes I reviewed the patient's medical records. <Charissa Carballo CNP - Last Filed: 04/03/22 13:55> Lab Data Lab results reviewed: Yes I reviewed the patient's lab results. <Charissa Carballo CNP - Last Filed: 04/03/22 13:55> Result diagrams: : 04/03/22 08:41 04/03/22 08:41 <Charissa Carballo CNP - Last Filed: 04/03/22 13:55> Labs: Lab Results 04/03/22 04/03/22 04/03/22 Range/Units 08:41 08:41 08:46 WBC 8.8 (4.8-10.8) X10*3/uL RBC 1.88 L (4.20-5.50) X10*6/uL Hgb 7.3 L (12.0-16.0) g/dl Hct 21.9 L (37.0-47.0) % MCV 116.5 H (80.0-98.0) fL MCH 38.8 H (27.0-33.0) pg MCHC 33.3 (31.0-35.0) g/dl RDW 24.0 H (11.0-16.0) % Plt Count 69 L (160-400) X10*3/uL MPV 13.6 H (9.4-12.3) fL Immature Gran % (Auto) Cancelled Neut % (Auto) Cancelled Lymph % (Auto) Cancelled Canadian % (Auto) Cancelled Eos % (Auto) Cancelled Baso % (Auto) Cancelled Lymph # (Auto) Cancelled Canadian # (Auto) Cancelled Eos # (Auto) Cancelled Baso # (Auto) Cancelled Abs Immat Gran (auto) Cancelled Absolute Neuts (auto) Cancelled Absolute Nucleated RBC 0.500 H (0.0-0.012) X10*3/uL Nucleated RBC % (auto) 5.7 H (0.0-0.2) /100WBC Neutrophils % (Manual) 75 H (45-73) % Band Neutrophils % 2 L (3-5) % Lymphocytes % (Manual) 7 L (20-40) % Monocytes % (Manual) 16 H (2-11) % Abs Neuts (Manual) 6.8 (2.0-8.3) X10*3/uL Lymphocytes # (Manual) 0.6 L (1.2-4.9) X10*3/uL Monocytes # (Manual) 1.4 H (0.1-1.2) X10*3/uL Nucleated RBCs 9 H (0-0) /100WBC Platelet Estimate DECREASED (NORMAL) Large Platelets PRESENT Plt Morphology Comment NOTED RBC Morphology NOTED Polychromasia 2+ (3-5) /OIF Hypochromasia 1+ (5-14) /OIF Microcytosis 1+ (5-14) /OIF Macrocytosis 3+ (>30) /OIF Target Cells 1+ (5-14) /OIF Tear Drop Cells 1+ (0-2) /OIF Ovalocytes 1+ (5-14) /OIF Acanthocytes (Spur) 1+ (0-2) /OIF PT (10.0-13.1) SEC INR (0.9-1.1) APTT (24.1-38.0) SEC Sodium 131 L (135-145) mmol/L Potassium 5.6 H D (3.3-5.1) mmol/L Chloride 100 (96-108) mmol/L Carbon Dioxide 16 L (22-29) mmol/L Anion Gap 21 H (12-20) BUN 65 H D (9-16) mg/dL Creatinine 2.43 H (0.5-1.4) mg/dL Estim Creat Clear Calc 16.5 Estimated GFR 19 Random Glucose 136 H (60-115) mg/dL Lactic Acid 4.2 H* (0.5-2.0) mmol/L Lactic Acid F/U @ 2Hr (0.5-2.0) mmol/L Calcium 7.6 L D (8.4-10.2) mg/dL Magnesium 2.4 (1.6-2.6) mg/dL Total Bilirubin 4.9 H (0.0-1.0) mg/dL AST 50 H D (5-31) U/L ALT 23 (0-31) U/L Alkaline Phosphatase 71 D (39-117) U/L Troponin I High Sens (<3.5-17.0) ng/L B-Natriuretic Peptide (<100) pg/mL Total Protein 6.0 L (6.5-8.0) g/dL Albumin 2.9 L (3.5-5.0) g/dL Lipase 19 (8-78) U/L COVID-19 (VIN) (Negative) COVID-19 Clin Com Blood Type Antibody Screen Crossmatch 04/03/22 04/03/22 04/03/22 Range/Units 08:46 08:52 09:20 WBC (4.8-10.8) X10*3/uL RBC (4.20-5.50) X10*6/uL Hgb (12.0-16.0) g/dl Hct (37.0-47.0) % MCV (80.0-98.0) fL MCH (27.0-33.0) pg MCHC (31.0-35.0) g/dl RDW (11.0-16.0) % Plt Count (160-400) X10*3/uL MPV (9.4-12.3) fL Immature Gran % (Auto) Neut % (Auto) Lymph % (Auto) Canadian % (Auto) Eos % (Auto) Baso % (Auto) Lymph # (Auto) Canadian # (Auto) Eos # (Auto) Baso # (Auto) Abs Immat Gran (auto) Absolute Neuts (auto) Absolute Nucleated RBC (0.0-0.012) X10*3/uL Nucleated RBC % (auto) (0.0-0.2) /100WBC Neutrophils % (Manual) (45-73) % Band Neutrophils % (3-5) % Lymphocytes % (Manual) (20-40) % Monocytes % (Manual) (2-11) % Abs Neuts (Manual) (2.0-8.3) X10*3/uL Lymphocytes # (Manual) (1.2-4.9) X10*3/uL Monocytes # (Manual) (0.1-1.2) X10*3/uL Nucleated RBCs (0-0) /100WBC Platelet Estimate (NORMAL) Large Platelets Plt Morphology Comment RBC Morphology Polychromasia /OIF Hypochromasia /OIF Microcytosis /OIF Macrocytosis /OIF Target Cells /OIF Tear Drop Cells /OIF Ovalocytes /OIF Acanthocytes (Spur) /OIF PT 36.2 H (10.0-13.1) SEC INR 3.0 H (0.9-1.1) APTT 36.8 (24.1-38.0) SEC Sodium (135-145) mmol/L Potassium (3.3-5.1) mmol/L Chloride (96-108) mmol/L Carbon Dioxide (22-29) mmol/L Anion Gap (12-20) BUN (9-16) mg/dL Creatinine (0.5-1.4) mg/dL Estim Creat Clear Calc Estimated GFR Random Glucose (60-115) mg/dL Lactic Acid (0.5-2.0) mmol/L Lactic Acid F/U @ 2Hr (0.5-2.0) mmol/L Calcium (8.4-10.2) mg/dL Magnesium (1.6-2.6) mg/dL Total Bilirubin (0.0-1.0) mg/dL AST (5-31) U/L ALT (0-31) U/L Alkaline Phosphatase (39-117) U/L Troponin I High Sens 85.0 H* D (<3.5-17.0) ng/L B-Natriuretic Peptide (<100) pg/mL Total Protein (6.5-8.0) g/dL Albumin (3.5-5.0) g/dL Lipase (8-78) U/L COVID-19 (VIN) (Negative) COVID-19 Clin Com Blood Type A Positive Antibody Screen NEGATIVE Crossmatch See Detail 04/03/22 04/03/22 04/03/22 Range/Units 09:20 09:23 11:03 WBC (4.8-10.8) X10*3/uL RBC (4.20-5.50) X10*6/uL Hgb (12.0-16.0) g/dl Hct (37.0-47.0) % MCV (80.0-98.0) fL MCH (27.0-33.0) pg MCHC (31.0-35.0) g/dl RDW (11.0-16.0) % Plt Count (160-400) X10*3/uL MPV (9.4-12.3) fL Immature Gran % (Auto) Neut % (Auto) Lymph % (Auto) Canadian % (Auto) Eos % (Auto) Baso % (Auto) Lymph # (Auto) Canadian # (Auto) Eos # (Auto) Baso # (Auto) Abs Immat Gran (auto) Absolute Neuts (auto) Absolute Nucleated RBC (0.0-0.012) X10*3/uL Nucleated RBC % (auto) (0.0-0.2) /100WBC Neutrophils % (Manual) (45-73) % Band Neutrophils % (3-5) % Lymphocytes % (Manual) (20-40) % Monocytes % (Manual) (2-11) % Abs Neuts (Manual) (2.0-8.3) X10*3/uL Lymphocytes # (Manual) (1.2-4.9) X10*3/uL Monocytes # (Manual) (0.1-1.2) X10*3/uL Nucleated RBCs (0-0) /100WBC Platelet Estimate (NORMAL) Large Platelets Plt Morphology Comment RBC Morphology Polychromasia /OIF Hypochromasia /OIF Microcytosis /OIF Macrocytosis /OIF Target Cells /OIF Tear Drop Cells /OIF Ovalocytes /OIF Acanthocytes (Spur) /OIF PT (10.0-13.1) SEC INR (0.9-1.1) APTT (24.1-38.0) SEC Sodium (135-145) mmol/L Potassium (3.3-5.1) mmol/L Chloride (96-108) mmol/L Carbon Dioxide (22-29) mmol/L Anion Gap (12-20) BUN (9-16) mg/dL Creatinine (0.5-1.4) mg/dL Estim Creat Clear Calc Estimated GFR Random Glucose (60-115) mg/dL Lactic Acid (0.5-2.0) mmol/L Lactic Acid F/U @ 2Hr 2.4 H* (0.5-2.0) mmol/L Calcium (8.4-10.2) mg/dL Magnesium (1.6-2.6) mg/dL Total Bilirubin (0.0-1.0) mg/dL AST (5-31) U/L ALT (0-31) U/L Alkaline Phosphatase (39-117) U/L Troponin I High Sens (<3.5-17.0) ng/L B-Natriuretic Peptide 1127 H (<100) pg/mL Total Protein (6.5-8.0) g/dL Albumin (3.5-5.0) g/dL Lipase (8-78) U/L COVID-19 (VIN) Negative (Negative) COVID-19 Clin Com See Note Blood Type Antibody Screen Crossmatch <Charissa Carballo CNP - Last Filed: 04/03/22 13:55> Lab Results 04/03/22 04/03/22 04/03/22 Range/Units 08:41 08:41 08:46 WBC 8.8 (4.8-10.8) X10*3/uL RBC 1.88 L (4.20-5.50) X10*6/uL Hgb 7.3 L (12.0-16.0) g/dl Hct 21.9 L (37.0-47.0) % MCV 116.5 H (80.0-98.0) fL MCH 38.8 H (27.0-33.0) pg MCHC 33.3 (31.0-35.0) g/dl RDW 24.0 H (11.0-16.0) % Plt Count 69 L (160-400) X10*3/uL MPV 13.6 H (9.4-12.3) fL Immature Gran % (Auto) Cancelled Neut % (Auto) Cancelled Lymph % (Auto) Cancelled [place] % (Auto) Cancelled Eos % (Auto) Cancelled Baso % (Auto) Cancelled Lymph # (Auto) Cancelled [place] # (Auto) Cancelled Eos # (Auto) Cancelled Baso # (Auto) Cancelled Abs Immat Gran (auto) Cancelled Absolute Neuts (auto) Cancelled Absolute Nucleated RBC 0.500 H (0.0-0.012) X10*3/uL Nucleated RBC % (auto) 5.7 H (0.0-0.2) /100WBC Neutrophils % (Manual) 75 H (45-73) % Band Neutrophils % 2 L (3-5) % Lymphocytes % (Manual) 7 L (20-40) % Monocytes % (Manual) 16 H (2-11) % Abs Neuts (Manual) 6.8 (2.0-8.3) X10*3/uL Lymphocytes # (Manual) 0.6 L (1.2-4.9) X10*3/uL Monocytes # (Manual) 1.4 H (0.1-1.2) X10*3/uL Nucleated RBCs 9 H (0-0) /100WBC Platelet Estimate DECREASED (NORMAL) Large Platelets PRESENT Plt Morphology Comment NOTED RBC Morphology NOTED Polychromasia 2+ (3-5) /OIF Hypochromasia 1+ (5-14) /OIF Microcytosis 1+ (5-14) /OIF Macrocytosis 3+ (>30) /OIF Target Cells 1+ (5-14) /OIF Tear Drop Cells 1+ (0-2) /OIF Ovalocytes 1+ (5-14) /OIF Acanthocytes (Spur) 1+ (0-2) /OIF PT (10.0-13.1) SEC INR (0.9-1.1) APTT (24.1-38.0) SEC Sodium 131 L (135-145) mmol/L Potassium 5.6 H D (3.3-5.1) mmol/L Chloride 100 (96-108) mmol/L Carbon Dioxide 16 L (22-29) mmol/L Anion Gap 21 H (12-20) BUN 65 H D (9-16) mg/dL Creatinine 2.43 H (0.5-1.4) mg/dL Estim Creat Clear Calc 16.5 Estimated GFR 19 Random Glucose 136 H (60-115) mg/dL Lactic Acid 4.2 H* (0.5-2.0) mmol/L Lactic Acid F/U @ 2Hr (0.5-2.0) mmol/L Calcium 7.6 L D (8.4-10.2) mg/dL Magnesium 2.4 (1.6-2.6) mg/dL Total Bilirubin 4.9 H (0.0-1.0) mg/dL AST 50 H D (5-31) U/L ALT 23 (0-31) U/L Alkaline Phosphatase 71 D (39-117) U/L Troponin I High Sens (<3.5-17.0) ng/L B-Natriuretic Peptide (<100) pg/mL Total Protein 6.0 L (6.5-8.0) g/dL Albumin 2.9 L (3.5-5.0) g/dL Lipase 19 (8-78) U/L COVID-19 (VIN) (Negative) COVID-19 Clin Com Blood Type Antibody Screen Crossmatch 04/03/22 04/03/22 04/03/22 Range/Units 08:46 08:52 09:20 WBC (4.8-10.8) X10*3/uL RBC (4.20-5.50) X10*6/uL Hgb (12.0-16.0) g/dl Hct (37.0-47.0) % MCV (80.0-98.0) fL MCH (27.0-33.0) pg MCHC (31.0-35.0) g/dl RDW (11.0-16.0) % Plt Count (160-400) X10*3/uL MPV (9.4-12.3) fL Immature Gran % (Auto) Neut % (Auto) Lymph % (Auto) [place] % (Auto) Eos % (Auto) Baso % (Auto) Lymph # (Auto) [place] # (Auto) Eos # (Auto) Baso # (Auto) Abs Immat Gran (auto) Absolute Neuts (auto) Absolute Nucleated RBC (0.0-0.012) X10*3/uL Nucleated RBC % (auto) (0.0-0.2) /100WBC Neutrophils % (Manual) (45-73) % Band Neutrophils % (3-5) % Lymphocytes % (Manual) (20-40) % Monocytes % (Manual) (2-11) % Abs Neuts (Manual) (2.0-8.3) X10*3/uL Lymphocytes # (Manual) (1.2-4.9) X10*3/uL Monocytes # (Manual) (0.1-1.2) X10*3/uL Nucleated RBCs (0-0) /100WBC Platelet Estimate (NORMAL) Large Platelets Plt Morphology Comment RBC Morphology Polychromasia /OIF Hypochromasia /OIF Microcytosis /OIF Macrocytosis /OIF Target Cells /OIF Tear Drop Cells /OIF Ovalocytes /OIF Acanthocytes (Spur) /OIF PT 36.2 H (10.0-13.1) SEC INR 3.0 H (0.9-1.1) APTT 36.8 (24.1-38.0) SEC Sodium (135-145) mmol/L Potassium (3.3-5.1) mmol/L Chloride (96-108) mmol/L Carbon Dioxide (22-29) mmol/L Anion Gap (12-20) BUN (9-16) mg/dL Creatinine (0.5-1.4) mg/dL Estim Creat Clear Calc Estimated GFR Random Glucose (60-115) mg/dL Lactic Acid (0.5-2.0) mmol/L Lactic Acid F/U @ 2Hr (0.5-2.0) mmol/L Calcium (8.4-10.2) mg/dL Magnesium (1.6-2.6) mg/dL Total Bilirubin (0.0-1.0) mg/dL AST (5-31) U/L ALT (0-31) U/L Alkaline Phosphatase (39-117) U/L Troponin I High Sens 85.0 H* D (<3.5-17.0) ng/L B-Natriuretic Peptide (<100) pg/mL Total Protein (6.5-8.0) g/dL Albumin (3.5-5.0) g/dL Lipase (8-78) U/L COVID-19 (VIN) (Negative) COVID-19 Clin Com Blood Type A Positive Antibody Screen NEGATIVE Crossmatch See Detail 04/03/22 04/03/22 04/03/22 Range/Units 09:20 09:23 11:03 WBC (4.8-10.8) X10*3/uL RBC (4.20-5.50) X10*6/uL Hgb (12.0-16.0) g/dl Hct (37.0-47.0) % MCV (80.0-98.0) fL MCH (27.0-33.0) pg MCHC (31.0-35.0) g/dl RDW (11.0-16.0) % Plt Count (160-400) X10*3/uL MPV (9.4-12.3) fL Immature Gran % (Auto) Neut % (Auto) Lymph % (Auto) [place] % (Auto) Eos % (Auto) Baso % (Auto) Lymph # (Auto) [place] # (Auto) Eos # (Auto) Baso # (Auto) Abs Immat Gran (auto) Absolute Neuts (auto) Absolute Nucleated RBC (0.0-0.012) X10*3/uL Nucleated RBC % (auto) (0.0-0.2) /100WBC Neutrophils % (Manual) (45-73) % Band Neutrophils % (3-5) % Lymphocytes % (Manual) (20-40) % Monocytes % (Manual) (2-11) % Abs Neuts (Manual) (2.0-8.3) X10*3/uL Lymphocytes # (Manual) (1.2-4.9) X10*3/uL Monocytes # (Manual) (0.1-1.2) X10*3/uL Nucleated RBCs (0-0) /100WBC Platelet Estimate (NORMAL) Large Platelets Plt Morphology Comment RBC Morphology Polychromasia /OIF Hypochromasia /OIF Microcytosis /OIF Macrocytosis /OIF Target Cells /OIF Tear Drop Cells /OIF Ovalocytes /OIF Acanthocytes (Spur) /OIF PT (10.0-13.1) SEC INR (0.9-1.1) APTT (24.1-38.0) SEC Sodium (135-145) mmol/L Potassium (3.3-5.1) mmol/L Chloride (96-108) mmol/L Carbon Dioxide (22-29) mmol/L Anion Gap (12-20) BUN (9-16) mg/dL Creatinine (0.5-1.4) mg/dL Estim Creat Clear Calc Estimated GFR Random Glucose (60-115) mg/dL Lactic Acid (0.5-2.0) mmol/L Lactic Acid F/U @ 2Hr 2.4 H* (0.5-2.0) mmol/L Calcium (8.4-10.2) mg/dL Magnesium (1.6-2.6) mg/dL Total Bilirubin (0.0-1.0) mg/dL AST (5-31) U/L ALT (0-31) U/L Alkaline Phosphatase (39-117) U/L Troponin I High Sens (<3.5-17.0) ng/L B-Natriuretic Peptide 1127 H (<100) pg/mL Total Protein (6.5-8.0) g/dL Albumin (3.5-5.0) g/dL Lipase (8-78) U/L COVID-19 (VIN) Negative (Negative) COVID-19 Clin Com See Note Blood Type Antibody Screen Crossmatch <Franca Damon DO - Last Filed: 04/03/22 09:52> Imaging Data Chest x-ray: Radiologist's impression: FINDINGS: Right internal jugular central venous catheter terminates at the superior cavoatrial junction. Stably positioned single lead pacemaker. Cardiomegaly. Aorta is tortuous and atherosclerotic. Pulmonary vascularity within normal limits. No focal consolidation. Subsegmental atelectasis versus pleural parenchymal scarring, left lower lobe unchanged. XR/XR chest 1V IMPRESSION: No acute findings Cardiomegaly without evidence of decompensated heart failure ? <Charissa Carballo CNP - Last Filed: 04/03/22 13:55> CT scan - abdomen: Radiologist's impression: CT/CT abdomen pelvis wo con IMPRESSION: *? No evidence of hemoperitoneum. *? The mild skin thickening and edema of subcutaneous tissue of the lower abdominal wall is likely from recent trauma with bruising. There is no large fluid collection in the abdominal wall. The few small somewhat patchy opacities in the right lower abdominal wall could represent hematomas or perhaps lymph nodes. *? Subacute compression fracture of the L1 vertebral body. Otherwise, no new findings in the severely degenerated lumbar spine compared to 02/11/2022. *? Cholelithiasis without evidence of cholecystitis. *? Diverticulosis of sigmoid colon without diverticulitis. <Charissa Carballo CNP - Last Filed: 04/03/22 13:55> XR L foot: Radiologist's impression: XR/XR foot LT min 3V IMPRESSION: *? Nonspecific soft tissue swelling of the ankle and foot. *? There is osteoarthritis of several joints of the foot, including second and third tarsometatarsal joints. No evidence of an erosive/inflammatory arthropathy. <Charissa Carballo CNP - Last Filed: 04/03/22 13:55> ECG Data Attestation: I personally reviewed and interpreted this ECG as follows: <Charissa Carballo CNP - Last Filed: 04/03/22 13:55> Prior ECG tracings: available for review <Charissa Carballo CNP - Last Filed: 04/03/22 13:55> Interpretation: Rate: 65 Rhythm:? Ventricular paced??? ST T wave : No ST elevation, no ST depression, no T-wave inversion?? qTC: 492 prior studies:? March 2022 The study has been interpreted contemporaneously by me. <Charissa Carballo CNP - Last Filed: 04/03/22 13:55> Discharge Plan Discharge Clinical Impression: Aortic stenosis, severe, Anemia, Acute hyperkalemia, Acute kidney injury, Elevated troponin, Acute hypotension <Charissa Carballo CNP - Last Filed: 04/03/22 13:55> Patient Disposition: [facility] <Charissa Carballo CNP - Last Filed: 04/03/22 13:55> Transfer Details: [facility] <Charissa Carballo CNP - Last Filed: 04/03/22 13:55> [facility] <Franca Damon DO - Last Filed: 04/03/22 09:52> Prescriptions: No Action (DME) bra, mastectomy Crystals See Rx Instructions .Route Qty: 2 0RF Rx Instructions: As directed (DME) FreeStyle Lite Strips Strip MISCELLANEOUS Qty: 100 3RF Rx Instructions: As directed check the blood sugar once a day cyanocobalamin (vitamin B-12) 1,000 mcg capsule 1,000 mcg PO DAILY 90 Days Qty: 90 3RF torsemide 20 mg tablet 20 mg PO DAILY Qty: 30 5RF Rx Instructions: off lasix famotidine [Pepcid] 20 mg tablet 20 mg PO BID 2 Days Qty: 3 0RF Rx Instructions: Take one tablet the morning of Day Before cardiac cath. Take one tablet the evening of Day Before cardiac cath. Take one tablet the morning of the cardiac cath. cyclobenzaprine 5 mg tablet 5 mg PO TID PRN (Reason: muscle spasm) Qty: 30 0RF metoprolol succinate 25 mg tablet extended release 24 hr 25 mg PO BEDTIME cholecalciferol (vitamin D3) 25 mcg (1,000 unit) Tablet 25 mcg PO DAILY clonazepam 0.5 mg tablet 0.5 mg PO BEDTIME PRN (Reason: Sleep) fluticasone propionate 50 mcg/actuation spray,suspension 2 spray intranasal DAILY PRN (Reason: Allergy Symptoms) Rx Instructions: administer into each nostril lidocaine 5 % adhesive patch,medicated 1 patch topical DAILY PRN (Reason: Pain (Scale Score 1-3)) coenzyme Q10 [CoQ-10] 100 mg Capsule 100 mg PO DAILY capsaicin 0.1 % cream 1 appl topical BID PRN (Reason: Pain (Scale Score 1-3)) Rx Instructions: do not wash area for at least 30 min after application warfarin 5 mg tablet 5 mg PO MOTH@1800 Protocol: Dose Management Condition: Saturday Dose/Route: 2.5 mg Instruction: 0.5 x 5 mg tablets Condition: Saturday Dose/Route: 5 mg Instruction: 1 x 5 mg tablet Condition: Saturday Dose/Route: 2.5 mg Instruction: 0.5 x 5 mg tablets Condition: Saturday Dose/Route: 2.5 mg Instruction: 0.5 x 5 mg tablets Condition: Dose/Route: 5 mg Instruction: 1 x 5 mg tablet Condition: Saturday Dose/Route: 2.5 mg Instruction: 0.5 x 5 mg tablets Condition: Saturday Dose/Route: 2.5 mg Instruction: 0.5 x 5 mg tablets Protocol Text: Adjustment Start Date: 03/29/22 INR Value: 2.1 INR Date: 03/29/22 Recheck Date: 04/05/22 Additional Instructions: INR is in range continue same dosing balance greens and reds in diet warfarin 5 mg tablet 2.5 mg PO SOFIA@1800 Protocol: Dose Management Condition: Saturday Dose/Route: 2.5 mg Instruction: 0.5 x 5 mg tablets Condition: Saturday Dose/Route: 5 mg Instruction: 1 x 5 mg tablet Condition: Saturday Dose/Route: 2.5 mg Instruction: 0.5 x 5 mg tablets Condition: Saturday Dose/Route: 2.5 mg Instruction: 0.5 x 5 mg tablets Condition: Dose/Route: 5 mg Instruction: 1 x 5 mg tablet Condition: Saturday Dose/Route: 2.5 mg Instruction: 0.5 x 5 mg tablets Condition: Saturday Dose/Route: 2.5 mg Instruction: 0.5 x 5 mg tablets Protocol Text: Adjustment Start Date: 03/29/22 INR Value: 2.1 INR Date: 03/29/22 Recheck Date: 04/05/22 Additional Instructions: INR is in range continue same dosing balance greens and reds in diet losartan 50 mg tablet 25 mg PO BID (DME) compress.stocking,knee,reg,lrg Misc See Rx Instructions .Route Qty: 2 0RF Rx Instructions: As directed 20-30 mm HG (DME) blood-glucose meter [FreeStyle Lite Meter] Kit See Rx Instructions .ROUTE .MEDSUPPLY Qty: 1 0RF Rx Instructions: As directed diphenhydramine HCl [Wal-Dryl Allergy] 25 mg capsule 0 mg PO <Charissa Carballo CNP - Last Filed: 04/03/22 13:55> Interventions: Acute Care Transfer Worksheet (ED) Last Done: 04/03/22 13:02 <Charissa Carballo CNP - Last Filed: 04/03/22 13:55> Discharge Date/Time: 04/03/22 13:03 <Charissa Carballo CNP - Last Filed: 04/03/22 13:55>
[2022-04-03 08:55] LABS: Hematocrit 21.9 % (37.0-47.0); Hemoglobin 7.3 g/dl (12.0-16.0); Mean Corpuscular HGB Conc 33.3 g/dl (31.0-35.0); Mean Corpuscular Hemoglobin 38.8 pg (27.0-33.0); Mean Platelet Volume 13.6 fL (9.4-12.3); Red Blood Count 1.88 X10*6/uL (4.20-5.50); White Blood Count 8.8 X10*3/uL (4.8-10.8)
[2022-04-03 08:56] LABS: Mean Corpuscular Volume 116.5 fL (80.0-98.0); NRBC Pct Auto 5.7 /100WBC (0.0-0.2); Platelet Count 69 X10*3/uL (160-400)
[2022-04-03 09:09] LABS: Prothrombin Time 36.2 SEC (10.0-13.1)
[2022-04-03 09:12] LABS: Partial Thromboplastin Time 36.8 SEC (24.1-38.0)
[2022-04-03] MEDS: 0.9 % Sodium Chloride 1,000 ML 999 ML IV (09:14)
[2022-04-03 09:16] LABS: Band Neutrophils Percent 2 % (3-5); Lymphocytes Absolute Manual 0.6 X10*3/uL (1.2-4.9); Lymphocytes Percent Manual 7 % (20-40); Monocytes Absolute Manual 1.4 X10*3/uL (0.1-1.2); Monocytes Percent Manual 16 % (2-11); Neutrophils Absolute Manual 6.8 X10*3/uL (2.0-8.3); Neutrophils Percent Manual 75 % (45-73); Nucleated Red Blood Cells 9 /100WBC (0-0)
[2022-04-03 09:19] LABS: Alanine Aminotransferase 23 U/L (0-31); Albumin Level 2.9 g/dL (3.5-5.0); Alkaline Phosphatase 71 U/L (39-117); Anion Gap 21 (12-20); Aspartate Amino Transferase 50 U/L (5-31); Bilirubin Total 4.9 mg/dL (0.0-1.0); Blood Urea Nitrogen 65 mg/dL (9-16); Calcium 7.6 mg/dL (8.4-10.2); Carbon Dioxide 16 mmol/L (22-29); Chloride 100 mmol/L (96-108); Creatinine Clr Calc Pharmacy 16.5; Estimated Glomerular Filt Rate 19; Glucose Random 136 mg/dL (60-115); Lipase 19 U/L (8-78); Magnesium 2.4 mg/dL (1.6-2.6); Potassium 5.6 mmol/L (3.3-5.1); Sodium 131 mmol/L (135-145)
[2022-04-03 09:20] LABS: Acanthocytes 1+ (0-2) /OIF; Large Platelet PRESENT; Macrocytosis 3+ (>30) /OIF; Microcytosis 1+ (5-14) /OIF; Ovalocytes 1+ (5-14) /OIF; Platelet Estimate DECREASED (NORMAL); Platelet Morphology Comment NOTED; RBC Morphology NOTED; Target Cells 1+ (5-14) /OIF; Tear Drop Cells 1+ (0-2) /OIF
[2022-04-03 09:21] LABS: Lactic Acid 4.2 mmol/L (0.5-2.0)
[2022-04-03 09:21] LABS: Hypochromasia 1+ (5-14) /OIF; Polychromasia 2+ (3-5) /OIF
[2022-04-03 09:53] LABS: B Type Natriuretic Peptide 1127 pg/mL (<100)
[2022-04-03 09:54] LABS: COVID-19 Test Negative (Negative); IDNOW Serial# 16C4AD1C
--- NOTE | 2022-04-03 10:29 | PM.CNCAR ---
History of Present Illness History of Present Illness Date of Service: 04/03/22 Requesting physician: Franca Damon Chief complaint: LOW BACK PAIN, hypotension Narrative: 81-year-old female with background history of aortic valve replacement and 2 vessel bypass surgery who is presenting with hypertension. She has known history of severe bioprosthetic aortic valve stenosis. She was admitted recently for congestive heart failure and was diuresed. During the same admission she had jaundice and upper back pain which was thought to be related to gallstones. Her symptoms improved and she again got admitted with similar pain and was seen by surgery but due to ongoing cardiovascular issues she was felt to be too high risk to have any procedures performed. She had cardiac catheterization performed recently from right femoral approach. This was complicated by groin hematoma for which she was observed overnight. She was anemic to start with an a hemoglobin drop slightly. She was offered a blood transfusion but she was not agreeable for that and was discharged home. She is now presenting because she had upper back pain again. This was severe and she was brought in for this symptom. She was noted to be significantly hypotensive in the ER. She was given 1 L of IV fluids and after her labs came back she was given 1 unit of blood in addition to that. She continued to be hypotensive and we were called in. Patient was assessed at the side. She was seeing her back pain is better. She was denying any chest discomfort. She said her breathing is okay currently. She looked very pale and sick. After examination patient was started on Levophed in the emergency department. [facility] Past Medical History Medical History Acute cholecystitis Anemia Anxiety Ascending aorta dilatation Atrial fibrillation Back pain Chest discomfort Cholelithiases Cholelithiasis Chronic atrial fibrillation Complete heart block Congestive heart failure Congestive heart failure Elevated bilirubin Gallstones Gastric ulcer History of breast cancer Hypercholesterolemia Hypertension Morbid obesity Osteoarthritis of knee Pancytopenia Prosthetic aortic valve stenosis Prosthetic valve dysfunction Stenosis of prosthetic aortic valve Type 2 diabetes mellitus with hyperglycemia Vitamin B 12 deficiency Vitamin D deficiency Family History Family History Father CVD (cardiovascular disease) Mother Stroke Surgical History Surgical History History of bilateral mastectomy History of pacemaker History of surgery on left wrist History of tonsillectomy Social History Social History Household Members: Children Housing: House Are you a primary healthcare analyst to a significant other at home: No Do you presently have visiting nurse or other home services: No Alcohol intake: never Patient Tobacco Use Status: Never used Tobacco e-Cigarette/Vaping Use: Never Used Second Hand Smoke Exposure: Yes Advance Directives: Yes Advance Directives on File: Yes Advance Directives Date on File: 03/21/22 service: No Current occupational status: retired Cognitive needs: Yes Hearing needs: Yes Vision needs: Yes Meds Allergies Allergy/AdvReac Type Severity Reaction Status Date / Time ezetimibe [Zetia] Allergy Intermediate Unknown Verified 03/29/22 13:18 lisinopril Allergy Mild Unknown Verified 03/29/22 13:18 meperidine [From Demerol] Allergy Mild UNKNOWN Verified 03/29/22 13:18 nitrofurantoin Allergy Mild UNKNOWN Verified 03/29/22 13:18 [From Macrodantin] Penicillins Allergy Mild UNKNOWN Verified 03/29/22 13:18 Sulfa (Sulfonamide Allergy Mild UNKNOWN Verified 03/29/22 13:18 Antibiotics) [place] Syrup Allergy Unknown Unknown Verified 03/29/22 13:18 Iodinated Contrast Media Allergy Unknown ?RASH Verified 03/29/22 13:18 [IV CONTRAST] statin Allergy Unknown unknown Verified 03/29/22 13:18 acetaminophen [From PERCOCET] AdvReac Intermediate SEEING Verified 03/29/22 13:18 THINGS AFTER PERCOCET THAT WERE NOT THERE Active Medications: Current Medications Norepinephrine Bitartrate (Levophed) 8 mg in 250 mls @ 0 mls/hr IVCONT .Q0M HOLDEN; Protocol Last Titration: 04/03/22 10:24 Dose: 0.1 mcg/kg/min, 15.22 mls/hr Home Medications Medication Instructions Recorded Confirmed Last Taken Type cholecalciferol (vitamin D3) 25 25 mcg PO DAILY 02/05/22 03/27/22 03/20/22 History mcg (1,000 unit) tablet clonazepam 0.5 mg tablet 0.5 mg PO BEDTIME PRN Sleep 02/05/22 03/27/22 03/20/22 History fluticasone propionate 50 2 spray intranasal DAILY PRN 02/05/22 03/27/22 03/20/22 History mcg/actuation nasal Allergy Symptoms spray,suspension metoprolol succinate 25 mg 25 mg PO BEDTIME 03/15/22 03/27/22 03/20/22 History tablet,extended release 24 hr diphenhydramine HCl 25 mg capsule 0 mg PO 03/20/22 03/27/22 Unknown History (Wal-Dryl Allergy) capsaicin 0.1 % topical cream 1 appl topical BID PRN Pain (Scale 03/21/22 03/27/22 03/20/22 History Score 1-3) coenzyme Q10 100 mg capsule 100 mg PO DAILY 03/21/22 03/27/22 03/20/22 History (CoQ-10) lidocaine 5 % topical patch 1 patch topical DAILY PRN Pain 03/21/22 03/27/22 03/20/22 History (Scale Score 1-3) losartan 50 mg tablet 25 mg PO BID 03/21/22 03/27/22 Unknown History warfarin 5 mg tablet 2.5 mg PO SUTUWEFRSA@1800 03/21/22 03/29/22 Unknown History warfarin 5 mg tablet 5 mg PO MOTH@1800 03/21/22 03/29/22 Unknown History Physical Exam Vital Signs: Vital Signs: Last Vital Signs Temp 97.9 F 04/03/22 10:23 Pulse 65 04/03/22 10:24 Resp 21 H 04/03/22 10:23 BP 73/33 L 04/03/22 10:24 Pulse Ox 98 04/03/22 07:47 O2 Del Method 04/03/22 07:47 BMI result Body Mass Index 34.9 GENERAL APPEARANCE: Pale, sick appearing. NECK: no carotid bruit, positive JVD to the angle of jaw. SKIN: no suspicious lesions, warm and dry. HEART: Ejection systolic murmur aortic area with no 2nd heart sound, regular rate and rhythm. LUNGS: clear to auscultation bilaterally. ABDOMEN: soft, nontender. EXTREMITIES: no edema. Right femoral site bruising with very small hematoma. NEUROLOGIC: No gross deficits, AAO X 3 Objective Labs and Meds Result diagrams: 04/03/22 08:41 04/03/22 08:41 Lab results: Laboratory Results - last 24 hr 07/04/03/22 04/03/22 08:41 08:41 08:46 WBC 8.8 RBC 1.88 L Hgb 7.3 L Hct 21.9 L MCV 116.5 H MCH 38.8 H MCHC 33.3 RDW 24.0 H Plt Count 69 L MPV 13.6 H Immature Gran % (Auto) Cancelled Neut % (Auto) Cancelled Lymph % (Auto) Cancelled [place] % (Auto) Cancelled Eos % (Auto) Cancelled Baso % (Auto) Cancelled Lymph # (Auto) Cancelled [place] # (Auto) Cancelled Eos # (Auto) Cancelled Baso # (Auto) Cancelled Abs Immat Gran (auto) Cancelled Absolute Neuts (auto) Cancelled Absolute Nucleated RBC 0.500 H Nucleated RBC % (auto) 5.7 H Neutrophils % (Manual) 75 H Band Neutrophils % 2 L Lymphocytes % (Manual) 7 L Monocytes % (Manual) 16 H Abs Neuts (Manual) 6.8 Lymphocytes # (Manual) 0.6 L Monocytes # (Manual) 1.4 H Nucleated RBCs 9 H Platelet Estimate DECREASED Large Platelets PRESENT Plt Morphology Comment NOTED RBC Morphology NOTED Polychromasia 2+ (3-5) Hypochromasia 1+ (5-14) Microcytosis 1+ (5-14) Macrocytosis 3+ (>30) Target Cells 1+ (5-14) Tear Drop Cells 1+ (0-2) Ovalocytes 1+ (5-14) Acanthocytes (Spur) 1+ (0-2) PT INR APTT Sodium 131 L Potassium 5.6 H D Chloride 100 Carbon Dioxide 16 L Anion Gap 21 H BUN 65 H D Creatinine 2.43 H Estim Creat Clear Calc 16.5 Estimated GFR 19 Random Glucose 136 H Lactic Acid 4.2 H* Calcium 7.6 L D Magnesium 2.4 Total Bilirubin 4.9 H AST 50 H D ALT 23 Alkaline Phosphatase 71 D Troponin I High Sens B-Natriuretic Peptide Total Protein 6.0 L Albumin 2.9 L Lipase 19 COVID-19 (VIN) COVID-19 Clin Com Blood Type Antibody Screen Crossmatch 04/03/22 04/03/22 04/03/22 08:46 08:52 09:20 WBC RBC Hgb Hct MCV MCH MCHC RDW Plt Count MPV Immature Gran % (Auto) Neut % (Auto) Lymph % (Auto) [place] % (Auto) Eos % (Auto) Baso % (Auto) Lymph # (Auto) [place] # (Auto) Eos # (Auto) Baso # (Auto) Abs Immat Gran (auto) Absolute Neuts (auto) Absolute Nucleated RBC Nucleated RBC % (auto) Neutrophils % (Manual) Band Neutrophils % Lymphocytes % (Manual) Monocytes % (Manual) Abs Neuts (Manual) Lymphocytes # (Manual) Monocytes # (Manual) Nucleated RBCs Platelet Estimate Large Platelets Plt Morphology Comment RBC Morphology Polychromasia Hypochromasia Microcytosis Macrocytosis Target Cells Tear Drop Cells Ovalocytes Acanthocytes (Spur) PT 36.2 H INR 3.0 H APTT 36.8 Sodium Potassium Chloride Carbon Dioxide Anion Gap BUN Creatinine Estim Creat Clear Calc Estimated GFR Random Glucose Lactic Acid Calcium Magnesium Total Bilirubin AST ALT Alkaline Phosphatase Troponin I High Sens 85.0 H* D B-Natriuretic Peptide Total Protein Albumin Lipase COVID-19 (VIN) COVID-19 Clin Com Blood Type A Positive Antibody Screen NEGATIVE Crossmatch See Detail 04/03/22 04/03/22 09:20 09:23 WBC RBC Hgb Hct MCV MCH MCHC RDW Plt Count MPV Immature Gran % (Auto) Neut % (Auto) Lymph % (Auto) [place] % (Auto) Eos % (Auto) Baso % (Auto) Lymph # (Auto) [place] # (Auto) Eos # (Auto) Baso # (Auto) Abs Immat Gran (auto) Absolute Neuts (auto) Absolute Nucleated RBC Nucleated RBC % (auto) Neutrophils % (Manual) Band Neutrophils % Lymphocytes % (Manual) Monocytes % (Manual) Abs Neuts (Manual) Lymphocytes # (Manual) Monocytes # (Manual) Nucleated RBCs Platelet Estimate Large Platelets Plt Morphology Comment RBC Morphology Polychromasia Hypochromasia Microcytosis Macrocytosis Target Cells Tear Drop Cells Ovalocytes Acanthocytes (Spur) PT INR APTT Sodium Potassium Chloride Carbon Dioxide Anion Gap BUN Creatinine Estim Creat Clear Calc Estimated GFR Random Glucose Lactic Acid Calcium Magnesium Total Bilirubin AST ALT Alkaline Phosphatase Troponin I High Sens B-Natriuretic Peptide 1127 H Total Protein Albumin Lipase COVID-19 (VIN) Negative COVID-19 Clin Com See Note Blood Type Antibody Screen Crossmatch Assessment and Plan (1) Aortic stenosis, severe: Status: Acute (2) Acute hypotension: Status: Acute Plan Pleasant 81-year-old female with complex cardiovascular issues presented for upper right-sided back pain and hypotension. She has known severe by prostatic aortic valve stenosis. She was fluid resuscitated and was started on Levophed in the emergency department with reasonable response in blood pressure. Difficult to say what is the exact cause of her hypotension currently. She has severe aortic stenosis which can be 1 potential reason but also has been developing jaundice on background of gallstones which could be another possibility that she has cholangitis. In any case blood cultures were sent and she will be empirically covered with antibiotics for now. I have discussed the case with heart team at [facility]. We will transfer the patient to the cardiac care unit for further management. Currently she is not in any shape to be consider for any transcatheter aortic valve replacement. I have discussed the case with Dr. Vegas and BAV is not a possibility here. Detailed discussion was done with the patient and her son Brown. Currently after discussion we have decided to transfer the patient for further assessment. Thank you for allowing me to participate in the care of your patient. Please feel free to contact me if you have any questions. Procedures Date of Service Date of Service: 04/03/22
[2022-04-03] MEDS: levoFLOXacin/D5W 750 MG/150 ML PIGGYBACK 100 MG IV (10:41)
[2022-04-03 10:49] LABS: Reflex Lactate? Lactic Acid Added
--- NOTE | 2022-04-03 10:54 | PC.NURSE ---
PT SON OVER TO NURSES STATION TO ALERT OF LOWERING BP. NOREPI TITRATED UPWARDS.
[2022-04-03] MEDS: Acetaminophen 325 MG TABLET 975 MG PO (10:58)
[2022-04-03 11:39] LABS: ~Lactic Acid-LAB USE ONLY 2.4 mmol/L (0.5-2.0)
[2022-04-03 13:05] LABS: Reflex Lactate? 2 Y
== END 2022-04-03 13:03 | disposition short-term general hospital (02) ==
PROVIDERS: Nurse Practitioner Family; Emergency Provider Emergency Medicine; PCP Internal Medicine
DX: I35.0 Nonrheumatic aortic (valve) stenosis (principal); I95.9 Hypotension, unspecified; R78.81 Bacteremia; D53.9 Nutritional anemia, unspecified; E87.5 Hyperkalemia; N17.9 Acute kidney failure, unspecified; R77.8 Other specified abnormalities of plasma proteins; M54.50 Low back pain, unspecified; R10.11 Right upper quadrant pain; K80.20 Calculus of gallbladder without cholecystitis without obstruction; K57.30 Diverticulosis of large intestine without perforation or abscess without bleeding; S32.010D Wedge compression fracture of first lumbar vertebra, subsequent encounter for fracture with routine healing; X58.XXXD Exposure to other specified factors, subsequent encounter; R60.0 Localized edema; R74.02 Elevation of levels of lactic acid dehydrogenase [LDH]; Z20.822 Contact with and (suspected) exposure to COVID-19; R53.83 Other fatigue; R53.1 Weakness; I11.0 Hypertensive heart disease with heart failure; I50.9 Heart failure, unspecified; E78.5 Hyperlipidemia, unspecified; I48.20 Chronic atrial fibrillation, unspecified; E66.01 Morbid (severe) obesity due to excess calories; Z68.34 Body mass index [BMI] 34.0-34.9, adult; Z95.2 Presence of prosthetic heart valve; Z95.0 Presence of cardiac pacemaker; Z85.3 Personal history of malignant neoplasm of breast; Z90.13 Acquired absence of bilateral breasts and nipples; Z79.01 Long term (current) use of anticoagulants; Z79.899 Other long term (current) drug therapy
CPT/HCPCS: 36415; 36430; 36556; 71045; 73630; 74176; 80053; 83605; 83690; 83735; 83880; 84484; 85007; 85027; 85610; 85730; 86850; 86900; 86901; 86920; 87040; 87077; 87186; 87205; 87635; 93005; 96361; 96365; 96366; 96375; 99285; J1956; P9016